=== PATIENT | female | born 1940 | race Caucasian/White ===

== ENCOUNTER 2020-07-01 00:08 | Inpatient (IN) | payer MEDICARE, OTHER ==
[~2020-07-01] VITALS: Ht 170.6 cm; Wt 85.4 kg
[2020-07-01] MEDS ORDERED: diphenhydrAMINE 25 MG TAB (BENADRYL) PO PRN (23:00)
[2020-07-01] MEDS ORDERED: ACETAMINOPHEN 325 MG TABLET PO PRN (23:00)
[2020-07-01] MEDS ORDERED: ONDANSETRON 4 MG/2 ML (SDV) Z0FRAN IVP PRN (23:00)
--- NOTE | 2020-07-01 23:45 | NUR ---
KIAH DE admitted to room CU9-1, with an admitting diagnosis of HEART BLOCK , on 07/01/20 from [facility] via EMS, accompanied by EMS STAFF. KIAH DE introduced to surroundings, call light, bed controls, phone, TV, temperature control, lights, meal times, smoking policy, visitor policy, side rail policy, bathrooms and showers. Patient Rights given to patient in the handbook.KIAH DE verbalizes understanding that [facility] is not responsible for the loss or damage to any personal effects or valuables that are kept in the patients posession during their hospitalization. KIAH DE verbalizes understanding of Interdisciplinary Patient Education. Patient and/or family were informed about the Rapid Response Team and its purpose.
[2020-07-02] VITALS (30 sets, daily range): BP systolic 96–121; BP diastolic 41–81
[2020-07-02 04:10] LABS: POTASSIUM 3.7 MMOL/L (3.6-5.0)
[2020-07-02 04:16] LABS: CREATININE SERUM 1.25 MG/DL (0.60-1.30)
[2020-07-02 04:18] LABS: MAGNESIUM 1.3 MG/DL (1.6-2.4)
[2020-07-02] MEDS: KCL 20 MEQ TAB (K-DUR) PO SCH (04:38)
[2020-07-02] MEDS: MAGNESIUM 1 GM/100 ML IVPB 100 ML IV SCH ×5 (04:38→10:07)
[2020-07-02] MEDS: POTASSIUM CL 10MEQ/50ML IVPB 50 ML IV SCH (04:38)
--- NOTE | 2020-07-02 05:18 | Pulmonary Consultation ---
PAXTON SADLER MED STUDENT 07/02/20 0518: History of Present Illness History of Present Illness Date Seen by Provider: Jul 02, 2020 Time Seen by Provider: 05:00 Date of Admission History of Present Illness Aby Vega is a 79 year old female seen today after being transferred from [facility]. She reports being seen in the ED there due to CP and recent history of pre-syncope, and was transferred with a diagnosis of heart block. Nursing reports [facility] diagnosed 2nd degree heart block on EKG, while EKGs taken here show 1st degree. When seen this morning the patient describes having light-headedness, pre-syncope for several weeks, for which she has seen [place] PCP [place] who diagnosed her with orthostatic hypotension and reduced her BP medications, which she reports has reduced the frequency and intensity of her pre-syncopal events. She went to the ED yesterday due to new CP that is worse with exertion which began yesterday at around 11 am but worsened in intensity at 4 pm. She describes the pain as being located around her sternum, no radiation, and describes the pain as if her muscles are expanding her ribs. The pain is not reproduced by palpation or moving her arms. She also reports being on a keto diet for the past several months, losing 60 pounds. No SOB, cough, palpitations, n/v. Allergies and Home Medications Allergies Coded Allergies: atorvastatin (Verified Allergy, Intermediate, 07/02/20) ciprofloxacin (Verified Allergy, Intermediate, 07/02/20) pregabalin (Verified Allergy, Intermediate, 07/02/20) Uncoded Allergies: IV Contrast (Adverse Reaction, Unknown, 07/02/20) Past Aydorir-Nxwmoh-Jxmzun Hx Patient Social History Alcohol Use: Denies Use Recreational Drug Use: No Smoking Status: Never a Smoker Recent Foreign Travel: No Recent Hopitalizations: No Seasonal Allergies Seasonal Allergies: Yes Past Medical History Surgeries: Yes (RIGHT KIDNEY REMOVAL) Pneumonia, Sleep Apnea Cardiac: Yes (HEART VIRUS) Neurological: No Genitourinary: Yes (RIGHT KIDNEY CANCER AND REMOVAL) UTI-Chronic Gastrointestinal: Yes Chronic Constipation Musculoskeletal: Yes Arthritis Endocrine: Yes Are Your Blood Sugars Over 250: No HEENT: Yes Cataract Loss of Vision: Bilateral Cancer: Yes Breast, Kidney What Type of Treatment Did You: Surgical Intervention Anxiety, Depression Integumentary: Yes (STATES SHE HAS YEAST INFECTION ON FACE) Recent Skin Changes Blood Disorders: No Adverse Reaction/Blood Tranf: No Family Medical History Cardiovascular disease 19 FATHER Completed stroke 19 FATHER 19 MOTHER Diabetes mellitus 19 MOTHER Review of Systems Constitutional: No: Fever, Chills ENT: Nose discharge (attributres to postnasal drip), Throat pain (attributes to post nasal drip); No: Nose congestion Respiratory: No: Cough, Shortness of breath Cardiovascular: Chest Pain, Lt Headedness; No: Palpitations, Edema Gastrointestinal: Constipation; No: Nausea, Vomiting, Abdominal Pain, Diarrhea Musculoskeletal: shoulder pain (attributes to arthritis), arm pain (attributes to arthritis), leg pain (attributes to arthritis) Neurological: No: Weakness, Numbness Sepsis Event Evaluation Height, Weight, BMI Height: '" Weight: lbs. oz. kg; 29.17 BMI Method: Exam Exam Vital Signs Date Time Temp Pulse Resp B/P (MAP) Pulse Ox O2 Delivery O2 Flow Rate FiO2 07/02/20 04:00 42 121/58 (79) 98 Nasal Cannula 2.00 07/02/20 03:00 40 39 115/56 (75) 97 Nasal Cannula 2.00 07/02/20 02:00 45 28 111/62 (78) 98 Nasal Cannula 2.00 07/02/20 01:30 41 28 115/43 (67) 98 Nasal Cannula 2.00 07/02/20 01:00 54 28 107/70 (82) 97 Nasal Cannula 2.00 07/02/20 00:45 50 27 116/81 (93) 97 Nasal Cannula 2.00 07/02/20 00:30 58 18 115/74 (88) 98 Nasal Cannula 2.00 07/02/20 00:15 36.8 57 31 96/67 (77) 98 Nasal Cannula 2.00 07/02/20 00:14 74 07/01/20 23:45 Nasal Cannula 2.00 Height & Weight Height: '" Weight: lbs. oz. kg; 29.17 BMI Method: General Appearance: No Apparent Distress, WD/WN HEENT: PERRL/EOMI; No Scleral Icterus (L), No Scleral Icterus (R) Neck: Normal Inspection, Non Tender, Supple Respiratory: Chest Non Tender, Lungs Clear, Normal Breath Sounds, No Accessory Muscle Use, No Respiratory Distress Cardiovascular: No Edema, No JVD, No Murmur, Normal Peripheral Pulses, Bradycardia Capillary Refill: Less Than 3 Seconds Peripheral Pulses: 2+ Dorsalis Pedis (R), 2+ Left Dors-Pedis (L), 2+ Radial Pulses (R), 2+ Radial Pulses (L) Extremity: Normal Capillary Refill, Normal Inspection, Non Tender, No Calf Tenderness, No Pedal Edema Neurologic/Psychiatric: Alert, Oriented x3, Normal Mood/Affect Skin: Normal Color, Warm/Dry Results Lab Laboratory Tests 07/02/20 03:50 Assessment/Plan Assessment/Plan CP, Hx of FL - EKG reported positive for heart block, verify negative for ST elevation - verify troponins Bradycardia - IVF Hyponatremia - IVF Hypomagnesemia - on Mag sulfate Hypothyroid - check TSH, Free T3, T4 ERINN DICKERSON DO 07/02/20 0549: History of Present Illness History of Present Illness Time Seen by Provider: 05:44 Allergies and Home Medications Allergies Coded Allergies: atorvastatin (Verified Allergy, Intermediate, 07/02/20) ciprofloxacin (Verified Allergy, Intermediate, 07/02/20) pregabalin (Verified Allergy, Intermediate, 07/02/20) Uncoded Allergies: IV Contrast (Adverse Reaction, Unknown, 07/02/20) Past Cevpmgr-Rzdost-Owpdwv Hx Family Medical History Cardiovascular disease 19 FATHER Completed stroke 19 FATHER 19 MOTHER Diabetes mellitus 19 MOTHER Review of Systems Time Seen by Provider: 05:44 Exam Exam General Appearance: No Apparent Distress, WD/WN HEENT: PERRL/EOMI Neck: Normal Inspection, Non Tender, Supple Respiratory: Chest Non Tender, Lungs Clear, Normal Breath Sounds, No Accessory Muscle Use, No Respiratory Distress Cardiovascular: No Edema, No JVD, No Murmur, Bradycardia Capillary Refill: Less Than 3 Seconds Extremity: Normal Capillary Refill, Normal Inspection, Non Tender, No Calf Tenderness, No Pedal Edema Neurologic/Psychiatric: Alert, Oriented x3 Skin: Normal Color, Warm/Dry Assessment/Plan Assessment/Plan CP with heart block r/o [place] -Cardiology following -EKG done and sent to Dr. Osorio -Troponin pending Hyponatremia -Start NS at 100cc/hr -Check BNP -Check CMP -Check urine Na Leukocytosis -Arvizu cultures -Start Rocephin -Check UA Metabolic acidosis -Start IVF -Check LA Hypomag -replace -Check Phos Hypothyroid -Restart home synthroid -Pt is unsure of home dose. -Check TSH Supervisory-Addendum Brief Verification & Attestation Participated in pt care: history, MDM, physical Personally performed: exam, history, MDM Care discussed with: Medical Student Procedures: n/a Verification and Attestation of Medical Student E/M Service A medical student performed and documented this service in my presence. I reviewed and verified all information documented by the medical student and made modifications to such information, when appropriate. I personally performed the physical exam and medical decision making. Erinn Almendarez, Jul 02, 2020,06:03 PAXTON SADLER MED STUDENT Jul 02, 2020 05:18 ERINN ALMENDAREZ DO Jul 02, 2020 05:49
[2020-07-02 05:30] LABS: BASOPHILS % (AUTO) 0 % (0-10); EOSINOPHILS % (AUTO) 0 % (0-10); HEMATOCRIT 34 % (35-52); HEMOGLOBIN 11.8 G/DL (11.5-16.0); LYMPHOCYTES # (AUTO) 1.3 X 10^3 (1.0-4.0); LYMPHOCYTES % (AUTO) 6 % (12-44); MEAN CORPUSCULAR HEMOGLOBIN 29 PG (25-34); MEAN CORPUSCULAR HGB CONC 35 G/DL (32-36); MEAN CORPUSCULAR VOLUME 85 FL (80-99); MEAN PLATELET VOLUME 13.3 FL (7.4-10.4); MONOCYTES # (AUTO) 2.1 X 10^3 (0.0-1.0); MONOCYTES % (AUTO) 10 % (0-12); NEUTROPHILS # (AUTO) 17.2 X 10^3 (1.8-7.8); NEUTROPHILS % (AUTO) 84 % (42-75); PLATELET COUNT 187 10^3/uL (130-400); WHITE BLOOD COUNT 20.6 10^3/uL (4.3-11.0)
--- NOTE | 2020-07-02 05:30 | NUR ---
DR. KUMAR NOTIFIED OF PATIENT'S C/O CHEST PAIN AND CURRENT EKG. RECEIVED ORDER FOR NITRO, ASPIRIN, AND TROPONIN.
[2020-07-02] MEDS: NITROGLYCERIN 0.4 MG SL TABS BTL 25'S SL PRN ×2 (05:37→05:43)
[2020-07-02] MEDS ORDERED: ASPIRIN 325 MG (5 GR) TABLET ONE (05:37)
[2020-07-02] MEDS ORDERED: NITROGLYCERIN 0.4 MG SL TABS BTL 25'S SL ONE (05:43)
[2020-07-02] MEDS ORDERED: ASPIRIN 325 MG (5 GR) TABLET PO ONE (05:45)
[2020-07-02] MEDS ORDERED: NS IV 1000 ML 1,000 ML ONE (05:54)
[2020-07-02 05:58] LABS: BAND NEUTROPHILS 3 %; LYMPHOCYTES % (MANUAL) 10 %; MONOCYTES % (MANUAL) 4 %; NEUTROPHILS % (MANUAL) 83 %; RBC MORPH NORMAL
[2020-07-02] MEDS ORDERED: NS IV 1000 ML 1,000 ML IV SCH ×3 (06:00→07:15)
[2020-07-02] MEDS: cefTRIAXone FOR IV USE 1,000 MG in WATER (STERILE) FOR INJECTION 10 ML IV SCH (06:05)
[2020-07-02 06:47] LABS: ALBUMIN 3.2 GM/DL (3.2-4.5)
[2020-07-02 06:48] LABS: CHLORIDE 93 MMOL/L (98-107); POTASSIUM 3.6 MMOL/L (3.6-5.0)
[2020-07-02 06:49] LABS: CALCIUM 8.3 MG/DL (8.5-10.1)
[2020-07-02 06:50] LABS: GLUCOSE 282 MG/DL (70-105); TOTAL PROTEIN 6.1 GM/DL (6.4-8.2)
[2020-07-02 06:51] LABS: CARBON DIOXIDE 19 MMOL/L (21-32); SODIUM 125 MMOL/L (135-145)
[2020-07-02 06:52] LABS: BILIRUBIN,TOTAL 0.7 MG/DL (0.1-1.0)
[2020-07-02 06:53] LABS: ALKALINE PHOSPHATASE 87 U/L (40-136)
[2020-07-02 06:54] LABS: CREATININE SERUM 1.25 MG/DL (0.60-1.30); GFR ESTIMATED 41
[2020-07-02 06:55] LABS: BUN/CREATININE RATIO 22
[2020-07-02 06:57] LABS: ALANINE AMINOTRANSFERASE 43 U/L (0-55)
[2020-07-02] MEDS ORDERED: FLU QUAD HIGH DOSE 240 MCG/0.7 ML 2020-21 (FLUZONE) IM ONE (07:15)
--- NOTE | 2020-07-02 07:17 | Consultation-Cardiology ---
HPI-Cardiology Cardiology Consultation Date of Consultation 07/02/20 Date of Admission Time Seen by Provider: 05:44 Indication: Chest pain HPI 79-year-old lady with history of renal cancer, history of nephrectomy, hypertension, diabetes mellitus. Patient has been having episode of dizziness and lightheadedness and near syncope, has been working with her primary care physician on adjusting her blood pressure medication. Yesterday around 4 p.m. she started to have chest pain felt pressure in the retrosternal area not radiating, feeling stretching in her chest. Came to the emergency room in [facility], initially was refusing aspirin out of concern of her single kidney. Talco better on arrival to our hospital then she started to have another episode of chest pain that responded to nitroglycerin. On my evaluation she was starting to have chest pain again. Appeared to have underlying sinus rhythm with first-degree AV block and left bundle branch block and intermittent 2-1 AV block. She has been on Norvasc and lisinopril as an outpatient. She denied any fever or chills. No previous episodes of chest pain. Her second troponin was negative and was done around 4 a.m. Home Medications & Allergies Allergies: Coded Allergies: atorvastatin (Verified Allergy, Intermediate, 07/02/20) ciprofloxacin (Verified Allergy, Intermediate, 07/02/20) pregabalin (Verified Allergy, Intermediate, 07/02/20) Uncoded Allergies: IV Contrast (Adverse Reaction, Unknown, 07/02/20) Home Medication List Reviewed: Yes DIK-Kwrblb-Sosmjl Hx Patient Social History Marital Status: Employed/Student: retired Alcohol Use: Denies Use Recreational Drug Use: No Smoking Status: Never a Smoker Recent Foreign Travel: No Recent Hopitalizations: No Physical Abuse Screen: No Sexual Abuse: No Past Medical History Discussed below Family Medical History Family History: Cardiovascular disease 19 FATHER Completed stroke 19 FATHER 19 MOTHER Diabetes mellitus 19 MOTHER Review of Systems-General Review of Systems Constitutional: see HPI, malaise, weakness EENTM: see HPI, no symptoms reported Respiratory: see HPI, cough; No dyspnea on exertion, No hemoptysis, No orthopne a, No phlegm, No short of breath, No stridor, No wheezing, No other Cardiovascular: see HPI, chest pain; No edema, No Hx of Intervention, No palpitations; syncope; No vascular heart diseas, No other Gastrointestinal: no symptoms reported, see HPI Genitourinary: no symptoms reported, see HPI Musculoskeletal: no symptoms reported, see HPI Skin: no symptoms reported, see HPI Psychiatric/Neurological: No Symptoms Reported, See HPI Reviewed Test Results Reviewed Test Results Lab Laboratory Tests Test 07/02/20 03:50 07/02/20 06:20 Range/Units White Blood Count 20.6 H 4.3-11.0 10^3/uL Red Blood Count 4.01 L 4.35-5.85 10^6/uL Hemoglobin 11.8 11.5-16.0 G/DL Hematocrit 34 L 35-52 % Mean Corpuscular Volume 85 80-99 FL Mean Corpuscular Hemoglobin 29 25-34 PG Mean Corpuscular Hemoglobin Concent 35 32-36 G/DL Red Cell Distribution Width 12.1 10.0-14.5 % Platelet Count 187 130-400 10^3/uL Mean Platelet Volume 13.3 H 7.4-10.4 FL Neutrophils (%) (Auto) 84 H 42-75 % Lymphocytes (%) (Auto) 6 L 12-44 % Monocytes (%) (Auto) 10 0-12 % Eosinophils (%) (Auto) 0 0-10 % Basophils (%) (Auto) 0 0-10 % Neutrophils # (Auto) 17.2 H 1.8-7.8 X 10^3 Lymphocytes # (Auto) 1.3 1.0-4.0 X 10^3 Monocytes # (Auto) 2.1 H 0.0-1.0 X 10^3 Eosinophils # (Auto) 0.0 0.0-0.3 10^3/uL Basophils # (Auto) 0.0 0.0-0.1 10^3/uL Neutrophils % (Manual) 83 % Lymphocytes % (Manual) 10 % Monocytes % (Manual) 4 % Band Neutrophils 3 % Blood Morphology Comment NORMAL Sodium Level 125 *L 125 *L 135-145 MMOL/L Potassium Level 3.7 3.6 3.6-5.0 MMOL/L Chloride Level 93 L 93 L 98-107 MMOL/L Carbon Dioxide Level 20 L 19 L 21-32 MMOL/L Anion Gap 12 13 5-14 MMOL/L Blood Urea Nitrogen 28 H 28 H 7-18 MG/DL Creatinine 1.25 1.25 0.60-1.30 MG/DL Estimat Glomerular Filtration Rate 41 41 BUN/Creatinine Ratio 22 22 Glucose Level 282 H 282 H 70-105 MG/DL Calcium Level 8.0 L 8.3 L 8.5-10.1 MG/DL Magnesium Level 1.3 L 1.6-2.4 MG/DL Troponin I < 0.028 <0.028 NG/ML Lactic Acid Level 2.14 *H 0.50-2.00 MMOL/L Corrected Calcium 8.9 8.5-10.1 MG/DL Phosphorus Level 3.0 2.3-4.7 MG/DL Total Bilirubin 0.7 0.1-1.0 MG/DL Aspartate Amino Transf (AST/SGOT) 31 5-34 U/L Alanine Aminotransferase (ALT/SGPT) 43 0-55 U/L Alkaline Phosphatase 87 40-136 U/L B-Type Natriuretic Peptide 504.9 H <100.0 PG/ML Total Protein 6.1 L 6.4-8.2 GM/DL Albumin 3.2 3.2-4.5 GM/DL Physical Exam Physical Exam Vital Signs Vital Signs - First Documented 07/01/20 07/02/20 07/02/20 23:45 00:14 00:15 Temp 36.8 Pulse 74 Resp 31 B/P (MAP) 96/67 (77) Pulse Ox 98 O2 Delivery Nasal Cannula O2 Flow Rate 2.00 Capillary Refill : Less Than 3 Seconds Height, Weight, BMI Height: '" Weight: lbs. oz. kg; 29.17 BMI Method: General Appearance: No Apparent Distress, WD/WN HEENT: PERRL/EOMI Neck: Normal Inspection, Non Tender, Supple Respiratory: Chest Non Tender, Lungs Clear, Normal Breath Sounds, No Accessory Muscle Use, No Respiratory Distress Cardiovascular: No Edema, No JVD, No Murmur, Bradycardia Extremity: Normal Capillary Refill, Normal Inspection, Non Tender, No Calf Tenderness, No Pedal Edema Neurologic/Psychiatric: Alert, Oriented x3 Skin: Normal Color, Warm/Dry A/P-Cardiology Admission Diagnosis Unstable angina Second degree AV block Bradycardia Hypotension Assessment/Plan Chest pain, unstable angina, I am sending another troponin level and proceeding with cardiac catheterization possible PTCA Second degree AV block, 2-1 AV block Mobitz 2 intermittent, underlying sinus rhythm with first-degree AV block and left bundle branch block. Patient will need pacemaker, I am postponing the procedure until evaluating the underlying cause of her leukocytosis. 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 Continue on IV fluid and monitor Hyponatremia, metabolic acidosis. Questionable underlying sepsis Clinical Quality Measures DVT/VTE Risk/Contraindication: Risk Factor Score Per Nursin RFS Level Per Nursing on Admit: 2=Moderate ALLEN KUMAR MD Jul 02, 2020 7:17 am
[2020-07-02] MEDS ORDERED: HEParin 1000 UNIT/ML (10ML VIAL) FOR BOLUS ONE (07:19)
[2020-07-02] MEDS ORDERED: MIDAZOLAM 5 MG/5 ML (VERSED) VIAL ONE (07:19)
[2020-07-02] MEDS ORDERED: fentaNYL INJECTION 100 MCG/2 ML AMP ONE (07:19)
[2020-07-02] MEDS ORDERED: NITRO DRIP 25000 MCG/D5W 0 ML IV ONE (07:19)
--- NOTE | 2020-07-02 07:57 | Diagnostic Imaging Report ---
Indication: Dyspnea. Findings: A left subclavian line is at the upper SVC. There is no pneumothorax. There is a small left pleural effusion and likely some interfissural pleural fluid on the right. Heart size upper limits. There is mild vascular distention centrally. Pulmonary opacities greater left than right may reflect mild edema or pneumonia. Impression: Central line in the SVC, no pneumothorax. Pleural fluid. There is upper limits heart size and vascular caliber, pulmonary densities, edema versus pneumonia. Dictated by: Dictated on workstation # [id number]
[2020-07-02] MEDS ORDERED: PATIENT MAY USE OWN MEDS, ALL PO SCH (08:00)
--- NOTE | 2020-07-02 08:01 | Cardiac Cath Report ---
Cardiac Cath Report Physician (s)/Automatic Spinning Lathe Operator (s) Physician ALLEN KUMAR MD Pre-Procedure Diagnosis Pre-Procedure Diagnosis: chest pain, high-grade AV block Post-Procedure Note Procedure Start Date: Jul 02, 2020 Name of Procedure: Left heart catheterization Insertion of temporary pacemaker Findings/Procedure Note PROCEDURE NOTE: 79-year-old lady admitted with acute chest pain, left bundle branch block, intermittent 2-1 AV block, bradycardia and hypotension. Due to the active chest pain I decided to proceed with cardiac catheterization, cardiac enzymes were negative. I am considering insertion of permanent pacemaker which will be postponed due to the fact that she has elevated WBC, lactic acid, I am concerned about underlying bacteremia or sepsis. Temporary pacemaker will be available as a backup for her and will monitor closely to evaluate the need for permanent pacemaker once her infection resolved. After explaining the procedure to the patient, all pros and cons were explained, all questions were answered. The patient signed the consent and then she was placed on the cardiac catheterization laboratory. Groin was prepped SL fashion local anesthesia was used. Sheath placed in the right femoral artery. Crystal right and left catheter were used to access the coronary system. Pigtail was used to access the left ventricular cavity. Left ventriculogram was not done to limit the exposure to contrast 7 Sammarinese sheath was placed in the right femoral vein, balloon tip pacemaker lead was advanced through the venous sheath, manipulated and advanced to the right ventricle. Good capture activity, appear to be sensing appropriately. After testing the threshold it was placed at 2 mA. To be pacing at rate of 60 with full synchrony At the end of the procedure the sheath was removed. Closure device placed at the site of the arterial line, venous sheath was sutured in place FINDINGS: Hemodynamics LV 94/11, end-diastolic pressure 11 Aorta 84/43 mean of 58 ANATOMY: Left Main is free of obstructive disease Left Anterior Descending has slow flow, mild irregularity nonobstructive disease Left Circumflex has mild irregularity obstructive disease Right Coronory Artery is large dominant artery with slow flow, no significant obstructive disease LV Gram was not done, pressure was measured Fluoroscopy was done showing well-positioned venous pacemaker CONCLUSION: 1. Large coronary system with slow flow due to low cardiac output, no significant obstructive disease 2. Sepsis with LVEDP of 11, hypotension 3. Successful placement of temporary pacemaker DISCUSSION AND RECOMMENDATION: Patient will be monitored in intensive care unit we will start with IV fluid aggressively and possible pressors, I will evaluate 2-D echo. Anesthesia Type: Conscious Sedation Estimated blood loss (mL): 25 ml Contrast Amount: 23 ml Total Radiation Dose: 402 mGy Post-Procedure Diagnosis Post-operative diagnosis: Chest pain Bradycardia Hypotension Second degree AV block ALLEN KUMAR MD Jul 02, 2020 8:01 am
[2020-07-02] MEDS ORDERED: ENOXAPARIN 40 MG/0.4 ML (LOVENOX) SYR SC SCH ×2 (09:00→21:00)
[2020-07-02] MEDS ORDERED: LIDOCAINE UROJET 2% GEL 10 ML PKG TOP ONE (09:15)
[2020-07-02] MEDS ORDERED: NS IV ONE (09:15)
[2020-07-02] MEDS ORDERED: FLUCONAZOLE 200 MG/100 ML 100 ML IV NR (09:20)
[2020-07-02 09:47] LABS: BILIRUBIN,URINE NEGATIVE (NEGATIVE); CLARITY,URINE CLEAR; COLOR,URINE YELLOW; GLUCOSE, URINE (UA) NEGATIVE (NEGATIVE); KETONES,URINE NEGATIVE (NEGATIVE); LEUKOCYTE ESTERASE ,URINE NEGATIVE (NEGATIVE); NITRITE,URINE NEGATIVE (NEGATIVE); PROTEIN,URINE NEGATIVE (NEGATIVE)
[2020-07-02 09:52] LABS: FREE T4 (FREE THYROXINE) 0.86 NG/DL (0.70-1.48)
[2020-07-02 09:59] LABS: AMORPHOUS SEDIMENT,UR MOD AMOR URATES /LPF; BACTERIA,URINE FEW /HPF; WBC,URINE 0-2 /HPF
[2020-07-02] MEDS: NS IV 1000 ML 1,000 ML IV SCH ×2 (10:08→18:49)
[2020-07-02] MEDS: DOCUSATE SODIUM 100 MG (COLACE) CAP PO SCH ×2 (10:21→19:40)
[2020-07-02] MEDS ORDERED: NIFE-25 PO (12:09)
[2020-07-02] MEDS ORDERED: AMLO10TA7 PO (12:09)
[2020-07-02] MEDS ORDERED: GLIP10TA13 PO (12:09)
[2020-07-02] MEDS ORDERED: AMIT10TA6 PO (12:09)
[2020-07-02] MEDS ORDERED: THYR60TA2 PO (12:09)
[2020-07-02] MEDS ORDERED: CHOL200074 PO (12:09)
[2020-07-02] MEDS ORDERED: IRON150C3 PO (12:09)
[2020-07-02] MEDS ORDERED: CYAN250010 PO (12:09)
[2020-07-02] MEDS ORDERED: UBID1CAP53 PO (12:09)
[2020-07-02] MEDS ORDERED: HYDR12.56 PO (12:09)
[2020-07-02] MEDS ORDERED: LISI-552 PO (12:09)
[2020-07-02] MEDS ORDERED: SIME180C4 PO (12:09)
[2020-07-02] MEDS ORDERED: ASCO-262 PO (12:09)
[2020-07-02] MEDS ORDERED: CARV12.53 PO (12:09)
--- NOTE | 2020-07-02 12:21 | History & Physical-Hospitalist ---
History of Present Illness HPI/Chief Complaint Aby Vega is a 79-year-old female with past medical history of hypertension, hypothyroidism, type II diabetes mellitus, renal cell carcinoma status post nephrectomy, who presented [facility] with chest pain. She was transferred to [facility] for cardiology evaluation. She reportedly been having lightheadedness and dizziness with near-syncope recently. She denies any fevers or chills. She denies any shortness of breath or cough. She denies palpitations. She denies any abdominal pain, nausea, or vomiting. She denies any dysuria. She does report frequency and urgency which have been long-standing issues. She denies any rash. Source: patient Exam Limitations: no limitations Date Seen 07/02/20 Time Seen by a Provider: 09:40 Attending Physician Vivian Hogan DO PCP Garry Moody DO Referring Physician Date of Admission Jul 01, 2020 at 23:43 Home Medications & Allergies Home Medications Reviewed patient Home Medication Reconciliation performed by pharmacy medication reconciliations manufacturing plant technician and/or nursing. Patients Allergies have been reviewed. Allergies Allergies Coded Allergies atorvastatin (Verified Allergy, Intermediate, 07/02/20) ciprofloxacin (Verified Allergy, Intermediate, 07/02/20) pregabalin (Verified Allergy, Intermediate, 07/02/20) Uncoded Allergies IV Contrast ( Adverse Reaction, Unknown, 07/02/20) Past Eessiwa-Vzfapp-Pbktjn Hx Past Med/Social Hx: Reviewed Nursing Past Med/Soc Hx Patient Social History Marrital Status: Employed/Student: retired Alcohol Use: Denies Use Recreational Drug Use: No Smoking Status: Never a Smoker Physical Abuse Screen: No Sexual Abuse: No Recent Foreign Travel: No Recent Hopitalizations: No Seasonal Allergies Seasonal Allergies: Yes Past Medical History Genitourinary: UTI-Chronic Gastrointestinal: Chronic Constipation Musculoskeletal: Arthritis Are Your Blood Sugars Over 250: No HEENT: Cataract Loss of Vision: Bilateral Cancer: Breast, Kidney What Type of Treatment Did You: Surgical Intervention Psychosocial: Anxiety, Depression Skin/Integumentary: Recent Skin Changes History of Blood Disorders: No Adverse Reaction to Blood Wise: No Family History Cardiovascular disease 19 FATHER Completed stroke 19 FATHER 19 MOTHER Diabetes mellitus 19 MOTHER Review of Systems Constitutional: dizziness, weakness EENTM: no symptoms reported Respiratory: no symptoms reported Cardiovascular: chest pain Gastrointestinal: no symptoms reported Genitourinary: frequency, incontinence Musculoskeletal: no symptoms reported Skin: no symptoms reported Psychiatric/Neurological: No Symptoms Reported Physical Exam Physical Exam Vital Signs Vital Signs - First Documented 07/01/20 07/02/20 07/02/20 23:45 00:14 00:15 Temp 36.8 Pulse 74 Resp 31 B/P (MAP) 96/67 (77) Pulse Ox 98 O2 Delivery Nasal Cannula O2 Flow Rate 2.00 Capillary Refill : Less Than 3 Seconds Height, Weight, BMI Height: '" Weight: lbs. oz. kg; 29.17 BMI Method: General Appearance: No Apparent Distress, WD/WN HEENT: PERRL/EOMI, Pharynx Normal Neck: Normal Inspection, Supple Respiratory: Lungs Clear, Normal Breath Sounds, No Respiratory Distress Cardiovascular: No Edema, No Murmur, Bradycardia (regular rhythm) Gastrointestinal: Normal Bowel Sounds, Non Tender, Soft Extremity: Normal Inspection, Non Tender, No Pedal Edema Neurologic/Psychiatric: Alert, Oriented x3, No Motor/Sensory Deficits, Normal Mood/Affect Skin: Normal Color, Warm/Dry Results Results/Procedures Labs Laboratory Tests 07/02/20 03:50 07/02/20 06:20 Patient resulted labs reviewed. Imaging: Reviewed Imaging Report Assessment/Plan Admission Diagnosis second degree AV block Admission Status: Inpatient Order (span 2 midnights) Reason for Inpatient Admission: sepsis with possible pneumonia Assessment and Plan Chest pain Syncope Second-degree AV block EKG revealed heart block Transferred to [facility] for cardiology evaluation Cardiology consulted, appreciate assistance Left heart catheterization revealed normal coronary arteries Temporary pacemaker placed, planning for permanent pacemaker placement this hospital stay Severe sepsis Possible pneumonia Possible urinary tract infection Lactic acidosis SIRS+ with leukocytosis and tachypnea severe sepsis with lactic acidosis chest x-ray showed possible pneumonia Procalcitonin elevated UA with no WBC, few bacteria, culture pending blood cultures pending Continue Rocephin Continue IV fluids Acute kidney injury versus chronic kidney disease creatinine 1.25, unknown baseline Continue IV fluids, monitor Hyponatremia sodium 125 Urine studies pending Possibly due to HCTZ, held Continue normal saline repeat sodium check this afternoon low TSH level Hypothyroidism likely euthyroid sick syndrome TSH 0.07 Free T4 0.86, within normal limits Free T3 pending Hold [place] Thyroid DVT prophylaxis: Lovenox Diagnosis/Problems Diagnosis/Problems (1) Second degree AV block Status: Acute (2) Sepsis Status: Acute (3) Pneumonia Status: Acute (4) Hyponatremia Status: Acute (5) Kidney injury Qualifiers: Encounter type: initial encounter (6) Low TSH level Status: Acute (7) HTN (hypertension) Status: Chronic Qualifiers: Hypertension type: essential hypertension Qualified Codes: I10 - Essential (primary) hypertension (8) T2DM (type 2 diabetes mellitus) Status: Chronic Qualifiers: Diabetes mellitus terminal clerk insulin use: without chcf use (9) Hypothyroidism Status: Chronic (10) Renal cell carcinoma Status: Chronic Qualifiers: Laterality: unspecified laterality Qualified Codes: C64.9 - Malignant neoplasm of unspecified kidney, except renal pelvis (11) S/p nephrectomy Status: Chronic Clinical Quality Measures DVT/VTE Risk/Contraindication: Risk Factor Score Per Nursin RFS Level Per Nursing on Admit: 2=Moderate RONA AVILES MD Jul 02, 2020 12:21
--- NOTE | 2020-07-02 12:24 | NUR ---
SPOKE WITH THE PT AND WENT THRU THE EXT MED HISTORY TO COMPLETE THE MED REC COREG 12.5MG- DIRECTIONS SHOW 1 TAB BID HOWEVER PT IS TAKING TAB BID LISINOPRIL 20MG- DIRECTIONS SHOW 1 TAB BID HOWEVER PT IS TAKING TAB BID NIFEDIPINE ER 30MG- PT IS TAKING 1/4 TABLET BID OTC MEDS: IRON VIT D VIT B12 VIT C COQ10 GAS -X
[2020-07-02] MEDS: inSUlin ASPART (NovoLOG) 1 UNIT/0.01 ML (CHARGE PER UNIT) SC SCH ×2 (12:46→18:49)
--- NOTE | 2020-07-02 14:20 | NUR ---
RD ASSESSMENT PMHx: CA(renal,breast); HTN; DM; chronic UTI; chronic constipation PT INTERACTION: Pt was awake and pleasant during nutrition assessment. Pt states current appetite is good. Note PO intake 50% x1meal, per chart review. Pt states following a regular diet at home, and has no issues with chewing/swallowing food. Pt states previously following the ketogenic diet and losing 60# x3mon. Note unable to determine recent wt hx, per chart review. Pt states current DM management as "going crazy and hard to control blood sugars." Note unable to determine recent HbA1c, per chart review. This RD explained that the ketogenic diet was likely the cause of it. Pt states no recent issues with nausea, vomiting, or diarrhea. Pt states some recent issues with constipation, and that her last BM was 07/01. Note pt currently on bowel regimen of colace BID, per chart review. ABNORMAL NUTRITION-RELATED LAB VALUES LOW: Na 125; Cl 93; Ca 8.3; Pro 6.1 HIGH: glu 282; BUN 28 Est. kcal needs: 1700 kcal | 20 kcal/kg Est. Pro needs: 68 g Pro | 0.8 g Pro/kg PES STATEMENT: Inadequate oral intake (NI-2.1) related to constipation as evidenced by pt interview | PO intake 50% x1meal INTERVENTION: Continue with current diet order of CHO 60g/m 1snack diet. Pt may benefit from nutrition supplementation if PO intake declines. Discussed and provided diet education on DM management. Advised pt to discontinue the keto diet upon discharge. Discussed and provided information on CHO counting, and appropriate snacks. Pt verbalized understanding of information provided. Will follow-up prior to discharge to reinforce education. Will continue to follow and reassess as pt needs, intake, and status change. Mo Rogers, MS, RD, LD
[2020-07-03] VITALS (24 sets, daily range): BP systolic 98–135; BP diastolic 40–90
[2020-07-03] MEDS: NS IV 1000 ML 1,000 ML IV SCH ×3 (01:00→20:02)
[2020-07-03] MEDS ORDERED: ENOXAPARIN 40 MG/0.4 ML (LOVENOX) SYR SC ONE (02:00)
[2020-07-03] MEDS: fentaNYL INJECTION 100 MCG/2 ML AMP IVP PRN ×2 (02:45→08:27)
[2020-07-03 02:46] LABS: BASOPHILS % (AUTO) 0 % (0-10); EOSINOPHILS % (AUTO) 0 % (0-10); HEMATOCRIT 32 % (35-52); HEMOGLOBIN 10.7 G/DL (11.5-16.0); LYMPHOCYTES # (AUTO) 1.1 X 10^3 (1.0-4.0); LYMPHOCYTES % (AUTO) 9 % (12-44); MEAN CORPUSCULAR HEMOGLOBIN 29 PG (25-34); MEAN CORPUSCULAR HGB CONC 34 G/DL (32-36); MEAN CORPUSCULAR VOLUME 87 FL (80-99); MEAN PLATELET VOLUME 12.5 FL (7.4-10.4); MONOCYTES # (AUTO) 1.4 X 10^3 (0.0-1.0); MONOCYTES % (AUTO) 10 % (0-12); NEUTROPHILS # (AUTO) 10.7 X 10^3 (1.8-7.8); NEUTROPHILS % (AUTO) 81 % (42-75); PLATELET COUNT 157 10^3/uL (130-400); WHITE BLOOD COUNT 13.2 10^3/uL (4.3-11.0)
[2020-07-03 02:56] LABS: POTASSIUM 3.8 MMOL/L (3.6-5.0)
[2020-07-03 02:57] LABS: CALCIUM 7.5 MG/DL (8.5-10.1)
[2020-07-03 03:01] LABS: PHOSPHORUS 3.1 MG/DL (2.3-4.7)
[2020-07-03 03:02] LABS: CREATININE SERUM 1.25 MG/DL (0.60-1.30)
[2020-07-03 03:04] LABS: MAGNESIUM 2.4 MG/DL (1.6-2.4)
[2020-07-03] MEDS: POTASSIUM CL 10MEQ/50ML IVPB 50 ML IV SCH (04:54)
[2020-07-03] MEDS: KCL 20 MEQ TAB (K-DUR) PO SCH (04:55)
[2020-07-03] MEDS: MAGNESIUM 1 GM/100 ML IVPB 100 ML IV SCH (04:55)
[2020-07-03] MEDS: inSUlin ASPART (NovoLOG) 1 UNIT/0.01 ML (CHARGE PER UNIT) SC SCH ×4 (05:19→17:11)
[2020-07-03] MEDS: cefTRIAXone FOR IV USE 1,000 MG in WATER (STERILE) FOR INJECTION 10 ML IV SCH (05:19)
[2020-07-03] MEDS: FLUCONAZOLE 100 MG/50 ML IVPB IV SCH ×2 (08:26)
[2020-07-03] MEDS: DOCUSATE SODIUM 100 MG (COLACE) CAP PO SCH ×2 (08:36→20:02)
--- NOTE | 2020-07-03 09:42 | Cardiology Progress Note ---
Subjective Date Seen by Provider: Jul 03, 2020 Time Seen by Provider: 09:39 Subjective/Events-last exam Patient is laying down in bed, feeling better, heart rate is better once I turned down the transvenous pacemaker, appeared to have underlying rhythm around 60 Review of Systems General: No Chills, No Night Sweats, No Fatigue, No Malaise, No Appetite, No Other HEENT: No Head Aches, No Visual Changes, No Eye Pain, No Ear Pain, No Dysphasia, No Sinus Congestion, No Post Nasal Drip, No Sore Throat, No Other Pulmonary: No Dyspnea, No Cough, No Pleuritic Chest Pain, No Other Cardiovascular: No: Chest Pain, Palpitations, Orthopnea, Paroxysmal Noc. Dyspnea, Edema, Lt Headedness, Other Focused Exam Lactate Level 07/02/20 06:20: Lactic Acid Level 2.14*H 07/02/20 10:55: Lactic Acid Level 1.20 Objective-Cardiology Exam Last Set of Vital Signs Vital Signs 07/03/20 07/03/20 08:00 09:00 Temp 37.4 Pulse 58 Resp 21 B/P (MAP) 133/49 (77) Pulse Ox 93 O2 Delivery Nasal Cannula O2 Flow Rate 2.00 Capillary Refill : Less Than 3 Seconds I&O Intake and Output 07/03/20 00:00 Intake Total 5050 ml Output Total 1425 ml Balance 3625 ml Intake Oral 950 ml IV Total 4100 ml Output Urine Total 1425 ml General: Alert, Oriented X3, Cooperative HEENT: Atraumatic, PERRLA Neck: Supple, No JVD, No Thyromegaly Lungs: Clear to Auscultation, Normal Air Movement Heart: Regular Rate, Normal S1, Normal S2, Other (SM at lsb) Abdomen: Normal Bowel Sounds, Soft, No Tenderness, No Hepatosplenomegaly, No Ma sses Extremities: No Clubbing, No Cyanosis, No Edema, Normal Pulses, No Tender ness/Swelling Skin: No Rashes, No Breakdown, No Significant Lesion Neuro: Normal Gait, Normal Speech, Strength at 5/5 X4 Ext, Normal Tone, Sensation Intact Psych/Mental Status: Mental Status NL, Mood NL Results Lab Laboratory Tests 07/03/20 02:35 A/P-Cardiology Admission Diagnosis Unstable angina Second degree AV block Bradycardia Hypotension Assessment/Plan Chest pain, unstable angina, cardiac cath done on 07/02/20 having mild to moderate CAD, non obstructive disease Second degree AV block, 2-1 AV block Mobitz 2 intermittent, underlying sinus rhythm with first-degree AV block and left bundle branch block. Heart rate is better since she has been off amlodipine, dialing down her pacemaker rate and monitoring. I am hesitant to proceed with permanent pacemaker implant due to questionable underlying infection. 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 Continue on IV fluid and monitor Hyponatremia, metabolic acidosis. Questionable underlying sepsis Clinical Quality Measures DVT/VTE Risk/Contraindication: Risk Factor Score Per Nursin RFS Level Per Nursing on Admit: 2=Moderate ALLEN KUMAR MD Jul 03, 2020 09:42
--- NOTE | 2020-07-03 13:25 | Progress Note - Hospitalist ---
Subjective HPI/CC On Admission Date Seen by Provider: Jul 03, 2020 Time Seen by Provider: 09:15 Aby Vega is a 79-year-old female with past medical history of hypertension, hypothyroidism, type II diabetes mellitus, renal cell carcinoma status post nephrectomy, who presented to with chest pain. She was transferred to [facility] for cardiology evaluation. She reportedly been having lightheadedness and dizziness with near-syncope recently. She denies any fevers or chills. She denies any shortness of breath or cough. She denies palpitations. She denies any abdominal pain, nausea, or vomiting. She denies any dysuria. She does report frequency and urgency which have been long-standing issues. She denies any rash. Subjective/Events-last exam she reports some back pain from lying in bed all day. She is hungry and wants to eat breakfast. She denies any lightheadedness or dizziness. She denies any chest pain. She denies any shortness of breath. She had a cough this morning but she says this is due to her postnasal drip. She denies any abdominal pain. She denies any nausea or vomiting. She denies any dysuria. She has no other complaints or concerns. Focused Exam Lactate Level 07/02/20 06:20: Lactic Acid Level 2.14*H 07/02/20 10:55: Lactic Acid Level 1.20 Objective Exam Vital Signs Vital Signs Date Time Temp Pulse Resp B/P (MAP) Pulse Ox O2 Delivery O2 Flow Rate FiO2 07/03/20 12:51 78 07/03/20 12:00 36.7 07/03/20 12:00 25 104/75 (85) 96 Nasal Cannula 2.00 Capillary Refill : Less Than 3 Seconds General Appearance: No Apparent Distress, WD/WN Neck: Normal Inspection, Supple Respiratory: Lungs Clear, Normal Breath Sounds, No Respiratory Distress Cardiovascular: No Murmur, Irregularly Irregular Gastrointestinal: Normal Bowel Sounds, Non Tender, Soft Extremity: Normal Inspection, Non Tender, No Pedal Edema Neurologic/Psychiatric: Alert, Oriented x3, No Motor/Sensory Deficits, Normal Mood/Affect Skin: Normal Color, Warm/Dry Results/Procedures Lab Laboratory Tests 07/03/20 02:35 Patient resulted labs reviewed. Imaging: Reviewed Imaging Report Assessment/Plan Assessment and Plan Assess & Plan/Chief Complaint Syncope Second-degree AV block EKG revealed heart block Transferred to [facility] for cardiology evaluation Cardiology consulted, appreciate assistance Left heart catheterization revealed normal coronary arteries Temporary pacemaker placed, planning for possible permanent pacemaker placement this hospital stay Severe sepsis Possible pneumonia Possible urinary tract infection Lactic acidosis SIRS+ with leukocytosis and tachypnea severe sepsis with lactic acidosis chest x-ray showed possible pneumonia Procalcitonin elevated UA with no WBC, few bacteria, culture pending blood cultures with no growth 2/3, coag negative staph 1/3 Continue Rocephin Continue IV fluids Likely chronic kidney disease creatinine 1.25, stable, unknown baseline Continue IV fluids, monitor Hyponatremia sodium 128, improving Urine studies pending Possibly due to HCTZ, held Continue normal saline Hypothyroidism Euthyroid sick syndrome TSH 0.07 Free T4 and free T3 within normal limits studies consistent with euthyroid sick syndrome Continue [place] Thyroid DVT prophylaxis: Lovenox Chest pain, resolved Diagnosis/Problems Diagnosis/Problems (1) Second degree AV block Status: Acute (2) Sepsis Status: Acute (3) Pneumonia Status: Acute (4) Hyponatremia Status: Acute (5) Kidney injury Qualifiers: Encounter type: initial encounter (6) Low TSH level Status: Acute (7) HTN (hypertension) Status: Chronic Qualifiers: Hypertension type: essential hypertension Qualified Codes: I10 - Essential (primary) hypertension (8) T2DM (type 2 diabetes mellitus) Status: Chronic Qualifiers: Diabetes mellitus termite helper insulin use: without termite helper use (9) Hypothyroidism Status: Chronic (10) Renal cell carcinoma Status: Chronic Qualifiers: Laterality: unspecified laterality Qualified Codes: C64.9 - Malignant neoplasm of unspecified kidney, except renal pelvis (11) S/p nephrectomy Status: Chronic (12) Euthyroid sick syndrome Status: Acute Clinical Quality Measures DVT/VTE Risk/Contraindication: Risk Factor Score Per Nursin RFS Level Per Nursing on Admit: 2=Moderate RONA AVILES MD Jul 03, 2020 13:25
[2020-07-04] VITALS (21 sets, daily range): BP systolic 91–161; BP diastolic 45–89
[2020-07-04] MEDS: inSUlin ASPART (NovoLOG) 1 UNIT/0.01 ML (CHARGE PER UNIT) SC SCH ×5 (00:55→22:42)
[2020-07-04 02:57] LABS: BASOPHILS % (AUTO) 0 % (0-10); EOSINOPHILS # (AUTO) 0.1 10^3/uL (0.0-0.3); EOSINOPHILS % (AUTO) 0 % (0-10); HEMATOCRIT 33 % (35-52); HEMOGLOBIN 11.1 G/DL (11.5-16.0); LYMPHOCYTES # (AUTO) 1.3 X 10^3 (1.0-4.0); LYMPHOCYTES % (AUTO) 8 % (12-44); MEAN CORPUSCULAR HEMOGLOBIN 29 PG (25-34); MEAN CORPUSCULAR HGB CONC 34 G/DL (32-36); MEAN CORPUSCULAR VOLUME 88 FL (80-99); MEAN PLATELET VOLUME 12.7 FL (7.4-10.4); MONOCYTES # (AUTO) 1.8 X 10^3 (0.0-1.0); MONOCYTES % (AUTO) 10 % (0-12); NEUTROPHILS # (AUTO) 13.9 X 10^3 (1.8-7.8); NEUTROPHILS % (AUTO) 81 % (42-75); PLATELET COUNT 201 10^3/uL (130-400)
[2020-07-04 03:09] LABS: CALCIUM 7.7 MG/DL (8.5-10.1)
[2020-07-04 03:13] LABS: CREATININE SERUM 1.41 MG/DL (0.60-1.30); PHOSPHORUS 3.2 MG/DL (2.3-4.7)
[2020-07-04] MEDS: KCL 20 MEQ TAB (K-DUR) PO SCH (04:12)
[2020-07-04] MEDS: POTASSIUM CL 10MEQ/50ML IVPB 50 ML IV SCH (04:12)
[2020-07-04] MEDS: MAGNESIUM 1 GM/100 ML IVPB 100 ML IV SCH (04:12)
[2020-07-04] MEDS: cefTRIAXone FOR IV USE 1,000 MG in WATER (STERILE) FOR INJECTION 10 ML IV SCH (06:04)
[2020-07-04] MEDS: NS IV 1000 ML 1,000 ML IV SCH ×2 (06:07→19:59)
[2020-07-04] MEDS: guaiFENesin/DM (ROBITUSSIN DM) 10 ML UDC PO PRN ×3 (08:59→22:41)
[2020-07-04] MEDS: DOCUSATE SODIUM 100 MG (COLACE) CAP PO SCH ×3 (09:00→22:41)
[2020-07-04] MEDS: FLUCONAZOLE 100 MG/50 ML IVPB IV SCH ×2 (09:00)
[2020-07-04] MEDS: SIMETHICONE 80 MG (MYLICON) CHEW PO PRN ×2 (09:00→16:11)
--- NOTE | 2020-07-04 09:58 | Cardiology Progress Note ---
Subjective Date Seen by Provider: Jul 04, 2020 Time Seen by Provider: 09:56 Subjective/Events-last exam Patient is laying down in bed, feeling better, denied any chest pain, had mild shortness of breath and sputum production Review of Systems General: No Chills, No Night Sweats; Fatigue; No Malaise, No Appetite, No Other HEENT: No Head Aches, No Visual Changes, No Eye Pain, No Ear Pain, No Dysphasia, No Sinus Congestion, No Post Nasal Drip, No Sore Throat, No Other Pulmonary: No Dyspnea, No Cough, No Pleuritic Chest Pain, No Other Cardiovascular: No: Chest Pain, Palpitations, Orthopnea, Paroxysmal Noc. Dyspnea, Edema, Lt Headedness, Other Focused Exam Lactate Level 07/02/20 06:20: Lactic Acid Level 2.14*H 07/02/20 10:55: Lactic Acid Level 1.20 Objective-Cardiology Exam Last Set of Vital Signs Vital Signs 07/04/20 09:00 Pulse 107 Resp 34 B/P (MAP) 138/79 (98) Pulse Ox 94 O2 Delivery Nasal Cannula O2 Flow Rate 2.00 Capillary Refill : Less Than 3 Seconds I&O Intake and Output 07/04/20 00:00 Intake Total 2525 ml Output Total 915 ml Balance 1610 ml Intake Oral 1525 ml IV Total 1000 ml Output Urine Total 915 ml General: Alert, Oriented X3, Cooperative HEENT: Atraumatic, PERRLA Neck: Supple, No JVD, No Thyromegaly Lungs: Clear to Auscultation, Normal Air Movement Heart: Regular Rate, Normal S1, Normal S2, Other (SM at lsb) Abdomen: Normal Bowel Sounds, Soft, No Tenderness, No Hepatosplenomegaly, No Masses Extremities: No Clubbing, No Cyanosis, No Edema, Normal Pulses, No Tenderness/Swelling Skin: No Rashes, No Breakdown, No Significant Lesion Neuro: Normal Gait, Normal Speech, Strength at 5/5 X4 Ext, Normal Tone, Sensation Intact Psych/Mental Status: Mental Status NL, Mood NL Results Lab Laboratory Tests 07/04/20 02:45 A/P-Cardiology Admission Diagnosis Unstable angina Second degree AV block Bradycardia Hypotension Assessment/Plan Chest pain, unstable angina, cardiac cath done on 07/02/20 having mild to moderate CAD, non obstructive disease Second degree AV block, 2-1 AV block Mobitz 2 reported by [facility], had multiple 2-1 AV block, first degree AV block and left bundle branch block. Initially he was requiring persistent transvenous pacing, I reduced the rate yesterday and turned it off today. Planning to remove the transvenous pacemaker tomorrow, will need a permanent pacemaker once her underlying infection is controlled Urinary tract infection, receiving antibiotics, leukocytosis are more elevated today. 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 Continue on IV fluid and m onitor Hyponatremia, metabolic acidosis. Questionable underlying sepsis Clinical Quality Measures DVT/VTE Risk/Contraindication: Risk Factor Score Per Nursin RFS Level Per Nursing on Admit: 2=Moderate ALLEN KUMAR MD Jul 04, 2020 09:58
--- NOTE | 2020-07-04 12:44 | Progress Note - Hospitalist ---
Subjective HPI/CC On Admission Date Seen by Provider: Jul 04, 2020 Time Seen by Provider: 09:10 Aby Vega is a 79-year-old female with past medical history of hypertension, hypothyroidism, type II diabetes mellitus, renal cell carcinoma status post nephrectomy, who presented to [facility] with chest pain. She was transferred to [facility] for cardiology evaluation. She reportedly been having lightheadedness and dizziness with near-syncope recently. She denies any fevers or chills. She denies any shortness of breath or cough. She denies palpitations. She denies any abdominal pain, nausea, or vomiting. She denies any dysuria. She does report frequency and urgency which have been long-standing issues. She denies any rash. Subjective/Events-last exam she is having a cough this morning from her postnasal drip. She denies any fevers or chills. She denies any chest pain. She denies any lightheadedness or dizziness. She denies any shortness of breath. She is not having any abdominal pain, nausea, or vomiting. She has no other complaints or concerns. Focused Exam Lactate Level 07/02/20 06:20: Lactic Acid Level 2.14*H 07/02/20 10:55: Lactic Acid Level 1.20 Objective Exam Vital Signs Vital Signs Date Time Temp Pulse Resp B/P (MAP) Pulse Ox O2 Delivery O2 Flow Rate FiO2 07/04/20 12:00 63 21 125/85 (98) Nasal Cannula 2.00 07/04/20 10:00 92 07/04/20 08:00 37.6 Capillary Refill : Less Than 3 Seconds General Appearance: No Apparent Distress, Obese Respiratory: Lungs Clear, Normal Breath Sounds, No Respiratory Distress Cardiovascular: Regular Rate, Rhythm, No Edema, No Murmur Gastrointestinal: Normal Bowel Sounds, Non Tender, Soft Extremity: Normal Inspection, Non Tender, No Pedal Edema Neurologic/Psychiatric: Alert, Oriented x3, No Motor/Sensory Deficits, Normal Mood/Affect Skin: Normal Color, Warm/Dry Results/Procedures Lab Laboratory Tests 07/04/20 02:45 Patient resulted labs reviewed. Imaging: Reviewed Imaging Report Assessment/Plan Assessment and Plan Assess & Plan/Chief Complaint Syncope Second-degree AV block EKG revealed heart block Transferred to [facility] for cardiology evaluation Cardiology consulted, appreciate assistance Left heart catheterization revealed normal coronary arteries Temporary pacemaker placed, planning for permanent pacemaker placement this hospital stay Severe sepsis Corynebacterium urinary tract infection Possible pneumonia SIRS+ with leukocytosis and tachypnea severe sepsis with lactic acidosis chest x-ray showed possible pneumonia Procalcitonin elevated UA with no WBC, few bacteria, culture growing Corynebacterium aurimucosum blood cultures with no growth 2/3, coag negative staph 1/3 Continue Rocephin Add vancomycin Continue IV fluids Likely chronic kidney disease creatinine 1.41, slightly increasing, unknown baseline Continue IV fluids, monitor Hyponatremia sodium 129, improving Likely due to HCTZ, held Continue normal saline Hypothyroidism Euthyroid sick syndrome TSH 0.07 Free T4 and free T3 within normal limits studies consistent with euthyroid sick syndrome Continue [place] Thyroid DVT prophylaxis: Lovenox Chest pain, resolved Lactic acidosis, resolved Diagnosis/Problems Diagnosis/Problems (1) Second degree AV block Status: Acute (2) Sepsis Status: Acute (3) Pneumonia Status: Acute (4) Hyponatremia Status: Acute (5) Kidney injury Qualifiers: Encounter type: initial encounter (6) Low TSH level Status: Acute (7) HTN (hypertension) Status: Chronic Qualifiers: Hypertension type: essential hypertension Qualified Codes: I10 - Essential (primary) hypertension (8) T2DM (type 2 diabetes mellitus) Status: Chronic Qualifiers: Diabetes mellitus moth exterminator insulin use: without moth exterminator use (9) Hypothyroidism Status: Chronic (10) Renal cell carcinoma Status: Chronic Qualifiers: Laterality: unspecified laterality Qualified Codes: C64.9 - Malignant neoplasm of unspecified kidney, except renal pelvis (11) S/p nephrectomy Status: Chronic (12) Euthyroid sick syndrome Status: Acute Clinical Quality Measures DVT/VTE Risk/Contraindication: Risk Factor Score Per Nursin RFS Level Per Nursing on Admit: 2=Moderate RONA AVILES MD Jul 04, 2020 12:43
[2020-07-04] MEDS ORDERED: VANCOMYCIN INJECTION 0.1 MG in NS (IVPB) 250 ML IV SCH (12:45)
--- NOTE | 2020-07-04 12:55 | NUR ---
PTD VANCOMYCIN LABS: 91.7KG, SCr 1.41, CrCl 38.3, BMI 31.5 PLAN: VANCOMYCIN 20MG/KG ~ 1750MG LOADING DOSE 07/04 @ 1300, VANCOMYCIN 15MG/KG ~ 1250 MG Q24H. VANCOMYCIN TROUGH DUE 07/07 @ 1200. IF TROUGH >20, HOLD DOSE AND NOTIFY PHARMACY FOR ADJUSTMENTS.
[2020-07-04] MEDS ORDERED: VANCOMYCIN 1,750 MG/NS 500 ML IVPB IV NR ×2 (13:00)
[2020-07-04] MEDS: MELATONIN 3 MG TABLET PO PRN (22:41)
[2020-07-05] VITALS (25 sets, daily range): BP systolic 108–175; BP diastolic 58–114
[2020-07-05] MEDS: guaiFENesin/DM (ROBITUSSIN DM) 10 ML UDC PO PRN ×3 (03:46→16:21)
[2020-07-05 03:48] LABS: BASOPHILS % (AUTO) 0 % (0-10); EOSINOPHILS # (AUTO) 0.3 10^3/uL (0.0-0.3); EOSINOPHILS % (AUTO) 2 % (0-10); HEMATOCRIT 33 % (35-52); HEMOGLOBIN 10.7 G/DL (11.5-16.0); LYMPHOCYTES # (AUTO) 1.4 X 10^3 (1.0-4.0); LYMPHOCYTES % (AUTO) 9 % (12-44); MEAN CORPUSCULAR HEMOGLOBIN 29 PG (25-34); MEAN CORPUSCULAR HGB CONC 33 G/DL (32-36); MEAN CORPUSCULAR VOLUME 89 FL (80-99); MEAN PLATELET VOLUME 13.1 FL (7.4-10.4); MONOCYTES # (AUTO) 1.7 X 10^3 (0.0-1.0); MONOCYTES % (AUTO) 11 % (0-12); NEUTROPHILS # (AUTO) 12.5 X 10^3 (1.8-7.8); NEUTROPHILS % (AUTO) 78 % (42-75); PLATELET COUNT 225 10^3/uL (130-400); WHITE BLOOD COUNT 15.9 10^3/uL (4.3-11.0)
[2020-07-05] MEDS: SIMETHICONE 80 MG (MYLICON) CHEW PO PRN ×2 (03:51→19:49)
[2020-07-05 03:58] LABS: POTASSIUM 3.8 MMOL/L (3.6-5.0)
[2020-07-05 03:59] LABS: CALCIUM 7.9 MG/DL (8.5-10.1)
[2020-07-05 04:03] LABS: CREATININE SERUM 1.39 MG/DL (0.60-1.30)
[2020-07-05 04:06] LABS: MAGNESIUM 1.9 MG/DL (1.6-2.4)
--- NOTE | 2020-07-05 04:37 | Pulmonary Progress Note ---
PAXTON SADLER MED STUDENT 07/05/20 0437: Subjective Date Seen by a Provider: Jul 05, 2020 Time Seen by a Provider: 04:20 Subjective/Events-last exam Reports she has been short of breath with a cough. She reports having clear sputum, although coughed up sputum with blood this morning. On NC with 2 L O2. She feels warm and is concerned about fever, denies chills. Denies any CP, light headedness. Review of Systems General: No Chills; Malaise HEENT: Post Nasal Drip; No Sore Throat Pulmonary: Dyspnea, Cough Cardiovascular: No: Chest Pain, Palpitations, Edema, Lt Headedness Gastrointestinal: Constipation; No: Nausea, Vomiting, Abdominal Pain, Diarrhea Genitourinary: No Dysuria Sepsis Event Evaluation Height, Weight, BMI Height: '" Weight: lbs. oz. kg; 29.17 BMI Method: Focused Exam Lactate Level 07/02/20 06:20: Lactic Acid Level 2.14*H 07/02/20 10:55: Lactic Acid Level 1.20 Exam Exam Vital Signs Date Time Temp Pulse Resp B/P (MAP) Pulse Ox O2 Delivery O2 Flow Rate FiO2 07/05/20 04:06 70 35 143/60 (87) 94 Nasal Cannula 2.00 07/05/20 03:00 65 17 126/77 (93) 95 Nasal Cannula 2.00 07/05/20 02:00 53 26 129/84 (99) 94 Nasal Cannula 2.00 07/05/20 01:00 64 07/05/20 01:00 43 26 119/58 (78) 96 Nasal Cannula 2.00 07/05/20 00:00 Nasal Cannula 2.00 07/05/20 00:00 59 26 123/60 (81) 95 Nasal Cannula 2.00 07/04/20 23:00 60 19 140/57 (84) 93 Nasal Cannula 2.00 07/04/20 22:36 63 141/72 (95) Nasal Cannula 2.00 07/04/20 22:00 46 93 Nasal Cannula 2.00 07/04/20 21:30 60 35 115/56 (75) 95 Nasal Cannula 2.00 07/04/20 20:00 68 20 124/52 (76) 94 Nasal Cannula 2.00 07/04/20 20:00 Nasal Cannula 2.00 07/04/20 19:09 36.7 07/04/20 19:00 63 27 91/80 (84) 96 Nasal Cannula 2.00 07/04/20 19:00 63 07/04/20 18:00 63 26 105/59 (74) 96 Nasal Cannula 2.00 07/04/20 17:00 52 25 96 Nasal Cannula 2.00 07/04/20 16:27 Nasal Cannula 2.00 07/04/20 16:00 57 27 123/51 (75) 93 Nasal Cannula 2.00 07/04/20 15:45 36.8 07/04/20 15:00 47 30 107/61 (76) 96 Nasal Cannula 2.00 07/04/20 14:00 46 33 121/72 (88) Nasal Cannula 2.00 07/04/20 13:00 64 27 133/53 (79) 90 Nasal Cannula 2.00 07/04/20 12:46 62 07/04/20 12:00 Nasal Cannula 2.00 07/04/20 12:00 36.8 07/04/20 12:00 63 21 125/85 (98) Nasal Cannula 2.00 07/04/20 10:00 63 38 161/89 (113) 92 Nasal Cannula 2.00 07/04/20 09:00 107 34 138/79 (98) 94 Nasal Cannula 2.00 07/04/20 08:15 Nasal Cannula 2.00 07/04/20 08:00 37.6 07/04/20 08:00 64 30 95 Nasal Cannula 2.00 07/04/20 07:00 64 27 134/53 (80) 96 Nasal Cannula 2.00 07/04/20 07:00 66 07/04/20 06:00 65 31 133/53 (79) 94 Nasal Cannula 2.00 07/04/20 05:00 59 30 129/57 (81) 94 Nasal Cannula 2.00 I & O 07/05/20 07:00 Intake Total 820 ml Output Total 525 ml Balance 295 ml Height & Weight Height: '" Weight: lbs. oz. kg; 29.17 BMI Method: General Appearance: No Apparent Distress, Obese HEENT: PERRL/EOMI; No Scleral Icterus (L), No Scleral Icterus (R) Neck: Normal Inspection, Non Tender, Supple Respiratory: Lungs Clear, Normal Breath Sounds, No Accessory Muscle Use, No Respiratory Distress Cardiovascular: Regular Rate, Rhythm, No Edema, No Murmur, Normal Peripheral Pulses Capillary Refill: Less Than 3 Seconds Peripheral Pulses: 2+ Dorsalis Pedis (R), 2+ Left Dors-Pedis (L), 2+ Radial Pulses (R), 2+ Radial Pulses (L) Extremity: Normal Inspection, Non Tender, No Calf Tenderness, No Pedal Edema Neurologic/Psychiatric: Alert, Oriented x3, Normal Mood/Affect Skin: Normal Color, Warm/Dry Results Lab Laboratory Tests 07/04/20 02:45 07/05/20 03:30 Assessment/Plan Assessment/Plan Second degree AV Block - cardiology consulted - heart cath revealed no obstruction - temporary pacemaker in place but turned off by cardiology, plan for permanent pacemaker placement this hospital stay once infection resolves Severe sepsis - corynebacterium urinary tract infection, possible pneumonia on CXR - on vancomycin and ceftriaxone - continue IVF Elevated BUN/Cr - BUN 26, Cr 1.39 today, BUN has been persistently elevated, Cr elevated past two days. Potential CKD - continue to monitor, continue IVF Hyponatremia - improving - HCTZ held, continue NS Euthyroid sick syndrome - TSH 0.07, free T4 and free T3 within normal limits - Continue home levothyroxine DM - continue SSI DVT prophylaxis - continue Lovenox Hypomagnesemia - 1.9 on 07/05, continue to monitor - phosophate within normal limits, continue to monitor Metabolic acidosis - resolved Chest pain - resolved ERINN JASSO DO 07/05/20 0559: Exam Exam General Appearance: No Apparent Distress HEENT: PERRL/EOMI Assessment/Plan Assessment/Plan Second degree AV Block - cardiology consulted - heart cath revealed no obstruction - temporary pacemaker in place but currently off Severe sepsis - corynebacterium urinary tract infection, possible pneumonia on CXR - on vancomycin and ceftriaxone - continue IVF Dyspnea -Add duoneb QID -Repeat CXR and PCT. Elevated BUN/Cr - BUN 26, Cr 1.39 today, BUN has been persistently elevated, Cr elevated past two days. Potential CKD - continue to monitor, continue IVF Hyponatremia - improving - HCTZ held, continue NS Hx of Hypothyroid - Continue home levothyroxine DM - continue SSI DVT prophylaxis - continue Lovenox Hypomagnesemia - 1.9 on 07/05, continue to monitor - phosophate within normal limits, continue to monitor Metabolic acidosis - resolved Chest pain - resolved PAXTON SADLER MED STUDENT Jul 05, 2020 04:37 ERINN JASSO DO Jul 05, 2020 05:59
[2020-07-05] MEDS: MAGNESIUM 1 GM/100 ML IVPB 100 ML IV SCH (04:53)
[2020-07-05] MEDS: POTASSIUM CL 10MEQ/50ML IVPB 50 ML IV SCH (04:53)
[2020-07-05] MEDS: KCL 20 MEQ TAB (K-DUR) PO SCH (04:53)
[2020-07-05] MEDS: cefTRIAXone FOR IV USE 1,000 MG in WATER (STERILE) FOR INJECTION 10 ML IV SCH (05:28)
[2020-07-05] MEDS: inSUlin ASPART (NovoLOG) 1 UNIT/0.01 ML (CHARGE PER UNIT) SC SCH ×3 (05:28→16:17)
[2020-07-05] MEDS: fentaNYL INJECTION 100 MCG/2 ML AMP IVP PRN (05:28)
--- NOTE | 2020-07-05 07:11 | Diagnostic Imaging Report ---
INDICATION: Shortness of breath. COMPARISON: 07/02/2020. FINDINGS: Single view of the chest demonstrates increasing bilateral pleural effusions with dependent atelectasis. The heart remains enlarged. There is no overt pulmonary edema. There is no pneumothorax. The left subclavian Port-A-Cath is in stable position. IMPRESSION: Increasing bilateral pleural effusions with dependent atelectasis. Dictated by: Dictated on workstation # [id number]
--- NOTE | 2020-07-05 08:33 | Progress Note - Hospitalist ---
Subjective HPI/CC On Admission Date Seen by Provider: Jul 05, 2020 Time Seen by Provider: 08:29 Aby Vega is a 79-year-old female with past medical history of hypertension, hypothyroidism, type II diabetes mellitus, renal cell carcinoma status post nephrectomy, who presented to [facility] with chest pain. She was transferred to [facility] for cardiology evaluation. She reportedly been having lightheadedness and dizziness with near-syncope recently. She denies any fevers or chills. She denies any shortness of breath or cough. She denies palpitations. She denies any abdominal pain, nausea, or vomiting. She denies any dysuria. She does report frequency and urgency which have been long-standing issues. She denies any rash. Subjective/Events-last exam Pt reports feeling ok. States she's choking a bit on breakfast but that this problem has been going on for months at home. Otherwise not complaints. Focused Exam Lactate Level 07/02/20 10:55: Lactic Acid Level 1.20 Objective Exam Vital Signs Vital Signs Date Time Temp Pulse Resp B/P (MAP) Pulse Ox O2 Delivery O2 Flow Rate FiO2 07/05/20 07:00 63 07/05/20 06:00 19 114/70 (85) 97 Nasal Cannula 2.00 07/04/20 19:09 36.7 Capillary Refill : Less Than 3 Seconds General Appearance: No Apparent Distress, Chronically ill, Obese Respiratory: Lungs Clear, No Respiratory Distress Cardiovascular: Regular Rate, Rhythm, No Murmur Gastrointestinal: Normal Bowel Sounds, Non Tender, Soft Genital/Rectal: Other (catheter in place) Neurologic/Psychiatric: Alert, Oriented x3, Normal Mood/Affect Results/Procedures Lab Laboratory Tests 07/05/20 03:30 Patient resulted labs reviewed. Imaging: Reviewed Imaging Report Assessment/Plan Assessment and Plan Assess & Plan/Chief Complaint Syncope Second-degree AV block Cardiology consulted, appreciate assistance Left heart catheterization revealed normal coronary arteries Temporary pacemaker placed, planning for permanent pacemaker placement this hospital stay - Permanent pacemaker has been delayed du to sepsis Severe sepsis Corynebacterium urinary tract infection Possible pneumonia chest x-ray showed possible pneumonia (now ?aspiration) Procalcitonin elevated UA with no WBC, few bacteria, culture growing Corynebacterium aurimucosum blood cultures with no growth 2/3, coag negative staph 1/3, likely a contaminant Continue Rocephin and Vancomycin for now Continue IV fluids Likely chronic kidney disease creatinine stable today Continue IV fluids, monitor Hyponatremia sodium 131, improving Likely due to HCTZ, held Continue normal saline Hypothyroidism Euthyroid sick syndrome TSH 0.07 Free T4 and free T3 within normal limits studies consistent with euthyroid sick syndrome Continue [place] Thyroid Dysphagia - Speech consulted, appreciate recs DVT prophylaxis: Lovenox Chest pain, resolved Lactic acidosis, resolved Clinical Quality Measures DVT/VTE Risk/Contraindication: Risk Factor Score Per Nursin RFS Level Per Nursing on Admit: 2=Moderate DL DENSON MD Jul 05, 2020 08:33
[2020-07-05] MEDS: FLUCONAZOLE 100 MG/50 ML IVPB IV SCH ×2 (08:37)
[2020-07-05] MEDS: NS IV 1000 ML 1,000 ML IV SCH (08:37)
[2020-07-05] MEDS: DOCUSATE SODIUM 100 MG (COLACE) CAP PO SCH ×2 (08:37→19:48)
[2020-07-05] MEDS: ALPRAZolam 0.25 MG (XANAX) TAB PO PRN ×2 (08:37→16:21)
[2020-07-05] MEDS: RT-ALBUTEROL/IPRATROPIUM 3 ML (DUONEB) VIAL INH SCH ×4 (10:21→21:54)
[2020-07-05] MEDS: VANCOMYCIN 1250 MG/NS 250 ML IVPB IV SCH ×2 (11:13)
--- NOTE | 2020-07-05 13:15 | ST Dysphagia Evaluation ---
Speech Evaluation-General Medical Diagnosis Syncope Onset Date: Jul 03, 2020 Therapy Diagnosis Therapy Diagnosis: Oropharyngeal Dysphagia Precautions Precautions: Aspiration Referral Referring Physician: Dr. Draper Medical History Pertinent Medical History: DM, HTN, Hypothroidism Reviewed History: Yes Speech PLF/Current-Dysphagia Prior Level of Function Patient lives in her own home where she was independent for most of her daily needs. Patient states she's had some difficulty choking for the past few months while at home. Subjective Patient was cooperative with the Bedside Dysphagia Evaluation. Oral Motor Skills Dentition: Natural Ability to Follow Directions: Good Oral Expression Ability: No Impairment Voice Voice Phonatory-Based Quality: Breathy, Weak Voice Pitch: Normal Voice Loudness: Mildly Soft/Quiet Face Facial Symmetry: Symmetrical Oral-Facial Assessment Oral-Facial Dentition: Normal Labial Seal Description: Normal Smile: Normal Puff Cheeks: Reduced Strength Lingual Protrusion: Normal Lingual ROM: Normal Lingual Strength: Normal Pharynx Velopharyngeal Move.: Normal Volitional Dry Swallow: Yes Voluntary Cough: Yes Dysphagia Evaluation Consistencies Presented: Regular, Thin Liquid, Mechanical Soft, Pureed Oral phase is within normal range of function for all textures with the exception of regular. The patient demonstrates decreased bolus management for regular. Pharyngeal Phase: Decreased A/P Bolus Transit Pharyngeal phase is within normal range of function for all textures with the exception of regular. The patient demonstrates piecemeal swallow for regular. Funct. Velo/Pharyngeal Symptom: Cough After Swallow For regular texture Dietary Recommendations: Mechanical Soft Liquid Recommendations: Thin Swallowing Precautions: Alternate Liquids/Solids, Liquids from Straw, Small Bites and Sips, Sitting Upright 90 Degrees, Sitting 90 Degrees 30 Post Intake Dysphagia Evaluation Summary Patient was seen for Bedside Dysphagia Evaluation this morning. Patient was eating her regular texture diet with difficulty noted and choking. Patient was given trials of thin via 1/2 tsp and small sips via straw without difficulty. Patient was given trials of puree and mechanical soft without difficulty. Patient demo difficulty with regular texture, particularly the meats. Patient is recommended for Dysphagia II diet level and thin liquids. Patient agrees to downgrade in diet and thinks she can do better with the softer diet. Patient's recommended change in diet was provided to her nurse and written on the white board in her room. Barriers to Learning Patient's age Speech-Plan Patient/Family Goals Patient/Family Goals: Patient plans on returning home upon hospital discharge. Treatment Plan Speech Therapy Treatment Plan: Discontinue ST Treatment Duration: Jul 05, 2020 Frequency: 1 time per week Estimated Hrs Per Day: .5 hour per day Rehab Potential: Good Barriers to Learning: Patient's age Pt/Family Agrees to Plan: Yes Safety Risks/Education Teaching Recipient: Patient Teaching Methods: Demonstration, Discussion Response to Teaching: Verbalize Understanding, Return Demonstration Education Topics Provided: Safety of oral intake, diet level Time Speech Therapy Time In: 08:30 Speech Therapy Time Out: 08:55 Total Billed Time: 25 Billed Treatment Time 1, ACE FAROOQ [address] Jul 05, 2020 13:15
--- NOTE | 2020-07-05 13:45 | NUR ---
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
--- NOTE | 2020-07-05 17:35 | Cardiology Progress Note ---
Cardiology SOAP Progress Note Subjective: Patient is not feeling well, however denies any acute cardiac complaints. Objective: I&O/Vital Signs 07/08/20 07/08/20 07/08/20 07/08/20 05:00 06:00 06:53 07:00 Pulse 80 75 77 Resp 26 22 21 B/P (MAP) 135/75 (95) 131/75 (93) 167/95 (119) Pulse Ox 99 98 99 100 O2 Delivery Nasal Cannula Nasal Cannula High Flow N/C Nasal Cannula O2 Flow Rate 2.00 2.00 2.00 2.00 07/08/20 07/08/20 07/08/20 07/08/20 07:04 07:29 07:48 07:56 Temp 36.0 Pulse 79 90 O2 Delivery Nasal Cannula O2 Flow Rate 2.00 07/08/20 07/08/20 07/08/20 07/08/20 08:00 09:00 10:00 10:38 Pulse 87 96 85 Resp 21 14 28 B/P (MAP) 166/94 (118) 161/105 (123) 151/84 (106) Pulse Ox 98 97 99 99 O2 Delivery Nasal Cannula Nasal Cannula Nasal Cannula High Flow N/C O2 Flow Rate 2.00 2.00 2.00 2.00 07/08/20 07/08/20 07/08/20 07/08/20 11:00 12:00 12:00 13:00 Pulse 94 94 93 Resp 19 11 B/P (MAP) 162/82 (108) 165/105 (125) Pulse Ox 98 98 O2 Delivery Nasal Cannula Nasal Cannula Nasal Cannula O2 Flow Rate 2.00 2.00 2.00 07/08/20 07/08/20 07/08/20 07/08/20 14:10 14:10 14:20 14:20 Temp 36.6 Resp 18 19 B/P (MAP) 127/85 (99) 139/80 (99) Pulse Ox 100 96 O2 Delivery OxyMask OxyMask OxyMask OxyMask O2 Flow Rate 5 5 3 3 07/08/20 07/08/20 07/08/20 07/08/20 14:30 14:30 14:40 14:40 Temp 36.6 Resp 21 20 B/P (MAP) 134/84 (101) 136/81 (99) Pulse Ox 96 96 O2 Delivery OxyMask OxyMask OxyMask OxyMask O2 Flow Rate 3 3 2 3 07/08/20 07/08/20 07/08/20 14:50 15:25 16:13 Temp 36.3 O2 Delivery OxyMask Nasal Cannula O2 Flow Rate 2 2.00 07/08/20 00:00 Intake Total 1005 ml Output Total 3000 ml Balance -1995 ml Constitutional: AAO x 3 Respiratory: chest is bilaterally symmetric, lungs clear to auscultation Cardiovascular: regular rate-rhythm, bradycardia, S1 and S2 Gastrointestional: soft, audible bowel sounds Extremities: normal range of motion, non-tender, normal inspection, no lower extremity edema bilateral Neurologic/Psychiatric: no motor/sensory deficits, alert, normal mood/affect, oriented x 3 Skin: normal color, warm/dry Results/Procedures: Labs Laboratory Tests 07/07/20 19:15: Glucometer 165H 07/08/20 03:10: White Blood Count 11.6H, Red Blood Count 3.61L, Hemoglobin 10.5L, Hematocrit 33L , Mean Corpuscular Volume 91, Mean Corpuscular Hemoglobin 29, Mean Corpuscular Hemoglobin Concent 32, Red Cell Distribution Width 13.0, Platelet Count 327, Mean Platelet Volume 11.0, Immature Granulocyte % (Auto) 1, Neutrophils (%) (Auto) 79H, Lymphocytes (%) (Auto) 10L, Monocytes (%) (Auto) 8, Eosinophils (%) (Auto) 3, Basophils (%) (Auto) 0, Neutrophils # (Auto) 9.1H, Lymphocytes # (Auto) 1.2, Monocytes # (Auto) 0.9, Eosinophils # (Auto) 0.3, Basophils # (Auto) 0.1, Immature Granulocyte # (Auto) 0.1, Sodium Level 138, Potassium Level 3.7, Chloride Level 106, Carbon Dioxide Level 20L, Anion Gap 12, Blood Urea Nitrogen 16, Creatinine 1.21, Estimat Glomerular Filtration Rate 43, BUN/Creatinine Ratio 13, Glucose Level 189H, Calcium Level 8.1L, Phosphorus Level 3.8, Magnesium Level 1.6, B-Type Natriuretic Peptide 358.9H 07/08/20 15:29: Glucometer 206H Microbiology 07/05/20 Blood Culture - Final, Complete Staphylococcus epidermidis 07/02/20 Urine Culture - Final, Complete Corynebactoerium aurimucosum See Comments 07/01/20 MRSA Screen - Final, Complete MRSA not isolated A/P: Assessment/Dx: Unstable angina 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 Patient continues to require temporary pacing due to underlying severe bradycardia. Urinary tract infection, receiving antibiotics, leukocytosis are more elevated today. 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 Continue on IV fluid and monitor Hyponatremia, metabolic acidosis. Thank you for your consultation. Please call me if you have any questions. Val Encarnacion MD, FACP, FACC, FSCAI, FHRS, CCDS Interventional Cardiology Cardiac Electrophysiology Vascular Medicine and Endovascular Interventions Focused Exam Lactate Level 07/07/20 07:05: Lactic Acid Level 0.88 Kym ENCARNACION MD Jul 05, 2020 17:35
[2020-07-05] MEDS: polyethylene glycoL POWDER 17 GM (MIRALAX) PACK PO PRN (19:54)
[2020-07-06] VITALS (24 sets, daily range): BP systolic 108–143; BP diastolic 70–95
[2020-07-06] MEDS: RT-ALBUTEROL/IPRATROPIUM 3 ML (DUONEB) VIAL INH SCH ×6 (02:21→22:36)
[2020-07-06 03:18] LABS: BASOPHILS % (AUTO) 0 % (0-10); EOSINOPHILS # (AUTO) 0.5 10^3/uL (0.0-0.3); EOSINOPHILS % (AUTO) 4 % (0-10); HEMATOCRIT 33 % (35-52); HEMOGLOBIN 10.7 G/DL (11.5-16.0); LYMPHOCYTES # (AUTO) 1.2 X 10^3 (1.0-4.0); LYMPHOCYTES % (AUTO) 10 % (12-44); MEAN CORPUSCULAR HEMOGLOBIN 29 PG (25-34); MEAN CORPUSCULAR HGB CONC 33 G/DL (32-36); MEAN CORPUSCULAR VOLUME 89 FL (80-99); MEAN PLATELET VOLUME 11.3 FL (7.4-10.4); MONOCYTES # (AUTO) 1.1 X 10^3 (0.0-1.0); MONOCYTES % (AUTO) 9 % (0-12); NEUTROPHILS # (AUTO) 9.3 X 10^3 (1.8-7.8); NEUTROPHILS % (AUTO) 77 % (42-75); PLATELET COUNT 243 10^3/uL (130-400); WHITE BLOOD COUNT 12.2 10^3/uL (4.3-11.0)
[2020-07-06 03:27] LABS: POTASSIUM 3.6 MMOL/L (3.6-5.0)
[2020-07-06 03:28] LABS: CALCIUM 7.9 MG/DL (8.5-10.1)
[2020-07-06 03:32] LABS: CREATININE SERUM 1.27 MG/DL (0.60-1.30); PHOSPHORUS 3.8 MG/DL (2.3-4.7)
[2020-07-06 03:35] LABS: MAGNESIUM 1.7 MG/DL (1.6-2.4)
[2020-07-06] MEDS: POTASSIUM CL 10MEQ/50ML IVPB 50 ML IV SCH ×3 (03:44→05:21)
[2020-07-06] MEDS: KCL 20 MEQ TAB (K-DUR) PO SCH (03:45)
[2020-07-06] MEDS: MAGNESIUM 1 GM/100 ML IVPB 100 ML IV SCH ×3 (03:45→05:22)
[2020-07-06] MEDS: inSUlin ASPART (NovoLOG) 1 UNIT/0.01 ML (CHARGE PER UNIT) SC SCH ×4 (05:17→22:32)
[2020-07-06] MEDS: guaiFENesin/DM (ROBITUSSIN DM) 10 ML UDC PO PRN ×3 (05:21→15:54)
[2020-07-06] MEDS: cefTRIAXone FOR IV USE 1,000 MG in WATER (STERILE) FOR INJECTION 10 ML IV SCH (05:21)
[2020-07-06] MEDS: ALPRAZolam 0.25 MG (XANAX) TAB PO PRN ×3 (05:21→13:25)
[2020-07-06] MEDS: polyethylene glycoL POWDER 17 GM (MIRALAX) PACK PO PRN (05:45)
--- NOTE | 2020-07-06 06:40 | Pulmonary Progress Note ---
Subjective Time Seen by a Provider: 06:36 Subjective/Events-last exam No complications noted. Sepsis Event Evaluation Height, Weight, BMI Height: '" Weight: lbs. oz. kg; 29.17 BMI Method: Exam Exam Vital Signs Date Time Temp Pulse Resp B/P (MAP) Pulse Ox O2 Delivery O2 Flow Rate FiO2 07/06/20 04:00 76 24 131/82 (98) 97 Nasal Cannula 4.00 07/06/20 04:00 Nasal Cannula 3.00 07/06/20 03:08 75 28 108/72 (84) 97 Nasal Cannula 4.00 07/06/20 02:22 97 Nasal Cannula 3.00 07/06/20 02:00 74 21 139/82 (101) 97 Nasal Cannula 4.00 07/06/20 01:00 73 22 141/80 (100) 97 Nasal Cannula 4.00 07/06/20 01:00 73 07/06/20 00:00 Nasal Cannula 3.00 07/06/20 00:00 77 23 137/95 (109) 97 Nasal Cannula 4.00 07/05/20 23:00 77 21 175/94 (121) 96 Nasal Cannula 4.00 07/05/20 22:30 77 27 170/103 (125) 95 Nasal Cannula 4.00 07/05/20 22:00 59 24 161/114 (130) 96 Nasal Cannula 4.00 07/05/20 21:55 97 Nasal Cannula 4.00 07/05/20 21:00 68 19 158/83 (108) 97 Nasal Cannula 4.00 07/05/20 20:30 59 29 160/80 (106) 96 Nasal Cannula 4.00 07/05/20 20:00 Nasal Cannula 4.00 07/05/20 19:00 60 07/05/20 19:00 60 30 160/93 (115) 97 Nasal Cannula 4.00 07/05/20 18:26 97 Nasal Cannula 4.00 07/05/20 18:00 62 28 119/100 (106) 97 Nasal Cannula 4.00 07/05/20 17:00 69 32 135/85 (102) 94 Nasal Cannula 4.00 07/05/20 16:00 62 28 139/83 (101) 92 Nasal Cannula 4.00 07/05/20 16:00 Nasal Cannula 4.00 07/05/20 15:08 36.2 61 19 128/79 (95) 95 Nasal Cannula 4.00 07/05/20 14:00 73 22 145/84 (104) 95 Nasal Cannula 4.00 07/05/20 13:38 95 Nasal Cannula 4.00 07/05/20 13:00 60 07/05/20 13:00 60 19 136/81 (99) 97 Nasal Cannula 4.00 07/05/20 12:00 Nasal Cannula 4.00 07/05/20 12:00 36.4 Nasal Cannula 4.00 07/05/20 12:00 59 17 112/65 (81) 97 Nasal Cannula 4.00 07/05/20 11:00 78 19 123/76 (92) 97 Nasal Cannula 4.00 07/05/20 10:21 95 Nasal Cannula 4.00 07/05/20 10:00 79 20 108/72 (84) 98 Nasal Cannula 4.00 07/05/20 09:00 63 25 119/81 (94) 97 Nasal Cannula 4.00 07/05/20 08:00 58 24 128/66 (86) 97 Nasal Cannula 2.00 07/05/20 08:00 Nasal Cannula 4.00 07/05/20 08:00 36.7 Nasal Cannula 4.00 07/05/20 07:00 63 07/05/20 07:00 51 16 115/64 (81) 97 Nasal Cannula 2.00 I & O 07/06/20 07:00 Intake Total 1380 ml Output Total 2000 ml Balance -620 ml Height & Weight Height: '" Weight: lbs. oz. kg; 29.17 BMI Method: General Appearance: No Apparent Distress, Chronically ill, Obese HEENT: PERRL/EOMI Neck: Normal Inspection, Non Tender, Supple Respiratory: Lungs Clear, No Respiratory Distress Cardiovascular: Regular Rate, Rhythm, No Murmur Capillary Refill: Less Than 3 Seconds Peripheral Pulses: 2+ Dorsalis Pedis (R), 2+ Left Dors-Pedis (L), 2+ Radial Pulses (R), 2+ Radial Pulses (L) Extremity: Normal Inspection, Non Tender, No Calf Tenderness, No Pedal Edema Neurologic/Psychiatric: Alert, Oriented x3, Normal Mood/Affect Skin: Normal Color, Warm/Dry Results Lab Laboratory Tests 07/05/20 03:30 07/06/20 03:10 Assessment/Plan Assessment/Plan Second degree AV Block - cardiology consulted - heart cath revealed no obstruction - temporary pacemaker in place but currently off Severe sepsis 3/3 BC positive for Coag Neg Staph -Pt may need SCAR r/o endocardits -Check PCT, LA - corynebacterium urinary tract infection, possible pneumonia on CXR - on vancomycin Start Zosyn secondary to worsening leukocytosis - continue IVF Acute bronchitis -Add duoneb QID -Repeat CXR and PCT. Elevated BUN/Cr - BUN 26, Cr 1.39 today, BUN has been persistently elevated, Cr elevated past two days. Potential CKD - continue to monitor, continue IVF Hyponatremia - improving - HCTZ held, continue NS Hx of Hypothyroid - Continue home [place] thyroid DM - continue SSI DVT prophylaxis - continue Lovenox Hypomagnesemia - 1.9 on 07/05, continue to monitor - phosophate within normal limits, continue to monitor Metabolic acidosis - resolved Chest pain - resolved ERINN JASSO DO Jul 06, 2020 06:40
[2020-07-06] MEDS: NS IV 1000 ML 1,000 ML IV SCH (07:52)
--- NOTE | 2020-07-06 08:14 | Diagnostic Imaging Report ---
HISTORY: Shortness of air. COMPARISON: 06/26/2020 TECHNIQUE: Frontal view of the chest. FINDINGS: Lung volumes are mildly low. There are small bilateral pleural effusions with associated bibasilar airspace opacities. There is fluid along the right minor fissure. The cardiac silhouette is partially obscured. No pneumothorax is seen. The Port-A-Cath tip projects over the cavoatrial junction. IMPRESSION: 1. Small bilateral pleural effusions and associated airspace opacities, with stable aeration compared to the prior exam. Dictated by: Dictated on workstation # [id number]
[2020-07-06] MEDS: FLUCONAZOLE 100 MG/50 ML IVPB IV SCH ×2 (09:13)
[2020-07-06] MEDS: DOCUSATE SODIUM 100 MG (COLACE) CAP PO SCH ×2 (09:13→22:33)
--- NOTE | 2020-07-06 09:59 | Progress Note - Hospitalist ---
Subjective HPI/CC On Admission Date Seen by Provider: Jul 06, 2020 Time Seen by Provider: 09:53 Aby Vega is a 79-year-old female with past medical history of hypertension, hypothyroidism, type II diabetes mellitus, renal cell carcinoma status post nephrectomy, who presented to [facility] with chest pain. She was transferred to [facility] for cardiology evaluation. She reportedly been having lightheadedness and dizziness with near-syncope recently. She denies any fevers or chills. She denies any shortness of breath or cough. She denies palpitations. She denies any abdominal pain, nausea, or vomiting. She denies any dysuria. She does report frequency and urgency which have been long-standing issues. She denies any rash. Subjective/Events-last exam Pt reports feeling ok. Tired today. No specific complaints. Today is her birthday though. Objective Exam Vital Signs Vital Signs Date Time Temp Pulse Resp B/P (MAP) Pulse Ox O2 Delivery O2 Flow Rate FiO2 07/06/20 07:59 97 Nasal Cannula 3.00 07/06/20 06:00 60 29 124/71 (88) 07/05/20 15:08 36.2 Capillary Refill : Less Than 3 Seconds General Appearance: No Apparent Distress, Chronically ill, Obese Respiratory: Lungs Clear, No Respiratory Distress Cardiovascular: Regular Rate, Rhythm, No Murmur Gastrointestinal: Normal Bowel Sounds, Non Tender, Soft Neurologic/Psychiatric: Alert, Oriented x3, Depressed Affect Results/Procedures Lab Laboratory Tests 07/06/20 03:10 Patient resulted labs reviewed. Imaging: Reviewed Imaging Report Assessment/Plan Assessment and Plan Assess & Plan/Chief Complaint Syncope Second-degree AV block Cardiology consulted, appreciate assistance Left heart catheterization revealed normal coronary arteries Temporary pacemaker placed, planning for permanent pacemaker placement this hospital stay - Spoke with Dr Encarnacion yesterday who turned rate down yesterday and pt did not tolerate, will need permanent pacemaker prior to DC - Permanent pacemaker has been delayed due to sepsis Severe sepsis Corynebacterium urinary tract infection Possible pneumonia chest x-ray showed possible pneumonia (now ?aspiration) Procalcitonin elevated UA with no WBC, few bacteria, culture growing Corynebacterium aurimucosum blood cultures repeated yesterday and positive for gram positive cocci today, discussed with pharmacy about checking Vanc level Continue Rocephin and Vancomycin for now Continue IV fluids Likely chronic kidney disease creatinine stable today Continue IV fluids, monitor Hyponatremia sodium 132, improving Likely due to HCTZ, held Continue normal saline Hypothyroidism Euthyroid sick syndrome TSH 0.07 Free T4 and free T3 within normal limits studies consistent with euthyroid sick syndrome Continue [place] Thyroid Dysphagia - Speech consulted, appreciate recs - Continue soft diet with thin liquids - Discussed with dietary who will attempt to provide birthday treat within diet guidelines DVT prophylaxis: Lovenox Chest pain, resolved Lactic acidosis, resolved Clinical Quality Measures DVT/VTE Risk/Contraindication: Risk Factor Score Per Nursin RFS Level Per Nursing on Admit: 2=Moderate DL DENSON MD Jul 06, 2020 09:59
--- NOTE | 2020-07-06 13:42 | NUR ---
Referral by patient (goes by [facility]) requesting to talk because she was feeling anxious. She shared that today is her birthday, and she needed to tell her story. She requested to "start at the beginning" about her life stating, "I am not even going to try to excuse myself, I just need to get this off my chest. It was what it was." This steel wheel engraver offered empathic listening and non-judgmental presence as the patient shared her life story. Themes of her adult life include search for love and understanding, desire for meaningful connection, and broken trust. She has been five times, and states her last is now . She describes feeling that God has been with her throughout her life. Her understanding of God is that he knows and understands everything about her, and describes this as a source of comfort. She also described prayer as a means of finding direction. After sharing her story she added, "well at least if I , I've shared my story and someone understands." Sd from [employer] arrived during our visit and explained that he was providing her with yogurt and nuts as her morning snack. His demeanor was kind and respectful, however the patient's affect changed and she made a point of introducing this Creative Engagement Director to Sd. After he left, the patient confided concerns that Sd was trying to poison her, and that she was afraid. She said she did not feel this way until this morning when he brought her a gift and gave her ice cream. She said she did not eat the ice cream for fear it would make her sick. She expressed concern and confusion stating she could not understand his motive if he were poisoning her. To support the patient's sense of wellbeing, this steel wheel engraver encouraged positive coping and gentle guidance for expressed fears. I also facilitated communication with her nurse, who said the doctor provided ice cream and a gift to celebrate the patient's birthday. The nurse said she would clarify this with the patient, and that dietary could leave food trays outside the room for the nurse to take in.
[2020-07-06] MEDS: VANCOMYCIN 1250 MG/NS 250 ML IVPB IV SCH ×2 (13:45)
--- NOTE | 2020-07-06 13:52 | NUR ---
"RD ASSESSMENT PMHx: CA(renal,breast); HTN; DM; chronic UTI; chronic constipation PT INTERACTION: Pt was awake and pleasant during nutrition follow-up. Pt states she has been eating poorly since last assessment. Note avg PO intake 29% x2d, per chart review. Pt states some issues with nausea and vomiting since last assessment. Note pt has not had a BM since admit, and currently on bowel regimen of colace BID, per chart review. Note recent 19# wt gain x4d, per chart review. This could be attributed to fluid buildup. ABNORMAL NUTRITION-RELATED LAB VALUES LOW: Na 132; Ca 7.9 HIGH: BUN 24; glu 163 Est. kcal needs: 1400 kcal | 15 kcal/kg Est. Pro needs: 75 g Pro | 0.8 g Pro/kg PES STATEMENT: Inadequate oral intake (NI-2.1) related to loss of appetite | nausea | vomiting as evidenced by pt interview | avg PO intake 29% x2d INTERVENTION: Continue with current diet order of CHO 60g/m 3snack diet, with modifier of DYS2 Mechanically Altered. Add Glucerna (vary) to meals TID, for increased kcal intake. Provides 220 kcal and 10 g Pro per serving. Will continue to follow and reassess as pt needs, intake, and status change. Mo Rogers, MS, RD, LD"
--- NOTE | 2020-07-06 17:57 | Cardiology Progress Note ---
Cardiology SOAP Progress Note Subjective: Feeling unwell. Objective: I&O/Vital Signs 07/08/20 07/08/20 07/08/20 07/08/20 05:00 06:00 06:53 07:00 Pulse 80 75 77 Resp 26 22 21 B/P (MAP) 135/75 (95) 131/75 (93) 167/95 (119) Pulse Ox 99 98 99 100 O2 Delivery Nasal Cannula Nasal Cannula High Flow N/C Nasal Cannula O2 Flow Rate 2.00 2.00 2.00 2.00 07/08/20 07/08/20 07/08/20 07/08/20 07:04 07:29 07:48 07:56 Temp 36.0 Pulse 79 90 O2 Delivery Nasal Cannula O2 Flow Rate 2.00 07/08/20 07/08/20 07/08/20 07/08/20 08:00 09:00 10:00 10:38 Pulse 87 96 85 Resp 21 14 28 B/P (MAP) 166/94 (118) 161/105 (123) 151/84 (106) Pulse Ox 98 97 99 99 O2 Delivery Nasal Cannula Nasal Cannula Nasal Cannula High Flow N/C O2 Flow Rate 2.00 2.00 2.00 2.00 07/08/20 07/08/20 07/08/20 07/08/20 11:00 12:00 12:00 13:00 Pulse 94 94 93 Resp 19 11 B/P (MAP) 162/82 (108) 165/105 (125) Pulse Ox 98 98 O2 Delivery Nasal Cannula Nasal Cannula Nasal Cannula O2 Flow Rate 2.00 2.00 2.00 07/08/20 07/08/20 07/08/20 07/08/20 14:10 14:10 14:20 14:20 Temp 36.6 Resp 18 19 B/P (MAP) 127/85 (99) 139/80 (99) Pulse Ox 100 96 O2 Delivery OxyMask OxyMask OxyMask OxyMask O2 Flow Rate 5 5 3 3 07/08/20 07/08/20 07/08/20 07/08/20 14:30 14:30 14:40 14:40 Temp 36.6 Resp 21 20 B/P (MAP) 134/84 (101) 136/81 (99) Pulse Ox 96 96 O2 Delivery OxyMask OxyMask OxyMask OxyMask O2 Flow Rate 3 3 2 3 07/08/20 07/08/20 07/08/20 14:50 15:25 16:13 Temp 36.3 O2 Delivery OxyMask Nasal Cannula O2 Flow Rate 2 2.00 07/08/20 00:00 Intake Total 1005 ml Output Total 3000 ml Balance -1995 ml Constitutional: AAO x 3 Respiratory: chest is bilaterally symmetric, lungs clear to auscultation Cardiovascular: regular rate-rhythm, bradycardia, S1 and S2 Gastrointestional: soft, audible bowel sounds Extremities: normal range of motion, non-tender, normal inspection, no lower extremity edema bilateral Neurologic/Psychiatric: no motor/sensory deficits, alert, normal mood/affect, oriented x 3 Skin: normal color Results/Procedures: Labs Laboratory Tests 07/07/20 19:15: Glucometer 165H 07/08/20 03:10: White Blood Count 11.6H, Red Blood Count 3.61L, Hemoglobin 10.5L, Hematocrit 33L , Mean Corpuscular Volume 91, Mean Corpuscular Hemoglobin 29, Mean Corpuscular Hemoglobin Concent 32, Red Cell Distribution Width 13.0, Platelet Count 327, Mean Platelet Volume 11.0, Immature Granulocyte % (Auto) 1, Neutrophils (%) (Auto) 79H, Lymphocytes (%) (Auto) 10L, Monocytes (%) (Auto) 8, Eosinophils (%) (Auto) 3, Basophils (%) (Auto) 0, Neutrophils # (Auto) 9.1H, Lymphocytes # (Auto) 1.2, Monocytes # (Auto) 0.9, Eosinophils # (Auto) 0.3, Basophils # (Auto) 0.1, Immature Granulocyte # (Auto) 0.1, Sodium Level 138, Potassium Level 3.7, Chloride Level 106, Carbon Dioxide Level 20L, Anion Gap 12, Blood Urea Nitrogen 16, Creatinine 1.21, Estimat Glomerular Filtration Rate 43, BUN/Creatinine Ratio 13, Glucose Level 189H, Calcium Level 8.1L, Phosphorus Level 3.8, Magnesium Level 1.6, B-Type Natriuretic Peptide 358.9H 07/08/20 15:29: Glucometer 206H Microbiology 07/05/20 Blood Culture - Final, Complete Staphylococcus epidermidis 07/02/20 Urine Culture - Final, Complete Corynebactoerium aurimucosum See Comments 07/01/20 MRSA Screen - Final, Complete MRSA not isolated A/P: Assessment/Dx: Mild to moderate CAD, 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 Bradycardia Hypotension, UTI Sepsis, gram-positive bacteremia Plan: Chest pain, unstable angina, cardiac cath done on 07/02/20 having mild to moderate CAD, non obstructive disease Second degree AV block, 2-1 AV block Mobitz 2 reported by [place] emergency room, had multiple 2-1 AV block, first degree AV block and left bundle branch block. Patient continues to require temporary pacing due to underlying severe bradycard ia. Urinary tract infection, receiving antibiotics, Bacteremia, gram-positive bacteremia. Antibiotics changed from ceftriaxone to vancomycin. Source of infection could be the temporary pacemaker, port or possible infective endocarditis. Repeat echocardiogram to see there is any change in valvular heart disease. Might require transfer to a tertiary care center with ID consultation. 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 Continue on IV fluid and monitor Hyponatremia, metabolic acidosis. Thank you for your consultation. Please call me if you have any questions. Val Encarnacion MD, FACP, FACC, FSCAI, FHRS, CCDS Interventional Cardiology Cardiac Electrophysiology Vascular Medicine and Endovascular Interventions Focused Exam Lactate Level 07/07/20 07:05: Lactic Acid Level 0.88 Kym ENCARNACION MD Jul 06, 2020 17:57
[2020-07-07] VITALS (21 sets, daily range): BP systolic 116–160; BP diastolic 70–107
[2020-07-07] MEDS: guaiFENesin/DM (ROBITUSSIN DM) 10 ML UDC PO PRN ×3 (00:19→22:21)
[2020-07-07] MEDS: DOCUSATE SODIUM 100 MG (COLACE) CAP PO SCH ×3 (00:19→19:56)
[2020-07-07] MEDS: ALPRAZolam 0.25 MG (XANAX) TAB PO PRN ×4 (00:19→20:02)
[2020-07-07] MEDS: polyethylene glycoL POWDER 17 GM (MIRALAX) PACK PO PRN ×2 (00:19→22:21)
[2020-07-07] MEDS: RT-ALBUTEROL/IPRATROPIUM 3 ML (DUONEB) VIAL INH SCH ×6 (02:40→22:29)
[2020-07-07] MEDS: NS IV 1000 ML 1,000 ML IV SCH (03:52)
[2020-07-07 04:00] LABS: BASOPHILS # (AUTO) 0.1 10^3/uL (0.0-0.1); BASOPHILS % (AUTO) 0 % (0-10); EOSINOPHILS # (AUTO) 0.9 10^3/uL (0.0-0.3); EOSINOPHILS % (AUTO) 6 % (0-10); HEMATOCRIT 35 % (35-52); HEMOGLOBIN 11.4 g/dL (11.5-16.0); LYMPHOCYTES # (AUTO) 1.5 10^3/uL (1.0-4.0); LYMPHOCYTES % (AUTO) 10 % (12-44); MEAN CORPUSCULAR HEMOGLOBIN 30 pg (25-34); MEAN CORPUSCULAR HGB CONC 32 g/dL (32-36); MEAN CORPUSCULAR VOLUME 91 fL (80-99); MEAN PLATELET VOLUME 11.2 fL (9.0-12.2); MONOCYTES # (AUTO) 1.4 10^3/uL (0.0-1.0); MONOCYTES % (AUTO) 10 % (0-12); NEUTROPHILS # (AUTO) 10.8 10^3/uL (1.8-7.8); NEUTROPHILS % (AUTO) 73 % (42-75); PLATELET COUNT 332 10^3/uL (130-400); WHITE BLOOD COUNT 14.7 10^3/uL (4.3-11.0)
[2020-07-07 04:28] LABS: CALCIUM 8.2 MG/DL (8.5-10.1); CREATININE SERUM 1.14 MG/DL (0.60-1.30); MAGNESIUM 1.7 MG/DL (1.6-2.4); PHOSPHORUS 3.3 MG/DL (2.3-4.7); POTASSIUM 3.8 MMOL/L (3.6-5.0)
[2020-07-07] MEDS: POTASSIUM CL 10MEQ/50ML IVPB 50 ML IV SCH (04:52)
[2020-07-07] MEDS: MAGNESIUM 1 GM/100 ML IVPB 100 ML IV SCH ×3 (04:52→06:29)
[2020-07-07] MEDS: inSUlin ASPART (NovoLOG) 1 UNIT/0.01 ML (CHARGE PER UNIT) SC SCH ×4 (04:52→20:34)
[2020-07-07] MEDS: KCL 20 MEQ TAB (K-DUR) PO SCH (04:52)
[2020-07-07] MEDS ORDERED: ENOXAPARIN 40 MG/0.4 ML (LOVENOX) SYR ONE (06:22)
[2020-07-07] MEDS ORDERED: PIPERACILLIN/TAZO 4.5 GM/NS 100 ML IV ONE ×2 (06:30)
[2020-07-07 06:47] LABS: ALBUMIN 2.8 GM/DL (3.2-4.5); BILIRUBIN,TOTAL 0.4 MG/DL (0.1-1.0); TOTAL PROTEIN 5.9 GM/DL (6.4-8.2)
--- NOTE | 2020-07-07 07:29 | NUR ---
This Rt received patient on 3 L NC with HF Bubbler in place, due to O2 sat of 98%, this RT decreased O2 to 2 L NC
--- NOTE | 2020-07-07 07:45 | Diagnostic Imaging Report ---
INDICATION: Short of breath Portable chest shows mild cardiomegaly with normal vascularity. There is bibasilar atelectasis with bilateral effusions which have shown some improvement since 07/06/2020 study. IMPRESSION: Slightly improving chest. Dictated by: Dictated on workstation # [id number]
[2020-07-07] MEDS: ENOXAPARIN 40 MG/0.4 ML (LOVENOX) SYR SC SCH (07:59)
[2020-07-07] MEDS: THYROID (ARMOUR) 60 MG TABLET PO SCH ×2 (07:59→19:56)
--- NOTE | 2020-07-07 08:33 | NUR ---
ASSESSMENT COMPLETE SEE FLOW SHEET, PT NOTED TO HAVE INCREASED CONFUSION, IS ALERT TO NAME HAS TO BE REDIRECTED ON WHERE SHE IS, PT ANXIOUS THIS AM, STATES " I KNOW I'M IN A DREAM," " YOUR ALL IN ON IT." PT UPSET ABOUT HOME STRESSORS, STATES "I'M WORRIED ABOUT MY HOUSE." DR DENSON ON FLOOR AND NOTIFIED, XANAX GIVEN PER PT REQUEST.
--- NOTE | 2020-07-07 10:54 | NUR ---
O2 sat was good but RT did not decrease O2 at this time; BP was 144/107 and patient was a little anxious but she did follow commands and do the SVN BT and the EZPAP tx's Addendum: 07/07/20 at 1055 by GERALDO FAULKNER RT patient stated that she is depressed; this RT asked patient why she was depressed and the patient stated that she missed her dog and her house and she didn't understand what was going on! This RT informed the VLADISLAV Webb of this.
[2020-07-07] MEDS ORDERED: TROUGH ORDER-PHARMACY XX NR (12:00)
--- NOTE | 2020-07-07 12:18 | NUR ---
DR APPIAH IN ROOM TO SEE PATIENT AND DECREASED RATE ON TEMPORARY PACEMAKER TO 40.
[2020-07-07] MEDS: PIPERACILLIN/TAZOBACTAM (BULK) 4.5 GM in NS (IVPB) 100 ML IV SCH ×2 (12:27→19:55)
--- NOTE | 2020-07-07 13:05 | Progress Note - Hospitalist ---
Subjective HPI/CC On Admission Date Seen by Provider: Jul 07, 2020 Time Seen by Provider: 12:38 Aby Vega is a 79-year-old female with past medical history of hypertension, hypothyroidism, type II diabetes mellitus, renal cell carcinoma status post nephrectomy, who presented to with chest pain. She was transferred to [facility] for cardiology evaluation. She reportedly been having lightheadedness and dizziness with near-syncope recently. She denies any fevers or chills. She denies any shortness of breath or cough. She denies palpitations. She denies any abdominal pain, nausea, or vomiting. She denies any dysuria. She does report frequency and urgency which have been long-standing issues. She denies any rash. Subjective/Events-last exam Pt reports doing ok this morning. Reported was confused in the afternoon. Mostly oriented Focused Exam Lactate Level 07/07/20 07:05: Lactic Acid Level 0.88 Objective Exam Vital Signs Vital Signs Date Time Temp Pulse Resp B/P (MAP) Pulse Ox O2 Delivery O2 Flow Rate FiO2 07/07/20 12:35 Nasal Cannula 2.00 07/07/20 10:42 96 07/07/20 07:34 36.4 07/07/20 06:47 79 07/07/20 06:00 23 120/72 (88) Capillary Refill : Less Than 3 Seconds General Appearance: No Apparent Distress, Chronically ill Respiratory: Lungs Clear, No Respiratory Distress Cardiovascular: Regular Rate, Rhythm, No Murmur Gastrointestinal: Normal Bowel Sounds, Non Tender, Soft Neurologic/Psychiatric: Alert, Oriented x3 Results/Procedures Lab Laboratory Tests 07/07/20 03:45 Patient resulted labs reviewed. Imaging: Reviewed Imaging Report Assessment/Plan Assessment and Plan Assess & Plan/Chief Complaint Syncope Second-degree AV block Cardiology consulted, appreciate assistance Left heart catheterization revealed normal coronary arteries Temporary pacemaker placed, planning for permanent pacemaker placement this hospital stay - Spoke with Dr Encarnacion yesterday who turned rate down yesterday and pt did not tolerate, will need permanent pacemaker prior to DC - Permanent pacemaker has been delayed due to sepsis Severe sepsis Corynebacterium urinary tract infection Possible pneumonia chest x-ray showed possible pneumonia (now ?aspiration) Procalcitonintrending down UA with no WBC, few bacteria, culture growing Corynebacterium aurimucosum blood cultures persistently positive - Discussed with [facility] who declined in transfer as they would not do anything differently, I did speak with Dr Dupont of Infectious Disease there who believes that persistent bacteremia is due to port - Surgery consulted for evaluation of port and potential removal Continue Zosyn and Vancomycin for now Continue IV fluids Likely chronic kidney disease creatinine stable today Continue IV fluids, monitor Hyponatremia sodium 132, improving Likely due to HCTZ, held Continue normal saline Hypothyroidism Euthyroid sick syndrome TSH 0.07 Free T4 and free T3 within normal limits studies consistent with euthyroid sick syndrome Continue Webber Thyroid Dysphagia - Speech consulted, appreciate recs - Continue soft diet with thin liquids - Discussed with dietary who will attempt to provide birthday treat within diet guidelines DVT prophylaxis: Lovenox Chest pain, resolved Lactic acidosis, resolved Clinical Quality Measures DVT/VTE Risk/Contraindication: Risk Factor Score Per Nursin RFS Level Per Nursing on Admit: 2=Moderate DL DENSON MD Jul 07, 2020 13:05
--- NOTE | 2020-07-07 13:11 | Progress Note-Pre Operative ---
Pre-Operative Progress Note H&P Reviewed The H&P was reviewed, patient examined and no changes noted. Date Seen by Provider: Jul 07, 2020 Time Seen by Provider: 13:00 Date H&P Reviewed: Jul 07, 2020 Time H&P Reviewed: 13:00 Pre-Operative Diagnosis: bacteremia, heart block CONOR JUAREZ MD Jul 07, 2020 13:11
--- NOTE | 2020-07-07 13:38 | CONSULTATION REPORT ---
DATE OF SERVICE: 07/07/2020 ATTENDING PRIMARY CARE PHYSICIAN: Dr. Moody. ADMITTING PHYSICIAN: Dr. Hogan. HISTORY OF PRESENT ILLNESS: The patient is a 80-year-old female, who was transferred from another hospital due to chest pain and a syncopal episode. Once being evaluated, it appeared that she was in a second-degree heart block and also was symptomatic with episodes of hypotension and lightheadedness. She had reported that for the past several weeks, she has had some similar symptoms as well. She was admitted. She has had issues with leukocytosis and was found to have a previous urinary tract infection as well as possible pneumonia. Blood cultures were positive for Staph aureus. She does have a Groshong implantable catheter for her history of right renal cell cancer and status post nephrectomy. She continues to have episodes of low-grade fevers as well as leukocytosis and the recommendation was to proceed with removal of the Groshong implantable catheter and replacement once her infection is cleared. PAST MEDICAL HISTORY: Right renal cell cancer, history of Coxsackie virus myocarditis 20 years ago, history of constipation, diabetes, hypertension, hypercholesterolemia. ALLERGIES: ATORVASTATIN, CIPROFLOXACIN, PREGABALIN. MEDICATIONS: Amitriptyline 10 mg daily, amlodipine 10 mg daily, carvedilol 12.5 mg daily, glipizide 10 mg daily, hydrochlorothiazide 12.5 mg daily, lisinopril 20 mg daily, nifedipine 30 mg daily, simethicone p.r.n., Bowie Thyroid 60 mg daily. SOCIAL HISTORY: Negative smoke, negative alcohol. PAST SURGICAL HISTORY: Pacemaker implantation, right radical nephrectomy. FAMILY HISTORY: Father, stroke. cardiovascular disease. Mother, diabetes. VITAL SIGNS: Temperature 36.4, blood pressure 120/72, pulse 79, respirations 23, pulse ox 96% on 3 liters nasal cannula. REVIEW OF SYSTEMS: A well-nourished female, currently in no acute distress. She is not experiencing any shortness of breath or difficulty breathing. No chest pain, palpitations, diaphoresis. Mild fevers with a persistent leukocytosis. No nausea, vomiting, no diarrhea or constipation. No fever, chills, no recent inadvertent weight loss. All other review of systems negative. PHYSICAL EXAMINATION: CHEST: Scattered rales and rhonchi bilaterally. HEART: Regular, no murmurs. EXTREMITIES: No lower extremity edema, negative Homans sign. HEENT: No scleral icterus. NECK: No cervical lymphadenopathy. ABDOMEN: Soft, nontender, nondistended. SKIN: Warm, dry. LABORATORY DATA: WBC 14.7, hemoglobin 11.4, hematocrit 35, platelets 332, BUN 18, creatinine 1.14. ASSESSMENT AND PLAN: A 80-year-old female with sepsis and positive blood cultures with a persistent leukocytosis. She has an indwelling Groshong implantable catheter from few years ago from a renal cell cancer more than likely this has been seated by her previous infections either from urinary tract infection or pneumonia and we will proceed with placement of a temporary PICC line and proceed with removal of the Groshong implantable catheter and send the tip for culture and sensitivity. Job ID: [id number] DocumentID: [id number] Dictated Date: 07/07/2020 13:08:33 [employer] Date: 07/07/2020 13:37:55 Dictated By: CONOR JUAREZ MD MTDD
[2020-07-07] MEDS ORDERED: KCL 20 MEQ TAB (K-DUR) PO NR (14:30)
[2020-07-07] MEDS ORDERED: FUROSEMIDE 40 MG/4 ML INJ (LASIX) IVP NR (14:30)
[2020-07-07] MEDS: VANCOMYCIN 1250 MG/NS 250 ML IVPB IV SCH ×2 (14:31)
[2020-07-07] MEDS: SIMETHICONE 80 MG (MYLICON) CHEW PO PRN (14:32)
--- NOTE | 2020-07-07 14:37 | NUR ---
ATTEMPTED PLACEMENT OF PICC LINE IN LEFT UPPER ARM. PLACED AND VERIFIED BY X-RAY. X-RAY RESULTS SHOWED THAT PICC LINE HAD TWISTED UPON ITSELF AND WAS NOT IN CORRECT PLACEMENT. PICC LINE DISCONTINUED. PRESSURE HELD AND THEN PRESSURE DRESSING APPLIED. PT VERY ANXIOUS AT THIS TIME. TELL STAFF THAT SHE WAS DONE WITH PROCEDURE AND THAT SHE DID NOT WANT ANYTHING ELSE DONE. CALLED DR JUAREZ AND UPDATED HIM. DR JUAREZ STATED THAT WE COULD DO PICC LINE PLACEMENT TOMORROW DURING SURGICAL PROCEDURE FOR PORT. DIPPER AND BAKER UPDATED.
[2020-07-07] MEDS: fentaNYL INJECTION 100 MCG/2 ML AMP IVP PRN ×2 (15:31→20:03)
--- NOTE | 2020-07-07 17:25 | Cardiology Progress Note ---
Cardiology SOAP Progress Note Subjective: No acute cardiac complaints. Objective: I&O/Vital Signs 07/08/20 07/08/20 07/08/20 07/08/20 05:00 06:00 06:53 07:00 Pulse 80 75 77 Resp 26 22 21 B/P (MAP) 135/75 (95) 131/75 (93) 167/95 (119) Pulse Ox 99 98 99 100 O2 Delivery Nasal Cannula Nasal Cannula High Flow N/C Nasal Cannula O2 Flow Rate 2.00 2.00 2.00 2.00 07/08/20 07/08/20 07/08/20 07/08/20 07:04 07:29 07:48 07:56 Temp 36.0 Pulse 79 90 O2 Delivery Nasal Cannula O2 Flow Rate 2.00 07/08/20 07/08/20 07/08/20 07/08/20 08:00 09:00 10:00 10:38 Pulse 87 96 85 Resp 21 14 28 B/P (MAP) 166/94 (118) 161/105 (123) 151/84 (106) Pulse Ox 98 97 99 99 O2 Delivery Nasal Cannula Nasal Cannula Nasal Cannula High Flow N/C O2 Flow Rate 2.00 2.00 2.00 2.00 07/08/20 07/08/20 07/08/20 07/08/20 11:00 12:00 12:00 13:00 Pulse 94 94 93 Resp 19 11 B/P (MAP) 162/82 (108) 165/105 (125) Pulse Ox 98 98 O2 Delivery Nasal Cannula Nasal Cannula Nasal Cannula O2 Flow Rate 2.00 2.00 2.00 07/08/20 07/08/20 07/08/20 07/08/20 14:10 14:10 14:20 14:20 Temp 36.6 Resp 18 19 B/P (MAP) 127/85 (99) 139/80 (99) Pulse Ox 100 96 O2 Delivery OxyMask OxyMask OxyMask OxyMask O2 Flow Rate 5 5 3 3 07/08/20 07/08/20 07/08/20 07/08/20 14:30 14:30 14:40 14:40 Temp 36.6 Resp 21 20 B/P (MAP) 134/84 (101) 136/81 (99) Pulse Ox 96 96 O2 Delivery OxyMask OxyMask OxyMask OxyMask O2 Flow Rate 3 3 2 3 07/08/20 07/08/20 07/08/20 14:50 15:25 16:13 Temp 36.3 O2 Delivery OxyMask Nasal Cannula O2 Flow Rate 2 2.00 07/08/20 00:00 Intake Total 1005 ml Output Total 3000 ml Balance -1995 ml Constitutional: AAO x 3 Respiratory: chest is bilaterally symmetric, lungs clear to auscultation Cardiovascular: regular rate-rhythm, S1 and S2; No diastolic murmur, No systolic murmur Gastrointestional: soft, audible bowel sounds Extremities: normal range of motion, non-tender, normal inspection, no lower extremity edema bilateral Neurologic/Psychiatric: no motor/sensory deficits, alert, normal mood/affect, oriented x 3 Skin: normal color, warm/dry Results/Procedures: Labs Laboratory Tests 07/07/20 19:15: Glucometer 165H 07/08/20 03:10: White Blood Count 11.6H, Red Blood Count 3.61L, Hemoglobin 10.5L, Hematocrit 33L , Mean Corpuscular Volume 91, Mean Corpuscular Hemoglobin 29, Mean Corpuscular Hemoglobin Concent 32, Red Cell Distribution Width 13.0, Platelet Count 327, Mean Platelet Volume 11.0, Immature Granulocyte % (Auto) 1, Neutrophils (%) (Auto) 79H, Lymphocytes (%) (Auto) 10L, Monocytes (%) (Auto) 8, Eosinophils (%) (Auto) 3, Basophils (%) (Auto) 0, Neutrophils # (Auto) 9.1H, Lymphocytes # (Auto) 1.2, Monocytes # (Auto) 0.9, Eosinophils # (Auto) 0.3, Basophils # (Auto) 0.1, Immature Granulocyte # (Auto) 0.1, Sodium Level 138, Potassium Level 3.7, Chloride Level 106, Carbon Dioxide Level 20L, Anion Gap 12, Blood Urea Nitrogen 16, Creatinine 1.21, Estimat Glomerular Filtration Rate 43, BUN/Creatinine Ratio 13, Glucose Level 189H, Calcium Level 8.1L, Phosphorus Level 3.8, Magnesium Level 1.6, B-Type Natriuretic Peptide 358.9H 07/08/20 15:29: Glucometer 206H Microbiology 07/05/20 Blood Culture - Final, Complete Staphylococcus epidermidis 07/02/20 Urine Culture - Final, Complete Corynebactoerium aurimucosum See Comments 07/01/20 MRSA Screen - Final, Complete MRSA not isolated A/P: Assessment/Dx: Mild to moderate CAD, 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 Bradycardia Hypotension, UTI Sepsis, gram-positive bacteremia Plan: Chest pain, unstable angina, cardiac cath done on 07/02/20 having mild to moderate CAD, non obstructive disease Second degree AV block, 2-1 AV block Mobitz 2 reported by [place] [facility], had multiple 2-1 AV block, first degree AV block and left bundle branch block. Patient not requiring temporary pacing this morning after I reduced the backup rate to 40 BPM. I will continue to monitor for the next 24 hours. If the pat ient does not require temporary pacing for more than 24 hours we may consider taking the temporary pacemaker out due to her gram-positive bacteremia. Urinary tract infection, receiving antibiotics, Bacteremia, gram-positive bacteremia. Antibiotics changed from ceftriaxone to vancomycin. Source of infection could be the temporary pacemaker, port or possible infective endocarditis. Repeat echocardiogram to see there is any change in valvular heart disease. Dr. Coleman discussed with ID at who recommended taking out the port surgically. 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 Continue on IV fluid and monitor Hyponatremia, metabolic acidosis. Thank you for your consultation. Please call me if you have any questions. Val Encarnacion MD, FACP, FACC, FSCAI, FHRS, CCDS Interventional Cardiology Cardiac Electrophysiology Vascular Medicine and Endovascular Interventions Focused Exam Lactate Level 07/07/20 07:05: Lactic Acid Level 0.88 Kym ENCARNACION MD Jul 07, 2020 17:25
[2020-07-07] MEDS: risperiDONE 1 MG (RisperDAL) TAB PO SCH (19:56)
[2020-07-08] VITALS (22 sets, daily range): BP systolic 115–167; BP diastolic 67–105
[2020-07-08] MEDS: fentaNYL INJECTION 100 MCG/2 ML AMP IVP PRN ×3 (01:49→23:32)
[2020-07-08] MEDS: RT-ALBUTEROL/IPRATROPIUM 3 ML (DUONEB) VIAL INH SCH ×6 (02:27→22:13)
[2020-07-08 03:39] LABS: BASOPHILS # (AUTO) 0.1 10^3/uL (0.0-0.1); BASOPHILS % (AUTO) 0 % (0-10); EOSINOPHILS # (AUTO) 0.3 10^3/uL (0.0-0.3); EOSINOPHILS % (AUTO) 3 % (0-10); HEMATOCRIT 33 % (35-52); HEMOGLOBIN 10.5 g/dL (11.5-16.0); LYMPHOCYTES # (AUTO) 1.2 10^3/uL (1.0-4.0); LYMPHOCYTES % (AUTO) 10 % (12-44); MEAN CORPUSCULAR HEMOGLOBIN 29 pg (25-34); MEAN CORPUSCULAR HGB CONC 32 g/dL (32-36); MEAN CORPUSCULAR VOLUME 91 fL (80-99); MONOCYTES # (AUTO) 0.9 10^3/uL (0.0-1.0); MONOCYTES % (AUTO) 8 % (0-12); NEUTROPHILS # (AUTO) 9.1 10^3/uL (1.8-7.8); NEUTROPHILS % (AUTO) 79 % (42-75); PLATELET COUNT 327 10^3/uL (130-400); WHITE BLOOD COUNT 11.6 10^3/uL (4.3-11.0)
[2020-07-08 03:59] LABS: POTASSIUM 3.7 MMOL/L (3.6-5.0)
[2020-07-08 04:01] LABS: CALCIUM 8.1 MG/DL (8.5-10.1)
[2020-07-08 04:05] LABS: CREATININE SERUM 1.21 MG/DL (0.60-1.30); PHOSPHORUS 3.8 MG/DL (2.3-4.7)
[2020-07-08 04:07] LABS: MAGNESIUM 1.6 MG/DL (1.6-2.4)
[2020-07-08] MEDS: PIPERACILLIN/TAZOBACTAM (BULK) 4.5 GM in NS (IVPB) 100 ML IV SCH ×3 (04:12→20:05)
--- NOTE | 2020-07-08 04:25 | Pulmonary Progress Note ---
PAXTON SADLER MED STUDENT 07/08/20 0425: Subjective Date Seen by a Provider: Jul 08, 2020 Time Seen by a Provider: 04:25 Subjective/Events-last exam When seen today Aby Vega has no new complaints, reports she does not want to move from where she is in bed. She is somnolent, fell asleep multiple times during H&P. Denies having any fevers or chills, CP or SOB, light headedness, abdominal pain, n/v. Review of Systems General: No Chills; Fatigue HEENT: No Visual Changes, No Sinus Congestion, No Sore Throat Pulmonary: No Dyspnea; Cough Cardiovascular: No: Chest Pain, Palpitations, Lt Headedness Gastrointestinal: Constipation (reports BM yesterday); No: Nausea, Abdominal Pain, Diarrhea Genitourinary: No Dysuria Neurological: No: Weakness, Numbness Sepsis Event Evaluation Height, Weight, BMI Height: '" Weight: lbs. oz. kg; 29.17 BMI Method: Focused Exam Lactate Level 07/07/20 07:05: Lactic Acid Level 0.88 Exam Exam Vital Signs Date Time Temp Pulse Resp B/P (MAP) Pulse Ox O2 Delivery O2 Flow Rate FiO2 07/08/20 04:00 Nasal Cannula 2.00 07/08/20 01:00 80 07/08/20 00:15 36.2 07/08/20 00:00 Nasal Cannula 2.00 07/07/20 23:00 88 22 116/70 (85) 100 Nasal Cannula 2.00 07/07/20 22:29 97 High Flow N/C 4.00 07/07/20 22:00 76 23 129/82 (98) 96 Nasal Cannula 2.00 07/07/20 21:00 80 16 121/72 (88) 97 Nasal Cannula 2.00 07/07/20 20:00 85 23 138/79 (98) 98 Nasal Cannula 2.00 07/07/20 20:00 35.9 07/07/20 20:00 Nasal Cannula 2.00 07/07/20 19:59 99 High Flow N/C 4.00 07/07/20 19:00 78 23 144/85 (104) 98 Nasal Cannula 2.00 07/07/20 19:00 80 07/07/20 18:30 85 23 149/88 (108) 97 Nasal Cannula 2.00 07/07/20 16:06 Nasal Cannula 2.00 07/07/20 16:00 35.7 07/07/20 14:42 92 Nasal Cannula 2.00 07/07/20 14:30 63 24 144/93 (110) 96 Nasal Cannula 2.00 07/07/20 13:00 57 22 148/85 (106) 98 Nasal Cannula 2.00 07/07/20 12:35 Nasal Cannula 2.00 07/07/20 12:34 82 07/07/20 12:00 36.0 07/07/20 12:00 63 29 154/86 (108) 97 Nasal Cannula 2.00 07/07/20 11:00 81 23 143/86 (105) 98 Nasal Cannula 2.00 07/07/20 10:42 96 Nasal Cannula 2.00 07/07/20 10:00 80 24 144/107 (119) 98 Nasal Cannula 2.00 07/07/20 09:00 82 22 140/75 (96) 91 Nasal Cannula 2.00 07/07/20 08:00 Nasal Cannula 2.00 07/07/20 08:00 90 19 125/73 (90) 97 Nasal Cannula 2.00 07/07/20 07:34 36.4 07/07/20 07:30 Nasal Cannula 2.00 07/07/20 07:16 98 Nasal Cannula 3.00 07/07/20 07:00 79 21 138/76 (96) 99 Nasal Cannula 6.00 07/07/20 06:47 79 07/07/20 06:00 65 23 120/72 (88) 99 Nasal Cannula 6.00 07/07/20 05:06 90 27 160/92 (114) 91 Nasal Cannula 6.00 I & O 07/08/20 07:00 Intake Total 1645 ml Output Total 4200 ml Balance -2555 ml Height & Weight Height: '" Weight: lbs. oz. kg; 29.17 BMI Method: General Appearance: No Apparent Distress, Chronically ill, Other (somnolent. slurred speech most prominent when initially woken) HEENT: PERRL/EOMI (required frequent reorientation to assess); No Scleral Icterus (L), No Scleral Icterus (R) Neck: Normal Inspection, Non Tender, Supple Respiratory: Lungs Clear, Normal Breath Sounds, No Accessory Muscle Use, No Respiratory Distress Cardiovascular: Regular Rate, Rhythm, No Murmur, Normal Peripheral Pulses Capillary Refill: Less Than 3 Seconds Peripheral Pulses: 2+ Dorsalis Pedis (R), 2+ Left Dors-Pedis (L), 2+ Radial Pulses (R), 2+ Radial Pulses (L) Extremity: Normal Inspection, Non Tender, No Calf Tenderness, No Pedal Edema Neurologic/Psychiatric: Alert (somnolent), Oriented x3 Skin: Normal Color, Warm/Dry Results Lab Laboratory Tests 07/07/20 03:45 07/08/20 03:10 Assessment/Plan Assessment/Plan Second degree AV Block cardiology consulted heart cath revealed no obstruction temporary pacemaker in place, permanent pacemaker to be placed this stay, currently delayed by sepsis Severe sepsis 3/3 BC positive for Coag Neg Staph Pt may need SCAR r/o endocardits corynebacterium urinary tract infection, possible pneumonia on CXR CXR 07/07: There is bibasilar atelectasis with bilateral effusions which have shown some improvement since 07/06/2020 study. on vancomycin and Zosyn leukocytosis 11.6 and procalcitonin 0.46, both still elevated but trending down Surgery consulted to evaluate port as cause of persistent bacteremia recommended placement of a temporary PICC line and removal of the Groshong implantable catheter and send the tip for culture and sensitivity today continue IVF Acute bronchitis Continue duoneb QID CXR 07/07: There is bibasilar atelectasis with bilateral effusions which have shown some improvement since 07/06/2020 study Dysphagia Speech consulted due to concern for aspiration Continue soft diet with thin liquids Elevated BUN/Cr BUN 16 and Cr 1.21, no longer elevated. Continue to monitor Continue IVF Hyponatremia improving HCTZ held, continue NS Hx of Hypothyroid Continue home [place] thyroid DM continue SSI DVT prophylaxis continue Lovenox Hypomagnesemia 2.4 on 07/02, has decreased daily since to 1.6 today continue to monitor Metabolic acidosis resolved Chest pain resolved JAROCHO ALMENDAERZ DO 07/08/20 0614: Subjective Time Seen by a Provider: 06:11 Exam Exam General Appearance: No Apparent Distress HEENT: PERRL/EOMI (required frequent reorientation to assess) Neck: Normal Inspection, Non Tender, Supple Respiratory: Lungs Clear, Normal Breath Sounds, No Accessory Muscle Use, No Respiratory Distress Cardiovascular: Regular Rate, Rhythm, No Murmur, Normal Peripheral Pulses Extremity: Normal Inspection, Non Tender, No Calf Tenderness Neurologic/Psychiatric: Alert (somnolent), Oriented x3 Skin: Normal Color, Warm/Dry Assessment/Plan Assessment/Plan Second degree AV Block cardiology consulted heart cath revealed no obstruction temporary pacemaker in place, permanent pacemaker to be placed this stay, cur rently delayed by sepsis Severe sepsis 3/3 BC positive for Coag Neg Staph r/o endocarditis -Plan is to remove midline today Pt may need SCAR r/o endocardits vancomycin and Zosyn Surgery consulted to evaluate port as cause of persistent bacteremia recommended placement of a temporary PICC line and removal of the Groshong implantable catheter and send the tip for culture and sensitivity today continue IVF Acute bronchitis Continue duoneb QID CXR 07/07: There is bibasilar atelectasis with bilateral effusions which have shown some improvement since 07/06/2020 study Dysphagia Speech consulted due to concern for aspiration Continue soft diet with thin liquids Elevated BUN/Cr monitor Hyponatremia improving HCTZ held, continue NS Hx of Hypothyroid Continue home [place] thyroid Small bilateral pleural effusions with systolic and diastolic dysfunction -Lasix -Check BNP DM continue SSI DVT prophylaxis continue Lovenox Hypomagnesemia 2.4 on 07/02, has decreased daily since to 1.6 today continue to monitor Metabolic acidosis resolved Chest pain resolved Supervisory-Addendum Brief Verification & Attestation Participated in pt care: history, MDM, physical Personally performed: exam, history, MDM Care discussed with: Medical Student Procedures: n/a Verification and Attestation of Medical Student E/M Service A medical student performed and documented this service in my presence. I reviewed and verified all information documented by the medical student and made modifications to such information, when appropriate. I personally performed the physical exam and medical decision making. Jarocho Almendarez, Jul 08, 2020,06:13 PAXTON SADLER MED STUDENT Jul 08, 2020 04:25 JAROCHO ALMENDAREZ DO Jul 08, 2020 06:14
[2020-07-08] MEDS: MAGNESIUM 1 GM/100 ML IVPB 100 ML IV SCH ×2 (04:30→04:37)
[2020-07-08] MEDS: POTASSIUM CL 10MEQ/50ML IVPB 50 ML IV SCH ×4 (04:30→08:57)
[2020-07-08] MEDS: KCL 20 MEQ TAB (K-DUR) PO SCH (04:30)
[2020-07-08] MEDS: inSUlin ASPART (NovoLOG) 1 UNIT/0.01 ML (CHARGE PER UNIT) SC SCH ×4 (05:14→20:16)
--- NOTE | 2020-07-08 07:50 | NUR ---
PT AWAKE, ALERT THIS AM, ANSWERS ALL QUESTIONS APPROPRIATELY, IS ALERT AND ORIENTED X 3, CONSENT OBTAINED FOR PORT REMOVAL TODAY, ASSESSMENT COMPLETE SEE FLOW SHEET.
[2020-07-08] MEDS: FUROSEMIDE 40 MG/4 ML INJ (LASIX) IVP SCH (08:07)
--- NOTE | 2020-07-08 08:19 | Progress Note - Hospitalist ---
Subjective HPI/CC On Admission Date Seen by Provider: Jul 08, 2020 Time Seen by Provider: 08:16 Aby Vega is a 79-year-old female with past medical history of hypertension, hypothyroidism, type II diabetes mellitus, renal cell carcinoma status post nephrectomy, who presented to [facility] with chest pain. She was transferred to [facility] for cardiology evaluation. She reportedly been having lightheadedness and dizziness with near-syncope recently. She denies any fevers or chills. She denies any shortness of breath or cough. She denies palpitations. She denies any abdominal pain, nausea, or vomiting. She denies any dysuria. She does report frequency and urgency which have been long-standing issues. She denies any rash. Subjective/Events-last exam Pt reports doing better. No complaints. Plan for port removal today. Focused Exam Lactate Level 07/07/20 07:05: Lactic Acid Level 0.88 Objective Exam Vital Signs Vital Signs Date Time Temp Pulse Resp B/P (MAP) Pulse Ox O2 Delivery O2 Flow Rate FiO2 07/08/20 08:00 87 21 166/94 (118) 98 Nasal Cannula 2.00 07/08/20 07:48 36.0 Capillary Refill : Less Than 3 Seconds General Appearance: No Apparent Distress, Chronically ill Respiratory: Lungs Clear, No Accessory Muscle Use, Other (2lpm NC) Cardiovascular: Regular Rate, Rhythm, No Murmur Neurologic/Psychiatric: Alert, Oriented x3 Results/Procedures Lab Laboratory Tests 07/08/20 03:10 Patient resulted labs reviewed. Imaging: Reviewed Imaging Report Assessment/Plan Assessment and Plan Assess & Plan/Chief Complaint Severe sepsis Corynebacterium urinary tract infection Possible pneumonia chest x-ray showed possible pneumonia (now ?aspiration) Procalcitonin trending down UA with no WBC, few bacteria, culture growing Corynebacterium aurimucosum blood cultures persistently positive - Discussed with [facility] who declined in transfer as they would not do anything d ifferently, I did speak with Dr Dupont of Infectious Disease on 07/07 who believes that persistent bacteremia is due to port - Surgery consulted for evaluation of port and potential removal- plan for port removal today Continue Zosyn and Vancomycin for now - Repeat blood cultures tomorrow once port out for 24 hours - Continue Lasix Syncope Second-degree AV block Cardiology consulted, appreciate assistance Left heart catheterization revealed normal coronary arteries Temporary pacemaker placed, planning for permanent pacemaker placement this hospital stay once bacteremia cleared - Permanent pacemaker has been delayed due to sepsis Likely chronic kidney disease creatinine stable today Continue IV fluids, monitor Hyponatremia- resolved sodium 138 Likely due to HCTZ, held Hypothyroidism Euthyroid sick syndrome TSH 0.07 Free T4 and free T3 within normal limits studies consistent with euthyroid sick syndrome Continue [place] Thyroid Dysphagia - Speech consulted, appreciate recs - Continue soft diet with thin liquids DVT prophylaxis: Lovenox Chest pain, resolved Lactic acidosis, resolved Clinical Quality Measures DVT/VTE Risk/Contraindication: Risk Factor Score Per Nursin RFS Level Per Nursing on Admit: 2=Moderate DL DENSON MD Jul 08, 2020 08:19
[2020-07-08] MEDS: THYROID (ARMOUR) 60 MG TABLET PO SCH ×2 (08:36→20:06)
[2020-07-08] MEDS: risperiDONE 1 MG (RisperDAL) TAB PO SCH ×2 (08:36→20:06)
[2020-07-08] MEDS: DOCUSATE SODIUM 100 MG (COLACE) CAP PO SCH ×2 (08:36→21:32)
--- NOTE | 2020-07-08 08:39 | Diagnostic Imaging Report ---
EXAMINATION: Portable erect AP chest at 4:08 AM INDICATION: Dyspnea The cardiomegaly and bibasilar pneumonia/atelectasis and bilateral pleural effusions seen previously are again evident and not significantly changed. The central pulmonary vasculature does not seem quite as prominent as on the prior study, however. The lung apices are clear. The mediastinum is not widened. The osseous structures are intact. The left-sided PICC line seen previously appears stable. IMPRESSION: There is persistent involvement of both lungs by atelectasis/infiltrate and fluid. Overall, there does not appear to have been any significant change. However, there does appear to be somewhat less pulmonary congestion than noted on the prior exam. Dictated by: Dictated on workstation # [id number]
[2020-07-08] MEDS ORDERED: BUP/EPI 0.25% 1:200,000 (MARCAINE) 30 ML VIAL ONE (11:22)
[2020-07-08] MEDS ORDERED: LIDOCAINE 1% INJ 20 ML 20 ML VIAL ONE (11:22)
[2020-07-08] MEDS ORDERED: proPOfol 200 MG/20 ML (DIPRIVAN) VIAL IV ONE (11:35)
[2020-07-08] MEDS ORDERED: PROPOFOL INJECTION 50 ML IV ONE ×2 (11:52→13:40)
[2020-07-08] MEDS ORDERED: PROPOFOL INJECTION 0 ML IV ONE (11:52)
--- NOTE | 2020-07-08 12:32 | NUR ---
PT TO OR VIA BED ACCOMPANIED BY OR STAFF.
[2020-07-08] MEDS ORDERED: MIDAZOLAM 2 MG/2 ML (VERSED) VIAL ONE (12:50)
[2020-07-08] MEDS ORDERED: LACTATED RINGERS 1,000 ML IV PRN (13:09)
--- NOTE | 2020-07-08 13:34 | Progress Note-Post Operative ---
Post-Operative Progess Note Surgeon (s)/Wind Farm Operations Manager (s) Surgeon CONOR JUAREZ MD Wind Farm Operations Manager: yuliana bustillos [employer] Pre-Operative Diagnosis bacteremia, heart block Post-Operative Diagnosis same Procedure & Operative Findings Date of Procedure 07/08/20 Procedure Performed/Findings removal left subclavian groshong catheter. Anesthesia Type mac with local Estimated Blood Loss Estimated blood loss (mL): minimal Specimens/Packing Specimens Removed cath tip for c&s. CONOR JUAREZ MD Jul 08, 2020 13:34
--- NOTE | 2020-07-08 13:43 | Diagnostic Imaging Report ---
EXAMINATION: Fluoroscopy up to 1 hour. INDICATION: PICC line insertion. FINDINGS: Fluoroscopic assistance was provided for Dr. Cleveland during his PICC line insertion procedure. 13.9 seconds of fluoroscopy time was utilized. There is a left-sided PICC line in place. The tip of the line overlies the right hilum and is in the same region as the tip of the Port-A-Cath seen on the prior exam performed earlier today. IMPRESSION: Fluoroscopic assistance was provided for Dr. Cleveland. Dictated by: Dictated on workstation # [id number]
[2020-07-08] MEDS ORDERED: morphine INJ 10 MG/ML 1ML (SYR OR VIAL) IVP ONE (15:30)
[2020-07-08] MEDS ORDERED: MEPERIDINE (DEMEROL) INJ 50 MG/ML IVP ONE (15:30)
[2020-07-08] MEDS ORDERED: ONDANSETRON 4 MG/2 ML (SDV) Z0FRAN IVP PRN (15:30)
[2020-07-08] MEDS ORDERED: fentaNYL INJECTION 100 MCG/2 ML AMP IVP ONE (15:30)
[2020-07-08] MEDS ORDERED: HYDROmorphone 2 MG/ML VIAL (DILAUDID) IV ONE (15:30)
--- NOTE | 2020-07-08 16:15 | NUR ---
1500 PT BACK TO ROOM ICU 9 VIA BED ACCOMPANIED BY PAR STAFF. REPORT RECEIVED FROM Garry COSBY RN . PT DROWSY AWAKENS TO VERBAL STIMULI, 02 ON AT 4 LITERS PER NC. INCISION TO LEFT UPPER CHEST INTACT WITH DERMABOND COVERING. DOUBLE LUMEN PICC NOTED IN LEFT ARM. PT VOICES NO C/O OF PAIN, CALL LIGHT AND OTHER PERSONAL ITEMS WITHIN REACH WILL CONTINUE TO MONITOR.
[2020-07-08] MEDS: VANCOMYCIN 1250 MG/NS 250 ML IVPB IV SCH ×2 (16:24)
--- NOTE | 2020-07-08 16:38 | Cardiology Progress Note ---
Cardiology SOAP Progress Note Subjective: Improved clinical condition. Patient is more alert. Objective: I&O/Vital Signs 07/08/20 07/08/20 07/08/20 07/08/20 05:00 06:00 06:53 07:00 Pulse 80 75 77 Resp 26 22 21 B/P (MAP) 135/75 (95) 131/75 (93) 167/95 (119) Pulse Ox 99 98 99 100 O2 Delivery Nasal Cannula Nasal Cannula High Flow N/C Nasal Cannula O2 Flow Rate 2.00 2.00 2.00 2.00 07/08/20 07/08/20 07/08/20 07/08/20 07:04 07:29 07:48 07:56 Temp 36.0 Pulse 79 90 O2 Delivery Nasal Cannula O2 Flow Rate 2.00 07/08/20 07/08/20 07/08/20 07/08/20 08:00 09:00 10:00 10:38 Pulse 87 96 85 Resp 21 14 28 B/P (MAP) 166/94 (118) 161/105 (123) 151/84 (106) Pulse Ox 98 97 99 99 O2 Delivery Nasal Cannula Nasal Cannula Nasal Cannula High Flow N/C O2 Flow Rate 2.00 2.00 2.00 2.00 07/08/20 07/08/20 07/08/20 07/08/20 11:00 12:00 12:00 13:00 Pulse 94 94 93 Resp 19 11 B/P (MAP) 162/82 (108) 165/105 (125) Pulse Ox 98 98 O2 Delivery Nasal Cannula Nasal Cannula Nasal Cannula O2 Flow Rate 2.00 2.00 2.00 07/08/20 07/08/20 07/08/20 07/08/20 14:10 14:10 14:20 14:20 Temp 36.6 Resp 18 19 B/P (MAP) 127/85 (99) 139/80 (99) Pulse Ox 100 96 O2 Delivery OxyMask OxyMask OxyMask OxyMask O2 Flow Rate 5 5 3 3 07/08/20 07/08/20 07/08/20 07/08/20 14:30 14:30 14:40 14:40 Temp 36.6 Resp 21 20 B/P (MAP) 134/84 (101) 136/81 (99) Pulse Ox 96 96 O2 Delivery OxyMask OxyMask OxyMask OxyMask O2 Flow Rate 3 3 2 3 07/08/20 07/08/20 07/08/20 14:50 15:25 16:13 Temp 36.3 O2 Delivery OxyMask Nasal Cannula O2 Flow Rate 2 2.00 07/08/20 00:00 Intake Total 1005 ml Output Total 3000 ml Balance -1995 ml Constitutional: AAO x 3 Respiratory: chest is bilaterally symmetric, lungs clear to auscultation Cardiovascular: regular rate-rhythm, S1 and S2; No diastolic murmur, No systolic murmur Gastrointestional: soft, audible bowel sounds Extremities: normal range of motion, non-tender, normal inspection, no lower extremity edema bilateral Neurologic/Psychiatric: no motor/sensory deficits, alert, normal mood/affect, oriented x 3 Skin: normal color, warm/dry Results/Procedures: Labs Laboratory Tests 07/07/20 19:15: Glucometer 165H 07/08/20 03:10: White Blood Count 11.6H, Red Blood Count 3.61L, Hemoglobin 10.5L, Hematocrit 33L , Mean Corpuscular Volume 91, Mean Corpuscular Hemoglobin 29, Mean Corpuscular Hemoglobin Concent 32, Red Cell Distribution Width 13.0, Platelet Count 327, Mean Platelet Volume 11.0, Immature Granulocyte % (Auto) 1, Neutrophils (%) (Auto) 79H, Lymphocytes (%) (Auto) 10L, Monocytes (%) (Auto) 8, Eosinophils (%) (Auto) 3, Basophils (%) (Auto) 0, Neutrophils # (Auto) 9.1H, Lymphocytes # (Auto) 1.2, Monocytes # (Auto) 0.9, Eosinophils # (Auto) 0.3, Basophils # (Auto) 0.1, Immature Granulocyte # (Auto) 0.1, Sodium Level 138, Potassium Level 3.7, Chloride Level 106, Carbon Dioxide Level 20L, Anion Gap 12, Blood Urea Nitrogen 16, Creatinine 1.21, Estimat Glomerular Filtration Rate 43, BUN/Creatinine Ratio 13, Glucose Level 189H, Calcium Level 8.1L, Phosphorus Level 3.8, Magnesium Level 1.6, B-Type Natriuretic Peptide 358.9H 07/08/20 15:29: Glucometer 206H Microbiology 07/05/20 Blood Culture - Final, Complete Staphylococcus epidermidis 07/02/20 Urine Culture - Final, Complete Corynebactoerium aurimucosum See Comments 07/01/20 MRSA Screen - Final, Complete MRSA not isolated A/P: Assessment/Dx: Mild to moderate CAD, 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 Bradycardia Hypotension, UTI Sepsis, gram-positive bacteremia Plan: Chest pain, unstable angina, cardiac cath done on 07/02/20 having mild to moderate CAD, non obstructive disease Second degree AV block, 2-1 AV block [place] 2 reported by [facility] emergency room, had multiple 2-1 AV block, first degree AV block and left bundle branch block. Patient not requiring temporary pacing this morning after I reduced the backup rate to 40 BPM. I will continue to monitor for the next 24 hours. If the patient does not require temporary pacing for more than 24 hours we may consider taking the temporary pacemaker out on 07/09/2020. Urinary tract infection, receiving antibiotics, Bacteremia, gram-positive bacteremia. Antibiotics changed from ceftriaxone to vancomycin. Source of infection could be the temporary pacemaker, port or possible infective endocarditis. Repeat echocardiogram did not show any new regurgitant lesion or any gross vegetations. Will hold off transesophageal echocardiogram for now. Plan to take out the port today. 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 Continue on IV fluid and monitor Hyponatremia, metabolic acidosis. Thank you for your consultation. Please call me if you have any questions. Val Encarnacion MD, FACP, FACC, FSCAI, FHRS, CCDS Interventional Cardiology Cardiac Electrophysiology Vascular Medicine and Endovascular Interventions Focused Exam Lactate Level 07/07/20 07:05: Lactic Acid Level 0.88 Kym ENCARNACION MD Jul 08, 2020 16:38
[2020-07-08] MEDS: ALPRAZolam 0.25 MG (XANAX) TAB PO PRN (18:43)
[2020-07-08] MEDS: SIMETHICONE 80 MG (MYLICON) CHEW PO PRN (18:43)
[2020-07-08] MEDS: MELATONIN 3 MG TABLET PO PRN (20:06)
[2020-07-08] MEDS: guaiFENesin/DM (ROBITUSSIN DM) 10 ML UDC PO PRN (21:27)
--- NOTE | 2020-07-08 23:09 | OPERATIVE REPORT ---
DATE OF SERVICE: 07/08/2020 ATTENDING PRIMARY CARE PHYSICIAN: Dr. Moody. ADMITTING PHYSICIAN: Vivian Hogan DO PREOPERATIVE DIAGNOSES: Sepsis with persistent leukocytosis and a chronic indwelling catheter. POSTOPERATIVE DIAGNOSES: Sepsis with persistent leukocytosis and a chronic indwelling catheter. PROCEDURE: Removal Groshong implantable catheter. SURGEON: Conor Cleveland MD CALCULATING MACHINE OPERATOR: Yemi Jones APRN ANESTHESIA: Monitored anesthesia care with local. ESTIMATED BLOOD LOSS: Minimal. FINDINGS: Scarred in left subclavian implantable catheter. DISPOSITION: The patient tolerated the procedure well. INDICATIONS: The patient is a 80-year-old female who was transferred from another hospital due to chest pain and a syncopal episode. Once being evaluated, she was in secondary heart block and also with symptomatic hypotension and lightheadedness. She has had similar symptoms in the past. She also was found to have leukocytosis and a urinary tract infection and possible pneumonia. Her blood cultures were positive for Staph aureus. She has had a Groshong implantable catheter in the left subclavian vein for the past several years due to a right renal cell cancer and is status post left nephrectomy. Due to her sepsis and positive blood cultures, she will need to have a Groshong implantable catheter removed and replaced once her infection is cleared. DESCRIPTION OF PROCEDURE: The patient was brought to the operating room, laid supine on the table. A PICC line was placed before the procedure. The chest and neck were prepped and draped in standard surgical fashion. A 1% lidocaine with epinephrine was then used to anesthetize the overlying skin in the left subclavian region. A transverse skin incision made using 15 blade. The subcutaneous tissue was then dissected down to the port and the capsule to the port opened using Metzenbaum scissors. There was significant adhesive tissues along the catheter, which were taken down all the way underneath the clavicle using Metzenbaum scissors. With gentle pressure, the entire catheter was removed intact and the catheter tip sent for culture and sensitivity. Good hemostasis was observed. The subcutaneous tissue was then reapproximated using 3-0 Vicryl interrupted sutures. Skin was closed using 4-0 Monocryl running subcuticular suture. Wound was then cleaned and covered with Dermabond. The patient tolerated the procedure well. We will await culture and sensitivities. However, she will need to continue with IV therapy including antibiotics and once her infection is cleared, we then proceeded with replacement of the Groshong implantable catheter. Job ID: [id number] DocumentID: [id number] Dictated Date: 07/08/2020 14:02:07 Break Up Worker Date: 07/08/2020 23:08:53 Dictated By: CONOR CLEVELAND MD
[2020-07-09] VITALS (23 sets, daily range): BP systolic 92–138; BP diastolic 49–97
[2020-07-09] MEDS: ALPRAZolam 0.25 MG (XANAX) TAB PO PRN ×2 (00:41→17:16)
[2020-07-09] MEDS: RT-ALBUTEROL/IPRATROPIUM 3 ML (DUONEB) VIAL INH SCH ×6 (02:00→21:27)
[2020-07-09] MEDS: guaiFENesin/DM (ROBITUSSIN DM) 10 ML UDC PO PRN (02:56)
[2020-07-09 03:13] LABS: POTASSIUM 3.2 MMOL/L (3.6-5.0)
[2020-07-09 03:15] LABS: BASOPHILS # (AUTO) 0.1 10^3/uL (0.0-0.1); BASOPHILS % (AUTO) 0 % (0-10); CALCIUM 8.2 MG/DL (8.5-10.1); EOSINOPHILS # (AUTO) 0.3 10^3/uL (0.0-0.3); EOSINOPHILS % (AUTO) 2 % (0-10); HEMATOCRIT 32 % (35-52); HEMOGLOBIN 10.5 g/dL (11.5-16.0); LYMPHOCYTES # (AUTO) 1.9 10^3/uL (1.0-4.0); LYMPHOCYTES % (AUTO) 12 % (12-44); MEAN CORPUSCULAR HEMOGLOBIN 29 pg (25-34); MEAN CORPUSCULAR HGB CONC 33 g/dL (32-36); MEAN CORPUSCULAR VOLUME 90 fL (80-99); MEAN PLATELET VOLUME 10.2 fL (9.0-12.2); MONOCYTES # (AUTO) 1.4 10^3/uL (0.0-1.0); MONOCYTES % (AUTO) 9 % (0-12); NEUTROPHILS % (AUTO) 76 % (42-75); PLATELET COUNT 368 10^3/uL (130-400); WHITE BLOOD COUNT 15.8 10^3/uL (4.3-11.0)
[2020-07-09 03:19] LABS: CREATININE SERUM 1.43 MG/DL (0.60-1.30); PHOSPHORUS 3.6 MG/DL (2.3-4.7)
[2020-07-09 03:22] LABS: MAGNESIUM 1.5 MG/DL (1.6-2.4)
[2020-07-09] MEDS: MAGNESIUM 1 GM/100 ML IVPB 100 ML IV SCH ×3 (03:56→05:24)
[2020-07-09] MEDS: POTASSIUM CL 10MEQ/50ML IVPB 50 ML IV SCH ×4 (03:56→05:25)
[2020-07-09] MEDS: fentaNYL INJECTION 100 MCG/2 ML AMP IVP PRN (03:56)
[2020-07-09] MEDS: PIPERACILLIN/TAZOBACTAM (BULK) 4.5 GM in NS (IVPB) 100 ML IV SCH ×3 (03:57→20:09)
--- NOTE | 2020-07-09 05:07 | Pulmonary Progress Note ---
PAXTON SADLER MED STUDENT 07/09/20 0507: Subjective Date Seen by a Provider: Jul 09, 2020 Time Seen by a Provider: 04:50 Subjective/Events-last exam When seen today Aby Vega is more alert compared to yesterday. Nursing reports her disorientation has worsened. Voiced her concern to me about her dog at home and her mail. She reports that her SOB has worsened. She has pain in her chest from her port removal yesterday. She complains of worsened arthritic pain in her knees. She also complains of pain in her R heel with movement. Denies any fevers or chills, light headedness, CP, abdominal pain, n/v. Review of Systems General: No Chills, No Night Sweats HEENT: No Sinus Congestion, No Sore Throat Pulmonary: Dyspnea, Cough Cardiovascular: No: Chest Pain, Lt Headedness Gastrointestinal: No: Nausea, Abdominal Pain, Diarrhea, Constipation Genitourinary: No Dysuria Sepsis Event Evaluation Height, Weight, BMI Height: '" Weight: lbs. oz. kg; 29.17 BMI Method: Focused Exam Lactate Level 07/07/20 07:05: Lactic Acid Level 0.88 Exam Exam Vital Signs Date Time Temp Pulse Resp B/P (MAP) Pulse Ox O2 Delivery O2 Flow Rate FiO2 07/09/20 03:00 68 28 112/74 (87) 92 Nasal Cannula 2.00 07/09/20 02:00 94 Nasal Cannula 2.00 07/09/20 02:00 60 19 99/58 (72) 96 Nasal Cannula 2.00 07/09/20 01:00 66 07/09/20 01:00 61 26 105/51 (69) 97 Nasal Cannula 2.00 07/09/20 00:05 36.7 07/09/20 00:00 71 27 105/49 (67) 96 Nasal Cannula 2.00 07/09/20 00:00 Nasal Cannula 2.00 07/08/20 23:00 66 31 152/72 (98) 97 Nasal Cannula 2.00 07/08/20 22:13 94 Nasal Cannula 2.00 07/08/20 22:00 67 24 146/77 (100) 97 Nasal Cannula 2.00 07/08/20 21:00 66 27 96 Nasal Cannula 2.00 07/08/20 20:00 Nasal Cannula 2.00 07/08/20 20:00 90 26 97 Nasal Cannula 2.00 07/08/20 19:23 36.9 07/08/20 19:00 81 26 96 Nasal Cannula 2.00 07/08/20 19:00 83 07/08/20 18:00 82 28 98 Nasal Cannula 2.00 07/08/20 17:12 92 Nasal Cannula 2.00 07/08/20 17:00 98 34 149/88 (108) 96 Nasal Cannula 2.00 07/08/20 16:13 Nasal Cannula 2.00 07/08/20 16:00 95 21 130/78 (95) 95 Nasal Cannula 2.00 07/08/20 15:25 36.3 07/08/20 15:00 94 19 142/85 (104) 97 Nasal Cannula 2.00 07/08/20 14:50 OxyMask 2 07/08/20 14:40 OxyMask 3 07/08/20 14:40 36.6 20 136/81 (99) 96 OxyMask 2 07/08/20 14:30 OxyMask 3 07/08/20 14:30 21 134/84 (101) 96 OxyMask 3 07/08/20 14:20 OxyMask 3 07/08/20 14:20 19 139/80 (99) 96 OxyMask 3 07/08/20 14:10 OxyMask 5 07/08/20 14:10 36.6 18 127/85 (99) 100 OxyMask 5 07/08/20 13:00 93 07/08/20 12:00 Nasal Cannula 2.00 07/08/20 12:00 94 11 165/105 (125) 98 Nasal Cannula 2.00 07/08/20 11:00 94 19 162/82 (108) 98 Nasal Cannula 2.00 07/08/20 10:38 99 High Flow N/C 2.00 07/08/20 10:00 85 28 151/84 (106) 99 Nasal Cannula 2.00 07/08/20 09:00 96 14 161/105 (123) 97 Nasal Cannula 2.00 07/08/20 08:00 87 21 166/94 (118) 98 Nasal Cannula 2.00 07/08/20 07:56 Nasal Cannula 2.00 07/08/20 07:48 36.0 07/08/20 07:29 90 07/08/20 07:04 79 07/08/20 07:00 77 21 167/95 (119) 100 Nasal Cannula 2.00 07/08/20 06:53 99 High Flow N/C 2.00 07/08/20 06:00 75 22 131/75 (93) 98 Nasal Cannula 2.00 I & O 07/09/20 07:00 Intake Total 1350 ml Output Total 5935 ml Balance -4585 ml Height & Weight Height: '" Weight: lbs. oz. kg; 29.17 BMI Method: General Appearance: No Apparent Distress, Chronically ill, Obese HEENT: PERRL/EOMI; No Scleral Icterus (L), No Scleral Icterus (R) Neck: Normal Inspection, Non Tender, Supple Respiratory: No Chest Non Tender (pain around site where port was removed); Lungs Clear, Normal Breath Sounds, No Accessory Muscle Use; No Other (2L NC) Cardiovascular: Regular Rate, Rhythm, No Murmur, Normal Peripheral Pulses Capillary Refill: Less Than 3 Seconds Peripheral Pulses: 2+ Dorsalis Pedis (R), 2+ Left Dors-Pedis (L), 2+ Radial Pulses (R), 2+ Radial Pulses (L) Extremity: Normal Inspection, Non Tender, No Calf Tenderness, Pedal Edema Neurologic/Psychiatric: Alert; No Oriented x3 (aware of the procedures she has had done, nursing reports she thought I was the mailman) Skin: Normal Color, Warm/Dry Results Lab Laboratory Tests 07/08/20 03:10 07/09/20 02:50 Assessment/Plan Assessment/Plan Second degree AV Block cardiology consulted heart cath revealed no obstruction temporary pacemaker in place, cardiology reports not currently requiring pacing, if she does not require pacing for over 24 hours, may consider removing temporary pacemaker Severe sepsis / BC positive for Coag Neg Staph r/o endocarditis TTE 07/08 to assess need for SCAR to rule out endocarditis, did not show any new regurgitant lesion or any gross vegetations Cardiology recommends holding off SCAR for now Midline removed yesterday Urine culture shows corynebacterium vancomycin and Zosyn continue IVF Acute bronchitis Continue duoneb QID CXR 07/08 impression: persistent involvement of both lungs by atelectasis/infiltrate and fluid. Overall, no significant change. Somewhat less pulmonary congestion than 07/07 Dysphagia Continue soft diet with thin liquids Elevated BUN/Cr Cr elevated at 1.43 continue IV fluid, continue to monitor Hyponatremia resolved, continue to monitor HCTZ held, continue NS Hx of Hypothyroid Continue home [place] thyroid Small bilateral pleural effusions with systolic and diastolic dysfunction continue Lasix BNP 358.9 Echo 07/08 shows EF 40-45%. Echo 07/02 EF of 45-50% Hypomagnesemia 1.5 today, continue to replace Hypokalemia 3.2 today, continue to replace DM continue SSI DVT prophylaxis continue Lovenox Metabolic acidosis resolved Chest pain resolved ERINN JASSO DO 07/09/20 0708: Assessment/Plan Assessment/Plan Second degree AV Block cardiology consulted heart cath revealed no obstruction temporary pacemaker in place, cardiology reports not currently requiring pacing, if she does not require pacing for over 24 hours, may consider removing temporary pacemaker Severe sepsis 12/15 BC positive for Coag Neg Staph r/o endocarditis TTE 07/08 to assess need for SCAR to rule out endocarditis, did not show any new regurgitant lesion or any gross vegetations Cardiology recommends holding off SCAR for now Midline removed yesterday Urine culture shows corynebacterium vancomycin and Zosyn continue IVF Acute bronchitis Continue duoneb QID CXR 07/08 impression: persistent involvement of both lungs by atelectasis/infiltrate and fluid. Overall, no significant change. Somewhat less pulmonary congestion than 07/07 Dysphagia Continue soft diet with thin liquids Elevated BUN/Cr Cr elevated at 1.43 continue IV fluid, continue to monitor Hyponatremia resolved, continue to monitor HCTZ held, continue NS Hx of Hypothyroid Continue home [place] thyroid Small bilateral pleural effusions with systolic and diastolic dysfunction continue Lasix BNP 358.9 Echo 07/08 shows EF 40-45%. Echo 07/02 EF of 45-50% Hypomagnesemia 1.5 today, continue to replace Hypokalemia 3.2 today, continue to replace DM continue SSI DVT prophylaxis continue Lovenox Metabolic acidosis resolved Chest pain resolved PAXTON S[employer] STUDENT Jul 09, 2020 05:07 ERINN JASSO DO Jul 09, 2020 07:08
[2020-07-09] MEDS: KCL 20 MEQ TAB (K-DUR) PO SCH ×2 (05:24→06:00)
[2020-07-09] MEDS: inSUlin ASPART (NovoLOG) 1 UNIT/0.01 ML (CHARGE PER UNIT) SC SCH ×4 (05:24→20:25)
[2020-07-09] MEDS: risperiDONE 1 MG (RisperDAL) TAB PO SCH (09:32)
[2020-07-09] MEDS: DOCUSATE SODIUM 100 MG (COLACE) CAP PO SCH ×2 (09:32→20:03)
[2020-07-09] MEDS: ENOXAPARIN 40 MG/0.4 ML (LOVENOX) SYR SC SCH (09:32)
[2020-07-09] MEDS: THYROID (ARMOUR) 60 MG TABLET PO SCH ×2 (09:32→20:09)
[2020-07-09] MEDS: FUROSEMIDE 40 MG/4 ML INJ (LASIX) IVP SCH (09:32)
--- NOTE | 2020-07-09 12:49 | Anesthesia-General Post-Op ---
MAC Patient Condition Mental Status/LOC: Same as Preop Cardiovascular: Satisfactory Nausea/Vomiting: Absent Respiratory: Satisfactory Pain: Controlled Complications: Absent Post Op Complications Complications None Follow Up Care/Instructions Patient Instructions None needed. Anesthesiology Discharge Order Discharge Order Patient is doing well, no complaints, stable vital signs, no apparent adverse anesthesia problems. KATERYNA AHN DO Jul 09, 2020 12:49
--- NOTE | 2020-07-09 14:00 | NUR ---
notified dr. almendarez regarding patient increased lethargy. Dr. Almendarez stated patient recently started Risperidal hold d/t lethargy.
--- NOTE | 2020-07-09 15:00 | NUR ---
Notified Dr. Encarnacion of patient HR decline through out day, currently ranging from 40's-60's. Stated he would be up to see her in a bit.
--- NOTE | 2020-07-09 15:11 | Cardiology Progress Note ---
Cardiology SOAP Progress Note Subjective: Still not feeling well. Objective: I&O/Vital Signs 07/09/20 07/09/20 07/09/20 07/09/20 04:00 04:00 04:00 05:00 Temp 37.0 Pulse 66 68 Resp 21 18 B/P (MAP) 106/64 (78) 109/97 (101) Pulse Ox 94 96 O2 Delivery Nasal Cannula Nasal Cannula Nasal Cannula O2 Flow Rate 2.00 2.00 2.00 07/09/20 07/09/20 07/09/20 07/09/20 06:00 07:00 07:00 07:22 Pulse 65 90 91 Resp 25 23 B/P (MAP) 111/73 (86) 123/78 (93) Pulse Ox 97 97 95 O2 Delivery Nasal Cannula Nasal Cannula Nasal Cannula O2 Flow Rate 2.00 2.00 2.00 07/09/20 07/09/20 07/09/20 07/09/20 08:00 08:00 09:00 10:00 Pulse 74 73 74 Resp 27 24 22 B/P (MAP) 113/62 (79) 99/65 (76) Pulse Ox 97 96 94 O2 Delivery Nasal Cannula Nasal Cannula Nasal Cannula Nasal Cannula O2 Flow Rate 2.00 2.00 2.00 2.00 07/09/20 07/09/20 07/09/20 07/09/20 10:59 11:00 12:00 12:00 Pulse 62 80 Resp 16 24 B/P (MAP) 101/65 (77) 97/64 (75) Pulse Ox 96 96 96 O2 Delivery Nasal Cannula Nasal Cannula Nasal Cannula Nasal Cannula O2 Flow Rate 2.00 2.00 2.00 2.00 07/09/20 07/09/20 13:00 15:02 Pulse 87 Pulse Ox 95 O2 Delivery Nasal Cannula O2 Flow Rate 2.00 07/09/20 00:00 Intake Total 800 ml Output Total 4060 ml Balance -3260 ml Constitutional: AAO x 3 Respiratory: chest is bilaterally symmetric, lungs clear to auscultation Cardiovascular: regular rate-rhythm, S1 and S2; No diastolic murmur, No systolic murmur Gastrointestional: soft, audible bowel sounds Extremities: normal range of motion, non-tender, normal inspection, no lower extremity edema bilateral Neurologic/Psychiatric: no motor/sensory deficits, alert, normal mood/affect, oriented x 3 Skin: normal color, warm/dry Results/Procedures: Labs Laboratory Tests 07/08/20 15:29: Glucometer 206H 07/08/20 20:07: Glucometer 252H 07/09/20 02:50: White Blood Count 15.8H, Red Blood Count 3.60L, Hemoglobin 10.5L, Hematocrit 32L , Mean Corpuscular Volume 90, Mean Corpuscular Hemoglobin 29, Mean Corpuscular Hemoglobin Concent 33, Red Cell Distribution Width 13.1, Platelet Count 368, Mean Platelet Volume 10.2, Immature Granulocyte % (Auto) 1, Neutrophils (%) (Auto) 76H, Lymphocytes (%) (Auto) 12, Monocytes (%) (Auto) 9, Eosinophils (%) (Auto) 2, Basophils (%) (Auto) 0, Neutrophils # (Auto) 12.0H, Lymphocytes # (Auto) 1.9, Monocytes # (Auto) 1.4H, Eosinophils # (Auto) 0.3, Basophils # (Auto) 0.1, Immature Granulocyte # (Auto) 0.2H, Sodium Level 137, Potassium Level 3.2L, Chloride Level 102, Carbon Dioxide Level 21, Anion Gap 14, Blood Urea Nitrogen 15, Creatinine 1.43H, Estimat Glomerular Filtration Rate 35, BUN/Creatinine Ratio 10, Glucose Level 154H, Calcium Level 8.2L, Phosphorus Level 3.6, Magnesium Level 1.5L 07/09/20 11:56: Glucometer 220H Microbiology 07/08/20 Catheter Tip Culture - Preliminary, Resulted No growth 07/02/20 Urine Culture - Final, Complete Corynebactoerium aurimucosum See Comments 07/01/20 MRSA Screen - Final, Complete MRSA not isolated A/P: Assessment/Dx: Mild to moderate CAD, 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 Bradycardia Hypotension, UTI Sepsis, gram-positive bacteremia Plan: Chest pain, unstable angina, cardiac cath done on 07/02/20 having mild to moderate CAD, non obstructive disease Second degree AV block, 2-1 AV block Mobitz 2 reported by [place] [facility], had multiple 2-1 AV block, first degree AV block and left bundle branch block. Patient not requiring temporary pacing this morning after I reduced the backup rate to 40 BPM. I will continue to monitor for the next 24 hours. If the patient does not require temporary pacing for more than 24 hours we may consider taking the temporary pacemaker out today. Urinary tract infection, receiving antibiotics, Bacteremia, gram-positive bacteremia. Antibiotics changed from ceftriaxone to vancomycin. Source of infection could be the temporary pacemaker, port or possible infective endocarditis. Repeat echocardiogram did not show any new regurgitant lesion or any gross vegetations. Will hold off transesophageal echocardiogram for now. Port taken out yesterday. 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 Continue on IV fluid and monit or Hyponatremia, metabolic acidosis. Thank you for your consultation. Please call me if you have any questions. Val Encarnacion MD, FACP, FACC, FSCAI, FHRS, CCDS Interventional Cardiology Cardiac Electrophysiology Vascular Medicine and Endovascular Interventions Focused Exam Lactate Level 07/07/20 07:05: Lactic Acid Level 0.88 Kym ENCARNACION MD Jul 09, 2020 15:11
--- NOTE | 2020-07-09 15:17 | Progress Note - Hospitalist ---
Subjective HPI/CC On Admission Date Seen by Provider: Jul 09, 2020 Time Seen by Provider: 07:45 Aby Vega is a 79-year-old female with past medical history of hypertension, hypothyroidism, type II diabetes mellitus, renal cell carcinoma status post nephrectomy, who presented to [facility] with chest pain. She was transferred to [facility] for cardiology evaluation. She reportedly been having lightheadedness and dizziness with near-syncope recently. She denies any fevers or chills. She denies any shortness of breath or cough. She denies palpitations. She denies any abdominal pain, nausea, or vomiting. She denies any dysuria. She does report frequency and urgency which have been long-standing issues. She denies any rash. Subjective/Events-last exam Pt reports feeling ok today but tired. No soreness from her port removal. Focused Exam Lactate Level 07/07/20 07:05: Lactic Acid Level 0.88 Objective Exam Vital Signs Vital Signs Date Time Temp Pulse Resp B/P (MAP) Pulse Ox O2 Delivery O2 Flow Rate FiO2 07/09/20 15:02 95 Nasal Cannula 2.00 07/09/20 13:00 87 07/09/20 12:00 24 97/64 (75) 07/09/20 04:00 37.0 Capillary Refill : Less Than 3 Seconds General Appearance: No Apparent Distress, Chronically ill Respiratory: Lungs Clear, No Respiratory Distress Cardiovascular: Regular Rate, Rhythm, No Murmur Gastrointestinal: Normal Bowel Sounds, Non Tender, Soft Results/Procedures Lab Laboratory Tests 07/09/20 02:50 Patient resulted labs reviewed. Imaging: Reviewed Imaging Report Assessment/Plan Assessment and Plan Assess & Plan/Chief Complaint Severe sepsis Corynebacterium urinary tract infection Possible pneumonia Dysphagia chest x-ray showed possible pneumonia (now ?aspiration) UA with no WBC, few bacteria, culture growing Corynebacterium aurimucosum blood cultures persistently positive - Discussed with [facility] who declined in transfer as they would not do anything differently, I did speak with Dr Dupont of Infectious Disease on 07/07 who believes that persistent bacteremia is due to port - Surgery consulted for port removal Continue Zosyn and Vancomycin for now - Repeat blood cultures this afternoon - Continue Lasix Syncope Second-degree AV block Cardiology consulted, appreciate assistance Left heart catheterization revealed normal coronary arteries Temporary pacemaker placed, planning for permanent pacemaker placement this hospital stay once bacteremia cleared - Permanent pacemaker has been delayed due to sepsis Likely chronic kidney disease creatinine up slightly today, ?lasix- trend Hyponatremia- resolved sodium 137 Likely due to HCTZ, held Hypothyroidism Euthyroid sick syndrome TSH 0.07 Free T4 and free T3 within normal limits studies consistent with euthyroid sick syndrome Continue [place] Thyroid Dysphagia - Speech consulted, appreciate recs - Continue soft diet with thin liquids DVT prophylaxis: Lovenox Chest pain, resolved Lactic acidosis, resolved Clinical Quality Measures DVT/VTE Risk/Contraindication: Risk Factor Score Per Nursin RFS Level Per Nursing on Admit: 2=Moderate DL DENSON MD Jul 09, 2020 15:17
[2020-07-09] MEDS: VANCOMYCIN 1250 MG/NS 250 ML IVPB IV SCH ×2 (17:16)
[2020-07-09] MEDS ORDERED: RT-ALBUTEROL/IPRATROPIUM 3 ML (DUONEB) VIAL ONE (18:17)
[2020-07-10] VITALS (21 sets, daily range): BP systolic 92–160; BP diastolic 23–99
[2020-07-10] MEDS: RT-ALBUTEROL/IPRATROPIUM 3 ML (DUONEB) VIAL INH SCH ×7 (02:19→22:56)
[2020-07-10 02:48] LABS: BASOPHILS # (AUTO) 0.1 10^3/uL (0.0-0.1); BASOPHILS % (AUTO) 0 % (0-10); EOSINOPHILS # (AUTO) 0.6 10^3/uL (0.0-0.3); EOSINOPHILS % (AUTO) 5 % (0-10); HEMATOCRIT 31 % (35-52); HEMOGLOBIN 9.9 g/dL (11.5-16.0); LYMPHOCYTES # (AUTO) 1.5 10^3/uL (1.0-4.0); LYMPHOCYTES % (AUTO) 12 % (12-44); MEAN CORPUSCULAR HEMOGLOBIN 29 pg (25-34); MEAN CORPUSCULAR HGB CONC 32 g/dL (32-36); MEAN CORPUSCULAR VOLUME 90 fL (80-99); MEAN PLATELET VOLUME 9.8 fL (9.0-12.2); MONOCYTES # (AUTO) 1.1 10^3/uL (0.0-1.0); MONOCYTES % (AUTO) 9 % (0-12); NEUTROPHILS # (AUTO) 8.4 10^3/uL (1.8-7.8); NEUTROPHILS % (AUTO) 72 % (42-75); PLATELET COUNT 342 10^3/uL (130-400); WHITE BLOOD COUNT 11.8 10^3/uL (4.3-11.0)
[2020-07-10 03:00] LABS: CALCIUM 8.2 MG/DL (8.5-10.1)
[2020-07-10 03:04] LABS: CREATININE SERUM 1.55 MG/DL (0.60-1.30); PHOSPHORUS 3.7 MG/DL (2.3-4.7)
[2020-07-10 03:06] LABS: MAGNESIUM 1.5 MG/DL (1.6-2.4)
[2020-07-10] MEDS: PIPERACILLIN/TAZOBACTAM (BULK) 4.5 GM in NS (IVPB) 100 ML IV SCH ×3 (03:29→19:44)
[2020-07-10] MEDS: MAGNESIUM 1 GM/100 ML IVPB 100 ML IV SCH ×3 (04:45→07:46)
[2020-07-10] MEDS: POTASSIUM CL 10MEQ/50ML IVPB 50 ML IV SCH ×6 (04:45→12:02)
[2020-07-10] MEDS: KCL 20 MEQ TAB (K-DUR) PO SCH ×2 (04:45→05:20)
--- NOTE | 2020-07-10 05:11 | Pulmonary Progress Note ---
Subjective Time Seen by a Provider: 05:09 Subjective/Events-last exam No complications noted. Sepsis Event Evaluation Height, Weight, BMI Height: '" Weight: lbs. oz. kg; 29.17 BMI Method: Focused Exam Lactate Level 07/07/20 07:05: Lactic Acid Level 0.88 Exam Exam Vital Signs Date Time Temp Pulse Resp B/P (MAP) Pulse Ox O2 Delivery O2 Flow Rate FiO2 07/10/20 03:56 Nasal Cannula 2.00 07/10/20 03:29 36.6 07/10/20 02:23 96 Nasal Cannula 2.00 07/10/20 02:00 63 16 96/65 (75) 92 Nasal Cannula 2.00 07/10/20 01:00 50 07/10/20 01:00 54 30 127/59 (81) 95 Nasal Cannula 2.00 07/10/20 00:08 Nasal Cannula 2.00 07/10/20 00:06 37.2 07/10/20 00:00 60 16 128/51 (76) 95 Nasal Cannula 2.00 07/09/20 23:00 70 36 138/58 (84) 94 Nasal Cannula 2.00 07/09/20 22:00 46 29 110/53 (72) 98 Nasal Cannula 2.00 07/09/20 21:28 95 Nasal Cannula 2.00 07/09/20 21:00 55 29 127/51 (76) 95 Nasal Cannula 2.00 07/09/20 20:41 Nasal Cannula 2.00 07/09/20 20:07 36.7 60 24 137/76 (96) 96 Nasal Cannula 2.00 07/09/20 20:00 37.0 07/09/20 20:00 59 24 137/76 (96) 95 Nasal Cannula 2.00 07/09/20 19:00 60 07/09/20 19:00 63 45 130/65 (86) 96 Nasal Cannula 2.00 07/09/20 18:32 95 Nasal Cannula 3.00 07/09/20 18:00 63 34 95 Nasal Cannula 2.00 07/09/20 17:00 51 19 108/50 (69) 97 Nasal Cannula 2.00 07/09/20 16:00 66 25 127/75 (92) 95 Nasal Cannula 2.00 07/09/20 16:00 36.7 07/09/20 16:00 Nasal Cannula 2.00 07/09/20 15:02 95 Nasal Cannula 2.00 07/09/20 15:00 44 19 107/52 (70) 96 Nasal Cannula 2.00 07/09/20 14:00 61 16 111/74 (86) 96 Nasal Cannula 2.00 07/09/20 13:00 62 18 92/51 (65) 96 Nasal Cannula 2.00 07/09/20 13:00 87 07/09/20 12:00 Nasal Cannula 2.00 07/09/20 12:00 80 24 97/64 (75) 96 Nasal Cannula 2.00 07/09/20 11:00 62 16 101/65 (77) 96 Nasal Cannula 2.00 07/09/20 10:59 96 Nasal Cannula 2.00 07/09/20 10:00 74 22 94 Nasal Cannula 2.00 07/09/20 09:00 73 24 99/65 (76) 96 Nasal Cannula 2.00 07/09/20 08:00 Nasal Cannula 2.00 07/09/20 08:00 74 27 113/62 (79) 97 Nasal Cannula 2.00 07/09/20 07:22 95 Nasal Cannula 2.00 07/09/20 07:00 91 07/09/20 07:00 90 23 123/78 (93) 97 Nasal Cannula 2.00 07/09/20 06:00 65 25 111/73 (86) 97 Nasal Cannula 2.00 I & O 07/10/20 06:59 Intake Total 1100 ml Output Total 3200 ml Balance -2100 ml Height & Weight Height: '" Weight: lbs. oz. kg; 29.17 BMI Method: General Appearance: No Apparent Distress, Chronically ill HEENT: PERRL/EOMI; No Scleral Icterus (L), No Scleral Icterus (R) Neck: Normal Inspection, Non Tender, Supple Respiratory: Lungs Clear, No Respiratory Distress Cardiovascular: Regular Rate, Rhythm, No Murmur Capillary Refill: Less Than 3 Seconds Peripheral Pulses: 2+ Dorsalis Pedis (R), 2+ Left Dors-Pedis (L), 2+ Radial Pulses (R), 2+ Radial Pulses (L) Extremity: Normal Inspection, Non Tender, No Calf Tenderness, Pedal Edema Neurologic/Psychiatric: Alert; No Oriented x3 (aware of the procedures she has had done, nursing reports she thought I was the mailman) Skin: Normal Color, Warm/Dry Results Lab Laboratory Tests 07/09/20 02:50 07/10/20 02:40 Assessment/Plan Assessment/Plan Second degree AV Block cardiology consulted heart cath revealed no obstruction temporary pacemaker in place, cardiology reports not currently requiring pacing, if she does not require pacing for over 24 hours, may consider removing temporary pacemaker Severe sepsis 3/ BC positive for Coag Neg Staph r/o endocarditis TTE 07/08 to assess need for SCAR to rule out endocarditis, did not show any new regurgitant lesion or any gross vegetations Cardiology recommends holding off SCAR for now Urine culture shows corynebacterium vancomycin and Zosyn continue IVF Acute bronchitis Continue duoneb QID CXR 07/08 impression: persistent involvement of both lungs by atelectasis/infiltrate and fluid. Overall, no significant change. Somewhat less pulmonary congestion than 07/07 Dysphagia Continue soft diet with thin liquids Elevated BUN/Cr Cr elevated at 1.43 continue IV fluid, continue to monitor Hyponatremia resolved, continue to monitor HCTZ held, continue NS Hx of Hypothyroid Continue home [place] thyroid Small bilateral pleural effusions with systolic and diastolic dysfunction continue Lasix BNP 358.9 Echo 07/08 shows EF 40-45%. Echo 07/02 EF of 45-50% Hypomagnesemia 1.5 today, continue to replace Hypokalemia 3.2 today, continue to replace DM continue SSI DVT prophylaxis continue Lovenox Metabolic acidosis resolved Chest pain resolved ERINN JASSO DO Jul 10, 2020 05:11
[2020-07-10] MEDS: inSUlin ASPART (NovoLOG) 1 UNIT/0.01 ML (CHARGE PER UNIT) SC SCH ×4 (05:16→20:36)
[2020-07-10] MEDS: guaiFENesin/DM (ROBITUSSIN DM) 10 ML UDC PO PRN ×2 (06:48→19:44)
--- NOTE | 2020-07-10 08:35 | Diagnostic Imaging Report ---
Indication: Dyspnea. Comparison: 07/09/2020. Discussion: Single portable upright view of the chest was obtained. Cardiomegaly is stable. Bilateral pleural effusions are slightly decreased. Bibasilar infiltrate or atelectasis is decreased. No pneumothorax. Left-sided central venous catheter is stable. Postoperative changes are again noted within the right axilla. No osseous abnormality. Impression: 1. Decreased bilateral pleural effusions. Dictated by: Dictated on workstation # [id number]
[2020-07-10] MEDS: THYROID (ARMOUR) 60 MG TABLET PO SCH ×2 (08:47→20:36)
[2020-07-10] MEDS: DOCUSATE SODIUM 100 MG (COLACE) CAP PO SCH ×2 (08:47→20:29)
[2020-07-10] MEDS: ENOXAPARIN 40 MG/0.4 ML (LOVENOX) SYR SC SCH (08:47)
--- NOTE | 2020-07-10 08:51 | Progress Note - Hospitalist ---
Subjective HPI/CC On Admission Date Seen by Provider: Jul 10, 2020 Time Seen by Provider: 08:46 Aby Vega is a 79-year-old female with past medical history of hypertension, hypothyroidism, type II diabetes mellitus, renal cell carcinoma status post nephrectomy, who presented to [facility] with chest pain. She was transferred to [facility] for cardiology evaluation. She reportedly been having lightheadedness and dizziness with near-syncope recently. She denies any fevers or chills. She denies any shortness of breath or cough. She denies palpitations. She denies any abdominal pain, nausea, or vomiting. She denies any dysuria. She does report frequency and urgency which have been long-standing issues. She denies any rash. Subjective/Events-last exam Pt reports doing better today. Spoke with daughter, Juli, on the phone who states her mom sounds better. Reports history of severe delirium with infection in the past as well. Patient seems oriented and remembers I'm her doctor and that we're waiting for blood cultures but then asks where her jet plane is taking her. She believes that she is going to [place]. Objective Exam Vital Signs Vital Signs Date Time Temp Pulse Resp B/P (MAP) Pulse Ox O2 Delivery O2 Flow Rate FiO2 07/10/20 07:31 96 Nasal Cannula 2.00 07/10/20 07:11 36.9 07/10/20 07:00 67 25 107/23 (51) Capillary Refill : Less Than 3 Seconds General Appearance: No Apparent Distress, Chronically ill Respiratory: Lungs Clear, No Respiratory Distress Cardiovascular: Regular Rate, Rhythm, No Murmur Gastrointestinal: Normal Bowel Sounds, Non Tender, Soft Genital/Rectal: Other (reyna in place) Neurologic/Psychiatric: Alert, Other (orientation as described in HPI) Results/Procedures Lab Laboratory Tests 07/10/20 02:40 Patient resulted labs reviewed. Imaging: Reviewed Imaging Report Assessment/Plan Assessment and Plan Assess & Plan/Chief Complaint Severe sepsis Corynebacterium urinary tract infection Possible pneumonia Dysphagia Delirium chest x-ray showed possible pneumonia (now ?aspiration) UA with no WBC, few bacteria, culture growing Corynebacterium aurimucosum blood cultures had been persistently positive - Discussed with [facility] who declined in transfer as they would not do anything differently, I did speak with Dr Dupont of Infectious Disease on 07/07 who believes that persistent bacteremia is due to port - Surgery consulted, s/p port removal Continue Zosyn and Vancomycin for now - Repeat blood cultures from post port removal are still pending Syncope Second-degree AV block Cardiology consulted, appreciate assistance Left heart catheterization revealed normal coronary arteries Temporary pacemaker placed, planning for permanent pacemaker placement this hospital stay once bacteremia cleared - Permanent pacemaker has been delayed due to sepsis Likely chronic kidney disease creatinine up slightly again today- will DC Lasix and monitor Hyponatremia- resolved sodium 140 Likely due to HCTZ, held Hypothyroidism Euthyroid sick syndrome TSH 0.07 Free T4 and free T3 within normal limits studies consistent with euthyroid sick syndrome Continue [place] Thyroid Dysphagia - Speech consulted, appreciate recs - Continue soft diet with thin liquids DVT prophylaxis: Lovenox Chest pain, resolved Lactic acidosis, resolved Clinical Quality Measures DVT/VTE Risk/Contraindication: Risk Factor Score Per Nursin RFS Level Per Nursing on Admit: 2=Moderate DL DENSON MD Jul 10, 2020 08:51
[2020-07-10] MEDS ORDERED: RT-ALBUTEROL/IPRATROPIUM 3 ML (DUONEB) VIAL ONE ×2 (10:05→14:14)
[2020-07-10] MEDS ORDERED: TROUGH ORDER-PHARMACY XX NR (15:00)
--- NOTE | 2020-07-10 15:37 | NUR ---
pt was having a procedure at this time
--- NOTE | 2020-07-10 15:45 | Cardiology Progress Note ---
Cardiology SOAP Progress Note Subjective: no cardiac complaints. Objective: I&O/Vital Signs 07/10/20 07/10/20 07/10/20 07/10/20 05:00 06:00 07:00 07:00 Pulse 66 65 67 67 Resp 32 15 25 B/P (MAP) 125/81 (96) 137/68 (91) 107/23 (51) Pulse Ox 95 95 90 O2 Delivery Nasal Cannula Nasal Cannula Nasal Cannula O2 Flow Rate 2.00 2.00 2.00 07/10/20 07/10/20 07/10/20 07/10/20 07:11 07:31 08:00 09:00 Temp 36.9 Pulse 65 74 Resp 33 47 B/P (MAP) 106/83 (91) Pulse Ox 96 95 92 O2 Delivery Nasal Cannula Nasal Cannula Nasal Cannula O2 Flow Rate 2.00 2.00 2.00 07/10/20 07/10/20 07/10/20 07/10/20 10:00 11:00 11:07 11:19 Temp 36.2 Pulse 73 100 Resp 31 24 B/P (MAP) 116/98 (104) 119/99 (106) Pulse Ox 93 97 96 O2 Delivery Nasal Cannula Nasal Cannula Nasal Cannula O2 Flow Rate 2.00 2.00 2.00 07/10/20 07/10/20 07/10/20 07/10/20 12:00 12:16 13:00 14:00 Pulse 95 99 112 68 Resp 20 21 17 B/P (MAP) 121/86 (98) 134/85 (101) 138/56 (83) Pulse Ox 90 98 O2 Delivery Nasal Cannula Nasal Cannula Nasal Cannula O2 Flow Rate 2.00 2.00 2.00 07/10/20 00:00 Intake Total 800 ml Output Total 1800 ml Balance -1000 ml Constitutional: AAO x 3 Respiratory: chest is bilaterally symmetric, lungs clear to auscultation Cardiovascular: regular rate-rhythm, S1 and S2; No diastolic murmur, No systolic murmur Gastrointestional: soft, audible bowel sounds Extremities: normal range of motion, non-tender, normal inspection, no lower extremity edema bilateral Neurologic/Psychiatric: no motor/sensory deficits, alert, normal mood/affect, oriented x 3 Skin: normal color, warm/dry Results/Procedures: Labs Laboratory Tests 07/09/20 20:13: Glucometer 204H 07/10/20 02:40: White Blood Count 11.8H, Red Blood Count 3.40L, Hemoglobin 9.9L, Hematocrit 31L, Mean Corpuscular Volume 90, Mean Corpuscular Hemoglobin 29, Mean Corpuscular Hemoglobin Concent 32, Red Cell Distribution Width 12.9, Platelet Count 342, Mean Platelet Volume 9.8, Immature Granulocyte % (Auto) 1, Neutrophils (%) (Auto) 72, Lymphocytes (%) (Auto) 12, Monocytes (%) (Auto) 9, Eosinophils (%) (Auto) 5, Basophils (%) (Auto) 0, Neutrophils # (Auto) 8.4H, Lymphocytes # (Auto) 1.5, Monocytes # (Auto) 1.1H, Eosinophils # (Auto) 0.6H, Basophils # (Auto) 0.1, Immature Granulocyte # (Auto) 0.1, Sodium Level 140, Potassium Level 3.0L, Chloride Level 102, Carbon Dioxide Level 21, Anion Gap 17H, Blood Urea Nitrogen 16, Creatinine 1.55H, Estimat Glomerular Filtration Rate 32, BUN/Creatinine Ratio 10, Glucose Level 168H, Calcium Level 8.2L, Phosphorus Level 3.7, Magnesium Level 1.5L 07/10/20 11:10: Glucometer 322H 07/10/20 15:10: Vancomycin Level Trough 31.0*H 07/10/20 15:33: Glucometer 199H Microbiology 07/09/20 Blood Culture - Preliminary, Resulted No growth 07/02/20 Urine Culture - Final, Complete Corynebactoerium aurimucosum See Comments 07/01/20 MRSA Screen - Final, Complete MRSA not isolated A/P: Assessment/Dx: Mild to moderate CAD, 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 Bradycardia Hypotension, UTI Sepsis, gram-positive bacteremia Plan: Chest pain, unstable angina, cardiac cath done on 07/02/20 having mild to moderate CAD, non obstructive disease Second degree AV block, 2-1 AV block Mob[place] 2 reported by [place] emergency room, had multiple 2-1 AV block, first degree AV block and left bundle branch block. Patient not requiring temporary pacing for over 48 hours. therefore I discussed with the patient and will take the temporary pacemaker out today. I did discuss with the patient that there is a small chance that she could develop significant bradycardia again and may require a temporary pacemaker. I also discuss with Dr. Coleman and if it seems likely that the infection is resolved, we may go ahead and do the permanent pacemaker tomorrow afternoon. The urgency is due to the fact that she was significantly bradycardic with heart rates in the 30s and has evidence of significant distal conduction disease. Urinary tract infection, receiving antibiotics, Bacteremia, gram-positive bacteremia. Antibiotics changed from ceftriaxone to vancomycin. Source of infection could be the temporary pacemaker, port or possible infective endocarditis. Repeat echocardiogram did not show any new regurgitant lesion or any gross vegetations. Will hold off transesophageal echocardiogram for now. Port taken out. no further fever, white blood count coming down. 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 Continue on IV fluid and monitor Hyponatremia, metabolic acidosis. Thank you for your consultation. Please call me if you have any questions. Val Encarnacion MD, FACP, FACC, FSCAI, FHRS, CCDS Interventional Cardiology Cardiac Electrophysiology Vascular Medicine and Endovascular Interventions Kym ENCARNACION MD Jul 10, 2020 15:45
--- NOTE | 2020-07-10 15:46 | Cardiology Post Procedure Note ---
Post-Procedure Note Physician (s)/Microfilming Document Preparer (s) Physician Kym APPIAH MD Pre-Procedure Diagnosis Pre-Procedure Diagnosis: bacteremia, heart block Post-Procedure Note Procedure Start Date: Jul 10, 2020 Procedure Start Time: 15:30 Name of Procedure: bedside removal of temporary pacemaker. removal of right femoral venous sheath. Findings/Procedure Note informed consent was taken. The right groin area was prepped in a sterile way. The sutures were cut. The pacemaker was taken out. The sheath was then pulled and pressure held. Patient's heart rate was in the 90s. Stable hemodynamics. The tip of the temporary pacemaker will be sent for culture. Estimated blood loss (mL): none Contrast Amount: none Post-Procedure Diagnosis Post-operative diagnosis: second-degree AV block, left bundle branch block, severe bradycardia, bacteremia, bedside removal of temporary pacemaker and right venous sheath. Kym APPIAH MD Jul 10, 2020 15:46
--- NOTE | 2020-07-10 16:20 | NUR ---
VANCOMYCIN DOSING CHECKED TROUGH LEVEL DUE TO INCREASE IN SCR - TROUGH LEVEL 31.0 HOLD DOSE AND RECHECK LEVEL 07/12 WITH AM LABS
[2020-07-10] MEDS: ALPRAZolam 0.25 MG (XANAX) TAB PO PRN (22:35)
[2020-07-11] VITALS (26 sets, daily range): BP systolic 119–162; BP diastolic 63–107
[2020-07-11] MEDS: RT-ALBUTEROL/IPRATROPIUM 3 ML (DUONEB) VIAL INH SCH ×5 (02:16→22:25)
[2020-07-11] MEDS: PIPERACILLIN/TAZOBACTAM (BULK) 4.5 GM in NS (IVPB) 100 ML IV SCH ×3 (03:15→19:52)
[2020-07-11 03:32] LABS: BASOPHILS # (AUTO) 0.1 10^3/uL (0.0-0.1); BASOPHILS % (AUTO) 1 % (0-10); EOSINOPHILS # (AUTO) 0.4 10^3/uL (0.0-0.3); EOSINOPHILS % (AUTO) 4 % (0-10); HEMATOCRIT 30 % (35-52); HEMOGLOBIN 9.8 g/dL (11.5-16.0); LYMPHOCYTES # (AUTO) 1.7 10^3/uL (1.0-4.0); LYMPHOCYTES % (AUTO) 16 % (12-44); MEAN CORPUSCULAR HEMOGLOBIN 29 pg (25-34); MEAN CORPUSCULAR HGB CONC 33 g/dL (32-36); MEAN CORPUSCULAR VOLUME 90 fL (80-99); MEAN PLATELET VOLUME 10.2 fL (9.0-12.2); MONOCYTES % (AUTO) 10 % (0-12); NEUTROPHILS % (AUTO) 69 % (42-75); PLATELET COUNT 342 10^3/uL (130-400); WHITE BLOOD COUNT 10.2 10^3/uL (4.3-11.0)
[2020-07-11 03:40] LABS: POTASSIUM 3.1 MMOL/L (3.6-5.0)
[2020-07-11 03:42] LABS: CALCIUM 8.1 MG/DL (8.5-10.1)
[2020-07-11 03:46] LABS: CREATININE SERUM 1.46 MG/DL (0.60-1.30); PHOSPHORUS 3.6 MG/DL (2.3-4.7)
[2020-07-11 03:49] LABS: MAGNESIUM 1.6 MG/DL (1.6-2.4)
[2020-07-11] MEDS: POTASSIUM CL 10MEQ/50ML IVPB 50 ML IV SCH ×4 (04:24→09:00)
[2020-07-11] MEDS: KCL 20 MEQ TAB (K-DUR) PO SCH ×2 (04:24→04:40)
[2020-07-11] MEDS: inSUlin ASPART (NovoLOG) 1 UNIT/0.01 ML (CHARGE PER UNIT) SC SCH ×4 (04:24→20:28)
[2020-07-11] MEDS: MAGNESIUM 1 GM/100 ML IVPB 100 ML IV SCH ×3 (04:24→06:16)
--- NOTE | 2020-07-11 04:59 | Pulmonary Progress Note ---
Subjective Time Seen by a Provider: 04:59 Subjective/Events-last exam Pt has been confused through the night Sepsis Event Evaluation Height, Weight, BMI Height: '" Weight: lbs. oz. kg; 29.17 BMI Method: Exam Exam Vital Signs Date Time Temp Pulse Resp B/P (MAP) Pulse Ox O2 Delivery O2 Flow Rate FiO2 07/11/20 04:19 Room Air 07/11/20 04:00 71 29 145/82 (103) 95 Room Air 07/11/20 03:36 37.0 07/11/20 03:00 87 25 119/69 (86) 95 Room Air 07/11/20 02:20 94 Room Air 07/11/20 02:00 67 24 121/107 (112) 93 Room Air 07/11/20 01:00 91 07/11/20 01:00 72 30 130/63 (85) 92 Room Air 07/11/20 00:00 Room Air 07/11/20 00:00 92 38 127/68 (87) 93 Room Air 07/11/20 00:00 37.0 07/10/20 23:00 62 16 107/55 (72) 94 Room Air 07/10/20 22:58 94 Room Air 07/10/20 22:00 66 16 153/66 (95) 96 Room Air 07/10/20 21:00 69 17 125/56 (79) 97 Room Air 07/10/20 20:24 Room Air 07/10/20 20:00 73 22 140/67 (91) 97 Room Air 07/10/20 19:42 37.0 76 24 160/81 (107) 94 Room Air 07/10/20 19:22 36.7 07/10/20 19:14 94 Nasal Cannula 2.00 07/10/20 19:00 80 07/10/20 18:00 67 20 141/77 (98) 99 Nasal Cannula 2.00 07/10/20 17:00 73 15 146/78 (100) 98 Nasal Cannula 2.00 07/10/20 17:00 37.3 07/10/20 16:00 37.3 Nasal Cannula 2.00 07/10/20 16:00 Nasal Cannula 2.00 07/10/20 14:00 68 17 138/56 (83) 98 Nasal Cannula 2.00 07/10/20 13:00 112 21 134/85 (101) Nasal Cannula 2.00 07/10/20 12:16 99 07/10/20 12:00 Nasal Cannula 2.00 07/10/20 12:00 95 20 121/86 (98) 90 Nasal Cannula 2.00 07/10/20 11:19 96 Nasal Cannula 2.00 07/10/20 11:07 36.2 07/10/20 11:00 100 24 119/99 (106) 97 Nasal Cannula 2.00 07/10/20 10:00 73 31 116/98 (104) 93 Nasal Cannula 2.00 07/10/20 09:00 74 47 92 Nasal Cannula 2.00 07/10/20 08:00 Nasal Cannula 2.00 07/10/20 08:00 65 33 106/83 (91) 95 Nasal Cannula 2.00 07/10/20 07:31 96 Nasal Cannula 2.00 07/10/20 07:11 36.9 07/10/20 07:00 67 25 107/23 (51) 90 Nasal Cannula 2.00 07/10/20 07:00 67 07/10/20 06:00 65 15 137/68 (91) 95 Nasal Cannula 2.00 07/10/20 05:00 66 32 125/81 (96) 95 Nasal Cannula 2.00 I & O 07/11/20 07:00 Intake Total 2210 ml Output Total 2175 ml Balance 35 ml Height & Weight Height: '" Weight: lbs. oz. kg; 29.17 BMI Method: General Appearance: No Apparent Distress, Chronically ill HEENT: PERRL/EOMI; No Scleral Icterus (L), No Scleral Icterus (R) Neck: Normal Inspection, Non Tender, Supple Respiratory: Lungs Clear, No Respiratory Distress Cardiovascular: Regular Rate, Rhythm, No Murmur Capillary Refill: Less Than 3 Seconds Peripheral Pulses: 2+ Dorsalis Pedis (R), 2+ Left Dors-Pedis (L), 2+ Radial Pulses (R), 2+ Radial Pulses (L) Extremity: Normal Inspection, Non Tender, No Calf Tenderness, Pedal Edema Neurologic/Psychiatric: Alert, Other (orientation as described in HPI) Skin: Normal Color, Warm/Dry Results Lab Laboratory Tests 07/10/20 02:40 07/11/20 03:22 Assessment/Plan Assessment/Plan Second degree AV Block cardiology consulted heart cath revealed no obstruction temporary pacemaker in place, cardiology reports not currently requiring pacing, if she does not require pacing for over 24 hours, may consider removing temporary pacemaker Severe sepsis 3/3 BC positive for Coag Neg Staph r/o endocarditis TTE 07/08 to assess need for SCAR to rule out endocarditis, did not show any new regurgitant lesion or any gross vegetations Cardiology recommends holding off SCAR for now Urine culture shows corynebacterium vancomycin and Zosyn continue IVF Acute bronchitis Continue duoneb QID CXR 07/08 impression: persistent involvement of both lungs by atelectasis/infiltrate and fluid. Overall, no significant change. Somewhat less pulmonary congestion than 07/07 Dysphagia Continue soft diet with thin liquids Elevated BUN/Cr Cr elevated at 1.43 continue IV fluid, continue to monitor Hyponatremia resolved, continue to monitor HCTZ held, continue NS Hx of Hypothyroid Continue home [place] thyroid Small bilateral pleural effusions with systolic and diastolic dysfunction continue Lasix BNP 358.9 Echo 07/08 shows EF 40-45%. Echo 07/02 EF of 45-50% Hypomagnesemia 1.5 today, continue to replace Hypokalemia 3.2 today, continue to replace DM continue SSI DVT prophylaxis continue Lovenox Metabolic acidosis resolved Chest pain resolved I am going to make pt step down status and sign off. Pt is on RA with good spo2 readings. Please call with any questions. ERINN JASSO DO Jul 11, 2020 04:59
--- NOTE | 2020-07-11 08:38 | Diagnostic Imaging Report ---
Indication: Dyspnea. Comparison: 07/10/2020. Discussion: Single portable upright view of the chest was obtained. Left upper extremity PICC line is stable. Mild cardiomegaly is stable. Small effusions are stable. Slightly improved aeration of the lungs as compared to the prior. No new consolidation. No pneumothorax. Impression: 1. Cardiomegaly and small effusions are stable. Improved aeration of the lungs otherwise. Dictated by: Dictated on workstation # [id number]
[2020-07-11] MEDS ORDERED: GLYCOPYRROLATE 0.2 MG/ML (ROBINUL) 2 ML VIAL IV PRN (08:45)
[2020-07-11] MEDS ORDERED: ARTIFICAL TEARS 0.4 ML UNIT DOSE (REFRESH PLUS) OU PRN (08:45)
[2020-07-11] MEDS ORDERED: BISACODYL 10 MG SUPP (DULCOLAX) PR PRN (08:45)
[2020-07-11] MEDS ORDERED: SALIVA STIMULANT MOUTH SPRAY (BIOTENE) 1.5 OZ MM PRN (08:45)
[2020-07-11] MEDS ORDERED: RT-ALBUTEROL/IPRATROPIUM 3 ML (DUONEB) VIAL INH PRN (08:45)
[2020-07-11] MEDS ORDERED: morphine INJ 4 MG/ML 1 ML (VIAL/SYRINGE) IV PRN (08:45)
[2020-07-11] MEDS ORDERED: ACETAMINOPHEN 650 MG SUPP (TYLENOL) PR PRN (08:45)
[2020-07-11] MEDS ORDERED: PROMETHAZINE INJ 25 MG/ML (PHENERGAN) AMP IVP PRN (08:45)
[2020-07-11] MEDS ORDERED: LORazepam INJ 2 MG/ML (ATIVAN) VIAL IVP PRN (08:45)
[2020-07-11] MEDS ORDERED: ONDANSETRON 4 MG/2 ML (SDV) Z0FRAN IVP PRN (08:45)
[2020-07-11] MEDS: ALPRAZolam 0.25 MG (XANAX) TAB PO PRN (09:00)
[2020-07-11] MEDS: ENOXAPARIN 40 MG/0.4 ML (LOVENOX) SYR SC SCH ×2 (09:00→09:02)
[2020-07-11] MEDS: THYROID (ARMOUR) 60 MG TABLET PO SCH ×2 (09:00→21:07)
--- NOTE | 2020-07-11 09:00 | NUR ---
LOVENOX HELD D/T PENDING PACEMAKER PLACEMENT PROCEDURE.
[2020-07-11] MEDS: DOCUSATE SODIUM 100 MG (COLACE) CAP PO SCH ×2 (09:02→19:45)
--- NOTE | 2020-07-11 09:58 | Progress Note - Hospitalist ---
Subjective HPI/CC On Admission Date Seen by Provider: Jul 11, 2020 Time Seen by Provider: 09:55 Aby Vega is a 79-year-old female with past medical history of hypertension, hypothyroidism, type II diabetes mellitus, renal cell carcinoma status post nephrectomy, who presented to [facility] with chest pain. She was transferred to [facility] [place] for cardiology evaluation. She reportedly been having lightheadedness and dizziness with near-syncope recently. She denies any fevers or chills. She denies any shortness of breath or cough. She denies palpitations. She denies any abdominal pain, nausea, or vomiting. She denies any dysuria. She does report frequency and urgency which have been long-standing issues. She denies any rash. Subjective/Events-last exam Pt reports doing better today. RN reports she was confused overnight and has some diarrhea. No further diarrhea this AM. Pt seems oriented to me. Asks for help turning her TV volume up. Objective Exam Vital Signs Vital Signs Date Time Temp Pulse Resp B/P (MAP) Pulse Ox O2 Delivery O2 Flow Rate FiO2 07/11/20 09:03 36.5 07/11/20 09:00 80 31 132/82 (99) 95 Room Air 07/10/20 19:14 2.00 Capillary Refill : Less Than 3 Seconds General Appearance: No Apparent Distress, Chronically ill Neck: Normal Inspection, Supple Respiratory: Lungs Clear, No Respiratory Distress Cardiovascular: Regular Rate, Rhythm, No Murmur Gastrointestinal: Normal Bowel Sounds, Non Tender, Soft Neurologic/Psychiatric: Alert, Other (oriented to major details (name, person, place)) Results/Procedures Lab Laboratory Tests 07/11/20 03:22 Patient resulted labs reviewed. Imaging: Reviewed Imaging Report Assessment/Plan Assessment and Plan Assess & Plan/Chief Complaint Severe sepsis Corynebacterium urinary tract infection Possible pneumonia Dysphagia Delirium chest x-ray showed possible pneumonia (now ?aspiration) UA with no WBC, few bacteria, culture growing Corynebacterium aurimucosum blood cultures had been persistently positive but post port removal blood cultures are negative - Discussed with [facility] who declined in transfer as they would not do anything differently, I did speak with Dr Dupont of Infectious Disease on 07/07 who believes that persistent bacteremia is due to port - Surgery consulted, s/p port removal Continue Zosyn and Vancomycin for now Syncope Second-degree AV block Cardiology consulted, appreciate assistance Left heart catheterization revealed normal coronary arteries Temporary pacemaker placed, planning for permanent pacemaker placement this hospital stay once bacteremia cleared - Permanent pacemaker has been delayed due to sepsis but planning to proceed wit h plcement now that blood cultures are negative Likely chronic kidney disease creatinine stable at 1.46 Hyponatremia- resolved sodium 140 Likely due to HCTZ, held Hypothyroidism Euthyroid sick syndrome TSH 0.07 Free T4 and free T3 within normal limits studies consistent with euthyroid sick syndrome Continue [place] Thyroid Dysphagia - Speech consulted, appreciate recs - Continue soft diet with thin liquids DVT prophylaxis: Lovenox Chest pain, resolved Lactic acidosis, resolved Clinical Quality Measures DVT/VTE Risk/Contraindication: Risk Factor Score Per Nursin RFS Level Per Nursing on Admit: 2=Moderate DL DENSON MD Jul 11, 2020 09:58
[2020-07-11] MEDS: LACTOBACILLUS ACIDOPHILUS (PROBIOTIC) CAPSULE PO SCH ×2 (12:26→19:07)
[2020-07-11] MEDS ORDERED: MIDAZOLAM 5 MG/5 ML (VERSED) VIAL ONE ×2 (13:07→14:20)
[2020-07-11] MEDS ORDERED: ceFAZolin INJECTION 2,000 MG ONE (13:07)
[2020-07-11] MEDS ORDERED: fentaNYL INJECTION 100 MCG/2 ML AMP ONE (13:07)
[2020-07-11] MEDS ORDERED: LIDOCAINE 1% INJ 20 ML 20 ML VIAL ONE (13:07)
[2020-07-11] MEDS ORDERED: HEParin (CATH LAB) 1,000 ML IV ONE (13:08)
[2020-07-11] MEDS ORDERED: NS IV 1000 ML 1,000 ML ONE (13:08)
--- NOTE | 2020-07-11 13:14 | NUR ---
PT A&O TO PERSON, PLACE, AND SITUATION. CONSENT FOR PACEMAKER PLACEMENT SIGNED BY PT.
[2020-07-11] MEDS ORDERED: BACITRACIN INJECTION 50,000 UNIT, SODIUM CHLORIDE 0.9% IRRIGATIO 500 ML IR ONE ×2 (13:15)
[2020-07-11] MEDS ORDERED: ceFAZolin INJECTION 1,000 MG VIAL IV ONE (13:15)
--- NOTE | 2020-07-11 13:36 | NUR ---
PT LEFT FLOOR FOR PACEMAKER PLACEMENT.
--- NOTE | 2020-07-11 14:13 | Cardiac Procedure Note-CS/ASA ---
Pre-Procedure Note Pre-Op Procedure Note H&P Reviewed The H&P was reviewed, patient examined and no changes noted. Date H&P Reviewed: Jul 11, 2020 Time H&P Reviewed: 14:13 Conscious Sedation Pre-Proced Time 14:13 ASA Score 3 For ASA 3 and 4: Consider anesthesia and medical clearance. Also, for patients with a history of failed moderate sedation consider anesthesia. Airway Lungs Heart ASA score ASA 1: a normal healthy patient ASA 2: a patient with a mild systemic disease (mid diabetes, controlled hypertension, obesity ASA 3: a patient with a severe systemic disease that limits activity (angina, COPD, prior Myocardial infarction) ASA 4: a patient with an incapacitating disease that is a constant threat to life (CHF, renal failure) ASA 5: a moribund patient not expected to survive 24 hrs. (ruptured aneurysm) ASA 6: a declared brain- patient whose organs are being harvested. For emergent operations, add the letter E after the classification Mallampati Classification Grade 1 Sedation Plan Analgesia, Amnesia, Plan communicated to team members, Discussed options with patient/fam, Discussed risks with patient/fam The patient is an appropriate candidate to undergo the planned procedure, sedation, and anesthesia. The patient immediately re-assessed prior to indication. Kym APPIAH MD Jul 11, 2020 14:13
--- NOTE | 2020-07-11 14:13 | Cardiology Progress Note ---
Cardiology SOAP Progress Note Subjective: No cardiac complaints. No fever. Objective: I&O/Vital Signs 07/11/20 07/11/20 07/11/20 07/11/20 02:20 03:00 03:36 04:00 Temp 37.0 Pulse 87 71 Resp 25 29 B/P (MAP) 119/69 (86) 145/82 (103) Pulse Ox 94 95 95 O2 Delivery Room Air Room Air Room Air 07/11/20 07/11/20 07/11/20 07/11/20 04:19 05:00 06:00 07:00 Pulse 80 87 94 Resp 23 21 B/P (MAP) 132/79 (96) 121/95 (104) Pulse Ox 94 94 O2 Delivery Room Air Room Air Room Air 07/11/20 07/11/20 07/11/20 07/11/20 07:00 07:05 08:00 08:00 Pulse 94 94 Resp 21 25 B/P (MAP) 132/78 (96) 145/84 (104) Pulse Ox 93 94 94 O2 Delivery Room Air Room Air Room Air Room Air 07/11/20 07/11/20 07/11/20 07/11/20 09:00 09:03 10:00 11:00 Temp 36.5 Pulse 80 100 96 Resp 31 38 33 B/P (MAP) 132/82 (99) 149/86 (107) Pulse Ox 95 95 94 O2 Delivery Room Air Room Air Room Air 07/11/20 07/11/20 07/11/20 07/11/20 11:42 12:00 12:00 12:52 Temp 36.3 Pulse 98 98 Resp 28 B/P (MAP) 140/75 (96) Pulse Ox 95 O2 Delivery Room Air Room Air 07/11/20 13:00 Pulse 67 Resp 28 B/P (MAP) 126/83 (97) Pulse Ox 98 O2 Delivery Room Air 07/11/20 00:00 Intake Total 1190 ml Output Total 925 ml Balance 265 ml Constitutional: AAO x 3 Respiratory: chest is bilaterally symmetric, lungs clear to auscultation Cardiovascular: regular rate-rhythm, S1 and S2; No diastolic murmur, No systolic murmur Gastrointestional: soft, audible bowel sounds Extremities: normal range of motion, non-tender, normal inspection, no lower extremity edema bilateral Neurologic/Psychiatric: no motor/sensory deficits, alert, normal mood/affect, oriented x 3 Skin: normal color, warm/dry Results/Procedures: Labs Laboratory Tests 07/10/20 15:10: Vancomycin Level Trough 31.0*H 07/10/20 15:33: Glucometer 199H 07/10/20 19:59: Glucometer 227H 07/11/20 03:22: White Blood Count 10.2, Red Blood Count 3.34L, Hemoglobin 9.8L, Hematocrit 30L, Mean Corpuscular Volume 90, Mean Corpuscular Hemoglobin 29, Mean Corpuscular Hemoglobin Concent 33, Red Cell Distribution Width 12.9, Platelet Count 342, Mean Platelet Volume 10.2, Immature Granulocyte % (Auto) 1, Neutrophils (%) (Auto) 69, Lymphocytes (%) (Auto) 16, Monocytes (%) (Auto) 10, Eosinophils (%) (Auto) 4, Basophils (%) (Auto) 1, Neutrophils # (Auto) 7.0, Lymphocytes # (Auto) 1.7, Monocytes # (Auto) 1.0, Eosinophils # (Auto) 0.4H, Basophils # (Auto) 0.1, Immature Granulocyte # (Auto) 0.1, Sodium Level 141, Potassium Level 3.1L, Chloride Level 103, Carbon Dioxide Level 23, Anion Gap 15H, Blood Urea Nitrogen 13, Creatinine 1.46H, Estimat Glomerular Filtration Rate 35, BUN/Creatinine Ratio 9, Glucose Level 148H, Calcium Level 8.1L, Phosphorus Level 3.6, Magnesium Level 1.6 07/11/20 11:28: Glucometer 230H Microbiology 07/11/20 C. 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 Temporary pacemaker taken out 07/10/2020. I discussed at length with Dr. Mullen. No fever for over 72 hours. WBC count coming down. The urgency is due to the fact that she was significantly bradycardic with heart rates in the 30s and has evidence of significant distal conduction disease. Permanent pacemaker will be done right sided today. She had a port on the left side which was considered the source of infection and taken out on 07/09/2020. Therefore we cannot do a left-sided pacemaker implantation. Informed consent was taken from the patient including one to 2 percent risk of major complication including . Patient accepted all risks and would like to proceed with dual-chamber permanent pacemaker implantation. Urinary tract infection, receiving antibiotics, Bacteremia, gram-positive bacteremia. Antibiotics changed from ceftriaxone to vancomycin. Source of infection could be the temporary pacemaker, port or possible infective endocarditis. Repeat echocardiogram did not show any new regurgitant lesion or any gross vegetations. Will hold off transesophageal echocardiogram for now. Port taken out. no further fever, white blood count coming down. 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 Continue on IV fluid and monitor Hyponatremia, metabolic acidosis. Resolved Thank you for your consultation. Please call me if you have any questions. Val Encarnacion MD, FACP, FACC, FSCAI, FHRS, CCDS Interventional Cardiology Cardiac Electrophysiology Vascular Medicine and Endovascular Interventions Clinical Quality Measures Type of Care: Type of Care: Comfort Measures Kym ENCARNACION MD Jul 11, 2020 14:13
[2020-07-11] MEDS ORDERED: diphenhydrAMINE 50 MG/ML INJ (BENADRYL) ONE (14:20)
--- NOTE | 2020-07-11 15:27 | Permanent Pacemaker Implant ---
Dual Chamber Pacemaker Implant DUAL CHAMBER PACEMAKER IMPLANTATION: DATE OF PROCEDURE: 07/11/20 PROCEDURE PHYSICIAN: Val Encarnacion MD INDICATION: Second degree AV block, Severe bradycardia, LBBB. PREOPERATIVE DIAGNOSIS: Second degree AV block, Severe bradycardia, LBBB. POSTOPERATIVE DIAGNOSIS: Second degree AV block, Severe bradycardia, LBBB. Successful dual chamber PPM. HISTORY: 80 year old lady with Second degree AV block, Severe bradycardia, LBBB. However, she also had UTI sepsis and GP bactermia. on IV antibiotics. A temporary pacemaker was placed and ultimately removed on 07/10/2020. A left sided port was taken out on 07/09/2020 since that was considered the possible source of bactermia. No fever > 48 hours. WBC coming down. Therefore we decided to proceed with dual chamber PPM today in right chest. PROCEDURE PERFORMED: 1. Dual-chamber permanent pacemaker implantation. 2. Fluoroscopy. 3. Central venous access. ANESTHESIA: Local anesthesia, conscious sedation. COMPLICATIONS: None. ESTIMATED BLOOD LOSS:20 mL. SPECIMENS: None. ORAL ANTICOAGULATION: None. FLUOROSCOPY TIME: 3.0 minutes. FLUOROSCOPY DOSE: 17 mgy. CONTRAST DOSE: zero. PROCEDURE DETAILS: The patient is a 80 female and after all of the patients questions were answered, the patient was brought to the EP Lab. The patient's left chest was prepped and draped in sterile fashion. A 2 inch horizontal incision was made 1 cm below the clavicle and dissection carried down to the pectoralis fascia. Using the modified Seldinger technique and under fluoroscopy guidance, the anterior aspect of the left axillary vein was accessed 2 times. The J wires were secured to the drapes with a mosquito clamp. A 7-[place] sheath was introduced over one of the J-wires. The RV lead was then inserted. The RV lead was directed across the tricuspid valve to the apical septal portion of the right ventricle. The position was checked in JULIA and BLOOD views. The screw was deployed and the lead connected to the sas programmer. Close sensing and pacing thresholds were obtained. Diaphragmatic pacing was ruled out. The lead was secured with 2-0 silk ties to the underlying muscle and fascia. Next, a 7-[place] sheath was introduced through the remaining J-wire. An atrial l ead was then introduced and guided to the level of the right appendage. The screw was deployed and the lead was connected to the interrogator. Good sensing and pacing thresholds were obtained. Diaphragmatic pacing was ruled out. The leads were secured with 2-0 silk ties to the underlying muscle and fascia. The leads were connected to the device in a hermetic fashion. The device and leads were placed in Tyrex antibiotic pouch and then placed in the pocket. Aggressive irrigation with saline solution was done. The device was secured to the underlying muscle and fascia with a 2-0 silk tie. interrogation of the device revealed good integrity of all the leads and good connections. The wound was then closed using 2 layers. The first layer was interrupted 2-0 absorbable Vicryl suture. The last layer was a single subcuticular layer with 4- 0 Vicryl suture. Half inch Steri-Strips and a small dressing were then applied to the wound. The patient tolerated the procedure well and was returned to the recovery room in stable condition with stable vital signs. DEVICE INFORMATION: Renovagen IPG [id number] Connie MUKHERJEE, Model [id number], Serial Number [id number]. RA LEAD: Model 5076-45, Length 45, Serial Number [id number]. RV LEAD: Model [id number], Length 52, Serial Number [id number]. PER-OPERATIVE DEVICE INTERROGATION: right atrial catheter threshold1.3 V at 0.4 ms, impedance 589 ohms, P-wave 2.1 mV. RV capture threshold 0.75 V at 0.4 ms, impedance 589 ohms, R-wave 4.8 mV. IMMEDIATE POSTOPERATIVE DEVICE INTERROGATION: right atrial capture threshold 1 V at 0.4 ms, pacing impedance 608 ohms, P-wave 2.1 mV. RV capture 1.0 V at 0.4 ms, pacing impedance 589 ohms, R-wave 4.8 mV. PLAN: The patient transferred to the ICU. We will continue with two more doses of IV antibiotics. We will check a chest x-ray and interrogate the device in the morning. The patient will continue on oral antibiotics for 5 days. Val Encarnacion MD, [facility] Cardiac Electrophysiology Kym ENCARNACION MD Jul 11, 2020 15:27
[2020-07-11] MEDS ORDERED: NS IV 1000 ML 1,000 ML IV SCH (15:28)
[2020-07-11] MEDS ORDERED: PATIENT MAY USE OWN MEDS, ALL PO SCH (15:30)
--- NOTE | 2020-07-11 15:50 | NUR ---
PT BACK FROM PACEMAKER PLACEMENT.
--- NOTE | 2020-07-11 16:20 | Diagnostic Imaging Report ---
Indication: Chest pain. Comparison: Earlier the same date. Discussion: Single portable upright view of the chest was obtained. Low lung volumes. Small to moderate bilateral pleural effusions are again noted. New infiltrates are present, bilaterally, suggesting pulmonary edema. Left upper extremity PICC line is stable. Heart borders are obscured. New right-sided pacemaker with leads projected over the right atrium and right ventricle. No pneumothorax. Impression: 1. New infiltrates suggesting pulmonary edema. Pleural effusions are stable. 2. New right-sided pacemaker. No pneumothorax. Dictated by: Dictated on workstation # [id number]
[2020-07-11] MEDS ORDERED: 1/2 NS IV SOLUTION 0 ML IV ONE (19:54)
--- NOTE | 2020-07-11 20:51 | NUR ---
1/2 NS pulled on wrong patient.
[2020-07-11] MEDS: ceFAZolin INJECTION 1,000 MG in WATER (STERILE) FOR INJECTION 10 ML IV SCH (23:02)
[2020-07-12] VITALS (17 sets, daily range): BP systolic 96–134; BP diastolic 60–84
[2020-07-12] MEDS: RT-ALBUTEROL/IPRATROPIUM 3 ML (DUONEB) VIAL INH SCH ×6 (01:43→23:36)
[2020-07-12] MEDS: THYROID (ARMOUR) 60 MG TABLET PO SCH ×3 (02:20→21:13)
[2020-07-12] MEDS ORDERED: TROUGH ORDER-PHARMACY XX NR (03:00)
[2020-07-12 03:20] LABS: BASOPHILS # (AUTO) 0.1 10^3/uL (0.0-0.1); BASOPHILS % (AUTO) 1 % (0-10); EOSINOPHILS # (AUTO) 0.6 10^3/uL (0.0-0.3); EOSINOPHILS % (AUTO) 6 % (0-10); HEMATOCRIT 31 % (35-52); HEMOGLOBIN 9.9 g/dL (11.5-16.0); LYMPHOCYTES # (AUTO) 1.2 10^3/uL (1.0-4.0); LYMPHOCYTES % (AUTO) 13 % (12-44); MEAN CORPUSCULAR HEMOGLOBIN 30 pg (25-34); MEAN CORPUSCULAR HGB CONC 32 g/dL (32-36); MEAN CORPUSCULAR VOLUME 92 fL (80-99); MONOCYTES # (AUTO) 0.8 10^3/uL (0.0-1.0); MONOCYTES % (AUTO) 8 % (0-12); NEUTROPHILS # (AUTO) 7.1 10^3/uL (1.8-7.8); NEUTROPHILS % (AUTO) 72 % (42-75); PLATELET COUNT 334 10^3/uL (130-400); WHITE BLOOD COUNT 9.8 10^3/uL (4.3-11.0)
[2020-07-12 03:26] LABS: CALCIUM 7.6 MG/DL (8.5-10.1); CREATININE SERUM 1.39 MG/DL (0.60-1.30); MAGNESIUM 1.8 MG/DL (1.6-2.4); PHOSPHORUS 3.2 MG/DL (2.3-4.7); POTASSIUM 3.9 MMOL/L (3.6-5.0)
[2020-07-12 03:32] LABS: VANCOMYCIN,TROUGH 16.8 UG/ML (10.0-20.0)
--- NOTE | 2020-07-12 04:30 | NUR ---
This RN called Dr. Coleman to notify of pts increased lethargy and decreased urine output. New orders received.
[2020-07-12] MEDS: LACTATED RINGERS 1,000 ML IV SCH ×2 (04:47→14:02)
[2020-07-12] MEDS ORDERED: meTOprolol 5 MG/5 ML (LOPRESSOR) VIAL ONE ×2 (06:05→09:29)
--- NOTE | 2020-07-12 06:07 | NUR ---
This RN called Dr. Encarnacion to notify of rhythm change, EKG, and HR from 100-130. New orders received.
[2020-07-12] MEDS: POTASSIUM CL 10MEQ/50ML IVPB 50 ML IV SCH (06:15)
[2020-07-12] MEDS: inSUlin ASPART (NovoLOG) 1 UNIT/0.01 ML (CHARGE PER UNIT) SC SCH ×4 (06:15→21:13)
[2020-07-12] MEDS ORDERED: meTOprolol 5 MG/5 ML (LOPRESSOR) VIAL IV ONE ×2 (06:15→09:45)
[2020-07-12] MEDS: KCL 20 MEQ TAB (K-DUR) PO SCH ×2 (06:16→09:06)
[2020-07-12] MEDS: MAGNESIUM 1 GM/100 ML IVPB 100 ML IV SCH (06:16)
[2020-07-12] MEDS: ceFAZolin INJECTION 1,000 MG in WATER (STERILE) FOR INJECTION 10 ML IV SCH ×2 (06:19→14:01)
--- NOTE | 2020-07-12 07:17 | Diagnostic Imaging Report ---
EXAMINATION: Chest 1 view HISTORY: Shortness of breath COMPARISON: 07/11/2020 FINDINGS: Right subclavian pacemaker is present. There are large bilateral pleural effusions, left greater than right. Left upper extremity peripherally inserted central venous catheter tip terminates in the superior vena cava. The tip appears to be slightly retracted compared to prior exam. No pneumothorax is seen. Heart size is normal. IMPRESSION: 1. Large bilateral pleural effusions, left greater than right. Unchanged. Dictated by: Dictated on workstation # [id number]
--- NOTE | 2020-07-12 08:12 | NUR ---
PTD VANCOMYCIN LABS: SCR 1.39 VANCOMYCIN LEVELS 07/10 @ 1510 -31 REPEAT 07/12 @ 0300 16.8 PHARMACOKINETIC CALCULATIONS" T1/2 ~41 HOURS, KD 0.0170 PLAN: CHANGE VANCOMYCIN TO 1 GRAM IV Q 48 HOURS NEXT DOSE NOW (1000), WILL DISCUSS DURATION WITH DR AVILES.
[2020-07-12] MEDS: LACTOBACILLUS ACIDOPHILUS (PROBIOTIC) CAPSULE PO SCH ×3 (09:06→17:04)
[2020-07-12] MEDS: DOCUSATE SODIUM 100 MG (COLACE) CAP PO SCH ×2 (09:06→20:57)
[2020-07-12] MEDS: ENOXAPARIN 40 MG/0.4 ML (LOVENOX) SYR SC SCH (09:06)
[2020-07-12] MEDS ORDERED: dilTIAZem DRIP PRE-MIX 125 ML IV SCH (09:45)
[2020-07-12] MEDS ORDERED: VANCOMYCIN 1 GM/NS 250 ML IVPB IV SCH ×2 (10:00)
--- NOTE | 2020-07-12 10:34 | NUR ---
Follow up visit: Pt shared that she needs a safe place to reflect and have life-review. She expressed regret for the impact of family dynamics on her youngest brother, Glen. She requested assistance writing a letter of reconciliation to him. This Internal Security Manager provided a safe place for the patient to share her story and explore her feelings and actions toward finding inner peace. This Internal Security Manager will follow up Sunday to assist with writing the patient's letter to her brother if she still desires to do so.
--- NOTE | 2020-07-12 11:04 | Cardiology Progress Note ---
Subjective Date Seen by Provider: Jul 12, 2020 Time Seen by Provider: 11:01 Subjective/Events-last exam Patient is laying down in bed, noted to be tachycardic today. Appear to be in atrial flutter with rapid ventricular response. Given IV Lopressor and started on Cardizem drip Review of Systems General: Chills, Night Sweats, Fatigue, Malaise, Appetite, Other HEENT: No Head Aches, No Visual Changes, No Eye Pain, No Ear Pain, No Dysphasia, No Sinus Congestion, No Post Nasal Drip, No Sore Throat, No Other Pulmonary: No Dyspnea, No Cough, No Pleuritic Chest Pain, No Other Cardiovascular: No: Chest Pain, Palpitations, Orthopnea, Paroxysmal Noc. Dyspnea, Edema, Lt Headedness, Other Objective-Cardiology Exam Last Set of Vital Signs Vital Signs 07/10/20 07/12/20 07/12/20 07/12/20 19:14 08:00 09:10 10:41 Temp 36.8 Pulse 112 Resp 26 B/P (MAP) 96/81 (86) Pulse Ox 95 O2 Delivery Room Air O2 Flow Rate 2.00 Capillary Refill : Less Than 3 Seconds I&O Intake and Output 07/12/20 00:00 Intake Total 1240 ml Output Total 3100 ml Balance -1860 ml Intake Oral 600 ml IV Total 640 ml Output Urine Total 3100 ml # Bowel Movements 2 General: Alert, Oriented X3, Cooperative HEENT: Atraumatic, PERRLA Neck: Supple, No JVD, No Thyromegaly Lungs: Clear to Auscultation, Normal Air Movement Heart: Normal S1, Normal S2, Other (Tachycardia) Abdomen: Normal Bowel Sounds, Soft, No Tenderness, No Hepatosplenomegaly, No Masses Extremities: No Clubbing, No Cyanosis, No Edema, Normal Pulses, No Tenderness/Swelling Skin: No Rashes, No Breakdown, No Significant Lesion Neuro: Normal Gait, Normal Speech, Strength at 5/5 X4 Ext, Normal Tone, Sensation Intact Psych/Mental Status: Mental Status NL, Mood NL Results Lab Laboratory Tests 07/12/20 03:00 A/P-Cardiology Admission Diagnosis Unstable angina Second degree AV block Bradycardia Hypotension Assessment/Plan Chest pain, unstable angina, cardiac cath done on 07/02/20 having mild to mod erate CAD, non obstructive disease Second degree AV block, severe bradycardia status post dual-chamber pacemaker implanted by Dr. Encarnacion on 2019. Site is healing well Atrial flutter with rapid ventricular response, started last night, did not respond to Lopressor, start on Cardizem drip. Continue to monitor blood pressure receiving IV fluid, if she does not convert denied I am planning to do electrical cardioversion. I will start amiodarone drip at this point. 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 Continue on IV fluid and monitor Hyponatremia, metabolic acidosis. Questionable underlying sepsis Clinical Quality Measures DVT/VTE Risk/Contraindication: Risk Factor Score Per Nursin RFS Level Per Nursing on Admit: 2=Moderate ALLEN KUMAR MD Jul 12, 2020 11:04
[2020-07-12] MEDS: meTOprolol 5 MG/5 ML (LOPRESSOR) VIAL IV SCH ×2 (11:05→17:04)
[2020-07-12] MEDS ORDERED: AMIODARONE INJECTION 150 MG in D5W 100 ML IVPB 100 ML IV ONE (11:15)
[2020-07-12] MEDS: AMIODARONE INJECTION 450 MG in D5W IV SOLUTION (EXCEL) 250 ML IV SCH ×2 (13:37→21:41)
--- NOTE | 2020-07-12 16:42 | Progress Note - Hospitalist ---
Subjective HPI/CC On Admission Date Seen by Provider: Jul 12, 2020 Time Seen by Provider: 09:10 Aby Vega is a 79-year-old female with past medical history of hypertension, hypothyroidism, type II diabetes mellitus, renal cell carcinoma status post nephrectomy, who presented to [facility] with chest pain. She was transferred to [facility] for cardiology evaluation. She reportedly been having lightheadedness and dizziness with near-syncope recently. She denies any fevers or chills. She denies any shortness of breath or cough. She denies palpitations. She denies any abdominal pain, nausea, or vomiting. She denies any dysuria. She does report frequency and urgency which have been long-standing issues. She denies any rash. Subjective/Events-last exam she has no complaints or concerns. She is not having any fevers. She is not short of breath. She is having some pain. She is willing to work with therapy to regain her strength. Objective Exam Vital Signs Vital Signs Date Time Temp Pulse Resp B/P (MAP) Pulse Ox O2 Delivery O2 Flow Rate FiO2 07/12/20 16:00 37.4 07/12/20 15:00 122 21 113/75 (88) 93 Room Air 07/10/20 19:14 2.00 Capillary Refill : Less Than 3 Seconds General Appearance: No Apparent Distress, WD/WN Respiratory: Lungs Clear, Normal Breath Sounds, No Respiratory Distress Cardiovascular: No Murmur, Tachycardia Gastrointestinal: Normal Bowel Sounds, Non Tender, Soft Extremity: Normal Inspection, Non Tender, No Pedal Edema Neurologic/Psychiatric: Alert, Oriented x3, No Motor/Sensory Deficits, Normal Mood/Affect Skin: Normal Color, Warm/Dry Results/Procedures Lab Laboratory Tests 07/12/20 03:00 Patient resulted labs reviewed. Imaging: Reviewed Imaging Report Assessment/Plan Assessment and Plan Assess & Plan/Chief Complaint Severe sepsis Corynebacterium urinary tract infection Staph epidermidis bacteremia Urine culture grew Corynebacterium aurimucosum blood cultures negative since port removal, previously positive for Staph epidermidis Surgery consulted, s/p port removal Completed course of Zosyn continue vancomycin for 14 days post port removal, last dose 07/22 receiving cefazolin post pacemaker placement Syncope Second-degree AV block Cardiology consulted, appreciate assistance Left heart catheterization revealed normal coronary arteries Permanent pacemaker placed 9/27 Chronic kidney disease 3 creatinine stable at 1.39 Hypothyroidism Euthyroid sick syndrome TSH 0.07 Free T4 and free T3 within normal limits studies consistent with euthyroid sick syndrome Continue [place] Thyroid Dysphagia Speech consulted, appreciate recs Continue soft diet with thin liquids Debility PT/OT DVT prophylaxis: Lovenox Chest pain, resolved Lactic acidosis, resolved Hyponatremia, resolved Delirium, resolved Diagnosis/Problems Diagnosis/Problems (1) Second degree AV block Status: Acute (2) Sepsis Status: Acute (3) Pneumonia Status: Acute (4) Hyponatremia Status: Acute (5) Kidney injury Qualifiers: Encounter type: initial encounter (6) Low TSH level Status: Acute (7) HTN (hypertension) Status: Chronic Qualifiers: Hypertension type: essential hypertension Qualified Codes: I10 - Essential (primary) hypertension (8) T2DM (type 2 diabetes mellitus) Status: Chronic Qualifiers: Diabetes mellitus superintendent container terminal insulin use: without superintendent container terminal use (9) Hypothyroidism Status: Chronic (10) Renal cell carcinoma Status: Chronic Qualifiers: Laterality: unspecified laterality Qualified Codes: C64.9 - Malignant neoplasm of unspecified kidney, except renal pelvis (11) S/p nephrectomy Status: Chronic (12) Euthyroid sick syndrome Status: Acute Clinical Quality Measures DVT/VTE Risk/Contraindication: Risk Factor Score Per Nursin RFS Level Per Nursing on Admit: 2=Moderate RONA AVILES MD Jul 12, 2020 16:42
--- NOTE | 2020-07-12 19:57 | NUR ---
NOTIFIED DR KUMAR OF PT CONVERTING TO SR, CONTINUING AMIODARONE GTT AND TITRATED OFF CARDIZEM.
[2020-07-12] MEDS ORDERED: ENOXAPARIN 80 MG/0.8 ML (LOVENOX) SYR SC SCH (21:00)
[2020-07-12] MEDS: guaiFENesin/DM (ROBITUSSIN DM) 10 ML UDC PO PRN (21:13)
[2020-07-13] VITALS (17 sets, daily range): BP systolic 119–145; BP diastolic 64–89
[2020-07-13] MEDS: LACTATED RINGERS 1,000 ML IV SCH ×2 (00:09→12:00)
[2020-07-13] MEDS: meTOprolol 5 MG/5 ML (LOPRESSOR) VIAL IV SCH ×2 (00:09→05:25)
[2020-07-13] MEDS: MELATONIN 3 MG TABLET PO PRN (00:19)
[2020-07-13] MEDS: RT-ALBUTEROL/IPRATROPIUM 3 ML (DUONEB) VIAL INH SCH ×4 (02:59→15:07)
[2020-07-13 03:44] LABS: BASOPHILS # (AUTO) 0.1 10^3/uL (0.0-0.1); BASOPHILS % (AUTO) 1 % (0-10); EOSINOPHILS # (AUTO) 0.6 10^3/uL (0.0-0.3); EOSINOPHILS % (AUTO) 5 % (0-10); HEMATOCRIT 30 % (35-52); HEMOGLOBIN 9.5 g/dL (11.5-16.0); LYMPHOCYTES # (AUTO) 1.8 10^3/uL (1.0-4.0); LYMPHOCYTES % (AUTO) 16 % (12-44); MEAN CORPUSCULAR HEMOGLOBIN 29 pg (25-34); MEAN CORPUSCULAR HGB CONC 32 g/dL (32-36); MEAN CORPUSCULAR VOLUME 92 fL (80-99); MEAN PLATELET VOLUME 10.2 fL (9.0-12.2); MONOCYTES # (AUTO) 0.9 10^3/uL (0.0-1.0); MONOCYTES % (AUTO) 8 % (0-12); NEUTROPHILS # (AUTO) 8.2 10^3/uL (1.8-7.8); NEUTROPHILS % (AUTO) 70 % (42-75); PLATELET COUNT 301 10^3/uL (130-400); WHITE BLOOD COUNT 11.8 10^3/uL (4.3-11.0)
[2020-07-13 03:51] LABS: POTASSIUM 3.4 MMOL/L (3.6-5.0)
[2020-07-13 03:53] LABS: CALCIUM 7.9 MG/DL (8.5-10.1)
[2020-07-13 03:57] LABS: CREATININE SERUM 1.26 MG/DL (0.60-1.30); PHOSPHORUS 2.7 MG/DL (2.3-4.7)
[2020-07-13 03:59] LABS: MAGNESIUM 1.3 MG/DL (1.6-2.4)
[2020-07-13] MEDS: MAGNESIUM 1 GM/100 ML IVPB 100 ML IV SCH ×5 (04:23→08:55)
[2020-07-13] MEDS: KCL 20 MEQ TAB (K-DUR) PO SCH ×2 (04:23→05:25)
[2020-07-13] MEDS: POTASSIUM CL 10MEQ/50ML IVPB 50 ML IV SCH ×3 (04:23→08:56)
[2020-07-13] MEDS: inSUlin ASPART (NovoLOG) 1 UNIT/0.01 ML (CHARGE PER UNIT) SC SCH ×2 (05:09→12:00)
--- NOTE | 2020-07-13 06:03 | Pulmonary Progress Note ---
Subjective Time Seen by a Provider: 06:00 Sepsis Event Evaluation Height, Weight, BMI Height: '" Weight: lbs. oz. kg; 29.17 BMI Method: Exam Exam Vital Signs Date Time Temp Pulse Resp B/P (MAP) Pulse Ox O2 Delivery O2 Flow Rate FiO2 07/13/20 04:27 37.0 07/13/20 04:00 Nasal Cannula 2.00 07/13/20 03:00 72 127/69 (88) 94 Nasal Cannula 2.00 07/13/20 03:00 95 Nasal Cannula 2.00 07/13/20 02:00 68 25 129/69 (89) 92 Nasal Cannula 2.00 07/13/20 01:00 65 119/64 (82) 92 Nasal Cannula 2.00 07/13/20 01:00 65 07/13/20 00:20 Room Air 07/13/20 00:16 37.1 07/13/20 00:00 69 24 130/71 (90) 93 Nasal Cannula 2.00 07/12/20 23:36 94 Nasal Cannula 2.00 07/12/20 23:00 76 27 131/71 (91) 91 Nasal Cannula 2.00 07/12/20 22:15 74 129/67 (87) 94 Nasal Cannula 2.00 07/12/20 21:39 Nasal Cannula 2.00 07/12/20 21:00 73 15 109/68 (82) 91 Room Air 07/12/20 21:00 Room Air 07/12/20 20:00 37.0 07/12/20 20:00 60 28 120/65 (83) 91 Room Air 07/12/20 19:00 60 07/12/20 19:00 60 19 114/72 (86) 93 Room Air 07/12/20 18:00 98 30 126/74 (91) 93 Room Air 07/12/20 17:00 105 16 128/81 (97) 91 Room Air 07/12/20 16:00 120 26 122/80 (94) 90 Room Air 07/12/20 16:00 37.4 07/12/20 15:00 122 21 113/75 (88) 93 Room Air 07/12/20 14:20 92 Room Air 07/12/20 14:00 101 32 106/76 (86) 91 Room Air 07/12/20 13:00 89 32 122/60 (80) 94 Room Air 07/12/20 12:47 96 07/12/20 12:00 87 20 126/66 (86) 91 Room Air 07/12/20 12:00 Room Air 07/12/20 11:00 128 21 134/83 (100) 93 Room Air 07/12/20 10:41 95 Room Air 07/12/20 10:30 123 18 133/84 (100) 97 Room Air 07/12/20 09:10 36.8 07/12/20 08:00 112 26 96/81 (86) 96 Room Air 07/12/20 08:00 Room Air 07/12/20 06:43 105 I & O 07/13/20 07:00 Intake Total 2028 ml Output Total 1485 ml Balance 543 ml Height & Weight Height: '" Weight: lbs. oz. kg; 29.17 BMI Method: General Appearance: No Apparent Distress, WD/WN HEENT: PERRL/EOMI; No Scleral Icterus (L), No Scleral Icterus (R) Neck: Normal Inspection, Supple Respiratory: Lungs Clear, Normal Breath Sounds, No Respiratory Distress Cardiovascular: No Murmur, Tachycardia Capillary Refill: Less Than 3 Seconds Peripheral Pulses: 2+ Dorsalis Pedis (R), 2+ Left Dors-Pedis (L), 2+ Radial Pulses (R), 2+ Radial Pulses (L) Extremity: Normal Inspection, Non Tender, No Pedal Edema Neurologic/Psychiatric: Alert, Oriented x3, No Motor/Sensory Deficits, Normal Mood/Affect Skin: Normal Color, Warm/Dry Results Lab Laboratory Tests 07/12/20 03:00 07/13/20 03:30 Assessment/Plan Assessment/Plan Second degree AV Block cardiology consulted s/p pacemaker CHF Echo 07/08 shows EF 40-45%. Echo 07/02 EF of 45-50% -Check BNP -Currently has NS going at 100cc/hr Severe sepsis 3/3 BC positive for Coag Neg Staph r/o endocarditis vancomycin Acute bronchitis Continue duoneb QID Dysphagia Continue soft diet with thin liquids ARF -improving -Monitor Hx of Hypothyroid [place] thyroid ERINN DICKERSON DO Jul 13, 2020 06:03
[2020-07-13] MEDS ORDERED: FUROSEMIDE 40 MG/4 ML INJ (LASIX) IVP ONE (07:00)
--- NOTE | 2020-07-13 07:02 | Cardiology Progress Note ---
Subjective Date Seen by Provider: Jul 13, 2020 Time Seen by Provider: 06:58 Subjective/Events-last exam Patient is laying down in bed, complaining of dyspnea which appeared to be worse today. No chest pain. Back in sinus rhythm Review of Systems General: No Chills, No Night Sweats, No Fatigue, No Malaise, No Appetite, No Other HEENT: No Head Aches, No Visual Changes, No Eye Pain, No Ear Pain, No Dysphasia, No Sinus Congestion, No Post Nasal Drip, No Sore Throat, No Other Pulmonary: Dyspnea; No Cough, No Pleuritic Chest Pain, No Other Cardiovascular: Palpitations; No: Chest Pain, Orthopnea, Paroxysmal Noc. Dyspnea, Edema, Lt Headedness, Other Objective-Cardiology Exam Last Set of Vital Signs Vital Signs 07/13/20 07/13/20 07/13/20 04:27 06:00 06:39 Temp 37.0 Pulse 65 Resp 25 B/P (MAP) 130/73 (92) Pulse Ox 92 O2 Delivery Nasal Cannula O2 Flow Rate 2.00 Capillary Refill : Less Than 3 Seconds I&O Intake and Output 07/13/20 00:00 Intake Total 1888 ml Output Total 1120 ml Balance 768 ml Intake Oral 1775 ml IV Total 113 ml Output Urine Total 1120 ml # Bowel Movements 1 General: Alert, Oriented X3, Cooperative HEENT: Atraumatic, PERRLA Neck: Supple, No JVD, No Thyromegaly Lungs: Clear to Auscultation, Normal Air Movement Heart: Regular Rate, Normal S1, Normal S2 Abdomen: Normal Bowel Sounds, Soft, No Tenderness, No Hepatosplenomegaly, No Masses Extremities: No Clubbing, No Cyanosis, No Edema, Normal Pulses, No Tenderness/Swelling Skin: No Rashes, No Breakdown, No Significant Lesion Neuro: Normal Gait, Normal Speech, Strength at 5/5 X4 Ext, Normal Tone, Sensation Intact Psych/Mental Status: Mental Status NL, Mood NL Results Lab Laboratory Tests 07/13/20 03:30 A/P-Cardiology Admission Diagnosis Unstable angina Second degree AV block Bradycardia Hypotension Assessment/Plan Chest pain, unstable angina, cardiac cath done on 07/02/20 having mild to moderate CAD, non obstructive disease Second degree AV block, severe bradycardia status post dual-chamber pacemaker implanted by Dr. Encarnacion on 2019. Site is healing well Paroxysmal atrial flutter, converted to sinus rhythm on amiodarone drip, I will start the oral amiodarone and continue to monitor [id number] score of 4, yearly risk of stroke without oral anticoagulation is 4 percent, starting on Eliquis Shortness of breath, congestive heart failure, acute on chronic left ventricular systolic dysfunction, ejection fraction 40-45 percent per echocardiogram. Start her on beta blockers, I will give one dose of Lasix. 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 Continue on IV fluid and monitor UTI, treated and improved. Clinical Quality Measures DVT/VTE Risk/Contraindication: Risk Factor Score Per Nursin RFS Level Per Nursing on Admit: 2=Moderate ALLEN KUMAR MD Jul 13, 2020 07:02
--- NOTE | 2020-07-13 07:25 | Diagnostic Imaging Report ---
INDICATION: Shortness of air. Follow-up. COMPARISON: 07/12/2020 FINDINGS: Single frontal radiographic view of the chest was obtained and demonstrates interval improved aeration of the right base. There may be small residual right basilar effusion. Mild to moderate left basilar effusion persists and appears stable. No pneumothorax seen on either side. Cardiac silhouette is partially obscured, but appears to be within normal limits. Right-sided dual-lead pacemaker is again noted. Left upper extremity PICC line is also again seen with tip in the high SVC. Osseous structures are unchanged. IMPRESSION: 1. Improved right-sided pleural effusion. Trace effusion likely persists. 2. Stable mild to moderate left basilar effusion. Dictated by: Dictated on workstation # [id number]
[2020-07-13] MEDS: THYROID (ARMOUR) 60 MG TABLET PO SCH (08:54)
[2020-07-13] MEDS: LACTOBACILLUS ACIDOPHILUS (PROBIOTIC) CAPSULE PO SCH ×2 (08:54→12:00)
[2020-07-13] MEDS: DOCUSATE SODIUM 100 MG (COLACE) CAP PO SCH (08:55)
[2020-07-13] MEDS ORDERED: APIXABAN 5 MG (ELIQUIS) TABLET PO SCH (09:00)
[2020-07-13] MEDS ORDERED: AMIODARONE 200 MG (CORDARONE) TAB PO SCH (09:00)
--- NOTE | 2020-07-13 09:25 | Physical Therapy Evaluation ---
PT Evaluation-General Medical Diagnosis Admission Date Jul 01, 2020 at 23:43 Medical Diagnosis: Syncope Onset Date: Jul 03, 2020 Therapy Diagnosis Therapy Diagnosis: impaired mobility and weakness Precautions Precautions/Isolations: Fall Prevention, Standard Precautions Referral Physician: Bonny Reason for Referral: Evaluation/Treatment Medical History Pertinent Medical History: DM, HTN, Hypothroidism Additional Medical History renal cell cancer Current History transfer from [facility] with CP; s/p heart cath and pacemaker placement Reviewed History: Yes Social History Home: Single Level Current Living Status: Entry Into Home: Ramp, Level Entry patient reports caregivers, FWW and w/c use Prior Prior Level of Function SCALE: Activities may be completed with or without assistive devices. 2-Nzakqqcdiv-ybtszfy completes the activity by him/herself with no assistance from a helper. 5-Set-up or Clean-up Assistance-helper sets up or cleans up; patient completes activity. [place] assists only prior to or following the activity. 4-Supervision or Touching Assistance-helper provides verbal cues and/or touching/steadying and/or contact guard assistance as patient completes activity. Assistance may be provided throughout the activity or intermittently. 3-Partial/Moderate Assistance-helper does LESS THAN HALF the effort. [place] lifts, holds or supports trunk or limbs, but provides less than half the effort. 2-Substantial/Maximal Assistance-helper does MORE THAN HALF the effort. [place] lifts or holds trunk or limbs and provides more than half the effort. 3-Jjpsfimrd-xpayzz does ALL the effort. Patient does none of the effort to complete the activity. Or, the assistance of 2 or more helpers is required for the patient to complete the activity. If activity was not attempted, code reason: 7-Patient Refused. 9-Not Applicable-not attempted and the patient did not perform the activity before the current illness, exacerbation or injury. 10-Not Attempted due to Environmental Limitations-(lack of equipment, weather restraints, etc.). 88-Not Attempted due to Medical Conditions or Safety Concerns. Bed Mobility: 5 Transfers (B,C,W/C): 5 Gait: 5 Stairs: 9 Wheelchair Mobility: 4 Indoor Mobility (Ambulation): Needed Some Help Stairs: Not Applicalbe Prior Devices Use: Manual wheelchair, Walker PT Evaluation-Current Subjective Patient initially reports she is not to be up on her feet, however, PT educated patient on importance of increasing activity to improve current LOF. Patient agrees. Objective Patient Orientation: Person, Time, Situation ROM/Strength ROM Lower Extremities bilateral LE WFL Strength Lower Extremities 3/5 grossly bilateral LE Integumentary/Posture Integumentary refer to nursing notes Bowel Incontinence: Yes Bladder Incontinence: Still Cath Posture WFL Neuromuscular (Tone, Coordination, Reflexes) grossly intact Sensory Vision: Wears Glasses Hearing: Functional Sensation Right Lower Extremit: Intact Sensation Left Lower Extremity: Intact Transfers Roll Left to Right (QC): 5 Lying to Sitting/Side of Bed(Q: 5 Sit to Stand (QC): 2 Chair/Zfq-rw-Qqmcz Xfer(QC): 2 Toilet Transfer (QC): 2 patient retropulsive with sit to stand and SPT bed to recliner to commode with use of gait belt. Patient unable to utilize FWW at this time due to deconditioned state. Gait Does the Patient Walk?: No and Walking Goal IS indicated Balance Sitting Static: Fair Sitting Dynamic: Fair Standing Static: Poor Standing Dynamic: Poor Assessment/Needs 80 y.o. female, will benefit from skilled PT to address functional strength and mobility to improve current LOF to safely return to home or care facility at maximum LOF. Rehab Potential: Guarded PT Biodiesel Processing Technician Goals Biodiesel Processing Technician Goals PT [facility]cf Goals Time Frame: Jul 24, 2020 Roll Left & Right (QC): 5 Sit to Lying (QC): 5 Lying-Sitting on Side/Bed(QC): 5 Sit to Stand (QC): 4 Chair/Hpf-iw-Iszfh Xfer(QC): 4 Toilet Transfer (QC): 4 Car Transfer (QC): 4 Does the Patient Walk: Yes Walk 10 feet (QC): 3 Walk 50ft with 2 Turns (QC): 3 Walk 150 ft (QC): 9 PT Plan Problem List Problem List: Activity Tolerance, Functional Strength, Safety, Balance, Gait, Transfer, Bed Mobility Treatment/Plan Treatment Plan: Continue Plan of Care Treatment Plan: Bed Mobility, Education, Functional Activity Rogelio, Functional Strength, Gait, Safety, Therapeutic Exercise, Transfers Treatment Duration: Jul 24, 2020 Frequency: 6 times per week Estimated Hrs Per Day: .25 hour per day Patient and/or Family Agrees t: Yes Time/GCodes Time In: 810 Time Out: 850 Total Billed Treatment Time: 40 Total Billed Treatment 1 visit EVHighC 15 min FA x 2 25 min DANIEL GALVAN PT Jul 13, 2020 09:25
--- NOTE | 2020-07-13 09:37 | NUR ---
IRF Evaluation Determination: Accepted Chart review complete and findings discussed with Dr. Hogan - patient accepted for admission. CM/SS notified. Will meet with patient to discuss details associated with program. Thank you for this referral.
--- NOTE | 2020-07-13 10:06 | NUR ---
PALLIATIVE CARE RN consulted and this RN went to visit with her. She is a very pleasant lady who does not appear her stated age. She is oriented to person place and situation. We had a long conversation regarding her situation and needs for POC post ICU. She is in agreement with rehab to get stronger if her insurance is accepting. She does reports having a health care law specialist at home, who from the sounds of it ...lives with her. She has a dog, Viago, who she would like to have visit once she is out of the ICU. It looks like patient is accepted to ICU, unsure if this will be today or not, she does report going in and out of AFIB today.
--- NOTE | 2020-07-13 10:18 | NUR ---
DR KUMAR NOTIFIED THIS NURSE PT CAN GO TO FOURTH FLOOR WITH TELE FROM CARDIOLOGY STANDPOINT. DR AVILES NOTIFIED.
[2020-07-13] MEDS: guaiFENesin/DM (ROBITUSSIN DM) 10 ML UDC PO PRN (12:46)
--- NOTE | 2020-07-13 13:24 | Occupational Therapy Eval ---
OT Evaluation-General/PLF Medical Diagnosis Admission Date Jul 01, 2020 at 23:43 Medical Diagnosis: Sepsis, UTI, AV Block Onset Date: Jul 03, 2020 Therapy Diagnosis Therapy Diagnosis: Weakness Precautions Precautions/Isolations: Fall Prevention, Standard Precautions Weight Bear Status Weight Bearing Restriction: Weight Bearing/Tolerated Referral Physician: Bonny Referral Reason: Activity Tolerance, Self Care, Evaluation/Treatment, Strengthening/ROM Medical History Pertinent Medical History: DM, HTN, Hypothroidism Additional Medical History Hypothyroidism, Renal cell carcinoma, neprectomy Social History Home: Single Level Current Living Status: Entry Into Home: Ramp, Stairs With Railing Steps Into Home: 2 ADL-Prior Level of Function SCALE: Activities may be completed with or without assistive devices. 1-Harboeswdl-owvuumo completes the activity by him/herself with no assistance from a helper. 5-Set-up or Clean-up Assistance-helper sets up or cleans up; patient completes activity. [place] assists only prior to or following the activity. 4-Supervision or Touching Assistance-helper provides verbal cues and/or touching/steadying and/or contact guard assistance as patient completes activity. Assistance may be provided throughout the activity or intermittently. 3-Partial/Moderate Assistance-helper does LESS THAN HALF the effort. [place] lifts, holds or supports trunk or limbs, but provides less than half the effort. 2-Substantial/Maximal Assistance-helper does MORE THAN HALF the effort. [place] lifts or holds trunk or limbs and provides more than half the effort. 1-Znfbvwtts-xwokwa does ALL the effort. Patient does none of the effort to complete the activity. Or, the assistance of 2 or more helpers is required for the patient to complete the activity. If activity was not attempted, code reason: 7-Patient Refused. 9-Not Applicable-not attempted and the patient did not perform the activity before the current illness, exacerbation or injury. 10-Not Attempted due to Environmental Limitations-(lack of equipment, weather restraints, etc.). 88-Not Attempted due to Medical Conditions or Safety Concerns. ADL PLOF Comments Pt. states that she has someone who lives with her, who is a [employer]. This person is a friend, and she assists with bathing/dressing as needed, but mainly cooking, cleaning, and lifting of items. Pt. reports that if there is a problem, that this friend, (who is with her all the time and named Luz), contacts another friend named Nahed. Nahed is a retired nurse and will come over to "assess the situation." If the problem goes beyond this, they contact her son who is her DPOA. Pt. conveys this to say that she has a system of help at home. Pt. reports that she has a walker with seat, regular walker, multiple canes, and a wheelchair. Pt. reports that she has a little dog that she takes care of, and is able to ambulate with her walker the length of the house to let the dog out into the backyard. 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 does not report pain level, but states that she is very afraid of falling, and that it takes "two people to get me up, one on each side of me." Appearance Pt. is up in chair. Alert and oriented. Mental Status/Objective Patient Orientation: Person, Place Attachments: Still Catheter, IV, Oxygen Current Hand Dominance: Right Upper Extremity ROM WFL ADL-Treatment Eating (QC): 5 On/Off Footwear (QC): 2 Other Treatments Pt. is up in chair. She states that she is comfortable, and is supposed to stay up until noon. OT offers to assist her to bed at time of eval. She declines. Nursing suggests this too but pt. would like to remain in chair. OT and pt. talk in depth regarding home set up and prior level. Pt. declines standing, but agrees to attempt to doff/don slipper socks so that OT can assess footwear and flexibility. Pt. slowly pulls sock off of left foot, but states that she can't do anymore. OT educates her about AE and will introduce this later. Noted that pt's right foot is in plantar position, and pt. is slowly only able to bring to slightley less than neutral. Unable to actively dorsiflex. OT asks pt. about this, and if she has been catching her toe and falling at home. Pt. states that she doesn't catch her foot, but does fall, and that due to her arthritis, she has very limited mobility in ankles. Pt. is encouraged to continue moving however, as to keep joints from freezing. Pt. declines standing, stating that she is fearful that it will be uncomfortable. Pt. is encouraged to move, but states that she will be getting back to bed later. OT and pt. talk about OT goals, and goals for functional discharge home. All needs are met up in chair. Pt. is encouraged to have friend bring functional and comfortable shoes. Education OT Patient Education: Correct positioning, Modified ADL techniques, Progress toward Goal/Update tx plan, Purpose of tx/functional activities, Reviewed precautions, Rehab process Teaching Recipient: Patient Teaching Methods: Demonstration, Discussion Response to Teaching: Verbalize Understanding, Reinforcement Needed OT Short Term Goals Short Term Goals Time Frame: Jul 20, 2020 Eatin Oral hygiene: 5 Toileting hygiene: 3 Shower/bathe self: 3 Upper body dressin Lower body dressin Putting on/taking off footwear: 3 OT Custodial Goals Community Relations Rep Goals Time Frame: Jul 27, 2020 Eating (QC): 6 Oral Hygiene (QC): 6 Toileting Hygiene (QC): 4 Shower/Bathe Self (QC): 4 Upper Body Dressing (QC): 5 Lower Body Dressing (QC): 4 On/Off Footwear (QC): 4 Additional Goals: 1-Demonstrate ADL Tasks, 2-Verbalize Understanding, 3- ImproveStrength/Rogelio 1=Demonstrate adherence to instructed precautions during ADL tasks. 2=Patient will verbalize/demonstrate understanding of assistive devices/modifications for ADL. 3=Patient will improve strength/tolerance for activity to enable patient to perform ADL's. OT Education/Plan Problem List/Assessment Assessment: Decreased Activ Tolerance, Dependent Transfers, Impaired Bed Mobility, Impaired Funct Balance, Impaired I ADL's, Impaired Self-Care Skills, Restricted Funct UE ROM Discharge Recommendations Plan/Recommendations: Continue POC Therapy Discharge Recommendati: Post Acute OT Equpiment Recommendations-D/C: Hip Kit Treatment Plan/Plan of Care Treatment,Training & Education: Yes Patient would benefit from OT for education, treatment and training to promote independence in ADL's, mobility, safety and/or upper extremity function for ADL's. Plan of Care: ADL Retraining, Functional Mobility, UE Funct Exercise/Act Treatment Duration: Jul 27, 2020 Frequency: 5 times per week Estimated Hrs Per Day: .25 hour per day Agreement: Yes Rehab Potential: Fair Time/GCodes Start Time: 11:00 Stop Time: 11:25 Total Time Billed (hr/min): 25 Billed Treatment Time 1, GLORIA BARRON OT Jul 13, 2020 13:24
--- NOTE | 2020-07-13 13:35 | NUR ---
RD ASSESSMENT PMHx: CA(renal,breast); HTN; DM; chronic UTI; chronic constipation PT INTERACTION: Pt was awake and pleasant during nutrition follow-up. Pt states she has not been eating well, and that she "doesn't feel all that hungry." Note avg PO intake 44% x1d, per chart review. Pt states some issues with nausea, vomiting, and "loose stools" since last assessment. Note last BM was 07/12, and pt currently on bowel regimen of colace BID, per chart review. Note recent 12# wt loss x5d, per chart review. This weight loss appears to be fluid losses, per chart review. ABNORMAL NUTRITION-RELATED LAB VALUES LOW: K 3.4; Ca 7.9; Mg 1.3 HIGH: Est. kcal needs: 1700 kcal | 20 kcal/kg Est. Pro needs: 68 g Pro | 0.8 g Pro/kg PES STATEMENT: Inadequate oral intake (NI-2.1) related to loss of appetite | nausea | vomiting | diarrhea as evidenced by pt interview | avg PO intake 44% x1d INTERVENTION: Continue with current diet order of 2000mg Na diet. Pt may benefit from adding modifier of consistent CHO diet, if blood glucose levels become elevated. Add Glucerna (vary) to meals, for increased kcal intake. Provides 220 kcal and 10 g Pro per serving. Recommend replete Mg, as current levels are low (1.3). Will continue to follow and reassess as pt needs, intake, and status change. Mo Rogers, MS, RD, LD
--- NOTE | 2020-07-13 15:28 | NUR ---
THIS NURSE CALLED REPORT TO JEANA LOOMIS ON ARU. PT WILL TRANSFER DOWN WHEN TRANSFER IS COMPLETE.
--- NOTE | 2020-07-13 17:18 | Discharge Summary ---
Discharge Summary Hospital Course Was the Problem List Reviewed?: Yes Problems/Dx: (1) Second degree AV block Status: Acute (2) Sepsis Status: Acute (3) Pneumonia Status: Acute (4) Hyponatremia Status: Acute (5) Kidney injury Qualifiers: (6) Low TSH level Status: Acute (7) HTN (hypertension) Status: Chronic Qualifiers: Qualified Codes: I10 - Essential (primary) hypertension (8) T2DM (type 2 diabetes mellitus) Status: Chronic Qualifiers: (9) Hypothyroidism Status: Chronic (10) Renal cell carcinoma Status: Chronic Qualifiers: Qualified Codes: C64.9 - Malignant neoplasm of unspecified kidney, except renal pelvis (11) S/p nephrectomy Status: Chronic (12) Euthyroid sick syndrome Status: Acute (13) Bacteremia due to Staphylococcus epidermidis Status: Acute (14) Infection of venous access port Status: Acute Qualifiers: Qualified Codes: T80.219A - Unspecified infection due to central venous catheter, initial encounter Hospital Course Date of Admission: Jul 01, 2020 at 23:43 Admission Diagnosis: Second degree heart block Family Physician/Provider: Garry Moody DO Date of Discharge: 07/13/20 Discharge Diagnosis: Second degree heart block, s/p pacemaker placement, infection of venous access port and bacteremia due to Staph epidermidis Hospital Course: Aby Vega is a 80-year-old female who presented to [facility] due to syncope and was found to have secondary heart block. She was transferred to [facility] [place] for cardiology evaluation. She was also found to be septic on arrival, but an infectious source is not immediately identifiable. Due to this, she had a temporary pacemaker placed. She was started on IV antibiotics. Her chest x-ray was unrevealing. Her urine culture did grow corynebacterium and she was transitioned to vancomycin. Her initial blood cultures had one of 3 positive for coag-negative staph. Repeat blood cultures were positive for staph epidermidis. Again repeat cultures were positive for staph epidermidis and she was thought to have a port infection. She underwent an echocardiogram which showed no evidence of endocarditis. Surgery was consulted and her port was removed. The port culture was positive for staph epidermidis. She will need to continue her IV vancomycin for 14 days after the removal of the port which was 07/09. Due to her prolonged ICU stay, she developed a myopathy and was deemed to be a candidate for inpatient rehabilitation. She was transferred to inpatient rehabilitation for ongoing therapies as well as continued antibiotics. Labs and Pending Lab Test: Laboratory Tests 07/12/20 20:39: Glucometer 187H 07/13/20 03:30: White Blood Count 11.8H, Red Blood Count 3.25L, Hemoglobin 9.5L, Hematocrit 30L, Mean Corpuscular Volume 92, Mean Corpuscular Hemoglobin 29, Mean Corpuscular Hemoglobin Concent 32, Red Cell Distribution Width 13.0, Platelet Count 301, Mean Platelet Volume 10.2, Immature Granulocyte % (Auto) 1, Neutrophils (%) (Auto) 70, Lymphocytes (%) (Auto) 16, Monocytes (%) (Auto) 8, Eosinophils (%) (Auto) 5, Basophils (%) (Auto) 1, Neutrophils # (Auto) 8.2H, Lymphocytes # (Auto) 1.8, Monocytes # (Auto) 0.9, Eosinophils # (Auto) 0.6H, Basophils # (Auto) 0.1, Immature Granulocyte # (Auto) 0.1, Sodium Level 137, Potassium Level 3.4L, Chloride Level 104, Carbon Dioxide Level 22, Anion Gap 11, Blood Urea Nitrogen 12, Creatinine 1.26, Estimat Glomerular Filtration Rate 41, BUN/Creatinine Ratio 10, Glucose Level 160H, Calcium Level 7.9L, Phosphorus Level 2.7, Magnesium Level 1.3L, B-Type Natriuretic Peptide 695.2H 07/13/20 11:54: Glucometer 298H 07/13/20 15:55: Glucometer 237H Microbiology 07/11/20 C. difficile GDH Antigen & Toxins - Final, Complete 07/10/20 Catheter Tip Culture - Final, Complete No growth 07/02/20 Urine Culture - Final, Complete Corynebactoerium aurimucosum See Comments 07/01/20 MRSA Screen - Final, Complete MRSA not isolated Home Meds Active Reported Gas-X Ultra Strength (Simethicone) 180 Mg Capsule 180 Mg PO PRN PRN Co Q-10 100 mg Softgel (Ubidecarenone/Vit E Acetate) 1 Each Capsule 1 Each PO DAILY Vitamin B12 (Cyanocobalamin (Vitamin B-12)) 2,500 Mcg Tablet 2,500 Mcg PO DAILY Vitamin C (Ascorbate Calcium) 500 Mg Tablet 500 Mg PO DAILY Vitamin D3 (Cholecalciferol (Vitamin D3)) 50 Mcg Capsule 50 Mcg PO DAILY Ferrex 150 (Iron Polysaccharide Complex) 150 Mg Capsule 150 Mg PO DAILY Nifedipine ER (Nifedipine) 30 Mg Tab.er.24 7.5 Mg PO BID TAKES 1/4 OF A 30MG TAB Lisinopril 20 Mg Tablet 10 Mg PO BID TAKES OF A 20MG TAB Amitriptyline HCl 10 Mg Tablet 20 Mg PO HS TAKES 2 (10MG) TABS Hydrochlorothiazide 12.5 Mg Tablet 12.5 Mg PO BID [place] Thyroid (Thyroid,Pork) 60 Mg Tablet 60 Mg PO BID Carvedilol 12.5 Mg Tablet 6.25 Mg PO BID TAKES OF 6.25MG TAB Glipizide 10 Mg Tablet 10 Mg PO BID Amlodipine Besylate 10 Mg Tablet 10 Mg PO DAILY Assessment/Pt Instructions Patient transferred to inpatient rehabilitation for ongoing therapies. She will continue IV antibiotics. Discharge Planning: <30 minutes discharge planning Discharge Instructions Discharge Diet: No Restrictions Activity as Tolerated: Yes Pneumonia Vaccine Order Indica: Yes Discharge Physical Examination Vital Signs Vital Signs Date Time Temp Pulse Resp B/P (MAP) Pulse Ox O2 Delivery O2 Flow Rate FiO2 07/13/20 16:00 36.4 85 21 138/84 (102) 94 Nasal Cannula 2.00 General Appearance: No Apparent Distress, WD/WN Respiratory: Lungs Clear, Normal Breath Sounds Cardiovascular: Regular Rate, Rhythm, No Edema, No Murmur Gastrointestinal: Normal Bowel Sounds, Non Tender, Soft Extremity: Normal Inspection, Non Tender, No Pedal Edema Skin: Normal Color, Warm/Dry Neurologic/Psychiatric: Alert, Oriented x3, Normal Mood/Affect, Motor Weakness Allergies: Coded Allergies: atorvastatin (Verified Allergy, Intermediate, 07/02/20) ciprofloxacin (Verified Allergy, Intermediate, 07/02/20) pregabalin (Verified Allergy, Intermediate, 07/02/20) Uncoded Allergies: IV Contrast (Adverse Reaction, Unknown, 07/02/20) Discharge Summary Date of Admission Jul 01, 2020 at 23:43 Date of Discharge Jul 13, 2020 at 14:30 Discharge Date: Jul 13, 2020 Discharge Time: 14:30 Admission Diagnosis second degree AV block Consults/Procedures Consulations cardiology, general surgery, pulmonology Procedures temporary pacemaker placement, port removal, permanent pacemaker placement Discharge Diagnosis Severe sepsis due to infection of venous access port due to Staph epidermidis, Second degree AV block s/p pacemaker placement (1) Second degree AV block Status: Acute (2) Sepsis Status: Acute (3) Pneumonia Status: Acute (4) Hyponatremia Status: Acute (5) Kidney injury Qualifiers: (6) Low TSH level Status: Acute (7) HTN (hypertension) Status: Chronic Qualifiers: Qualified Codes: I10 - Essential (primary) hypertension (8) T2DM (type 2 diabetes mellitus) Status: Chronic Qualifiers: (9) Hypothyroidism Status: Chronic (10) Renal cell carcinoma Status: Chronic Qualifiers: Qualified Codes: C64.9 - Malignant neoplasm of unspecified kidney, except renal pelvis (11) S/p nephrectomy Status: Chronic (12) Euthyroid sick syndrome Status: Acute (13) S/P placement of cardiac pacemaker Status: Acute (14) Infection of venous access port Status: Acute Qualifiers: Qualified Codes: T80.219A - Unspecified infection due to central venous catheter, initial encounter (15) Bacteremia due to Staphylococcus epidermidis Status: Acute Clinical Quality Measures DVT/VTE Risk/Contraindication: Risk Factor Score Per Nursin RFS Level Per Nursing on Admit: 2=Moderate RONA AVILES MD Jul 13, 2020 17:15
[2020-07-16] MEDS ORDERED: TROUGH ORDER-PHARMACY XX NR (09:00)
== END 2020-07-13 14:30 | DRG 242 ==
LOC: ICU 23:43
PROVIDERS: ADMIT Internal Medicine; ATTEND Internal Medicine
PROC: 4A023N7 Measurement of Cardiac Sampling and Pressure, Left Heart, Percutaneous Approach (ICD-10-PCS; principal; 2020-07-02)
PROC: B2111ZZ Fluoroscopy of Multiple Coronary Arteries using Low Osmolar Contrast (ICD-10-PCS; 2020-07-02)
PROC: B2151ZZ Fluoroscopy of Left Heart using Low Osmolar Contrast (ICD-10-PCS; 2020-07-02)
PROC: 5A1223Z Performance of Cardiac Pacing, Continuous (ICD-10-PCS; 2020-07-02)
PROC: 02PYX3Z Removal of Infusion Device from Great Vessel, External Approach (ICD-10-PCS; 2020-07-08)
PROC: 0JH606Z Insertion of Pacemaker, Dual Chamber into Chest Subcutaneous Tissue and Fascia, Open Approach (ICD-10-PCS; 2020-07-11)
PROC: 02H63JZ Insertion of Pacemaker Lead into Right Atrium, Percutaneous Approach (ICD-10-PCS; 2020-07-11)
PROC: 02HK3JZ Insertion of Pacemaker Lead into Right Ventricle, Percutaneous Approach (ICD-10-PCS; 2020-07-11)
DX: I44.1 Atrioventricular block, second degree (principal); A41.1 Sepsis due to other specified staphylococcus; J18.9 Pneumonia, unspecified organism; R65.20 Severe sepsis without septic shock; T80.211A Bloodstream infection due to central venous catheter, initial encounter; N39.0 Urinary tract infection, site not specified; I25.110 Atherosclerotic heart disease of native coronary artery with unstable angina pectoris; E87.1 Hypo-osmolality and hyponatremia; E87.2 Acidosis; J90 Pleural effusion, not elsewhere classified; J20.9 Acute bronchitis, unspecified; I12.9 Hypertensive chronic kidney disease with stage 1 through stage 4 chronic kidney disease, or unspecified chronic kidney disease; N18.9 Chronic kidney disease, unspecified; I44.7 Left bundle-branch block, unspecified; I95.9 Hypotension, unspecified; R00.1 Bradycardia, unspecified; I25.2 Old myocardial infarction; E83.42 Hypomagnesemia; E07.81 Sick-euthyroid syndrome; E11.9 Type 2 diabetes mellitus without complications; J30.2 Other seasonal allergic rhinitis; K59.09 Other constipation; M19.91 Primary osteoarthritis, unspecified site; G47.30 Sleep apnea, unspecified; F41.9 Anxiety disorder, unspecified; R09.82 Postnasal drip; B96.89 Other specified bacterial agents as the cause of diseases classified elsewhere; B37.2 Candidiasis of skin and nail; Z85.528 Personal history of other malignant neoplasm of kidney; Z90.5 Acquired absence of kidney; Z85.3 Personal history of malignant neoplasm of breast
CPT/HCPCS: 33208; 33210; 36415; 36569; 71045; 76000; 76937; 80048; 80053; 80202; 81000; 82570; 82962; 83605; 83735; 83880; 83935; 84100; 84145; 84300; 84439; 84443; 84481; 84484; 85007; 85025; 85027; 87040; 87070; 87077; 87081; 87088; 87186; 87324; 87449; 93005; 93306; 93458; 94640; 94664; 94668; 94760

== ENCOUNTER 2020-07-13 15:13 | Inpatient (IN) | payer MEDICARE, OTHER ==
[~2020-07-13] VITALS: Ht 170.6 cm; Wt 83.5 kg
[~2020-07-13 15:13] MED LIST: AMIT10TA6 PO; AMLO10TA7 PO; ASCO-262 PO; CARV12.53 PO; CHOL200074 PO; CYAN250010 PO; GLIP10TA13 PO; HYDR12.56 PO; IRON150C3 PO; LISI-552 PO; NIFE-25 PO; SIME180C4 PO; THYR60TA2 PO; UBID1CAP53 PO
[2020-07-13] MEDS ORDERED: guaiFENesin/CODEINE (ROBITUSSIN AC) 10ML UDC PO PRN (16:00)
[2020-07-13] MEDS ORDERED: LACTULOSE SYRUP 10GM/15ML (ENULOSE) 30ML UDC PO PRN (16:00)
[2020-07-13] MEDS ORDERED: LOPERAMIDE 2 MG (IMODIUM) TABLET PO PRN (16:00)
[2020-07-13] MEDS ORDERED: CALCIUM CARBONATE 500 MG (TUMS) TAB.CHEW PO PRN (16:00)
[2020-07-13] MEDS ORDERED: DOCUSATE SODIUM 100 MG (COLACE) CAP PO PRN (16:00)
[2020-07-13] MEDS ORDERED: diphenhydrAMINE 25 MG TAB (BENADRYL) PO PRN ×2 (16:00→17:00)
[2020-07-13] MEDS ORDERED: ALPRAZolam 0.25 MG (XANAX) TAB PO PRN (16:00)
[2020-07-13] MEDS ORDERED: FLEET ENEMA ADULT 1 EA BTL PR PRN (16:00)
[2020-07-13] MEDS ORDERED: MELATONIN 3 MG TABLET PO PRN (16:00)
[2020-07-13] MEDS ORDERED: ONDANSETRON 4 MG (ZOFRAN) ORAL DISSOLVE TAB PO PRN (16:00)
[2020-07-13] MEDS ORDERED: BISACODYL 10 MG SUPP (DULCOLAX) PR PRN (16:00)
--- NOTE | 2020-07-13 16:32 | NUR ---
Pt admitted to room 223-1, with an admitting diagnosis of Disuse Myopathy, on 07/13/20 from ICU, via hospital bed, accompanied by staff. KIAH DE introduced to surroundings, call light, bed controls, phone, TV, temperature control, lights, meal times, smoking policy, visitor policy, side rail policy, bathrooms and showers. Patient Rights given to patient in the handbook. KIAH DE verbalizes understanding that [facility] is not responsible for the loss or damage to any personal effects or valuables that are kept in the patients posession during their hospitalization. The following Patient Care Plans were discussed with the pt: Discharge Planning, Impaired Mobility, Cardiac Arrythmia, Potential for falls/injury. KIAH DE verbalizes understanding of Interdisciplinary Patient Education. Patient and/or family were informed about the Rapid Response Team and its purpose. Patient received Patient Rights Booklet, which includes Privacy Act Statement and Data Collection Information Summary.
[2020-07-13 16:43] VITALS: BP 133/80
--- NOTE | 2020-07-13 16:54 | PM&R Post Admission Assessment ---
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 Currently she is settling in from ICU to room 223 and has no new complaints except needing cough syrup for PND. Patient denies pain. Loose BM reported. Still cath in place and she wants to leave it in "because I can't walk because I am too weak." We will dc catheter tomorrow. HPI from PAVEL Torres: (Aby Vega is a 79yo female patient who presented to [facility] on 07/01 c/o chest pain that began that day. She had been complaining of lightheadedness and dizziness and episodes of near-syncope. She was transferred to [facility] for evaluation by cardiology and admitted to the ICU. After arriving at [facility] her chest pain persisted, so she was given nitroglycerin which improved her pain. On evaluation, she was found to have second-degree AV block, severe sepsis, hyponatremia, and BRENNON. She was started on Rocephin and a temporary pacemaker was placed due to significant bradycardia, and she underwent a cardiac cath which revealed non obstructive mild to moderate CAD. A chest x-ray was unrevealing, but a urine culture was positive for corynebacterium so she was switched to vancomycin. Multiple blood cultures were positive for Staph. epidermidis and after a culture of her port it was determined that she had a port infection. Surgery was consulted and she had her port removed on 07/09. After removal of her port, she did not have any more fevers, her leukocytosis improved, and repeat blood cultures were negative for Staph. epidermidis. Due to continued bradycardia, a permanent pacemaker was placed on 07/11. She was then found to have an episode of paroxysmal atrial flutter, so she was started on an amiodarone drip and she converted to sinus rhythm. On echocardiogram, her EF was 40-45%, and she was started on metoprolol and was given a dose of Lasix. She developed myopathy due to her prolonged stay in the ICU, and was determined to be a good candidate for inpatient rehabilitation). 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) Alcohol Use: Denies Use Smoking Status: Never a Smoker Recent Hopitalizations: No Seasonal Allergies Seasonal Allergies: Yes Past Medical History Currently Using CPAP: No Currently Using BIPAP: No Cardiac: Atrial Fibrillation, Coronary Artery Disease, High Cholesterol, Hypertension Genitourinary: UTI-Chronic Gastrointestinal: Chronic Constipation Musculoskeletal: Arthritis Endocrine: Diabetes, Non-Insulin dep HEENT: Cataract Loss of Vision: Bilateral Cancer: Breast, Kidney What Type of Treatment Did You: Surgical Intervention Psychosocial: Anxiety, Depression Skin/Integumentary: Recent Skin Changes History of Blood Disorders: No Adverse Reaction to Blood Wise: No Family History Cardiovascular disease 19 FATHER Completed stroke 19 FATHER 19 MOTHER Diabetes mellitus 19 MOTHER 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 PM&R Allergy/Meds/Data Review Allergies Coded Allergies: atorvastatin (Verified Allergy, Intermediate, 07/02/20) ciprofloxacin (Verified Allergy, Intermediate, 07/02/20) pregabalin (Verified Allergy, Intermediate, 07/02/20) Uncoded Allergies: IV Contrast (Adverse Reaction, Unknown, 07/02/20) Home Medications Scheduled Amitriptyline HCl (Amitriptyline HCl), 20 MG PO HS, (Reported) Amlodipine Besylate (Amlodipine Besylate), 10 MG PO DAILY, (Reported) Ascorbate Calcium (Vitamin C), 500 MG PO DAILY, (Reported) Carvedilol (Carvedilol), 6.25 MG PO BID, (Reported) Cholecalciferol (Vitamin D3) (Vitamin D3), 50 MCG PO DAILY, (Reported) Cyanocobalamin (Vitamin B-12) (Vitamin B12), 2,500 MCG PO DAILY, (Reported) Glipizide (Glipizide), 10 MG PO BID, (Reported) Hydrochlorothiazide (Hydrochlorothiazide), 12.5 MG PO BID, (Reported) Iron Polysaccharide Complex (Ferrex 150), 150 MG PO DAILY, (Reported) Lisinopril (Lisinopril), 10 MG PO BID, (Reported) Nifedipine (Nifedipine ER), 7.5 MG PO BID, (Reported) Thyroid,Pork ([place] Thyroid), 60 MG PO BID, (Reported) Ubidecarenone/Vit E Acetate (Co Q-10 100 mg Softgel), 1 EACH PO DAILY, (Reported) Scheduled PRN Simethicone (Gas-X Ultra Strength), 180 MG PO PRN PRN for GAS, (Reported) Current Medications Current Medications Reviewed Review of Systems Constitutional: see HPI, dizziness, malaise, weakness EENTM: no symptoms reported Respiratory: dyspnea on exertion Cardiovascular: no symptoms reported Gastrointestinal: diarrhea Genitourinary: frequency Musculoskeletal: back pain, joint pain Skin: no symptoms reported Psychiatric/Neurological: Anxiety, Depressed All Other Systems Reviewed Negative Unless Noted: Yes Physical Exam Physical Exam Vital Signs Vital Signs - First Documented 07/13/20 16:43 Pulse 85 Resp 20 B/P (MAP) 133/80 (97) Pulse Ox 93 O2 Delivery Room Air Capillary Refill : Height, Weight, BMI Height: '" Weight: lbs. oz. kg; 29.17 BMI Method: General Appearance: No Apparent Distress, WD/WN, Chronically ill Eyes: Bilateral Eye Normal Inspection, Bilateral Eye PERRL HEENT: PERRL/EOMI, Normal ENT Inspection, Pharynx Normal Neck: Full Range of Motion, Normal Inspection, Non Tender, Supple, Carotid Bruit Respiratory: Chest Non Tender, Lungs Clear, Normal Breath Sounds, No Accessory Muscle Use, No Respiratory Distress Cardiovascular: Regular Rate, Rhythm, No Edema, No Gallop, No JVD, No Murmur, Normal Peripheral Pulses Gastrointestinal: Normal Bowel Sounds, No Organomegaly, No Pulsatile Mass, Non Tender, Soft Back: Normal Inspection, No CVA Tenderness, No Vertebral Tenderness Extremity: Normal Capillary Refill, Normal Inspection, Normal Range of Motion, Non Tender, No Calf Tenderness, No Pedal Edema Neurologic/Psychiatric: Alert, Oriented x3, No Motor/Sensory Deficits, Normal Mood/Affect, dipper clock and watch hands II-XII Norm as Tested, Abnormal Gait, Motor Weakness (3/5 generalized all extremities) Skin: Normal Color, Warm/Dry Lymphatic: No Adenopathy PM&R Medical Assessment & Plan REHAB/MEDICAL ASSESSMENT AND PLAN: REHAB IMPAIRMENT GROUP: 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 ETIOLOGIC DIAGNOSIS: 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 The comorbidities that impact the patients function and/or functional outcome by: recent pacemaker, recent bacteremia maintained on Vanc, decreased confidence in herself REHAB PLAN: The patient is being admitted to our comprehensive inpatient rehabilitation facility and can tolerate the intensity of service consisting of at least: 180 minutes of therapy a day, 5 out of 7 days a week Rehab treatment will consist of: PT OT will focus on regaining strength along with fall prevention techniques and regain independence in ADL's in order to return home The patient/family has a good understanding of our discharge process and will benefit from an interdisciplinary inpatient rehabilitation program. The patient has potential to make improvement and is in need of at least two of the following multidisciplinary therapies including but not limited to physical, occupational, speech, and prosthetics and orthotics. Additionally the patient will need services from respiratory, nutritional services, wound care, psychology, etc. (Customize this to each patient). Given the patients complex condition and risk of further medical complications, rehabilitation services cannot be safely or effectively provided at a lower level of care such as a senior living facility. BARRIERS TO DISCHARGE: Severe weakness ESTIMATED LOS: 7 days DISPOSITION: Home RELEVANT CHANGES SINCE PREADMISSION SCREENING: I have compared the patients medical and functional status at the time of the preadmission screening and there are: no changes PROGNOSIS: Good REHABILITATION GOALS: 1.PT OT will focus on regaining strength along with fall prevention techniques and regain independence in ADL's in order to return home All the above goals were reviewed with the patient and he/she is in agreement. By signing this document, I acknowledge that I have personally performed a full physical examination on this patient within 24 hours of admission to this inpatient rehabilitation facility and have determined the patient to be able to tolerate the above course of treatment at an intensive level for a reasonable period of time. I will be completing a detailed individualized Plan of Care for this patient by day #4 of the patients stay based upon the Preadmission Screen, the Post-Admission Evaluation, and the therapy evaluations. Admission Dx/Comorbidities: (1) Myopathy ICD Codes: G72.9 - Myopathy, unspecified (2) Bacteremia due to Staphylococcus epidermidis Status: Acute ICD Codes: R78.81 - Bacteremia; B95.7 - Other staphylococcus as the cause of diseases classified elsewhere (3) Infection of venous access port Status: Acute ICD Codes: T80.219A - Unspecified infection due to central venous catheter, initial encounter (4) S/P placement of cardiac pacemaker Status: Acute ICD Codes: Z95.0 - Presence of cardiac pacemaker (5) Euthyroid sick syndrome Status: Acute ICD Codes: E07.81 - Sick-euthyroid syndrome (6) S/p nephrectomy Status: Chronic ICD Codes: Z90.5 - Acquired absence of kidney (7) Hypothyroidism Status: Chronic ICD Codes: E03.9 - Hypothyroidism, unspecified (8) Renal cell carcinoma Status: Chronic ICD Codes: C64.9 - Malignant neoplasm of unspecified kidney, except renal pelvis (9) Low TSH level Status: Acute ICD Codes: R79.89 - Other specified abnormal findings of blood chemistry (10) T2DM (type 2 diabetes mellitus) Status: Chronic ICD Codes: E11.9 - Type 2 diabetes mellitus without complications (11) HTN (hypertension) Status: Chronic ICD Codes: I10 - Essential (primary) hypertension (12) Second degree AV block Status: Acute ICD Codes: I44.1 - Atrioventricular block, second degree (13) Kidney injury ICD Codes: S37.009A - Unspecified injury of unspecified kidney, initial encounter (14) Hyponatremia Status: Acute ICD Codes: E87.1 - Hypo-osmolality and hyponatremia (15) Heart block ICD Codes: I45.9 - Conduction disorder, unspecified Assessment/Plan Assessment and Plan Assess & Plan/Chief Complaint Assessment: Myopathy Critical illness source of weakness s/p pacemaker for heart block Venous access source of bacteremia maintained on Vanc BRENNON CAD non-obstructive HTN HLP Hyponatremia Anemia Still cath in place Plan: IRF protocol DC catheter Monitor labs KISHORE Montero DO Jul 13, 2020 16:54
[2020-07-13] MEDS ORDERED: PATIENT MAY USE OWN MEDS, ALL PO SCH (17:00)
[2020-07-13] MEDS ORDERED: fentaNYL INJECTION 100 MCG/2 ML AMP IVP PRN (17:00)
[2020-07-13] MEDS ORDERED: VANCOMYCIN INJECTION 0.1 MG in NS (IVPB) 250 ML IV SCH (17:00)
[2020-07-13] MEDS ORDERED: ACETAMINOPHEN 325 MG TABLET PO PRN (17:00)
[2020-07-13] MEDS ORDERED: NITROGLYCERIN 0.4 MG SL TABS BTL 25'S SL PRN (17:00)
[2020-07-13] MEDS ORDERED: polyethylene glycoL POWDER 17 GM (MIRALAX) PACK PO PRN (17:00)
--- NOTE | 2020-07-13 17:23 | Progress Note ---
WAYNE VEGA,MED STUDENT 07/13/20 1723: Progress Note HPI: Aby Vega is a 79yo female patient who presented to [facility] on 07/01 c/o chest pain that began that day. She had been comp laining of lightheadedness and dizziness and episodes of near-syncope. She was transferred to [facility] for evaluation by cardiology and admitted to the ICU. After arriving at [facility] her chest pain persisted, so she was given nitroglycerin which improved her pain. On evaluation, she was found to have second-degree AV block, severe sepsis, hyponatremia, and BRENNON. She was started on Rocephin and a temporary pacemaker was placed due to significant bradycardia, and she underwent a cardiac cath which revealed non obstructive mild to moderate CAD. A chest x- ray was unrevealing, but a urine culture was positive for corynebacterium so she was switched to vancomycin. Multiple blood cultures were positive for Staph. epidermidis and after a culture of her port it was determined that she had a port infection. Surgery was consulted and she had her port removed on 07/09. After removal of her port, she did not have any more fevers, her leukocytosis improved, and repeat blood cultures were negative for Staph. epidermidis. Due to continued bradycardia, a permanent pacemaker was placed on 07/11. She was then found to have an episode of paroxysmal atrial flutter, so she was started on an amiodarone drip and she converted to sinus rhythm. On echocardiogram, her EF was 40-45%, and she was started on metoprolol and was given a dose of Lasix. She developed myopathy due to her prolonged stay in the ICU, and was determined to be a good candidate for inpatient rehabilitation. 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, denies alcohol or other drug use Allergies: IV contrast, atorvastatin, ciprofloxacin, pregabalin Home Medications: Amitryptyline 20mg PO daily Amlodipine 10mg PO daily Carvedilol 12.5mg PO BID Glipizide 10mg PO BID HCTZ 12.5mg PO BID Lisinopril 10mg PO BID Nifedipine 7.5mg PO BID [place] Thyroid 60mg PO BID ROS: General: decreased appetite, weakness, no fevers, no night sweats, no fatigue, no malaise HEENT: no LOPEZ's, no eye pain, no ear pain, no sore throat Pulmonary: cough, no pleuritic pain Cardiovascular: no chest pain, no palpitations, no light headedness GI: diarrhea Physical Exam: General: alert, oriented, no acute distress HEENT: PERRLA, EOMI Lungs: CTAB, normal air movement Heart: regular rate and rhythm, S1 S2 normal Abdomen: normal bowel sounds, soft, nontender Extremities: normal pulses, no edema, no tenderness Skin: warm and dry Psych: normal mood/affect Assessment: 1. Second degree AV block 2. Sepsis - resolved 3. Hyponatremia - resolved 4. Kidney injury 5. HTN 6. Type II DM 7. Hypothyroidism Plan: 1. Admit to inpatient rehabilitation 2. Continue vancomycin 3. Continue home medications VIVIAN BENITEZ DO 07/16/20 1638: Supervisory-Addendum Brief Verification & Attestation Participated in pt care: history, MDM, physical Personally performed: exam, history, MDM, supervision of care Care discussed with: Medical Student Procedures: n/a Results interpretation: Verified all documentation Verification and Attestation of Medical Student E/M Service A medical student performed and documented this service in my presence. I reviewed and verified all information documented by the medical student and made modifications to such information, when appropriate. I personally performed the physical exam and medical decision making. Vivian Benitez, Jul 16, 2020,16:38 WAYNE VEGA,MED STUDENT Jul 13, 2020 17:23 VIVIAN BENITEZ DO Jul 16, 2020 16:38
[2020-07-13] MEDS: guaiFENesin/DM (ROBITUSSIN DM) 10 ML UDC PO PRN ×2 (17:42→21:43)
[2020-07-13 17:43] VITALS: BP 133/80
[2020-07-13] MEDS: LACTOBACILLUS ACIDOPHILUS (PROBIOTIC) CAPSULE PO SCH (17:43)
--- NOTE | 2020-07-13 18:03 | NUR ---
Patient experiencing a coughing spell shortly after administration of cough syrup, states that she needs Oxygen applied. This nurse checked patient's oxygen saturations. Patient has a reading of 93%. This nurse suggests to patient to try to give a little time for the fan that had just been turned on to cool the room to help as well as a sip of water. Patient states that if she does not have oxygen applied, she will vomit from coughing. Oxygen applied per patient request.
[2020-07-13] MEDS ORDERED: FLU QUAD HIGH DOSE 240 MCG/0.7 ML 2020-21 (FLUZONE) IM ONE (18:30)
--- NOTE | 2020-07-13 18:51 | NUR ---
Pt had stated that she has a caregiver, Luz, who is a FINGERNAIL FORMER, & that lives w her. Also has an "official caregiver, Nahed, who is an retired RN. Son, Kaleb is her DPOA. States that he lives in [place].
[2020-07-13] MEDS: RT-ALBUTEROL/IPRATROPIUM 3 ML (DUONEB) VIAL INH SCH ×2 (19:29→23:05)
[2020-07-13 20:20] VITALS: BP 146/74
[2020-07-13] MEDS: AMIODARONE 200 MG (CORDARONE) TAB PO SCH (20:22)
[2020-07-13] MEDS: SENNA W/DOCUSATE (SENOKOT S) TABLET PO SCH (20:22)
[2020-07-13] MEDS: DOCUSATE SODIUM 100 MG (COLACE) CAP PO SCH (20:22)
[2020-07-13] MEDS: THYROID (ARMOUR) 60 MG TABLET PO SCH (20:22)
[2020-07-13] MEDS: APIXABAN 5 MG (ELIQUIS) TABLET PO SCH (20:22)
[2020-07-13] MEDS: polyethylene glycoL POWDER 17 GM (MIRALAX) PACK PO SCH (20:22)
[2020-07-13] MEDS: inSUlin ASPART (NovoLOG) 1 UNIT/0.01 ML (CHARGE PER UNIT) SC SCH (20:48)
[2020-07-13] MEDS ORDERED: DOCUSATE SODIUM 100 MG (COLACE) CAP PO SCH (21:00)
[2020-07-13] MEDS: ALPRAZolam 0.25 MG (XANAX) TAB PO PRN (21:06)
[2020-07-13 23:21] VITALS: BP 140/75
[2020-07-14] MEDS: RT-ALBUTEROL/IPRATROPIUM 3 ML (DUONEB) VIAL INH SCH ×4 (02:59→15:04)
[2020-07-14 05:09] VITALS: BP 140/70
[2020-07-14] MEDS: inSUlin ASPART (NovoLOG) 1 UNIT/0.01 ML (CHARGE PER UNIT) SC SCH ×2 (05:13→11:35)
[2020-07-14] MEDS: ALPRAZolam 0.25 MG (XANAX) TAB PO PRN (05:36)
[2020-07-14 06:03] LABS: BASOPHILS # (AUTO) 0.1 10^3/uL (0.0-0.1); BASOPHILS % (AUTO) 0 % (0-10); EOSINOPHILS # (AUTO) 0.4 10^3/uL (0.0-0.3); EOSINOPHILS % (AUTO) 3 % (0-10); HEMATOCRIT 33 % (35-52); HEMOGLOBIN 10.3 g/dL (11.5-16.0); LYMPHOCYTES # (AUTO) 1.9 10^3/uL (1.0-4.0); LYMPHOCYTES % (AUTO) 15 % (12-44); MEAN CORPUSCULAR HEMOGLOBIN 29 pg (25-34); MEAN CORPUSCULAR HGB CONC 32 g/dL (32-36); MEAN CORPUSCULAR VOLUME 91 fL (80-99); MEAN PLATELET VOLUME 10.4 fL (9.0-12.2); MONOCYTES # (AUTO) 1.1 10^3/uL (0.0-1.0); MONOCYTES % (AUTO) 8 % (0-12); NEUTROPHILS # (AUTO) 9.7 10^3/uL (1.8-7.8); NEUTROPHILS % (AUTO) 73 % (42-75); PLATELET COUNT 299 10^3/uL (130-400); WHITE BLOOD COUNT 13.3 10^3/uL (4.3-11.0)
[2020-07-14 06:16] LABS: ALBUMIN 2.9 GM/DL (3.2-4.5)
[2020-07-14 06:17] LABS: POTASSIUM 3.6 MMOL/L (3.6-5.0)
[2020-07-14 06:18] LABS: CALCIUM 8.6 MG/DL (8.5-10.1)
[2020-07-14] MEDS: KCL 20 MEQ TAB (K-DUR) PO SCH (06:18)
[2020-07-14 06:19] LABS: TOTAL PROTEIN 6.1 GM/DL (6.4-8.2)
[2020-07-14 06:21] LABS: BILIRUBIN,TOTAL 0.3 MG/DL (0.1-1.0)
[2020-07-14 06:23] LABS: CREATININE SERUM 1.32 MG/DL (0.60-1.30)
[2020-07-14] MEDS: guaiFENesin/DM (ROBITUSSIN DM) 10 ML UDC PO PRN (06:55)
[2020-07-14] MEDS: APIXABAN 5 MG (ELIQUIS) TABLET PO SCH (07:59)
[2020-07-14] MEDS: LACTOBACILLUS ACIDOPHILUS (PROBIOTIC) CAPSULE PO SCH ×2 (07:59→14:14)
[2020-07-14] MEDS: AMIODARONE 200 MG (CORDARONE) TAB PO SCH (07:59)
[2020-07-14] MEDS: THYROID (ARMOUR) 60 MG TABLET PO SCH (07:59)
[2020-07-14 08:00] VITALS: BP 130/75
--- NOTE | 2020-07-14 08:33 | Cardiology Progress Note ---
Subjective Date Seen by Provider: Jul 14, 2020 Time Seen by Provider: 08:28 Subjective/Events-last exam Patient sitting up in bed, no new complaints. Denies any chest pain or dyspnea. Review of Systems General: No Chills, No Night Sweats; Fatigue; No Malaise, No Appetite, No Other HEENT: No Head Aches, No Visual Changes, No Eye Pain, No Ear Pain, No Dysphasia, No Sinus Congestion, No Post Nasal Drip, No Sore Throat, No Other Pulmonary: No Dyspnea, No Cough, No Pleuritic Chest Pain, No Other Cardiovascular: No: Chest Pain, Palpitations, Orthopnea, Paroxysmal Noc. Dyspnea, Edema, Lt Headedness, Other Objective-Cardiology Exam Last Set of Vital Signs Vital Signs 07/14/20 07/14/20 07/14/20 05:09 08:00 10:54 Temp 36.1 Pulse 84 Resp 18 B/P (MAP) 130/75 (93) Pulse Ox 95 O2 Delivery Nasal Cannula O2 Flow Rate 2.00 Capillary Refill : Less Than 3 SecondsLess Than 3 Seconds I&O Intake and Output 07/14/20 00:00 Intake Total 250 ml Output Total 1250 ml Balance -1000 ml Intake Oral 250 ml Output Urine Total 1250 ml Daily Weight Change Yes, 2-13 lbs General: Alert, Oriented X3, Cooperative HEENT: Atraumatic, PERRLA Neck: Supple, No JVD, No Thyromegaly Lungs: Clear to Auscultation, Normal Air Movement Heart: Regular Rate, Normal S1, Normal S2, No Murmurs Abdomen: Normal Bowel Sounds, Soft, No Tenderness, No Hepatosplenomegaly, No Masses Extremities: No Clubbing, No Cyanosis, No Edema, Normal Pulses, No Tenderness/Swelling Skin: No Rashes, No Breakdown, No Significant Lesion Neuro: Normal Gait, Normal Speech, Strength at 5/5 X4 Ext, Normal Tone, Sensation Intact Psych/Mental Status: Mental Status NL, Mood NL Results Lab Laboratory Tests 07/14/20 05:30 A/P-Cardiology Admission Diagnosis Chest pain 2nd degree AV block PAF CHF Assessment/Plan Chest pain, resembling angina, improved. Cardiac cath done on 07/02/20 having mild to moderate CAD, non obstructive disease Second degree AV block, severe bradycardia status post dual-chamber pacemaker implanted by Dr. Encarnacion on 07/11/2020. Site is healing well Paroxysmal atrial flutter, converted to sinus rhythm on amiodarone drip, currently on Amiodarone 400mg BID. Continue on telemetry. [id number] score of 4, yearly risk of stroke without oral anticoagulation is 4 percent, starting on Eliquis Shortness of breath, congestive heart failure, acute on chronic left ventricular systolic dysfunction, ejection fraction 40-45 percent per echocardiogram. Start her on beta blockers. 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, has been in remission Hypertension, has been borderline hypotensive. Blood pressure improved. Cont inue to monitor. UTI, treated and improved. Patient was seen and evaluated with Paulo, examination performed, management plan was discussed, agree with the current scribed note, I made few changes to the note using Italic font Patient was sitting in a chair, feeling better, breathing better Heart is regular, lungs clear Continue on current medication continue to monitor Clinical Quality Measures DVT/VTE Risk/Contraindication: Risk Factor Score Per Nursin RFS Level Per Nursing on Admit: 4+=Very High PAULO BRINK Jul 14, 2020 8:33 am ALLEN KUMAR MD Jul 14, 2020 11:18 am
[2020-07-14] MEDS ORDERED: TROUGH ORDER-PHARMACY XX NR (09:00)
[2020-07-14] MEDS: DOCUSATE SODIUM 100 MG (COLACE) CAP PO SCH (09:19)
[2020-07-14] MEDS: SENNA W/DOCUSATE (SENOKOT S) TABLET PO SCH (09:19)
[2020-07-14] MEDS: polyethylene glycoL POWDER 17 GM (MIRALAX) PACK PO SCH (09:19)
--- NOTE | 2020-07-14 09:25 | PM&R Progress Note ---
Subjective HPI/CC On Admission Date Seen by Provider: Jul 14, 2020 Time Seen by Provider: 09:30 Subjective/Events-last exam Pt requiring O2 even though her oxygen level is good Pacemaker maintained Telemetry maintained by cardiology request Refuses oral potassium, she would rather have it through her IV so unsure how we are going to titrate that considering she really needs to be off IVs Vancomycin will be maintained until completed 14 days after most recent gram positive blood cultures Xanax really helped her anxiety We already discontinued the Still catheter, she hasnt voided yet WBC 13 A lot of psychosocial issues at home, will likely slow recovery After rounds in afternoon patient was noted to have abnormal Telemetry and was found to have AF w/RVR so moved to ICU. Review of Systems General: Fatigue, Malaise Cardiovascular: Palpitations Neurological: Weakness Objective Exam Vital Signs Vital Signs Date Time Temp Pulse Resp B/P (MAP) Pulse Ox O2 Delivery O2 Flow Rate FiO2 07/14/20 15:04 95 Nasal Cannula 2.00 07/14/20 12:39 83 07/14/20 11:40 150/88 (108) 07/14/20 08:00 18 07/14/20 05:09 36.1 Capillary Refill : Less Than 3 SecondsLess Than 3 Seconds General Appearance: No Apparent Distress, WD/WN, Chronically ill HEENT: PERRL/EOMI, Normal ENT Inspection, Pharynx Normal Neck: Full Range of Motion, Normal Inspection, Non Tender, Supple, Carotid Bruit Respiratory: Chest Non Tender, Lungs Clear, Normal Breath Sounds, No Accessory Muscle Use, No Respiratory Distress Cardiovascular: Regular Rate, Rhythm, No Edema, No Gallop, No JVD, No Murmur, Normal Peripheral Pulses Gastrointestinal: Normal Bowel Sounds, No Organomegaly, No Pulsatile Mass, Non Tender, Soft Back: Normal Inspection, No CVA Tenderness, No Vertebral Tenderness Extremity: Normal Capillary Refill, Normal Inspection, Normal Range of Motion, Non Tender, No Calf Tenderness, No Pedal Edema Neurologic/Psychiatric: Alert, Oriented x3, No Motor/Sensory Deficits, Normal Mood/Affect, mine geologist II-XII Norm as Tested, Abnormal Gait, Motor Weakness (3/5 generalized all extremities) Skin: Normal Color, Warm/Dry Lymphatic: No Adenopathy Results/Procedures Lab Laboratory Tests 07/14/20 05:30 Patient resulted labs reviewed. FIM Transfers Therapy Code Descriptions/Definitions Functional [place] Measure: 0=Not Assessed/NA 4=Minimal Assistance 1=Total Assistance 5=Supervision or Setup 2=Maximal Assistance 6=Modified [place] 3=Moderate Assistance 7=Complete IndependenceSCALE: Activities may be completed with or without assistive devices. 9-Bczjamephu-hlmilox completes the activity by him/herself with no assistance from a helper. 5-Set-up or Clean-up Assistance-helper sets up or cleans up; patient completes activity. [place] assists only prior to or following the activity. 4-Supervision or Touching Assistance-helper provides verbal cues and/or touching/steadying and/or contact guard assistance as patient completes activity . Assistance may be provided throughout the activity or intermittently. 3-Partial/Moderate Assistance-helper does LESS THAN HALF the effort. [place] lifts, holds or supports trunk or limbs, but provides less than half the effort. 2-Substantial/Maximal Assistance-helper does MORE THAN HALF the effort. [place] lifts or holds trunk or limbs and provides more than half the effort. 2-Orbroexob-dsxpux does ALL the effort. Patient does none of the effort to complete the activity. Or, the assistance of 2 or more helpers is required for the patient to complete the activity. If activity was not attempted, code reason: 7-Patient Refused. 9-Not Applicable-not attempted and the patient did not perform the activity before the current illness, exacerbation or injury. 10-Not Attempted due to Environmental Limitations-(lack of equipment, weather restraints, etc.). 88-Not Attempted due to Medical Conditions or Safety Concerns. Assessment/Plan Assessment and Plan Assess & Plan/Chief Complaint Assessment: Myopathy Critical illness source of weakness s/p pacemaker for heart block Venous access source of bacteremia maintained on Vanc BRENNON CAD non-obstructive HTN HLP Hyponatremia Anemia Still cath in place Plan: IRF protocol DC catheter Monitor labs Vanc 07/14/20: IV abx Moved to ICU temporarily for AF w/RVR Continue IRF protocol (1) Myopathy (2) Bacteremia due to Staphylococcus epidermidis Status: Acute (3) Infection of venous access port Status: Acute (4) S/P placement of cardiac pacemaker Status: Acute (5) Euthyroid sick syndrome Status: Acute (6) S/p nephrectomy Status: Chronic (7) Hypothyroidism Status: Chronic (8) Renal cell carcinoma Status: Chronic (9) Low TSH level Status: Acute (10) T2DM (type 2 diabetes mellitus) Status: Chronic (11) HTN (hypertension) Status: Chronic (12) Second degree AV block Status: Acute (13) Kidney injury (14) Hyponatremia Status: Acute (15) Heart block KISHORE BENITEZ DO Jul 14, 2020 09:25
--- NOTE | 2020-07-14 10:00 | Physical Therapy Evaluation ---
PT Evaluation-General Medical Diagnosis Admission Date Jul 13, 2020 at 16:45 Medical Diagnosis: disuse myopathy Onset Date: Jul 01, 2020 Therapy Diagnosis Therapy Diagnosis: Impaired strength, mobility, and endurance Precautions Precautions/Isolations: Fall Prevention, Standard Precautions Weight Bear Status Right Lower Extremity: Right Full Weight Bearing Left Lower Extremity: Left Full Weight Bearing Referral Physician: Edison Reason for Referral: Evaluation/Treatment Medical History Pertinent Medical History: DM, HTN, Hypothroidism Reviewed History: Yes Social History Home: Multilevel Current Living Status: Caregiver Entry Into Home: Stairs Without Railing PT Steps Into Home: 2 PT Steps Inside Home: 12 Pt lives in multi-level home with 24/7 caregiver. Pt does not need access to upstairs. Pt has 2 steps into house without handrails but pillars that she grabs onto for support. Pt has two small indoor dogs. Prior Prior Level of Function SCALE: Activities may be completed with or without assistive devices. 2-Zkqdbkftla-eeawqic completes the activity by him/herself with no assistance from a helper. 5-Set-up or Clean-up Assistance-helper sets up or cleans up; patient completes activity. [place] assists only prior to or following the activity. 4-Supervision or Touching Assistance-helper provides verbal cues and/or touching/steadying and/or contact guard assistance as patient completes activity. Assistance may be provided throughout the activity or intermittently. 3-Partial/Moderate Assistance-helper does LESS THAN HALF the effort. [place] lifts, holds or supports trunk or limbs, but provides less than half the effort. 2-Substantial/Maximal Assistance-helper does MORE THAN HALF the effort. [place] lifts or holds trunk or limbs and provides more than half the effort. 7-Pquofkisb-ceexyy does ALL the effort. Patient does none of the effort to complete the activity. Or, the assistance of 2 or more helpers is required for the patient to complete the activity. If activity was not attempted, code reason: 7-Patient Refused. 9-Not Applicable-not attempted and the patient did not perform the activity before the current illness, exacerbation or injury. 10-Not Attempted due to Environmental Limitations-(lack of equipment, weather restraints, etc.). 88-Not Attempted due to Medical Conditions or Safety Concerns. Bed Mobility: 6 Transfers (B,C,W/C): 6 Gait: 6 Stairs: 3 Indoor Mobility (Ambulation): Independent Stairs: Needed Some Help Prior Devices Use: Walker, Other-see list below (cane) Pt reports moving short distances around house independently, but requires walker or cane or surface to hold on to. PT Evaluation-Current Subjective Pt presents laying supine bed. Pt agrees to PT. Pt reports no pain, but is worried her legs will hurt when she stands up. Pt/Family Goals Return home Objective Patient Orientation: Person, Place, Time, Eyes Open, Situation Attachments: Oxygen ROM/Strength ROM Lower Extremities WFL Strength Lower Extremities L Hip Flex 4/5 R Hip Flex 4+/5 L Knee Ext 3/5 R Knee Ext 4/5 L Knee Flex 5/5 R Knee Flex 4+/5 Sensory Hearing: Functional Sensation Right Lower Extremit: Intact Sensation Left Lower Extremity: Intact Sensation Lower Extremities B sensation intact to light touch L2-S2 Transfers Roll Left to Right (QC): 6 Sit to Lying (QC): 3 Lying to Sitting/Side of Bed(Q: 3 Sit to Stand (QC): 3 Chair/Xvc-ba-Jglse Xfer(QC): 3 Toilet Transfer (QC): 3 Car Transfer (QC): 3 Pt independent with rolling in bed. Pt required min assist to transfer out of bed; using therapist forearm as handrail to pull self off. Pt required min assist with bed to chair and toilet transfers. Pt able to complete sit to stand and car transfer with Hasmukh. Gait Does the Patient Walk?: Yes Mode of Locomotion: Walk Anticipated Mode of Locomotion: Walk Walk 10 feet (QC): 88 Walk 50 ft with 2 Turns(QC): 88 Walk 150 ft (QC): 88 Walking 10ft/uneven surface-QC: 88 Distance: 6' Gait Assistive Device: Parallel Bars Comments/Gait Description Pt ambulated inside parallel bars; pt moves slowly, with small stride length and narrow feet. Wheelchair Training Does the Pt Use a Wheelchair?: Yes Distance: 150' Wheel 50 ft with 2 turns (QC): 4 Wheel 150 ft (QC): 4 Type of Wheelchair: Manual Pt able to propel self with upper and lower extremities. Pt struggles with tight turns. Stairs 1 Step (curb) (QC): 88 4 Steps (QC): 88 12 Steps (QC): 88 Balance Sitting Static: Normal Sitting Dynamic: Normal Standing Static: Good Standing Dynamic: Poor Picking up an Object (QC): 88 Assessment/Needs Pt is highly fearful of falling; pt is aware of using stable surfaces to stand. Pt able to stand unsupported to pull up briefs but impulsively sits when she notices that she in not holding on. Pt struggles with transitioning UE from WC to walker during sit to stand; pt cued to lean weight forward so she does not fall back into WC. Poor safety awareness. Patient also needs a lot of encouragement to participate. Rehab Potential: Fair PT Short Term Goals Short Term Goals Time Frame: Jul 21, 2020 Roll Left & Right: 6 Sit to lyin Lying to sitting on side of be: 4 Sit to stand: 4 Chair/gky-vd-ulqzj transfer: 4 Toilet transfer: 4 Walk 10 feet: 3 Walk 50 feet with two turns: 3 PT Customer Marketing Manager Goals Customer Marketing Manager Goals PT Halfway Goals Time Frame: Aug 04, 2020 Roll Left & Right (QC): 6 Sit to Lying (QC): 6 Lying-Sitting on Side/Bed(QC): 6 Sit to Stand (QC): 4 (SBA) Chair/Key-iu-Chqkr Xfer(QC): 4 (SBA) Toilet Transfer (QC): 4 (SBA) Car Transfer (QC): 4 (SBA) Does the Patient Walk: Yes Walk 10 feet (QC): 4 (SBA) Walk 50ft with 2 Turns (QC): 4 (SBA) Walk 150 ft (QC): 4 (SBA) Walking 10ft on Uneven Surface: 4 (SBA) 1 Step (curb) (QC): 4 (SBA) 4 Steps (QC): 4 (SBA) 12 Steps (QC): 88 Picking up an Object (QC): 4 (SBA) Does the Pt use WC or Scooter?: Yes Wheel 50 feet with 2 turns (QC: 6 Type: Manual Wheel 150 feet: 6 Type: Manual PT Plan Problem List Problem List: Activity Tolerance, Functional Strength, Safety, Balance, Gait, Transfer, Bed Mobility, ROM Treatment/Plan Treatment Plan: Continue Plan of Care Treatment Plan: Bed Mobility, Education, Functional Activity Rogelio, Functional Strength, Group Therapy, Gait, Safety, Therapeutic Exercise, Transfers Treatment Duration: Jul 28, 2020 Frequency: At least 5 of 7 days/Wk (IRF) Estimated Hrs Per Day: 1.5 hours per day Patient and/or Family Agrees t: Yes Safety Risks/Education Patient Education: Gait Training, Transfer Techniques, Correct Positioning, W/C Management, Safety Issues Teaching Recipient: Patient Teaching Methods: Demonstration, Discussion Response to Teaching: Reinforcement Needed Discharge Recommendations Plan Patient will perform bed mobility and transfer training, balance and endurance training, functional strengthening, stair training, gait training, and education, to improve functional mobility and independence at home. Therapy Discharge Recommendati: Scheduled Assistance, Home & Family, Post Acute PT Time/GCodes Time In: 0900 Time Out: 1000 Total Billed Treatment Time: 60 Total Billed Treatment 1 visit EVM 30' FA 30' SHANICE SERRA PT Jul 14, 2020 10:00
--- NOTE | 2020-07-14 10:05 | ST Cognitive Linguistic Eval ---
Speech Evaluation-General Medical Diagnosis Myopathy Onset Date: Jul 14, 2020 Therapy Diagnosis Therapy Diagnosis: Cognitive-communication Referral Referring Physician: Dr. Hogan Medical History Pertinent Medical History: DM, HTN, Hypothroidism Social History Current Living Status: Boarder Speech PLF-Current Status Prior Level of Function Patient lives in her home with a boarder and also has hired staff, family that assist her with her daily needs. Subjective Patient was pleasant and cooperative with the cognitive assessment. Language Eval: Auditory Comprehends Simple Yes/No Ques: Functional Indent/Objects [place]: Functional Ident/Pics in [place]: Functional Follows 1-Step Commands: Functional Follows Complex Directions: Mild Follows General Conversations: Mild Language Eval: Verbal Language Completes Spontaneous Greeting: Functional Produces Auto, Serial Info: Functional Imitates Simple Words/Phrases: Functional Word Finding: Mild Requests Basic Needs: Functional States Basic Personal Info: Functional Expresses Complex Ideas: Mild Objective Cognitive Domain Attention: Mild Memory: Mild Problem Solving: Functional Executive Functions: WNL Visuospatial Skills: WNL Composite Severity Rating: WNL Clock Drawing Severity Rating: WNL Objective Formal/Standardized Tests [facility] Mental Status ([facility]) Results 24/30, Mild Neurocognitive Disorder range of function Oral Motor/Speech Production Within Normal Limits Impression Patient is a pleasant 80 y/o female who was admitted to the ARU due to myopathy and recent cardiac procedures. Patient lives in her home with a boarder who she states also works for her. 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 Patient was given the SLUMS with a score of 24/30 obtained. This score falls in the MNCD range of function. Patient did require frequent redirection to task due to trailing off onto random thoughts. Patient will receive skilled ST with focus on safety awareness and improving cognitive skills. Speech Patient Assess Expression of Ideas/Wants: Exhibits (3) Understanding Verbal Content: Usually Understands (3) Brief Interview-Mental Status: Yes Repetition of Three Words: Three (3) Temporal Orientation: Year: Correct (3) Temporal Orientation: Month: Accurate within 5 days(2) Temporal Orientation: Day: Correct (1) Recall : Wear to say "Sock": Yes,after cueing (1) Recall : Color: Yes, after cueing (1) Recall : Bed: Yes,after cueing (1) Memory/Recall Ability: Current season, That he or she is in a hsp/hsp unit Speech Short Term Goals Short Term Goals Short Term Goals 1) Patient will complete memory tasks related to her daily needs with minimal assist at 90% or greater. 2) Patient will complete safety awareness tasks related to her daily needs with minimal assist at 90% or greater. 3) Patient will complete problem solving tasks related to her daily needs with minimal assist at 90% or greater. Speech Battery Assembler Plastic Goals [facility] Goals Patient will improve cognitive communication to complete daily tasks with minimal assist. Speech-Plan Patient/Family Goals Patient/Family Goals: Patient plans on returning to her home with hired staff and family assistance for her daily needs. Treatment Plan Speech Therapy Treatment Plan: Continue Plan of Care Treatment Duration: Jul 23, 2020 Frequency: 4 times per week (Patient will recieve ST 4-5x per day) Estimated Hrs Per Day: .5 hour per day Rehab Potential: Good Barriers to Learning: Patient's mild cognitive deficits, age Pt/Family Agrees to Plan: Yes Safety Risks/Education Teaching Recipient: Patient Teaching Methods: Discussion Response to Teaching: Verbalize Understanding Education Topics Provided: Safety within her room and communication of wants/needs Time Speech Therapy Time In: 08:30 Speech Therapy Time Out: 09:00 Total Billed Time: 30 Billed Treatment Time 1, SENDY ALEMAN [address] ST Jul 14, 2020 10:05
[2020-07-14 11:40] VITALS: BP 150/88
--- NOTE | 2020-07-14 11:43 | Progress Note ---
WAYNE VEGA,MED STUDENT 07/14/20 1143: Progress Note Progress note: 07/14/20 Patient currently receiving breathing treatment C/o SOB and "trouble breathing" C/o continued chest heaviness, says it is unchanged States she is stressed and anxious about "financial stuff" with her family, having difficulty transferring money On 2L O2 currently, SpO2 95% Still removed VIVIAN BENITEZ DO 07/16/20 1638: Supervisory-Addendum Brief Verification & Attestation Participated in pt care: history, MDM, physical Personally performed: exam, history, MDM, supervision of care Care discussed with: Medical Student Procedures: n/a Results interpretation: Verified all documentation Verification and Attestation of Medical Student E/M Service A medical student performed and documented this service in my presence. I reviewed and verified all information documented by the medical student and made modifications to such information, when appropriate. I personally performed the physical exam and medical decision making. Vivian Benitez, Jul 16, 2020,16:38 WAYNE VEGA,MED STUDENT Jul 14, 2020 11:43 VIVIAN BENITEZ DO Jul 16, 2020 16:38
--- NOTE | 2020-07-14 12:07 | Occupational Therapy Eval ---
OT Evaluation-General/PLF Medical Diagnosis Admission Date Jul 13, 2020 at 16:45 Medical Diagnosis: disuse myopathy Onset Date: Jul 01, 2020 Therapy Diagnosis Therapy Diagnosis: Weakness Precautions Precautions/Isolations: Fall Prevention, Standard Precautions Weight Bear Status Weight Bearing Restriction: Weight Bearing/Tolerated Referral Physician: Edison Referral Reason: Activity Tolerance, Self Care, Evaluation/Treatment, Strengthening/ROM Medical History Pertinent Medical History: DM, HTN, Hypothroidism Additional Medical History Recent pacemaker, AV block, STEMI Reviewed History: Yes Social History Home: Single Level Current Living Status: Caregiver Entry Into Home: Stairs Without Railing Steps Into Home: 2 Steps Inside Home: 12 ADL-Prior Level of Function SCALE: Activities may be completed with or without assistive devices. 7-Qlaxugjaqm-japcnsq completes the activity by him/herself with no assistance from a helper. 5-Set-up or Clean-up Assistance-helper sets up or cleans up; patient completes activity. [place] assists only prior to or following the activity. 4-Supervision or Touching Assistance-helper provides verbal cues and/or touching/steadying and/or contact guard assistance as patient completes activity. Assistance may be provided throughout the activity or intermittently. 3-Partial/Moderate Assistance-helper does LESS THAN HALF the effort. [place] lifts, holds or supports trunk or limbs, but provides less than half the effort. 2-Substantial/Maximal Assistance-helper does MORE THAN HALF the effort. [place] lifts or holds trunk or limbs and provides more than half the effort. 4-Bcxkhoqwz-ycalji does ALL the effort. Patient does none of the effort to complete the activity. Or, the assistance of 2 or more helpers is required for the patient to complete the activity. If activity was not attempted, code reason: 7-Patient Refused. 9-Not Applicable-not attempted and the patient did not perform the activity before the current illness, exacerbation or injury. 10-Not Attempted due to Environmental Limitations-(lack of equipment, weather restraints, etc.). 88-Not Attempted due to Medical Conditions or Safety Concerns. ADL PLOF Comments Pt. reports that she has someone who lives with her that assists her as needed. This person was a WOOD MACHINE CARVER and assists her with bathing/dressing. She states that she has had several falls at home, and has been afraid of falling. She can typically walk short distances with her walker, but also uses a wheelchair in the home. Self Care: Needed Some Help Functional Cognition: Unknown Pt. has a regular walker, a rolling walker, and several canes. 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 does not indicate pain this date. States that she if feeling much better. Still reports having significant fear of falling. Appearance Pt. is up in chair. Agrees to work with OT. Mental Status/Objective Patient Orientation: Person, Place Attachments: Oxygen, Telemetry Current Glasses/Contacts: Yes Hand Dominance: Right Upper Extremity ROM WFL ADL-Treatment Eating (QC): 5 Oral Hygiene (QC): 7 Shower/Bathe Self (QC): 3 (Mod assist with sponge bath. Pt. does not feel ready for shower yet.) Upper Body Dressing (QC): 88 Lower Body Dressing (QC): 3 (Mod assist to don/doff brief.) On/Off Footwear (QC): 3 Toileting Hygiene (QC): 1 (Pt. incontinent of stool throughout treatment. Nursing notified. Pt. states that she can't tell when she is going.) Other Treatments Pt. stood from chair multiple times. Required min assist, increased time, and education to sequence steps for functional transfer. Education OT Patient Education: Correct positioning, Modified ADL techniques, Progress toward Goal/Update tx plan, Purpose of tx/functional activities, Reviewed precautions, Rehab process, Transfer techniques Teaching Recipient: Patient Teaching Methods: Demonstration, Discussion Response to Teaching: Verbalize Understanding, Return Demonstration, Reinforcement Needed OT Short Term Goals Short Term Goals Time Frame: Jul 21, 2020 Eatin Oral hygiene: 5 Toileting hygiene: 3 Shower/bathe self: 4 Upper body dressin Lower body dressin Putting on/taking off footwear: 4 OT Stamp Maker Goals Stamp Maker Goals Time Frame: Jul 28, 2020 Eating (QC): 6 Oral Hygiene (QC): 6 Toileting Hygiene (QC): 6 Shower/Bathe Self (QC): 4 Upper Body Dressing (QC): 5 Lower Body Dressing (QC): 4 On/Off Footwear (QC): 4 Additional Goals: 1-Demonstrate ADL Tasks, 2-Verbalize Understanding, 3- ImproveStrength/Rogelio 1=Demonstrate adherence to instructed precautions during ADL tasks. 2=Patient will verbalize/demonstrate understanding of assistive devices/modifications for ADL. 3=Patient will improve strength/tolerance for activity to enable patient to perform ADL's. OT Education/Plan Problem List/Assessment Assessment: Decreased Activ Tolerance, Dependent Transfers, Impaired Bed Mobility, Impaired Funct Balance, Impaired I ADL's, Impaired Self-Care Skills Discharge Recommendations Plan/Recommendations: Continue POC Therapy Discharge Recommendati: Scheduled Assistance, Home & Family, Post Acute OT Equpiment Recommendations-D/C: Hip Kit Comment Possible bath chair? Treatment Plan/Plan of Care Treatment,Training & Education: Yes Patient would benefit from OT for education, treatment and training to promote independence in ADL's, mobility, safety and/or upper extremity function for ADL's. Plan of Care: ADL Retraining, Functional Mobility, UE Funct Exercise/Act Treatment Duration: Jul 28, 2020 Frequency: At least 5 of 7 days/Wk (IRF) Estimated Hrs Per Day: 1.5 hours per day Agreement: Yes Rehab Potential: Fair Time/GCodes Start Time: 11:00 Stop Time: 12:00 Total Time Billed (hr/min): 60 Billed Treatment Time 1, EVH x 15minutes, ADL x 45minutes GLORIA BANSAL OT Jul 14, 2020 12:06
--- NOTE | 2020-07-14 12:31 | NUR ---
CM/SS ADMISSION Patient was admitted to ARU from [facility] 07/13/20 for disuse myopathy. 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 Diagnoses include, in part, infection of venous access port with removal, placement of temporary then permanent cardiac pacemaker, history renal cell carcinoma with nephrectomy, hypothyroidism, low TSH level, T2DM, HTN. Patient resides in a rental home, her paid caregiver Luz resides with her. There are two dogs there, patient's/Luz's, Viago and Dujj. 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 Patient plans to return to her home as before with resume of assistance from her caretakers/friends.. PCP: Dr. Garry Moody DO (for 25 years) [facility] PH: [phone] PHARMACY: [facility] INSURANCE: Medicare, [employer] DME: Patient has home O2 for noc use, FWW, Rollator walker, wheelchair. Friend Nahed is getting a shower chair. BARRIERS TO DISCHARGE PLANNING: Patient has multi-faceted focus on many psychosocial things to the point of anxiety. She has been absent from home since 07/01/20 and now worrying about bill paying, car tags, etc. Friend Nahed indicates she is capable of handling all these business items and available to do so. The goal for patient return home would be independent ambulation for toileting and small distances. She does have two dedicated persons to assist her, however it is safe to assume they could not manage her if dependent for any care. CONTACTS: Nahed Vasquez, Long Time Friend [address] [place] [address] Kaleb Del Valle, Biological Son and indicated DPOA [place], [place] [phone] Luz, resides with patient and assists her as a paid caregiver. LEGALS: Patient indicates she has a trust and all things financial and healthcare covered legally. Seeking copy of POA document. Patient understands the purpose and process of weekly patient care conference and that her first review is today.
--- NOTE | 2020-07-14 13:47 | Physical Therapy Daily Note ---
PT Daily Note-Current Subjective Pt presents sleeping in recliner. Pt agrees to PT. Pt reports 7/10 in R ankle, pt states "I know it will get worse, PT is not going to make it better". Appearance At the conclusion of PT tx patient remains in recliner with access to tray, call button, and all needs have been met. Mental Status Patient Orientation: Person, Place, Time, Eyes Open, Situation Attachments: Oxygen Transfers SCALE: Activities may be completed with or without assistive devices. 8-Ghytooibmt-xalbmyz completes the activity by him/herself with no assistance from a helper. 5-Set-up or Clean-up Assistance-helper sets up or cleans up; patient completes activity. [place] assists only prior to or following the activity. 4-Supervision or Touching Assistance-helper provides verbal cues and/or touching/steadying and/or contact guard assistance as patient completes activity. Assistance may be provided throughout the activity or intermittently. 3-Partial/Moderate Assistance-helper does LESS THAN HALF the effort. [place] lifts, holds or supports trunk or limbs, but provides less than half the effort. 2-Substantial/Maximal Assistance-helper does MORE THAN HALF the effort. [place] lifts or holds trunk or limbs and provides more than half the effort. 8-Hnfzpxwse-dyclsa does ALL the effort. Patient does none of the effort to complete the activity. Or, the assistance of 2 or more helpers is required for the patient to complete the activity. If activity was not attempted, code reason: 7-Patient Refused. 9-Not Applicable-not attempted and the patient did not perform the activity before the current illness, exacerbation or injury. 10-Not Attempted due to Environmental Limitations-(lack of equipment, weather restraints, etc.). 88-Not Attempted due to Medical Conditions or Safety Concerns. Sit to Stand (QC): 3 Weight Bearing Right Lower Extremity: Right Full Weight Bearing Left Lower Extremity: Left Full Weight Bearing Exercises Seated Therapy Exercises: Ankle pumps, Long arc quads, Glut set Seated Reps: 10 Standing: Sit to Stand Standing Reps: 5 Treatments LE strengthening Assessment Current Status: Fair Progress Pt completes exercises as asked, but is slow and vocalizes her concerns with her ankle pain. Pt would like her PCP in [place] to be contacted as he as administered a shot previously that has reduced her ankle pain; nurse is notified of this. PT Short Term Goals Short Term Goals Time Frame: Jul 21, 2020 Roll Left & Right: 6 Sit to lyin Lying to sitting on side of be: 4 Sit to stand: 4 Chair/duh-kj-dynvv transfer: 4 Toilet transfer: 4 Walk 10 feet: 3 Walk 50 feet with two turns: 3 PT Fci Goals Fci Goals PT Manager Resource Goals Time Frame: Aug 04, 2020 Roll Left & Right (QC): 6 Sit to Lying (QC): 6 Lying-Sitting on Side/Bed(QC): 6 Sit to Stand (QC): 4 (SBA) Chair/Jlk-gj-Oynwy Xfer(QC): 4 (SBA) Toilet Transfer (QC): 4 (SBA) Car Transfer (QC): 4 (SBA) Does the Patient Walk: Yes Walk 10 feet (QC): 4 (SBA) Walk 50ft with 2 Turns (QC): 4 (SBA) Walk 150 ft (QC): 4 (SBA) Walking 10ft on Uneven Surface: 4 (SBA) 1 Step (curb) (QC): 4 (SBA) 4 Steps (QC): 4 (SBA) 12 Steps (QC): 88 Picking up an Object (QC): 4 (SBA) Does the Pt use WC or Scooter?: Yes Wheel 50 feet with 2 turns (QC: 6 Type: Manual Wheel 150 feet: 6 Type: Manual PT Plan Problem List Problem List: Activity Tolerance, Functional Strength, Safety, Balance, Gait, Transfer, Bed Mobility, ROM Treatment/Plan Treatment Plan: Continue Plan of Care Treatment Plan: Bed Mobility, Education, Functional Activity Rogelio, Functional Strength, Group Therapy, Gait, Safety, Therapeutic Exercise, Transfers Treatment Duration: Jul 28, 2020 Frequency: At least 5 of 7 days/Wk (IRF) Estimated Hrs Per Day: 1.5 hours per day Patient and/or Family Agrees t: Yes Safety Risks/Education Patient Education: Transfer Techniques, Correct Positioning, Safety Issues Teaching Recipient: Patient Teaching Methods: Demonstration, Discussion Response to Teaching: Reinforcement Needed Time/GCodes Time In: 1300 Time Out: 1315 Total Billed Treatment Time: 15 Total Billed Treatment 1 visit EX Nitin DINASHANICE CALERO PT Jul 14, 2020 13:47
--- NOTE | 2020-07-14 14:34 | NUR ---
CM/SS PATIENT CARE CONFERENCE and CONCURRENT DOCUMENTATION Shared Summary with patient, she is in agreement for reassessment next Sunday07/21/20. Following through on patient's three requests: 1) Dr. Moody intermittent ankle injection. [phone]. Patient states it is time for another and her ankle pain is prohibitive to her working with therapy. Prn Occupational Therapist contacted Dr. Moody office, they will provide the last progress note regarding this treatment. 2) [employer] [address]. [phone]. Patient wants to transfer funds from her personal account to her landlord's account, [employer], for rent. Prn Occupational Therapist spoke with "Griselda" there, she agreed to make the transaction if patient provided a signed letter of request for specific amount and date of transfer request. Patient then stated she wanted to make sure this transfer had not already been completed because she had personally spoken to Harish Talbert at the [employer] before today. Prn Occupational Therapist updated friend Nahed to let patient use her cell to contact [employer] directly to clarify before moving forward on an action plan. 3) Patient's car tag, insurance, taxes, inspection expires today 07/14/20 and friend Nahed is driving this car. Prn Occupational Therapist spoke with [employer] car tag office. They stated the inspection must be done first and proof taken to tag office to complete the rest of the transaction. Nahed states she can do all of this because she is in possession of patient's bank debit card. Informed Nahed that there will be a $5 penalty after today. Nahed will assure patient she will take care of this business. Patient's friend Nahed brought a suitcase today of clothing and personal items. Nahed indicates she is capable to pay all of patient's bills, will reach out to her as needed. Nahed also stated that patient perseverates on these stressors and does not seem to be able to be consoled that they will be taken care of. Nahed shared that patient's son Kaleb will provide any funds needed in the interim if caregivers are unable to access necessary monies. Continue intermittent reviews and updates.
--- NOTE | 2020-07-14 15:02 | Occupational Ther Daily Note ---
OT Current Status-Daily Note Subjective Pt. up in chair. Does not report pain level, but states that she has pain in right ankle. Nursing aware. Mental Status/Objective Patient Orientation: Person ADL-Treatment Therapy Code Descriptions/Definitions Functional [place] Measure: 0=Not Assessed/NA 4=Minimal Assistance 1=Total Assistance 5=Supervision or Setup 2=Maximal Assistance 6=Modified [place] 3=Moderate Assistance 7=Complete IndependenceSCALE: Activities may be completed with or without assistive devices. 4-Ikzqbbksvf-jbjnoav completes the activity by him/herself with no assistance from a helper. 5-Set-up or Clean-up Assistance-helper sets up or cleans up; patient completes activity. [place] assists only prior to or following the activity. 4-Supervision or Touching Assistance-helper provides verbal cues and/or touc maria eugenia/steadying and/or contact guard assistance as patient completes activity. Assistance may be provided throughout the activity or intermittently. 3-Partial/Moderate Assistance-helper does LESS THAN HALF the effort. [place] lifts, holds or supports trunk or limbs, but provides less than half the effort. 2-Substantial/Maximal Assistance-helper does MORE THAN HALF the effort. [place] lifts or holds trunk or limbs and provides more than half the effort. 5-Kmwlqxqvb-ixurkk does ALL the effort. Patient does none of the effort to complete the activity. Or, the assistance of 2 or more helpers is required for the patient to complete the activity. If activity was not attempted, code reason: 7-Patient Refused. 9-Not Applicable-not attempted and the patient did not perform the activity before the current illness, exacerbation or injury. 10-Not Attempted due to Environmental Limitations-(lack of equipment, weather restraints, etc.). 88-Not Attempted due to Medical Conditions or Safety Concerns. On/Off Footwear: 4 (SBA) Other Treatment Pt. is up in chair. Is talking with Daisha. Pt. is concerned with her ankle pain, and with this facility contacting her primary physician about her treatments for it. Pt. reports that she sees her physician every 3 months, and has a shot in her ankle approximately once a year. She states that maybe this facility can contact her physician and he can tell this facility how to treat her pain/swelling, as he has been doing. Pt. verbalizes that she does not feel that she can stand or participate in therapy with her pain. This OT lets pt. know that this information will be passed on. Pt. reports having anxiety about this. Nursing and social science research assistant are aware. Pt. practices doffing/donning slipper socks with SBA. This is progress as she could not do this this morning. Pt. states, "okay, what else can I do to make you happy." Pt. then apologizes and states that she is joking, and just worried. OT attempts to encourage her, and ask her specifically what concerns she thinks she will have at home. She states that her main goals are to be able to get out of the house quickly if needed, and to be able to let her dog out safely. She states that she would like to be able to walk. Pt. declines standing or transferring back to bed at this time. Pt's friend comes to room and all needs are met for pt. Education OT Patient Education: Correct positioning, Modified ADL techniques, Progress toward Goal/Update tx plan, Purpose of tx/functional activities, Reviewed precautions, Rehab process Teaching Recipient: Patient Teaching Methods: Demonstration, Discussion Response to Teaching: Verbalize Understanding, Return Demonstration OT Short Term Goals Short Term Goals Time Frame: Jul 21, 2020 Eatin Oral hygiene: 5 Toileting hygiene: 3 Shower/bathe self: 4 Upper body dressin Lower body dressin Putting on/taking off footwear: 4 OT Jtac Goals Halfway Goals Time Frame: Jul 28, 2020 Eating (QC): 6 Oral Hygiene (QC): 6 Toileting Hygiene (QC): 6 Shower/Bathe Self (QC): 4 Upper Body Dressing (QC): 5 Lower Body Dressing (QC): 4 On/Off Footwear (QC): 4 Additional Goals: 1-Demonstrate ADL Tasks, 2-Verbalize Understanding, 3- ImproveStrength/Rogelio 1=Demonstrate adherence to instructed precautions during ADL tasks. 2=Patient will verbalize/demonstrate understanding of assistive devices/modifications for ADL. 3=Patient will improve strength/tolerance for activity to enable patient to perform ADL's. OT Education/Plan Problem List/Assessment Assessment: Decreased Activ Tolerance, Dependent Transfers, Impaired I ADL's, Impaired Self-Care Skills Discharge Recommendations Plan/Recommendations: Continue POC Therapy Discharge Recommendati: Home & Family Treatment Plan/Plan of Care Treatment,Training & Education: Yes Patient would benefit from OT for education, treatment and training to promote independence in ADL's, mobility, safety and/or upper extremity function for ADL's. Plan of Care: ADL Retraining, Functional Mobility, UE Funct Exercise/Act Treatment Duration: Jul 28, 2020 Frequency: At least 5 of 7 days/Wk (IRF) Estimated Hrs Per Day: 1.5 hours per day Agreement: Yes Rehab Potential: Fair Time/GCodes Start Time: 14:10 Stop Time: 14:40 Total Time Billed (hr/min): 30 Billed Treatment Time 1, ADL x 15minutes, FA x 15minutes GLORIA BANSAL OT Jul 14, 2020 15:02
--- NOTE | 2020-07-14 15:59 | NUR ---
Follow up visit: the pt requested communication be made with her Physician of over [address], [address] [facility]. She said he has given her ankle injections to treat osteoarthritis, and she believes this would help her progress in physical therapy. This Scheme Technician facilitated communication of patient's requests with the Physical Therapist and Centerless Grinder (Rebecac) when they entered for their visit. This Scheme Technician visit was in follow up to the patient's request for assistance writing a letter of reconciliation to her younger brother, Glen. The patient shared that she believes it may be more healing to communicate with her niece, Jess, with whom she has a good relationship. This work from home will follow up as able to explore pt's desire for reconciliation and facilitate interventions to support the patient's goals for spiritual and emotional well-being.
--- NOTE | 2020-07-14 16:00 | NUR ---
Alerted by Used Car Make Ready Mechanic that patient is Tachycardic. Patient has been in a paced rhythm. This nurse asked Tech to send a strip down. Strip sent to Dr. Osorio. Dr. Osorio promptly called and transferred patient to ICU stating that patient was experiencing V Tach. Patient moved to ICU, bedside report given to VLADISLAV Gil[place]. Dr. Hogan notified of change in patient condition and transfer.
[2020-07-15] MEDS ORDERED: VANCOMYCIN INJECTION 1,000 MG in NS (IVPB) 250 ML IV SCH (10:00)
--- NOTE | 2020-07-15 13:05 | Progress Note ---
WAYNE VEGA,TOBIN STUDENT 07/15/20 1305: Progress Note Hospital course: Patient is a 80yo female who had a two week stay in ICU for heart block and sepsis. She was transferred to IRF on 07/13, but last night she went into Afib with RVR and was transferred back to the ICU, and cardiology and pulmonology were consulted. Per cardiology, she spontaneously converted to sinus rhythm in the ICU. She was placed on PO ammiodarone and Cardizem, and continued on Eliquis. Plan: She is continuing to receive vancomycin for sepsis with blood cultures positive for staph epidermidis. She is on ammiodarone, cardizem, is on Eliquis for stroke prophylaxis, and is s/p pacemaker placement due to second degree heart block. She will be transferred back to IRF tomorrow to resume working with PT and OT, with the goal of increasing her strength and working on fall prevention. VIVIAN BENITEZ DO 07/16/20 1638: Supervisory-Addendum Brief Verification & Attestation Participated in pt care: history, MDM, physical Personally performed: exam, history, MDM, supervision of care Care discussed with: Medical Student Procedures: n/a Results interpretation: Verified all documentation Verification and Attestation of Medical Student E/M Service A medical student performed and documented this service in my presence. I reviewed and verified all information documented by the medical student and made modifications to such information, when appropriate. I personally performed the physical exam and medical decision making. Vivian Benitez Jul 16, 2020,16:38 WAYNE VEGA MED STUDENT Jul 15, 2020 13:05 VIVIAN BENITEZ DO Jul 16, 2020 16:38
--- NOTE | 2020-07-16 10:14 | PM&R Progress Note ---
Subjective HPI/CC On Admission Date Seen by Provider: Jul 16, 2020 Time Seen by Provider: 12:00 Subjective/Events-last exam 07/16/20: Patient transferred down from ICU Doing well overall Insists on using O2 but her O2 sats is 96% so weaning that Very psychotic thoughts noted Ankle and knee injected by James Camarillo and his help is appreciated to help participation in therapy Pt requiring O2 even though her oxygen level is good Pacemaker maintained Telemetry maintained by cardiology request Refuses oral potassium, she would rather have it through her IV so unsure how we are going to titrate that considering she really needs to be off IVs Vancomycin will be maintained until completed 14 days after most recent gram positive blood cultures Xanax really helped her anxiety We already discontinued the Still catheter, she hasnt voided yet WBC 13 A lot of psychosocial issues at home, will likely slow recovery After rounds in afternoon patient was noted to have abnormal Telemetry and was found to have AF w/RVR so moved to ICU. Review of Systems General: Fatigue, Malaise Musculoskeletal: back pain, leg pain, foot pain Objective Exam Vital Signs Vital Signs Date Time Temp Pulse Resp B/P (MAP) Pulse Ox O2 Delivery O2 Flow Rate FiO2 07/17/20 01:00 76 07/16/20 22:39 94 Room Air 07/16/20 20:15 2.00 07/16/20 16:00 36.4 16 124/62 (82) Capillary Refill : Less Than 3 SecondsLess Than 3 Seconds General Appearance: No Apparent Distress, WD/WN, Chronically ill HEENT: PERRL/EOMI, Normal ENT Inspection, Pharynx Normal Neck: Full Range of Motion, Normal Inspection, Non Tender, Supple, Carotid Bruit Respiratory: Chest Non Tender, Lungs Clear, Normal Breath Sounds, No Accessory Muscle Use, No Respiratory Distress Cardiovascular: Regular Rate, Rhythm, No Edema, No Gallop, No JVD, No Murmur, Normal Peripheral Pulses Gastrointestinal: Normal Bowel Sounds, No Organomegaly, No Pulsatile Mass, Non Tender, Soft Back: Normal Inspection, No CVA Tenderness, No Vertebral Tenderness Extremity: Normal Capillary Refill, Normal Inspection, Normal Range of Motion, Non Tender, No Calf Tenderness, No Pedal Edema Neurologic/Psychiatric: Alert, Oriented x3, No Motor/Sensory Deficits, Normal Mood/Affect, industrial economist II-XII Norm as Tested, Abnormal Gait, Motor Weakness (3/5 generalized all extremities) Skin: Normal Color, Warm/Dry Lymphatic: No Adenopathy Results/Procedures Lab Patient resulted labs reviewed. FIM Transfers Therapy Code Descriptions/Definitions Functional [facility] Measure: 0=Not Assessed/NA 4=Minimal Assistance 1=Total Assistance 5=Supervision or Setup 2=Maximal Assistance 6=Modified [facility] 3=Moderate Assistance 7=Complete IndependenceSCALE: Activities may be completed with or without assistive devices. 4-Oregvmhvbw-nihmaxl completes the activity by him/herself with no assistance from a helper. 5-Set-up or Clean-up Assistance-helper sets up or cleans up; patient completes activity. [place] assists only prior to or following the activity. 4-Supervision or Touching Assistance-helper provides verbal cues and/or touching/steadying and/or contact guard assistance as patient completes activity. Assistance may be provided throughout the activity or intermittently. 3-Partial/Moderate Assistance-helper does LESS THAN HALF the effort. [place] lifts, holds or supports trunk or limbs, but provides less than half the effort. 2-Substantial/Maximal Assistance-helper does MORE THAN HALF the effort. [place] lifts or holds trunk or limbs and provides more than half the effort. 8-Vjxokamqf-rwxnfr does ALL the effort. Patient does none of the effort to co mplete the activity. Or, the assistance of 2 or more helpers is required for the patient to complete the activity. If activity was not attempted, code reason: 7-Patient Refused. 9-Not Applicable-not attempted and the patient did not perform the activity before the current illness, exacerbation or injury. 10-Not Attempted due to Environmental Limitations-(lack of equipment, weather restraints, etc.). 88-Not Attempted due to Medical Conditions or Safety Concerns. Roll Left to Right (QC): 6 Sit to Lying (QC): 3 Sit to Stand (QC): 3 Chair/Idl-vs-Yyktr Xfer(QC): 3 Car Transfer (QC): 3 Gait Training Does the Patient Walk?: Yes Walk 10 feet (QC): 88 Walk 50 ft with 2 Turns(QC): 88 Walk 150 ft (QC): 88 Walking 10ft/uneven surface-QC: 88 Gait Assistive Device: Parallel Bars Wheelchair Training Does the Pt Use a Wheelchair?: Yes Distance: 150' Wheel 50 ft with 2 turns (QC): 4 Wheel 150 ft (QC): 4 Type of Wheelchair: Manual Stair Training 1 Step (curb) (QC): 88 4 Steps (QC): 88 12 Steps (QC): 88 Balance Picking up an Object (QC): 88 ADL-Treatment Eating (QC): 5 Oral Hygiene (QC): 7 Shower/Bathe Self (QC): 3 (Mod assist with sponge bath. Pt. does not feel ready for shower yet.) Upper Body Dressing (QC): 88 Lower Body Dressing (QC): 3 (Mod assist to don/doff brief.) On/Off Footwear (QC): 4 (SBA) Toileting Hygiene (QC): 1 (Pt. incontinent of stool throughout treatment. Nursing notified. Pt. states that she can't tell when she is going.) Assessment/Plan Assessment and Plan Assess & Plan/Chief Complaint Assessment: Myopathy Critical illness source of weakness s/p pacemaker for heart block Venous access source of bacteremia maintained on Vanc BRENNON CAD non-obstructive HTN HLP Hyponatremia Anemia Still cath in place Plan: IRF protocol DC catheter Monitor labs Vanc 07/14/20: IV abx Moved to ICU temporarily for AF w/RVR Continue IRF protocol 07/16/20: Monitor heart rate Wean O2 Ankle and knee injections appreciated Monitor closely (1) Myopathy (2) Bacteremia due to Staphylococcus epidermidis Status: Acute (3) Infection of venous access port Status: Acute (4) S/P placement of cardiac pacemaker Status: Acute (5) Euthyroid sick syndrome Status: Acute (6) S/p nephrectomy Status: Chronic (7) Hypothyroidism Status: Chronic (8) Renal cell carcinoma Status: Chronic (9) Low TSH level Status: Acute (10) T2DM (type 2 diabetes mellitus) Status: Chronic (11) HTN (hypertension) Status: Chronic (12) Second degree AV block Status: Acute (13) Kidney injury (14) Hyponatremia Status: Acute (15) Heart block KISHORE BENITEZ DO Jul 16, 2020 10:14
[2020-07-16] MEDS ORDERED: LIDOCAINE 1% INJ 20 ML 20 ML VIAL INJ NR (11:00)
[2020-07-16] MEDS ORDERED: methylPREDNISolone 80 MG/ML (DEPO MEDROL) VIAL IM NR (11:00)
[2020-07-16] MEDS ORDERED: methylPREDNISolone 40 MG/ML (DEPO MEDROL) VIAL IM NR (11:00)
--- NOTE | 2020-07-16 11:27 | Progress Note ---
WAYNE VEGA MED STUDENT 07/16/20 1127: Progress Note Progress note: 07/16/20 R knee pain worse today, knee and ankle x-rays 07/15 did not show any abnormalities Reports continued SOB, cough this morning SpO2 96 on room air Denies LOPEZ, n/v/d/abdominal pain Confused today, she did not remember she was in the hospital and believed she was in [employer] Plan: Continue amiodarone, cardizem and digoxin Entresto started for cardiomyopathy and CHF Continue vancomycin regimen Pacemaker maintained Plan to transfer to IRF today Continue telemetry per cardiology request VIVIAN BENITEZ DO 07/16/20 1639: Supervisory-Addendum Brief Verification & Attestation Participated in pt care: history, MDM, physical Personally performed: exam, history, MDM, supervision of care Care discussed with: Medical Student Procedures: n/a Results interpretation: Verified all documentation Verification and Attestation of Medical Student E/M Service A medical student performed and documented this service in my presence. I reviewed and verified all information documented by the medical student and made modifications to such information, when appropriate. I personally performed the physical exam and medical decision making. Vivian Benitez, Jul 16, 2020,16:39 WAYNE VEGA MED STUDENT Jul 16, 2020 11:27 VIVIAN BENITEZ DO Jul 16, 2020 16:39
--- NOTE | 2020-07-16 11:35 | NUR ---
Re-admitted to room 223-1 on 07/13/20 from ICU via [bed], accompanied by .KIAH DE introduced to surroundings, call light, bed controls, phone, TV, temperature control, lights, meal times, smoking policy, visitor policy, side rail policy, bathrooms and showers. Patient Rights given to patient in the handbook.KIAH DE verbalizes understanding that [facility] is not responsible for the loss or damage to any personal effects or valuables that are kept in the patients posession during their hospitalization.
--- NOTE | 2020-07-16 12:43 | Speech Therapy Daily Note ---
Speech Daily Progress Note Subjective Date Seen by Provider: Jul 16, 2020 Time Seen by Provider: 00:30 Patient seen while sitting up in her chair eating lunch. Objective Patient utilized compensatory strategies as trained at 80% with minimal cues. Assessment Assessment Current Status: Good Progress Treatment Plan Continue Plan of Care Speech Short Term Goals Short Term Goals Short Term Goals 1) Patient will complete memory tasks related to her daily needs with minimal assist at 90% or greater. 2) Patient will complete safety awareness tasks related to her daily needs with minimal assist at 90% or greater. 3) Patient will complete problem solving tasks related to her daily needs with minimal assist at 90% or greater. Speech Fci Goals Fci Goals Patient will improve cognitive communication to complete daily tasks with minimal assist. Speech-Plan Patient/Family Goals Patient/Family Goals: Patient plans on returning to her home with family and hired staff to assist her in her daily needs. Treatment Plan Speech Therapy Treatment Plan: Continue Plan of Care Treatment Duration: Jul 23, 2020 Frequency: 4 times per week (Patient will recieve ST 4-5x per day) Estimated Hrs Per Day: .5 hour per day Rehab Potential: Fair Barriers to Learning: Patient's recent health issues, age Pt/Family Agrees to Plan: Yes Safety Risks/Education Teaching Recipient: Patient Teaching Methods: Demonstration, Discussion Response to Teaching: Verbalize Understanding, Return Demonstration Education Topics Provided: Safety within her room and communication of wants/needs. Time Speech Therapy Time In: 12:30 Speech Therapy Time Out: 13:00 Total Billed Time: 30 Billed Treatment Time 1, SENDY, GABRIELA William Jul 16, 2020 12:43
--- NOTE | 2020-07-16 12:46 | Occupational Ther Daily Note ---
OT Current Status-Daily Note Subjective Pt returned from ICU, OT POC/LTGs to remain the same. Pt agreeable to OT tx. Pt verbalized some pain with standing but did not provide pain rating. Mental Status/Objective Attachments: Telemetry ADL-Treatment Therapy Code Descriptions/Definitions Functional [place] Measure: 0=Not Assessed/NA 4=Minimal Assistance 1=Total Assistance 5=Supervision or Setup 2=Maximal Assistance 6=Modified [place] 3=Moderate Assistance 7=Complete IndependenceSCALE: Activities may be completed with or without assistive devices. 5-Boetogijhz-wzqmyww completes the activity by him/herself with no assistance from a helper. 5-Set-up or Clean-up Assistance-helper sets up or cleans up; patient completes activity. [place] assists only prior to or following the activity. 4-Supervision or Touching Assistance-helper provides verbal cues and/or touching/steadying and/or contact guard assistance as patient completes activity. Assistance may be provided throughout the activity or intermittently. 3-Partial/Moderate Assistance-helper does LESS THAN HALF the effort. [place] lifts, holds or supports trunk or limbs, but provides less than half the effort. 2-Substantial/Maximal Assistance-helper does MORE THAN HALF the effort. [place] lifts or holds trunk or limbs and provides more than half the effort. 4-Ikebblumt-avehcw does ALL the effort. Patient does none of the effort to complete the activity. Or, the assistance of 2 or more helpers is required for the patient to complete the activity. If activity was not attempted, code reason: 7-Patient Refused. 9-Not Applicable-not attempted and the patient did not perform the activity before the current illness, exacerbation or injury. 10-Not Attempted due to Environmental Limitations-(lack of equipment, weather restraints, etc.). 88-Not Attempted due to Medical Conditions or Safety Concerns. Upper Body Dressing (QC): 3 (Min A donning boat puller night gown) Lower Body Dressing (QC): 2 (Assist threading BLEs into pants, pt able to manage up in standing) Other Treatment OT/PT cotreat due to skill of 2 clinicians required which a director of pediatric rehabilitation could not perform in order to coordinate UE/LEs, to decrease fall risk, and cues for sequencing and safety. OT focused on UE placement, ADLs, cues for sequencing and safety while PT focused on LE placement, gross overall movements, and transfers. Pt seated EOB, donned brief and boat puller night gown. Pt then requested to rest before attempting functional mobility. After rest break, pt stood at FWW, expressing some pain in LEs. Pt required moderate cues with transfers for hand placement and sequencing. Pt used FWW to ambulate into ARU common area, then re quired a seated rest break before returning to her room. Post OT tx, pt seated in recliner, call light in reach and all needs met. Education OT Patient Education: Correct positioning, Modified ADL techniques, Progress toward Goal/Update tx plan, Purpose of tx/functional activities, Safety issues, Transfer techniques Teaching Recipient: Patient Teaching Methods: Discussion Response to Teaching: Verbalize Understanding OT Short Term Goals Short Term Goals Time Frame: Jul 21, 2020 Eatin Oral hygiene: 5 Toileting hygiene: 3 Shower/bathe self: 4 Upper body dressin Lower body dressin Putting on/taking off footwear: 4 OT Solar Thermal Installer Goals Solar Thermal Installer Goals Time Frame: Jul 28, 2020 Eating (QC): 6 Oral Hygiene (QC): 6 Toileting Hygiene (QC): 6 Shower/Bathe Self (QC): 4 Upper Body Dressing (QC): 5 Lower Body Dressing (QC): 4 On/Off Footwear (QC): 4 Additional Goals: 1-Demonstrate ADL Tasks, 2-Verbalize Understanding, 3- ImproveStrength/Rogelio 1=Demonstrate adherence to instructed precautions during ADL tasks. 2=Patient will verbalize/demonstrate understanding of assistive devices/modifications for ADL. 3=Patient will improve strength/tolerance for activity to enable patient to perform ADL's. OT Education/Plan Problem List/Assessment Assessment: Decreased Activ Tolerance, Decreased UE Strength, Impaired I ADL's, Impaired Self-Care Skills, Restricted Funct UE ROM Discharge Recommendations Plan Pt returned from ICU, OT POC and goals to remain the same. Plan/Recommendations: Continue POC Treatment Plan/Plan of Care Patient would benefit from OT for education, treatment and training to promote independence in ADL's, mobility, safety and/or upper extremity function for ADL's. Plan of Care: ADL Retraining, Functional Mobility, UE Funct Exercise/Act Treatment Duration: Jul 28, 2020 Frequency: At least 5 of 7 days/Wk (IRF) Estimated Hrs Per Day: 1.5 hours per day Agreement: Yes Rehab Potential: Fair Time/GCodes Start Time: 11:40 Stop Time: 12:00 Total Time Billed (hr/min): 20 Billed Treatment Time 2475-3463 OT/PT co-treat 1, LATANYA FERNANDEZ OT Jul 16, 2020 12:46
--- NOTE | 2020-07-16 13:36 | Physical Therapy Daily Note ---
PT Daily Note-Current Subjective Pt presents sitting in recliner in ICU room. Pt agrees to PT. Pt reports pain in right knee. Appearance At conclusion of PT tx patient is assisted to recliner in rehab floor room. Pt has access to tray, call button, all needs have been met and nurse is present in room. Mental Status Patient Orientation: Person, Place, Time, Eyes Open, Situation Attachments: Oxygen Transfers SCALE: Activities may be completed with or without assistive devices. 9-Nftfqnhlkj-lhiedth completes the activity by him/herself with no assistance from a helper. 5-Set-up or Clean-up Assistance-helper sets up or cleans up; patient completes activity. [place] assists only prior to or following the activity. 4-Supervision or Touching Assistance-helper provides verbal cues and/or touching/steadying and/or contact guard assistance as patient completes activity. Assistance may be provided throughout the activity or intermittently. 3-Partial/Moderate Assistance-helper does LESS THAN HALF the effort. [place] lifts, holds or supports trunk or limbs, but provides less than half the effort. 2-Substantial/Maximal Assistance-helper does MORE THAN HALF the effort. [place] lifts or holds trunk or limbs and provides more than half the effort. 7-Hlsuyekbt-grvgnt does ALL the effort. Patient does none of the effort to complete the activity. Or, the assistance of 2 or more helpers is required for the patient to complete the activity. If activity was not attempted, code reason: 7-Patient Refused. 9-Not Applicable-not attempted and the patient did not perform the activity before the current illness, exacerbation or injury. 10-Not Attempted due to Environmental Limitations-(lack of equipment, weather restraints, etc.). 88-Not Attempted due to Medical Conditions or Safety Concerns. Lying to Sitting/Side of Bed(Q: 3 Sit to Stand (QC): 3 Chair/For-fd-[place] Xfer(QC): 3 Pt requires mod-assist with sit to stand and bed transfers; pt also required mod assist to place legs Weight Bearing Right Lower Extremity: Right Full Weight Bearing Left Lower Extremity: Left Full Weight Bearing Gait Training Does the Patient Walk?: Yes Distance: 70', 80' Walk 10 feet (QC): 4 Walk 50 ft with 2 Turns(QC): 4 Gait Assistive Device: FWW Pt has slow yet steady gait. She is concerned that a chair is not following her (it is following her) so [facility] Treatments Gait training, transfers, dressing Assessment Current Status: Fair Progress Co-treated with OT due to patient's limitations in strength, mobility and ability to coordinate UEs and LEs. PT assisted with gait training and standing while OT assisted with dressing. Pt fearful of falling. Pt is unable to control her decent from standing to sitting. PT Short Term Goals Short Term Goals Time Frame: Jul 21, 2020 Roll Left & Right: 6 Sit to lyin Lying to sitting on side of be: 4 Sit to stand: 4 Chair/kim-mt-jpoet transfer: 4 Toilet transfer: 4 Walk 10 feet: 3 Walk 50 feet with two turns: 3 PT [facility] Goals Horticultural Farmer Goals PT Horticultural Farmer Goals Time Frame: Aug 04, 2020 Roll Left & Right (QC): 6 Sit to Lying (QC): 6 Lying-Sitting on Side/Bed(QC): 6 Sit to Stand (QC): 4 (SBA) Chair/Cte-rd-Eiszh Xfer(QC): 4 (SBA) Toilet Transfer (QC): 4 (SBA) Car Transfer (QC): 4 (SBA) Does the Patient Walk: Yes Walk 10 feet (QC): 4 (SBA) Walk 50ft with 2 Turns (QC): 4 (SBA) Walk 150 ft (QC): 4 (SBA) Walking 10ft on Uneven Surface: 4 (SBA) 1 Step (curb) (QC): 4 (SBA) 4 Steps (QC): 4 (SBA) 12 Steps (QC): 88 Picking up an Object (QC): 4 (SBA) Does the Pt use WC or Scooter?: Yes Wheel 50 feet with 2 turns (QC: 6 Type: Manual Wheel 150 feet: 6 Type: Manual PT Plan Problem List Problem List: Activity Tolerance, Functional Strength, Safety, Balance, Gait, Transfer, Bed Mobility, ROM Treatment/Plan Treatment Plan: Continue Plan of Care Treatment Plan: Bed Mobility, Education, Functional Activity Rogelio, Functional Strength, Group Therapy, Gait, Safety, Therapeutic Exercise, Transfers Treatment Duration: Jul 28, 2020 Frequency: At least 5 of 7 days/Wk (IRF) Estimated Hrs Per Day: 1.5 hours per day Patient and/or Family Agrees t: Yes Safety Risks/Education Patient Education: Gait Training, Transfer Techniques, Correct Positioning, Safety Issues Teaching Recipient: Patient Teaching Methods: Demonstration, Discussion Response to Teaching: Reinforcement Needed Time/GCodes Time In: 1120 Time Out: 1200 Total Billed Treatment Time: 40 Total Billed Treatment 1 visit FA 25' GT 15' co-treated with OT for 20min from 0514-8103. Assessed patient's mobility, continue with [facility] goals set on original evaluation. SHANICE SERRA PT Jul 16, 2020 13:36
[2020-07-16] MEDS: inSUlin ASPART (NovoLOG) 1 UNIT/0.01 ML (CHARGE PER UNIT) SC SCH ×9 (13:52→21:35)
[2020-07-16] MEDS: LACTOBACILLUS ACIDOPHILUS (PROBIOTIC) CAPSULE PO SCH ×7 (13:53→18:33)
[2020-07-16] MEDS: AMIODARONE 200 MG (CORDARONE) TAB PO SCH ×5 (13:53→21:36)
[2020-07-16] MEDS: APIXABAN 5 MG (ELIQUIS) TABLET PO SCH ×5 (13:53→21:36)
[2020-07-16] MEDS: DOCUSATE SODIUM 100 MG (COLACE) CAP PO SCH ×6 (13:53→21:36)
[2020-07-16] MEDS: polyethylene glycoL POWDER 17 GM (MIRALAX) PACK PO SCH ×5 (13:53→20:25)
[2020-07-16] MEDS: KCL 20 MEQ TAB (K-DUR) PO SCH ×2 (13:54→13:59)
[2020-07-16] MEDS: SENNA W/DOCUSATE (SENOKOT S) TABLET PO SCH ×5 (13:54→20:25)
[2020-07-16] MEDS: THYROID (ARMOUR) 60 MG TABLET PO SCH ×5 (13:54→21:36)
--- NOTE | 2020-07-16 14:02 | Occupational Ther Daily Note ---
OT Current Status-Daily Note Subjective Pt agreeable to OT/PT cotreat. Pt reports 3/10 pain in seated, and 7/10 pain in standing ADL-Treatment Therapy Code Descriptions/Definitions Functional [place] Measure: 0=Not Assessed/NA 4=Minimal Assistance 1=Total Assistance 5=Supervision or Setup 2=Maximal Assistance 6=Modified [place] 3=Moderate Assistance 7=Complete IndependenceSCALE: Activities may be completed with or without assistive devices. 7-Sjmuvdhuwf-qzfurlh completes the activity by him/herself with no assistance from a helper. 5-Set-up or Clean-up Assistance-helper sets up or cleans up; patient completes activity. [place] assists only prior to or following the activity. 4-Supervision or Touching Assistance-helper provides verbal cues and/or touching/steadying and/or contact guard assistance as patient completes activity. Assistance may be provided throughout the activity or intermittently. 3-Partial/Moderate Assistance-helper does LESS THAN HALF the effort. [place] l ifts, holds or supports trunk or limbs, but provides less than half the effort. 2-Substantial/Maximal Assistance-helper does MORE THAN HALF the effort. [place] lifts or holds trunk or limbs and provides more than half the effort. 9-Itptsqjfu-yappdd does ALL the effort. Patient does none of the effort to complete the activity. Or, the assistance of 2 or more helpers is required for t he patient to complete the activity. If activity was not attempted, code reason: 7-Patient Refused. 9-Not Applicable-not attempted and the patient did not perform the activity before the current illness, exacerbation or injury. 10-Not Attempted due to Environmental Limitations-(lack of equipment, weather restraints, etc.). 88-Not Attempted due to Medical Conditions or Safety Concerns. Eating (QC): 5 (assist cutting food due to fatigue and difficulty getting small enough bites) Toileting Hygiene (QC): 4 (CGA, pt able to manage clothing with encouragement, and able to perform hygiene) Toilet Transfer (QC): 3 (CGA onto toilet, Mod A off) Other Treatment [id number] OT/PT cotreat: PT/OT cotreat in order to coordinate UE/LE with tasks, decrease risk of falls, focus on dynamic standing balance, and cues for sequencing and safety. OT focused on ADLs, UE placement, cues for sequencing and safety, while PT focused on gross overall movements, dynamic standing balance, and transfers. Pt stood from recliner, mod A sit to stand, pt then ambulated to therapy gym using FWW, requiring 1 seated rest break. Pt then stood at FWW, completing balance activity of hitting balloon back and forth, OT focused on UEs while PT focused on standing balance. Pt able to complete x3 trials, ~1 min each time. After ~1 min of activity, pt stated she needed to sit down. Pt expressed concerns of losing her balance, but PT indicates pt was CGA throughout activity but did not require assistance for balance correction. Pt then ambulated back to room, requesting to use the restroom. Pt assisted to toilet. End PT/OT cotreat. [id number] OT Tx: Pt completed toileting, then used FWW to return to recliner. Pt declined standing at sink to wash hands stating she is too fatigued. Once pt sat in chair, OT provided pt with hand hog killer. OT warmed up pt's lunch, and assisted pt with cutting chicken. Pt then able to get food onto fork and bring food to mouth. Post OT tx, pt seated in recliner, call light in reach and all needs met. Education OT Patient Education: Correct positioning, Energy conservation, Modified ADL techniques, Progress toward Goal/Update tx plan, Purpose of tx/functional a ctivities, Safety issues, Transfer techniques, Use of adapted equipment Teaching Recipient: Patient Teaching Methods: Discussion Response to Teaching: Verbalize Understanding OT Short Term Goals Short Term Goals Time Frame: Jul 21, 2020 Eatin Oral hygiene: 5 Toileting hygiene: 3 Shower/bathe self: 4 Upper body dressin Lower body dressin Putting on/taking off footwear: 4 OT Fci Goals Fci Goals Time Frame: Jul 28, 2020 Eating (QC): 6 Oral Hygiene (QC): 6 Toileting Hygiene (QC): 6 Shower/Bathe Self (QC): 4 Upper Body Dressing (QC): 5 Lower Body Dressing (QC): 4 On/Off Footwear (QC): 4 Additional Goals: 1-Demonstrate ADL Tasks, 2-Verbalize Understanding, 3- ImproveStrength/Rogelio 1=Demonstrate adherence to instructed precautions during ADL tasks. 2=Patient will verbalize/demonstrate understanding of assistive devices/modifications for ADL. 3=Patient will improve strength/tolerance for activity to enable patient to perform ADL's. OT Education/Plan Problem List/Assessment Assessment: Decreased Activ Tolerance, Decreased UE Strength, Impaired Funct Balance, Impaired I ADL's, Impaired Self-Care Skills, Restricted Funct UE ROM Discharge Recommendations Plan/Recommendations: Continue POC Treatment Plan/Plan of Care Patient would benefit from OT for education, treatment and training to promote independence in ADL's, mobility, safety and/or upper extremity function for ADL's. Plan of Care: ADL Retraining, Functional Mobility, UE Funct Exercise/Act Treatment Duration: Jul 28, 2020 Frequency: At least 5 of 7 days/Wk (IRF) Estimated Hrs Per Day: 1.5 hours per day Agreement: Yes Rehab Potential: Fair Time/GCodes Start Time: 13:00 Stop Time: 13:55 Total Time Billed (hr/min): 55 Billed Treatment Time [id number] OT/PT cotreat (35') [id number] OT tx (20') 1, FA 2 (30'), ADL 2 (25') LATANYA MITCHELL OT Jul 16, 2020 14:02
[2020-07-16] MEDS: RT-ALBUTEROL/IPRATROPIUM 3 ML (DUONEB) VIAL INH SCH ×5 (14:17→22:30)
--- NOTE | 2020-07-16 14:20 | NUR ---
James Brewerw here at this time for rt knee and ankle injection. Consent signed.
--- NOTE | 2020-07-16 15:04 | Physical Therapy Daily Note ---
PT Daily Note-Current Subjective Pt presents for therapy sitting in recliner. Pt agrees to PT. Pt reports 3/10 pain; 95% of pain is in R knee, and the rest is an all-over ache. Appearance At conclusion of PT tx patient is assisted to toilet; pt is then left under supervision of OT to finish therapy session. Mental Status Patient Orientation: Person, Place, Time, Eyes Open, Situation Attachments: Oxygen Transfers SCALE: Activities may be completed with or without assistive devices. 4-Dkidenzukg-qtbzcvl completes the activity by him/herself with no assistance from a helper. 5-Set-up or Clean-up Assistance-helper sets up or cleans up; patient completes activity. [place] assists only prior to or following the activity. 4-Supervision or Touching Assistance-helper provides verbal cues and/or touching/steadying and/or contact guard assistance as patient completes activ ity. Assistance may be provided throughout the activity or intermittently. 3-Partial/Moderate Assistance-helper does LESS THAN HALF the effort. [place] lifts, holds or supports trunk or limbs, but provides less than half the effort. 2-Substantial/Maximal Assistance-helper does MORE THAN HALF the effort. [place] lifts or holds trunk or limbs and provides more than half the effort. 5-Xfucnbxmy-lvdnqf does ALL the effort. Patient does none of the effort to complete the activity. Or, the assistance of 2 or more helpers is required for the patient to complete the activity. If activity was not attempted, code reason: 7-Patient Refused. 9-Not Applicable-not attempted and the patient did not perform the activity before the current illness, exacerbation or injury. 10-Not Attempted due to Environmental Limitations-(lack of equipment, weather restraints, etc.). 88-Not Attempted due to Medical Conditions or Safety Concerns. Sit to Stand (QC): 3 Chair/Pdf-uq-Vooro Xfer(QC): 3 Toilet Transfer (QC): 3 Pt requires min-mod assist with qxa-wl-vuhwd transfers. Weight Bearing Right Lower Extremity: Right Full Weight Bearing Left Lower Extremity: Left Full Weight Bearing Gait Training Does the Patient Walk?: Yes Distance: 100'x2 Walk 10 feet (QC): 4 Walk 50 ft with 2 Turns(QC): 4 Gait Assistive Device: FWW CGA. Pt ambulates with step-through pattern; pt was able to make it from her room to gym without taking a break. Exercises Standing Balance with UE balloon tosses. Treatments Gait Training and Standing Balance. Assessment Current Status: Fair Progress Co-treated with OT due to patient's limitations with strength, mobility, and balance the need to coordinate UE and LE during activity and balance training. PT focused on pt balance in standing and gait training while OT worked on UE mobility. Pt is more motivated to participate in therapy but is limited by pain. Pt has fear of falling; she is able to stand without UE support but immediately feels as though she is falling when she notices this. Pt reported "I just about landed on the floor" when PT was providing CGA and felt no LOB. PT Short Term Goals Short Term Goals Time Frame: Jul 21, 2020 Roll Left & Right: 6 Sit to lyin Lying to sitting on side of be: 4 Sit to stand: 4 Chair/tdy-wl-whmrv transfer: 4 Toilet transfer: 4 Walk 10 feet: 3 Walk 50 feet with two turns: 3 PT Grounds Foreman Goals Mcc Goals PT Mcc Goals Time Frame: Aug 04, 2020 Roll Left & Right (QC): 6 Sit to Lying (QC): 6 Lying-Sitting on Side/Bed(QC): 6 Sit to Stand (QC): 4 (SBA) Chair/Sov-yt-Jennh Xfer(QC): 4 (SBA) Toilet Transfer (QC): 4 (SBA) Car Transfer (QC): 4 (SBA) Does the Patient Walk: Yes Walk 10 feet (QC): 4 (SBA) Walk 50ft with 2 Turns (QC): 4 (SBA) Walk 150 ft (QC): 4 (SBA) Walking 10ft on Uneven Surface: 4 (SBA) 1 Step (curb) (QC): 4 (SBA) 4 Steps (QC): 4 (SBA) 12 Steps (QC): 88 Picking up an Object (QC): 4 (SBA) Does the Pt use WC or Scooter?: Yes Wheel 50 feet with 2 turns (QC: 6 Type: Manual Wheel 150 feet: 6 Type: Manual PT Plan Problem List Problem List: Activity Tolerance, Functional Strength, Safety, Balance, Gait, Transfer, Bed Mobility, ROM Treatment/Plan Treatment Plan: Continue Plan of Care Treatment Plan: Bed Mobility, Education, Functional Activity Rogelio, Functional Strength, Group Therapy, Gait, Safety, Therapeutic Exercise, Transfers Treatment Duration: Jul 28, 2020 Frequency: At least 5 of 7 days/Wk (IRF) Estimated Hrs Per Day: 1.5 hours per day Patient and/or Family Agrees t: Yes Safety Risks/Education Patient Education: Gait Training, Transfer Techniques, Correct Positioning, S afety Issues Teaching Recipient: Patient Teaching Methods: Demonstration, Discussion Response to Teaching: Reinforcement Needed Time/GCodes Time In: 1300 Time Out: 1335 Total Billed Treatment Time: 35 Total Billed Treatment 1 visit GT 20, NM 15' SHANICE SERRA PT Jul 16, 2020 15:04
--- NOTE | 2020-07-16 15:53 | NUR ---
"RD ASSESSMENT PMHx: CA(renal,breast); HTN; DM; chronic UTI; chronic constipation PT INTERACTION: Pt was awake and pleasant during nutrition follow-up. Pt states she has been eating better since last assessment. Note avg PO intake 50% meals, per chart review. Pt states some issues with nausea and diarrhea since last assessment. Note last BM was 07/15, and pt currently on bowel regimen of colace BID; senna BID; and miralax BID, per chart review. ABNORMAL NUTRITION-RELATED LAB VALUES LOW: HIGH:cr 1.48; glu 248 Est. kcal needs: 1700 kcal | 20 kcal/kg Est. Pro needs: 68 g Pro | 0.8 g Pro/kg PES STATEMENT: Inadequate oral intake (NI-2.1) related to loss of appetite | nausea | diarrhea as evidenced by pt interview | avg PO intake 50% meals INTERVENTION: Continue with current diet order of 2000mg Na diet. Pt may benefit from consistent CHO restriction, as blood glucose levels appear elevated. Continue with current supplementation order of Glucerna (vary) with meals TID, for increased kcal intake. Provides 220 kcal and 10 g Pro per serving. Encouraged pt to eat when able. Will continue to follow and reassess as pt needs, intake, and status change. Mo Rogers, MS RD LD"
[2020-07-16 16:00] VITALS: BP 124/62
[2020-07-16] MEDS ORDERED: TROUGH ORDER-PHARMACY XX NR (17:00)
[2020-07-16] MEDS: VANCOMYCIN INJECTION 1,000 MG in NS (IVPB) 250 ML IV SCH (18:07)
[2020-07-17] MEDS: MELATONIN 3 MG TABLET PO PRN ×2 (00:07→19:59)
[2020-07-17] MEDS: ALPRAZolam 0.25 MG (XANAX) TAB PO PRN ×2 (00:07→17:51)
[2020-07-17] MEDS: RT-ALBUTEROL/IPRATROPIUM 3 ML (DUONEB) VIAL INH SCH ×6 (03:28→21:56)
[2020-07-17 06:15] VITALS: BP 112/57
--- NOTE | 2020-07-17 06:49 | PM&R Progress Note ---
Subjective HPI/CC On Admission Date Seen by Provider: Jul 17, 2020 Time Seen by Provider: 12:00 Subjective/Events-last exam 07/17/20: Dietary adding ADA to the low sodium diet BM moving well Ankle and knee improved Weaning O2 07/16/20: Patient transferred down from ICU Doing well overall Insists on using O2 but her O2 sats is 96% so weaning that Very psychotic thoughts noted Ankle and knee injected by James Camarillo and his help is appreciated to help participation in therapy Pt requiring O2 even though her oxygen level is good Pacemaker maintained Telemetry maintained by cardiology request Refuses oral potassium, she would rather have it through her IV so unsure how we are going to titrate that considering she really needs to be off IVs Vancomycin will be maintained until completed 14 days after most recent gram positive blood cultures Xanax really helped her anxiety We already discontinued the Still catheter, she hasnt voided yet WBC 13 A lot of psychosocial issues at home, will likely slow recovery After rounds in afternoon patient was noted to have abnormal Telemetry and was found to have AF w/RVR so moved to ICU. Review of Systems General: Fatigue, Malaise Pulmonary: Dyspnea Objective Exam Vital Signs Vital Signs Date Time Temp Pulse Resp B/P (MAP) Pulse Ox O2 Delivery O2 Flow Rate FiO2 07/18/20 15:24 Nasal Cannula 2.00 07/18/20 12:48 77 07/18/20 09:00 94 07/18/20 06:10 36.2 22 138/73 (94) Capillary Refill : Less Than 3 SecondsLess Than 3 Seconds General Appearance: No Apparent Distress, WD/WN, Chronically ill HEENT: PERRL/EOMI, Normal ENT Inspection, Pharynx Normal Neck: Full Range of Motion, Normal Inspection, Non Tender, Supple, Carotid Bruit Respiratory: Chest Non Tender, Lungs Clear, Normal Breath Sounds, No Accessory Muscle Use, No Respiratory Distress Cardiovascular: Regular Rate, Rhythm, No Edema, No Gallop, No JVD, No Murmur, Normal Peripheral Pulses Gastrointestinal: Normal Bowel Sounds, No Organomegaly, No Pulsatile Mass, Non Tender, Soft Back: Normal Inspection, No CVA Tenderness, No Vertebral Tenderness Extremity: Normal Capillary Refill, Normal Inspection, Normal Range of Motion, Non Tender, No Calf Tenderness, No Pedal Edema Neurologic/Psychiatric: Alert, Oriented x3, No Motor/Sensory Deficits, Normal Mood/Affect, patternmaker plastics II-XII Norm as Tested, Abnormal Gait, Motor Weakness Skin: Normal Color, Warm/Dry Lymphatic: No Adenopathy Results/Procedures Lab Laboratory Tests 07/18/20 06:10 Patient resulted labs reviewed. FIM Transfers Therapy Code Descriptions/Definitions Functional [place] Measure: 0=Not Assessed/NA 4=Minimal Assistance 1=Total Assistance 5=Supervision or Setup 2=Maximal Assistance 6=Modified [place] 3=Moderate Assistance 7=Complete IndependenceSCALE: Activities may be completed with or without assistive devices. 7-Xvzmfitait-vziuwrz completes the activity by him/herself with no assistance from a helper. 5-Set-up or Clean-up Assistance-helper sets up or cleans up; patient completes activity. [place] assists only prior to or following the activity. 4-Supervision or Touching Assistance-helper provides verbal cues and/or touching/steadying and/or contact guard assistance as patient completes activity. Assistance may be provided throughout the activity or intermittently. 3-Partial/Moderate Assistance-helper does LESS THAN HALF the effort. [place] lifts, holds or supports trunk or limbs, but provides less than half the effort. 2-Substantial/Maximal Assistance-helper does MORE THAN HALF the effort. [place] lifts or holds trunk or limbs and provides more than half the effort. 7-Isqlkjxsa-abkqpi does ALL the effort. Patient does none of the effort to complete the activity. Or, the assistance of 2 or more helpers is required for the patient to complete the activity. If activity was not attempted, code reason: 7-Patient Refused. 9-Not Applicable-not attempted and the patient did not perform the activity before the current illness, exacerbation or injury. 10-Not Attempted due to Environmental Limitations-(lack of equipment, weather restraints, etc.). 88-Not Attempted due to Medical Conditions or Safety Concerns. Roll Left to Right (QC): 6 Sit to Lying (QC): 3 Sit to Stand (QC): 3 Chair/Oox-zv-Kvjgq Xfer(QC): 3 Car Transfer (QC): 3 Gait Training Does the Patient Walk?: Yes Distance: 100'x2 Walk 10 feet (QC): 4 Walk 50 ft with 2 Turns(QC): 4 Walking 10ft/uneven surface-QC: 88 Gait Assistive Device: FWW Wheelchair Training Does the Pt Use a Wheelchair?: Yes Distance: 150' Wheel 50 ft with 2 turns (QC): 4 Wheel 150 ft (QC): 4 Type of Wheelchair: Manual Stair Training 1 Step (curb) (QC): 88 4 Steps (QC): 88 12 Steps (QC): 88 Balance Picking up an Object (QC): 88 ADL-Treatment Eating (QC): 5 (assist cutting food due to fatigue and difficulty getting small enough bites) Oral Hygiene (QC): 7 Shower/Bathe Self (QC): 3 (Mod assist with sponge bath. Pt. does not feel ready for shower yet.) Upper Body Dressing (QC): 3 (Min A donning tree puller night gown) Lower Body Dressing (QC): 2 (Assist threading BLEs into pants, pt able to manage up in standing) On/Off Footwear (QC): 4 (SBA) Toileting Hygiene (QC): 4 (CGA, pt able to manage clothing with encouragement, and able to perform hygiene) Toilet Transfer (QC): 3 (CGA onto toilet, Mod A off) Assessment/Plan Assessment and Plan Assess & Plan/Chief Complaint Assessment: Myopathy Critical illness source of weakness s/p pacemaker for heart block Venous access source of bacteremia maintained on Vanc BREN[place] CAD non-obstructive HTN HLP Hyponatremia Anemia Still cath in place Plan: IRF protocol DC catheter Monitor labs Vanc 07/14/20: IV abx Moved to ICU temporarily for AF w/RVR Continue IRF protocol 07/16/20: Monitor heart rate Wean O2 Ankle and knee injections appreciated Monitor closely 07/17/20: Change to dietary recs Monitor HR Wean O2 (1) Myopathy (2) Bacteremia due to Staphylococcus epidermidis Status: Acute (3) Infection of venous access port Status: Acute (4) S/P placement of cardiac pacemaker Status: Acute (5) Euthyroid sick syndrome Status: Acute (6) S/p nephrectomy Status: Chronic (7) Hypothyroidism Status: Chronic (8) Renal cell carcinoma Status: Chronic (9) Low TSH level Status: Acute (10) T2DM (type 2 diabetes mellitus) Status: Chronic (11) HTN (hypertension) Status: Chronic (12) Second degree AV block Status: Acute (13) Kidney injury (14) Hyponatremia Status: Acute (15) Heart block KISHORE BENITEZ DO Jul 17, 2020 06:48
[2020-07-17] MEDS: inSUlin ASPART (NovoLOG) 1 UNIT/0.01 ML (CHARGE PER UNIT) SC SCH ×4 (06:54→21:41)
[2020-07-17] MEDS: KCL 20 MEQ TAB (K-DUR) PO SCH (06:54)
[2020-07-17] MEDS: LACTOBACILLUS ACIDOPHILUS (PROBIOTIC) CAPSULE PO SCH ×3 (08:15→17:02)
[2020-07-17] MEDS: THYROID (ARMOUR) 60 MG TABLET PO SCH ×2 (08:15→19:59)
[2020-07-17] MEDS: SENNA W/DOCUSATE (SENOKOT S) TABLET PO SCH ×2 (08:15→19:59)
[2020-07-17] MEDS: polyethylene glycoL POWDER 17 GM (MIRALAX) PACK PO SCH ×2 (08:15→21:31)
[2020-07-17] MEDS: AMIODARONE 200 MG (CORDARONE) TAB PO SCH ×2 (08:15→19:59)
[2020-07-17] MEDS: guaiFENesin/DM (ROBITUSSIN DM) 10 ML UDC PO PRN ×2 (08:15→17:51)
[2020-07-17] MEDS: DOCUSATE SODIUM 100 MG (COLACE) CAP PO SCH ×2 (08:15→19:57)
[2020-07-17] MEDS: APIXABAN 5 MG (ELIQUIS) TABLET PO SCH ×2 (08:15→19:59)
--- NOTE | 2020-07-17 08:55 | Occupational Ther Daily Note ---
OT Current Status-Daily Note Subjective Pt laying in bed, agreeable to OT tx. Pt reports 1.5/10 pain in R knee and R ankle at rest, and 7/10 when up on her feet. Pt required moderate encouragement throughout session. She expressed fear of falling in standing and in sitting. ADL-Treatment Therapy Code Descriptions/Definitions Functional [place] Measure: 0=Not Assessed/NA 4=Minimal Assistance 1=Total Assistance 5=Supervision or Setup 2=Maximal Assistance 6=Modified [place] 3=Moderate Assistance 7=Complete IndependenceSCALE: Activities may be completed with or without assistive devices. 6-Xvwglvttip-scbuxvc completes the activity by him/herself with no assistance from a helper. 5-Set-up or Clean-up Assistance-helper sets up or cleans up; patient completes activity. [place] assists only prior to or following the activity. 4-Supervision or Touching Assistance-helper provides verbal cues and/or touching/steadying and/or contact guard assistance as patient completes activity. Assistance may be provided throughout the activity or intermittently. 3-Partial/Moderate Assistance-helper does LESS THAN HALF the effort. [place] lifts, holds or supports trunk or limbs, but provides less than half the effort. 2-Substantial/Maximal Assistance-helper does MORE THAN HALF the effort. [place] lifts or holds trunk or limbs and provides more than half the effort. 5-Jjkxugckh-oyerih does ALL the effort. Patient does none of the effort to complete the activity. Or, the assistance of 2 or more helpers is required for the patient to complete the activity. If activity was not attempted, code reason: 7-Patient Refused. 9-Not Applicable-not attempted and the patient did not perform the activity before the current illness, exacerbation or injury. 10-Not Attempted due to Environmental Limitations-(lack of equipment, weather restraints, etc.). 88-Not Attempted due to Medical Conditions or Safety Concerns. Eating (QC): 6 (Pt reports independent with breakfast.) Oral Hygiene (QC): 6 (IND seated in chair at sink.) Shower/Bathe Self (QC): 4 (SBA, pt completed sponge bath in seating. Washed periare and buttocks while seated, leaning side to side.) Upper Body Dressing (QC): 4 (SBA, pt able to don/doff machine tack puller shirt, assist managing O2 lines.) Lower Body Dressing (QC): 3 (Mod A sit to stand transfer to manage pants up. Pt able to thread BLE into pants/underwear and manage up with moderate encouragement.) On/Off Footwear: 3 (Min A, OT educated pt on sock aide to don socks. ) Toileting Hygiene (QC): 3 (Mod A sit to stand from toilet, pt able to perform hygiene and clothing mangement) Toilet Transfer (QC): 3 (CGA onto toilet, mod A off) Other Treatment Pt laying in bed, transferred supine to sit EOB with CGA. Pt stood from bed, cues for hand placement, and then used FWW into restroom to toilet. Pt sat on the toilet to complete toileting, sponge bath, and dressing. OT educated pt on AE for lower body dressing and footwear, she insisted OT help pt with dressing, requiring mod cues for encouragement to attempt tasks. Pt then stood from toilet, and used FWW to sink, OT provided pt with chair. Pt sat at chair in order to complete oral care and hair brushing independently, and shaving with set up assist to open package. Pt then transferred into recliner. In order to increase BUE fine motor coordination and strength, pt complete fine motor task of moderate resistance theraputty, removing beads as instructed. Pt performed all sit to stands with Mod A, stand to sit CGA. Post OT tx, pt seated in recliner, call light in reach and all needs met. Education OT Patient Education: Correct positioning, Energy conservation, Modified ADL techniques, Progress toward Goal/Update tx plan, Purpose of tx/functional activities, Safety issues, Transfer techniques Teaching Recipient: Patient Teaching Methods: Discussion Response to Teaching: Verbalize Understanding OT Short Term Goals Short Term Goals Time Frame: Jul 21, 2020 Eatin Oral hygiene: 5 Toileting hygiene: 3 Shower/bathe self: 4 Upper body dressin Lower body dressin Putting on/taking off footwear: 4 OT Skilled Nursing Goals Skilled Nursing Goals Time Frame: Jul 28, 2020 Eating (QC): 6 Oral Hygiene (QC): 6 Toileting Hygiene (QC): 6 Shower/Bathe Self (QC): 4 Upper Body Dressing (QC): 5 Lower Body Dressing (QC): 4 On/Off Footwear (QC): 4 Additional Goals: 1-Demonstrate ADL Tasks, 2-Verbalize Understanding, 3- ImproveStrength/Rogelio 1=Demonstrate adherence to instructed precautions during ADL tasks. 2=Patient will verbalize/demonstrate understanding of assistive devices/modifications for ADL. 3=Patient will improve strength/tolerance for activity to enable patient to perform ADL's. OT Education/Plan Problem List/Assessment Assessment: Decreased Activ Tolerance, Decreased UE Strength Discharge Recommendations Plan/Recommendations: Continue POC Treatment Plan/Plan of Care Patient would benefit from OT for education, treatment and training to promote independence in ADL's, mobility, safety and/or upper extremity function for ADL's. Plan of Care: ADL Retraining, Functional Mobility, UE Funct Exercise/Act Treatment Duration: Jul 28, 2020 Frequency: At least 5 of 7 days/Wk (IRF) Estimated Hrs Per Day: 1.5 hours per day Agreement: Yes Rehab Potential: Fair Time/GCodes Start Time: 07:35 Stop Time: 09:05 Total Time Billed (hr/min): 90 Billed Treatment Time 1, ADL 5 (70'), FA (20') LATANYA MITCHELL OT Jul 17, 2020 08:55
--- NOTE | 2020-07-17 11:43 | Physical Therapy Daily Note ---
PT Daily Note-Current Subjective Pt. agrees to Rx. Up in recliner. Pt. and visiting caregiver/friend share a lot about what pts. home situation and normal activities are and what she expects to do when she gets home. Pt. c/o pain in right knee at 4-04/23 but states she had an injection and it is so much better than it was. "I can actually walk now" Pain Numeric Pain Scale: 4 Location: Left Location Body Site: Knee Pain Description: Ache Mental Status Patient Orientation: Person, Place, Time, Situation Attachments: Oxygen (? ) pt. with cannula on her nose, O2 not plugged in at wall. RT having just left the room s this FLOWER PLANTER entered but had left the floor before this FLOWER PLANTER could catch them. Discussion with nursing reveals RT feels pt. may need the cannula in her nose for security but doen not need the O2. This FLOWER PLANTER left cannula in pts. nose and checked sats frequently during Rx , 95-97% consistently with HR 84 BPM. Transfers SCALE: Activities may be completed with or without assistive devices. 0-Jyiiiumkly-gdopmmn completes the activity by him/herself with no assistance from a helper. 5-Set-up or Clean-up Assistance-helper sets up or cleans up; patient completes activity. [place] assists only prior to or following the activity. 4-Supervision or Touching Assistance-helper provides verbal cues and/or touching/steadying and/or contact guard assistance as patient completes activity. Assistance may be provided throughout the activity or intermittently. 3-Partial/Moderate Assistance-helper does LESS THAN HALF the effort. [place] lifts, holds or supports trunk or limbs, but provides less than half the effort. 2-Substantial/Maximal Assistance-helper does MORE THAN HALF the effort. [place] lifts or holds trunk or limbs and provides more than half the effort. 5-Jokmxjlli-bhdtaj does ALL the effort. Patient does none of the effort to complete the activity. Or, the assistance of 2 or more helpers is required for the patient to complete the activity. If activity was not attempted, code reason: 7-Patient Refused. 9-Not Applicable-not attempted and the patient did not perform the activity before the current illness, exacerbation or injury. 10-Not Attempted due to Environmental Limitations-(lack of equipment, weather restraints, etc.). 88-Not Attempted due to Medical Conditions or Safety Concerns. Sit to Stand (QC): 3 (mod from toilet (low) CGA from higher surface) Toilet Transfer (QC): 3 Weight Bearing Right Lower Extremity: Right Full Weight Bearing Left Lower Extremity: Left Full Weight Bearing Gait Training Does the Patient Walk?: Yes Walk 10 feet (QC): 4 Walk 50 ft with 2 Turns(QC): 4 Gait Persons Needed: 1 Gait Assistive Device: FWW slow, moderate wt bearing on FWW Exercises Seated Therapy Exercises: Ankle pumps, Sit to stand, Long arc quads, Hip flexion, Hip abd/add Seated Reps: 10 (x2) Treatments MHP to right knee heavily padded with toweling 15m and monitored by this FLOWER PLANTER, toileted in bathroom with mod assist for managing briefs and slacks Assessment Current Status: Good Progress decreased pain c/o right knee. increased funct mob PT Short Term Goals Short Term Goals Time Frame: Jul 21, 2020 Roll Left & Right: 6 Sit to lyin Lying to sitting on side of be: 4 Sit to stand: 4 Chair/vwx-xa-qybkz transfer: 4 Toilet transfer: 4 Walk 10 feet: 3 Walk 50 feet with two turns: 3 PT Garbage Collector Driver Goals Prison Goals PT Prison Goals Time Frame: Aug 04, 2020 Roll Left & Right (QC): 6 Sit to Lying (QC): 6 Lying-Sitting on Side/Bed(QC): 6 Sit to Stand (QC): 4 (SBA) Chair/Dgp-lb-Spezu Xfer(QC): 4 (SBA) Toilet Transfer (QC): 4 (SBA) Car Transfer (QC): 4 (SBA) Does the Patient Walk: Yes Walk 10 feet (QC): 4 (SBA) Walk 50ft with 2 Turns (QC): 4 (SBA) Walk 150 ft (QC): 4 (SBA) Walking 10ft on Uneven Surface: 4 (SBA) 1 Step (curb) (QC): 4 (SBA) 4 Steps (QC): 4 (SBA) 12 Steps (QC): 88 Picking up an Object (QC): 4 (SBA) Does the Pt use WC or Scooter?: Yes Wheel 50 feet with 2 turns (QC: 6 Type: Manual Wheel 150 feet: 6 Type: Manual PT Plan Treatment/Plan Treatment Plan: Continue Plan of Care Treatment Plan: Bed Mobility, Education, Functional Activity Rogelio, Functional Strength, Group Therapy, Gait, Safety, Therapeutic Exercise, Transfers Treatment Duration: Jul 28, 2020 Frequency: At least 5 of 7 days/Wk (IRF) Estimated Hrs Per Day: 1.5 hours per day Patient and/or Family Agrees t: Yes Safety Risks/Education Patient Education: Gait Training, Transfer Techniques, Correct Positioning, Disease Process, Safety Issues Teaching Recipient: Patient Teaching Methods: Demonstration, Discussion Response to Teaching: Verbalize Understanding, Return Demonstration, Reinforcement Needed Time/GCodes Time In: 1015 Time Out: 1145 Total Billed Treatment Time: 90 Total Billed Treatment 1,GT15m,EX20m,FA55m KRYSTINA BURGOS FLOWER PLANTER Jul 17, 2020 11:43
--- NOTE | 2020-07-17 15:57 | Progress Note - Cardiology ---
Cardiology SOAP Progress Note Subjective: Gen malaise Some shortness of breath No cp or palp or syncope No n/v/d No focal weakness Objective: I&O/Vital Signs 07/17/20 07/17/20 07/17/20 07/17/20 06:15 06:37 07:00 09:00 Temp 37.0 Pulse 81 76 Resp 20 B/P (MAP) 112/57 (75) Pulse Ox 93 94 94 O2 Delivery Nasal Cannula Nasal Cannula O2 Flow Rate 2.00 2.00 07/17/20 07/17/20 07/17/20 07/17/20 10:13 10:14 12:34 14:17 Pulse 85 Pulse Ox 96 96 94 O2 Delivery Nasal Cannula Room Air Room Air O2 Flow Rate 2.00 0.00 0.00 07/16/20 23:59 Intake Total 600 ml Output Total 400 ml Balance 200 ml Constitutional: AAO x 3, well-developed, well-nourished Respiratory: No accessory muscle use; other (good bilat air entry, diminished at the bases) Cardiovascular: regular rate-rhythm, S1 and S2, systolic murmur (soft ELIN at card base) Gastrointestional: No tender; soft; No guarding, No rebound; audible bowel sounds Extremities: No clubbing, No cyanosis, No significant edema Neurologic/Psychiatric: other (move all limbs equally) Skin: No rash on exposed areas, No ulcerations on exposed areas; other (bruising at sites of port removal from L upper chest and pacemaker placement in the R upper chest) Results/Procedures: Labs Laboratory Tests 07/16/20 17:15: Vancomycin Level Trough 10.6 07/16/20 20:01: Glucometer 275H 07/17/20 05:27: Glucometer 184H 07/17/20 12:02: Glucometer 230H A/P: Assessment: Cardiomyopathy, probably nonischemic (based on cardiac cath by Dr Osorio on 07/02/20 that showed only mild to mod, nonobstructive CAD) Echo on 07/15/20: LVEF 25-30%, mild to mod MR, akinetic distal septum and apex 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, has been in remission H/o hypertension, but intermittently hypotensive at initial hospitalization in Jun 2020 UTI and indwelling port infection (s/p removal), being managed by the Med Svce Plan: * Continue the regimen started during her recent stay in the ICU (07/15 - 07/16/20) * Monitor labs from time to time * Keep on tele for now MONICA VIVEROS MD FACP FAC CCDS Jul 17, 2020 15:57
[2020-07-17] MEDS ORDERED: DIGOXIN 0.125 MG (LANOXIN) TAB PO ONE (16:00)
[2020-07-17 18:00] VITALS: BP 121/56
[2020-07-18] MEDS: RT-ALBUTEROL/IPRATROPIUM 3 ML (DUONEB) VIAL INH SCH ×6 (02:07→21:09)
[2020-07-18 06:10] VITALS: BP 138/73
[2020-07-18] MEDS: KCL 20 MEQ TAB (K-DUR) PO SCH (06:10)
[2020-07-18] MEDS: inSUlin ASPART (NovoLOG) 1 UNIT/0.01 ML (CHARGE PER UNIT) SC SCH ×4 (06:10→21:25)
[2020-07-18 06:23] LABS: BASOPHILS % (AUTO) 0 % (0-10); EOSINOPHILS # (AUTO) 0.2 10^3/uL (0.0-0.3); EOSINOPHILS % (AUTO) 2 % (0-10); HEMATOCRIT 28 % (35-52); HEMOGLOBIN 8.8 g/dL (11.5-16.0); LYMPHOCYTES # (AUTO) 1.4 10^3/uL (1.0-4.0); LYMPHOCYTES % (AUTO) 14 % (12-44); MEAN CORPUSCULAR HEMOGLOBIN 29 pg (25-34); MEAN CORPUSCULAR HGB CONC 31 g/dL (32-36); MEAN CORPUSCULAR VOLUME 93 fL (80-99); MEAN PLATELET VOLUME 10.4 fL (9.0-12.2); MONOCYTES # (AUTO) 0.9 10^3/uL (0.0-1.0); MONOCYTES % (AUTO) 9 % (0-12); NEUTROPHILS # (AUTO) 7.5 10^3/uL (1.8-7.8); NEUTROPHILS % (AUTO) 74 % (42-75); PLATELET COUNT 267 10^3/uL (130-400); WHITE BLOOD COUNT 10.1 10^3/uL (4.3-11.0)
--- NOTE | 2020-07-18 06:28 | PM&R Progress Note ---
Subjective HPI/CC On Admission Date Seen by Provider: Jul 18, 2020 Time Seen by Provider: 12:30 Subjective/Events-last exam 07/18/20: No issues Weaning O2 Sees her pet dog tomorrow BM+ Ankle and knee good since injections DC commode and going to bathroom now 07/17/20: Dietary adding ADA to the low sodium diet BM moving well Ankle and knee improved Weaning O2 07/16/20: Patient transferred down from ICU Doing well overall Insists on using O2 but her O2 sats is 96% so weaning that Very psychotic thoughts noted Ankle and knee injected by James Camarillo and his help is appreciated to help participation in therapy Pt requiring O2 even though her oxygen level is good Pacemaker maintained Telemetry maintained by cardiology request Refuses oral potassium, she would rather have it through her IV so unsure how we are going to titrate that considering she really needs to be off IVs Vancomycin will be maintained until completed 14 days after most recent gram positive blood cultures Xanax really helped her anxiety We already discontinued the Still catheter, she hasnt voided yet WBC 13 A lot of psychosocial issues at home, will likely slow recovery After rounds in afternoon patient was noted to have abnormal Telemetry and was found to have AF w/RVR so moved to ICU. Review of Systems General: Fatigue, Malaise Neurological: Weakness Objective Exam Vital Signs Vital Signs Date Time Temp Pulse Resp B/P (MAP) Pulse Ox O2 Delivery O2 Flow Rate FiO2 07/18/20 15:24 Nasal Cannula 2.00 07/18/20 12:48 77 07/18/20 09:00 94 07/18/20 06:10 36.2 22 138/73 (94) Capillary Refill : Less Than 3 SecondsLess Than 3 Seconds General Appearance: No Apparent Distress, WD/WN, Chronically ill HEENT: PERRL/EOMI, Normal ENT Inspection, Pharynx Normal Neck: Full Range of Motion, Normal Inspection, Non Tender, Supple, Carotid Bruit Respiratory: Chest Non Tender, Lungs Clear, Normal Breath Sounds, No Accessory Muscle Use, No Respiratory Distress Cardiovascular: Regular Rate, Rhythm, No Edema, No Gallop, No JVD, No Murmur, Normal Peripheral Pulses Gastrointestinal: Normal Bowel Sounds, No Organomegaly, No Pulsatile Mass, Non Tender, Soft Back: Normal Inspection, No CVA Tenderness, No Vertebral Tenderness Extremity: Normal Capillary Refill, Normal Inspection, Normal Range of Motion, Non Tender, No Calf Tenderness, No Pedal Edema Neurologic/Psychiatric: Alert, Oriented x3, No Motor/Sensory Deficits, Normal Mood/Affect, 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 FIM Transfers Therapy Code Descriptions/Definitions Functional [place] Measure: 0=Not Assessed/NA 4=Minimal Assistance 1=Total Assistance 5=Supervision or Setup 2=Maximal Assistance 6=Modified [place] 3=Moderate Assistance 7=Complete IndependenceSCALE: Activities may be completed with or without assistive devices. 0-Jgovmyodyq-rglhjvh completes the activity by him/herself with no assistance from a helper. 5-Set-up or Clean-up Assistance-helper sets up or cleans up; patient completes activity. [place] assists only prior to or following the activity. 4-Supervision or Touching Assistance-helper provides verbal cues and/or to uching/steadying and/or contact guard assistance as patient completes activity. Assistance may be provided throughout the activity or intermittently. 3-Partial/Moderate Assistance-helper does LESS THAN HALF the effort. [place] lifts, holds or supports trunk or limbs, but provides less than half the effort. 2-Substantial/Maximal Assistance-helper does MORE THAN HALF the effort. [place] lifts or holds trunk or limbs and provides more than half the effort. 0-Uqmqlidfo-lttzkd does ALL the effort. Patient does none of the effort to complete the activity. Or, the assistance of 2 or more helpers is required for the patient to complete the activity. If activity was not attempted, code reason: 7-Patient Refused. 9-Not Applicable-not attempted and the patient did not perform the activity before the current illness, exacerbation or injury. 10-Not Attempted due to Environmental Limitations-(lack of equipment, weather restraints, etc.). 88-Not Attempted due to Medical Conditions or Safety Concerns. Roll Left to Right (QC): 6 Sit to Lying (QC): 3 Sit to Stand (QC): 3 (mod from toilet (low) CGA from higher surface) Chair/Rxz-ee-Gdwpl Xfer(QC): 3 Car Transfer (QC): 3 Gait Training Does the Patient Walk?: Yes Distance: 100'x2 Walk 10 feet (QC): 4 Walk 50 ft with 2 Turns(QC): 4 Walking 10ft/uneven surface-QC: 88 Gait Persons Needed: 1 Gait Assistive Device: FWW Wheelchair Training Does the Pt Use a Wheelchair?: Yes Distance: 150' Wheel 50 ft with 2 turns (QC): 4 Wheel 150 ft (QC): 4 Type of Wheelchair: Manual Stair Training 1 Step (curb) (QC): 88 4 Steps (QC): 88 12 Steps (QC): 88 Balance Picking up an Object (QC): 88 ADL-Treatment Eating (QC): 6 (Pt reports independent with breakfast.) Oral Hygiene (QC): 6 (IND seated in chair at sink.) Shower/Bathe Self (QC): 4 (SBA, pt completed sponge bath in seating. Washed periare and buttocks while seated, leaning side to side.) Upper Body Dressing (QC): 4 (SBA, pt able to don/doff parts puller shirt, assist managing O2 lines.) Lower Body Dressing (QC): 3 (Mod A sit to stand transfer to manage pants up. Pt able to thread BLE into pants/underwear and manage up with moderate encouragement.) On/Off Footwear (QC): 3 (Min A, OT educated pt on sock aide to don socks. ) Toileting Hygiene (QC): 3 (Mod A sit to stand from toilet, pt able to perform hygiene and clothing mangement) Toilet Transfer (QC): 3 (CGA onto toilet, mod A off) Assessment/Plan Assessment and Plan Assess & Plan/Chief Complaint Assessment: Myopathy Critical illness source of weakness s/p pacemaker for heart block Venous access source of bacteremia maintained on Vanc BRENNON CAD non-obstructive HTN HLP Hyponatremia Anemia Still cath in place Plan: IRF protocol DC catheter Monitor labs Vanc 07/14/20: IV abx Moved to ICU temporarily for AF w/RVR Continue IRF protocol 07/16/20: Monitor heart rate Wean O2 Ankle and knee injections appreciated Monitor closely 07/18/20: Wean O2 Doing better Labs tomorrow (1) Myopathy (2) Bacteremia due to Staphylococcus epidermidis Status: Acute (3) Infection of venous access port Status: Acute (4) S/P placement of cardiac pacemaker Status: Acute (5) Euthyroid sick syndrome Status: Acute (6) S/p nephrectomy Status: Chronic (7) Hypothyroidism Status: Chronic (8) Renal cell carcinoma Status: Chronic (9) Low TSH level Status: Acute (10) T2DM (type 2 diabetes mellitus) Status: Chronic (11) HTN (hypertension) Status: Chronic (12) Second degree AV block Status: Acute (13) Kidney injury (14) Hyponatremia Status: Acute (15) Heart block KISHORE BENITEZ DO Jul 18, 2020 06:28
[2020-07-18 06:37] LABS: POTASSIUM 4.2 MMOL/L (3.6-5.0)
[2020-07-18 06:38] LABS: CALCIUM 8.4 MG/DL (8.5-10.1)
[2020-07-18 06:43] LABS: CREATININE SERUM 1.43 MG/DL (0.60-1.30)
[2020-07-18 06:45] LABS: MAGNESIUM 1.5 MG/DL (1.6-2.4)
[2020-07-18] MEDS: guaiFENesin/DM (ROBITUSSIN DM) 10 ML UDC PO PRN (06:56)
[2020-07-18] MEDS: LACTOBACILLUS ACIDOPHILUS (PROBIOTIC) CAPSULE PO SCH ×3 (08:22→18:11)
[2020-07-18] MEDS: AMIODARONE 200 MG (CORDARONE) TAB PO SCH ×2 (08:22→21:25)
[2020-07-18] MEDS: THYROID (ARMOUR) 60 MG TABLET PO SCH ×2 (08:22→21:25)
[2020-07-18] MEDS: DOCUSATE SODIUM 100 MG (COLACE) CAP PO SCH ×2 (08:22→21:25)
[2020-07-18] MEDS: DIGOXIN 0.125 MG (LANOXIN) TAB PO SCH (08:22)
[2020-07-18] MEDS: APIXABAN 5 MG (ELIQUIS) TABLET PO SCH ×2 (08:22→21:25)
[2020-07-18] MEDS: SENNA W/DOCUSATE (SENOKOT S) TABLET PO SCH ×2 (08:23→21:26)
[2020-07-18] MEDS: polyethylene glycoL POWDER 17 GM (MIRALAX) PACK PO SCH ×2 (08:23→21:26)
--- NOTE | 2020-07-18 12:24 | NUR ---
Assisted off of toilet after voiding & bm. SBA w FWW to transfer from toilet to recliner. Pt asked for 02 to be placed back on. 02 sat 97% on R/A after walking from toilet to chair, pulse 78. Showed these readings to pt, pt states, "oh, that's almost normal." Pt insisted that she needed the 02 on despite 02 sat readings WNL's. Pt eating lunch in recliner w legs elevated when left, after her various requests were met.
[2020-07-18 18:00] VITALS: BP 148/69
[2020-07-18] MEDS: VANCOMYCIN INJECTION 1,000 MG in NS (IVPB) 250 ML IV SCH (18:11)
[2020-07-18] MEDS: MELATONIN 3 MG TABLET PO PRN (21:25)
[2020-07-18] MEDS: ALPRAZolam 0.25 MG (XANAX) TAB PO PRN (21:32)
[2020-07-19] MEDS: guaiFENesin/DM (ROBITUSSIN DM) 10 ML UDC PO PRN ×2 (00:35→18:32)
[2020-07-19] MEDS: RT-ALBUTEROL/IPRATROPIUM 3 ML (DUONEB) VIAL INH SCH ×6 (01:40→21:10)
[2020-07-19 06:00] VITALS: BP 120/58
[2020-07-19] MEDS: KCL 20 MEQ TAB (K-DUR) PO SCH ×2 (06:20→22:40)
[2020-07-19] MEDS: inSUlin ASPART (NovoLOG) 1 UNIT/0.01 ML (CHARGE PER UNIT) SC SCH ×4 (06:54→20:06)
--- NOTE | 2020-07-19 07:53 | Individualized Plan of Care ---
Individualized Plan of Care Rehab Nursing IPOC Order Admission Date Jul 13, 2020 at 16:45 Current Orders Orders Admission Order(Inpt,Obs,Sdc) (07/13/20 15:54) Vital Signs: Per Unit Policy ( 08,16,00 (07/13/20 15:54) Zachariah Villarreal 09,21 (07/13/20 15:54) Sequential Compression Device Q4H (07/13/20 15:54) Monitor Car Operator-Inpt Rehab Con (07/13/20 15:54) Rehab Nursing Orders-Ipoc (07/13/20 15:54) Physical Therapy Rehab Orders (07/13/20 15:54) Occupational Therapy Rehab Ord (07/13/20 15:54) Speech Therapy Rehab Orders (07/13/20 15:54) Cbc With Automated Diff (07/14/20 06:00) Comprehensive Metabolic Panel (07/14/20 06:00) Intake & Output 06,14,22 (07/13/20 15:54) Precautions (Aru) (07/13/20 15:54) Weekly Weight WEEK (07/13/20 15:54) Rehab-Intensity Of Therapy (07/13/20 15:54) Initiate Admission Nursing Pro .admission (07/13/20 15:54) Alprazolam Tablet (Xanax Tablet) (07/13/20 16:00) Calcium Carbonate Chew Tablet (Antacid C (07/13/20 16:00) Diphenhydramine Tablet (Benadryl Tablet) (07/13/20 16:00) Docusate Sodium Capsule (Colace Capsule) (07/13/20 21:00) Docusate Sodium Capsule (Colace Capsule) (07/13/20 16:00) Bisacodyl Suppository (Dulcolax Supposit (07/13/20 16:00) Lactulose Oral Solution (Enulose Oral So (07/13/20 16:00) Na Phos/Na Biphos Enema (Fleet Enema Dane (07/13/20 16:00) Guaifenesin/Codeine Syrup (Robitussin Ac (07/13/20 16:00) Loperamide Tablet (Imodium Tablet) (07/13/20 16:00) Melatonin Tablet (Melatonin Tablet) (07/13/20 16:00) Polyethylene Glycol Powder Pkt (Miralax (07/13/20 21:00) Ondansetron Oral Dissolve Tab (Zofran (07/13/20 16:00) Senna S Tablet (Senokot S Tablet) (07/13/20 21:00) Admission Arrival Bed Request (07/13/20 16:32) Code/Resuscitation (07/13/20 16:50) Oxygen-Administer (07/13/20 16:50) Transfer To Room When Stable (07/13/20 16:50) Glucerna (07/13/20 Dinner) Sodium 2g (2000 Mg) (07/13/20 Dinner) Alprazolam Tablet (Xanax Tablet) (07/13/20 17:00) Acetaminophen Tablet/Caplet (Tylenol T (07/13/20 17:00) Albuterol/Ipra Inhalation Soln (Duoneb I (07/13/20 18:00) Amiodarone Tablet (Cordarone Tablet) (07/13/20 21:00) Apixaban Tablet (Eliquis Tablet) (07/13/20 21:00) Docusate Sodium Capsule (Colace Capsule) (07/13/20 21:00) Lactobacillus Acidophilus Cap (Acidophil (07/13/20 18:00) Melatonin Tablet (Melatonin Tablet) (07/13/20 17:00) Nitroglycerin 0.4 Mg Btl 25's (Nitrostat (07/13/20 17:00) Patient May Use Own Meds, All (Patient M (07/13/20 17:00) Potassium Chloride (Tablet) (K Dur Table (07/14/20 07:00) Simethicone Tablet (Mylicon Chewable Tab (07/13/20 17:00) Thyroid (Candler) Tablet (Thyroid (Candler (07/13/20 21:00) Vancomycin Injection (Vancomycin Injecti (07/15/20 10:00) Diltiazem Tablet (Cardizem Tablet) (07/13/20 18:00) Diphenhydramine Tablet (Benadryl Tablet) (07/13/20 17:00) Fentanyl Injection (Sublimaze Injection (07/13/20 17:00) Guaifenesin/Dm Syrup (Robitussin Dm Syru (07/13/20 17:00) Insulin Aspart (Novolog) (Novolog (Charg (07/13/20 21:00) Metoprolol Succinate (Xl) Tab (Toprol Xl (07/14/20 09:00) Oxycodone Immediate Rel Tablet (Oxyir Ta (07/13/20 17:00) Polyethylene Glycol Powder Pkt (Miralax (07/13/20 17:00) Consult Cardiology (07/13/20 16:50) Consult Pulmonology (07/13/20 16:50) Incentive Spirometry Initial (07/13/20 16:50) Svn Small Volume Nebulizer (07/13/20 16:50) Incentive Spirometry (Nursing) Q2H (07/13/20 16:50) Telemetry (07/13/20 17:17) Telemetry Nursing Assessment ( (07/13/20 17:17) Flu Quad High Dose [id number] (Fluzone Hi (07/13/20 18:30) Catheter(Urinary) Discontinue (07/14/20 06:22) Patient Visit (07/14/20 ) Speech Sound Lang Comp (07/14/20 ) Treat. Speech/Lang/Voice (07/14/20 ) Patient Visit (07/14/20 ) Pt Eval Moderate Complexity (07/14/20 ) Functional Activities, Ea 15 (07/14/20 ) Exercise Therap, Ea 15 Min (07/14/20 ) Transfer To Intensive Care Uni (07/14/20 15:45) Ekg Tracing (07/14/20 16:31) Echo W Doppler/Color Flow (07/15/20 08:50) Consent-Obtain Consent For ONCE (07/16/20 10:13) Preop Checklist (07/16/20 10:13) Lidocaine 1% Inj 20 Ml (Xylocaine 1% Inj (07/16/20 11:00) Methylprednisolone Acetate Inj (Depo-Med (07/16/20 11:00) Methylprednisolone Acetate Inj (Depo-Med (07/16/20 11:00) Patient Visit (07/16/20 ) Treat. Speech/Lang/Voice (07/16/20 ) Dysphagia Therapy (07/16/20 ) Vancomycin Injection (Vancomycin Injecti (07/16/20 18:00) Trough Order (Trough Order-Pharmacy Orde (07/16/20 17:00) Vancomycin,Trough (07/16/20 17:00) Patient Visit (07/16/20 ) Functional Activities, Ea 15 (07/16/20 ) Gait Training, Ea 15 Min (07/16/20 ) Ex Neuromuscular, Ea 15 Min (07/16/20 ) Patient Visit (07/17/20 ) Gait Training, Ea 15 Min (07/17/20 ) Exercise Therap, Ea 15 Min (07/17/20 ) Functional Activities, Ea 15 (07/17/20 ) Diltiazem Cd 24 Hr Capsule (Cardizem Cd (07/17/20 16:00) Diltiazem Cd 24 Hr Capsule (Cardizem Cd (07/18/20 09:00) Digoxin Tablet (Lanoxin Tablet) (07/17/20 16:00) Digoxin Tablet (Lanoxin Tablet) (07/18/20 09:00) Basic Metabolic Panel (07/18/20 05:00) Magnesium (07/18/20 05:00) Cbc With Automated Diff (07/18/20 05:00) Iron Test (Fe) (07/18/20 12:57) Rehab Nursing Orders: Ongoing Assess. of Cognitive Status, Ongoing Assess. of Function Status, Bladder Management, Bladder Scan, Bladder Training, Bowel Management, Disease Management & Educaiton, DVT Prophylaxis, Fall Prevention, Fluid/Electrolyte/Nutrition Mgmt, Infection Prevention, Medication Management & Education, Management of Risks & Complications, Nutrition Management, Pain Management, Patient/Family Support, Safety Management Intensity of Therapy to be met Patient to be seen: Min.3h per day/5 of 7d PT IPOC Problem List: Activity Tolerance, Functional Strength, Safety, Balance, Gait, Transfer, Bed Mobility, ROM Treatment Plan: Continue Plan of Care Bed Mobility, Education, Functional Activity Rogelio, Functional Strength, Group Therapy, Gait, Safety, Therapeutic Exercise, Transfers Treatment Duration: Jul 28, 2020 Frequency: At least 5 of 7 days/Wk (IRF) Estimated Hrs Per Day: 1.5 hours per day OT IPOC Problems: Decreased Activ Tolerance, Decreased UE Strength OT Treatment, Training and Edu: Yes Plan of Care: ADL Retraining, Functional Mobility, UE Funct Exercise/Act Treatment Duration: Jul 28, 2020 Frequency: At least 5 of 7 days/Wk (IRF) Estimated Hrs Per Day: 1.[address] IPOC Speech Therapy Treatment Plan: Continue Plan of Care Treatment Duration: Jul 23, 2020 Frequency: 4 times per week (Patient will recieve ST 4-5x per day) Estimated Hrs Per Day: .5 hour per day Monitor Car Operator/Case Mgmt Monitor Car Operator/Case Managemen: Discharge Planning Dietitian/Wood Cutter Dietitian/Wood Cutter to monitor nutritional status and make changes and/or recommendations as needed and work with speech pathology on dietary upgrades as the occur. Physician IPOC Medical Issues being managed closely and that require the 24 hour availability of a physician: AF w/RVR with recent pacemaker placement and extensive cardiac issues along with bacteremia will require close monitoring for decompensation Medical Issues: Bowel/Bladder Function, DVT Prophylaxis, Falls Precautions, Fluid/Electrolyte/Nutrition Balance, Infection Protection, Pain Management Brief Synthesis of Preadmission Screen, Post-Admission Evaluation, and Therapy Evaluations: PT OT will initiate aggressive therapy in order to regain enough function in order to become independent in ADL's and ambulation in order to return home to live independently. Medical Prognosis: Good Anticipated Length of Stay: 10 days KISHORE BENITEZ DO Jul 19, 2020 07:53
--- NOTE | 2020-07-19 07:54 | PM&R Progress Note ---
Subjective HPI/CC On Admission Date Seen by Provider: Jul 19, 2020 Time Seen by Provider: 10:00 Subjective/Events-last exam 07/19/20: Pt much improved Oriented x3 now Dr. Almendarez will be consulted for dyspnea Weaning off oxygen Hgb 8.8 Creatinine 1.43 She will see her dog today She thinks she has a UTI with frequency so will do an in and out cath and maintain the Vanc as order Cough is still present 07/18/20: No issues Weaning O2 Sees her pet dog tomorrow BM+ Ankle and knee good since injections DC commode and going to bathroom now 07/17/20: Dietary adding ADA to the low sodium diet BM moving well Ankle and knee improved Weaning O2 07/16/20: Patient transferred down from ICU Doing well overall Insists on using O2 but her O2 sats is 96% so weaning that Very psychotic thoughts noted Ankle and knee injected by James Camarillo and his help is appreciated to help participation in therapy Pt requiring O2 even though her oxygen level is good Pacemaker maintained Telemetry maintained by cardiology request Refuses oral potassium, she would rather have it through her IV so unsure how we are going to titrate that considering she really needs to be off IVs Vancomycin will be maintained until completed 14 days after most recent gram positive blood cultures Xanax really helped her anxiety We already discontinued the Still catheter, she hasnt voided yet WBC 13 A lot of psychosocial issues at home, will likely slow recovery After rounds in afternoon patient was noted to have abnormal Telemetry and was found to have AF w/RVR so moved to ICU. Review of Systems General: Fatigue, Malaise Pulmonary: Dyspnea Genitourinary: Dysuria, Frequency Neurological: Weakness Objective Exam Vital Signs Vital Signs Date Time Temp Pulse Resp B/P (MAP) Pulse Ox O2 Delivery O2 Flow Rate FiO2 07/19/20 19:00 73 07/19/20 18:40 94 Nasal Cannula 2.00 07/19/20 17:05 36.4 17 139/69 (92) Capillary Refill : Less Than 3 SecondsLess Than 3 Seconds General Appearance: No Apparent Distress, WD/WN, Chronically ill HEENT: PERRL/EOMI, Normal ENT Inspection, Pharynx Normal Neck: Full Range of Motion, Normal Inspection, Non Tender, Supple, Carotid Bruit Respiratory: Chest Non Tender, Lungs Clear, Normal Breath Sounds, No Accessory Muscle Use, No Respiratory Distress Cardiovascular: Regular Rate, Rhythm, No Edema, No Gallop, No JVD, No Murmur, Normal Peripheral Pulses Gastrointestinal: Normal Bowel Sounds, No Organomegaly, No Pulsatile Mass, Non Tender, Soft Back: Normal Inspection, No CVA Tenderness, No Vertebral Tenderness Extremity: Normal Capillary Refill, Normal Inspection, Normal Range of Motion, Non Tender, No Calf Tenderness, No Pedal Edema Neurologic/Psychiatric: Alert, Oriented x3, No Motor/Sensory Deficits, Normal Mood/Affect, hand lens polisher II-XII Norm as Tested, Abnormal Gait, Motor Weakness Skin: Normal Color, Warm/Dry Lymphatic: No Adenopathy Results/Procedures Lab Laboratory Tests 07/19/20 09:39 Patient resulted labs reviewed. FIM Transfers Therapy Code Descriptions/Definitions Functional [place] Measure: 0=Not Assessed/NA 4=Minimal Assistance 1=Total Assistance 5=Supervision or Setup 2=Maximal Assistance 6=Modified [place] 3=Moderate Assistance 7=Complete IndependenceSCALE: Activities may be completed with or without assistive devices. 1-Dhkidkmmsc-vqebuay completes the activity by him/herself with no assistance from a helper. 5-Set-up or Clean-up Assistance-helper sets up or cleans up; patient completes activity. [place] assists only prior to or following the activity. 4-Supervision or Touching Assistance-helper provides verbal cues and/or touching/steadying and/or contact guard assistance as patient completes activity. Assistance may be provided throughout the activity or intermittently. 3-Partial/Moderate Assistance-helper does LESS THAN HALF the effort. [place] lifts, holds or supports trunk or limbs, but provides less than half the effort. 2-Substantial/Maximal Assistance-helper does MORE THAN HALF the effort. [place] lifts or holds trunk or limbs and provides more than half the effort. 5-Ffdnyayhc-ahdshb does ALL the effort. Patient does none of the effort to complete the activity. Or, the assistance of 2 or more helpers is required for the patient to complete the activity. If activity was not attempted, code reason: 7-Patient Refused. 9-Not Applicable-not attempted and the patient did not perform the activity before the current illness, exacerbation or injury. 10-Not Attempted due to Environmental Limitations-(lack of equipment, weather restraints, etc.). 88-Not Attempted due to Medical Conditions or Safety Concerns. Roll Left to Right (QC): 6 Sit to Lying (QC): 3 Sit to Stand (QC): 3 (mod from toilet (low) CGA from higher surface) Chair/Ixx-py-Owwed Xfer(QC): 3 Car Transfer (QC): 3 Gait Training Does the Patient Walk?: Yes Distance: 100'x2 Walk 10 feet (QC): 4 Walk 50 ft with 2 Turns(QC): 4 Walking 10ft/uneven surface-QC: 88 Gait Persons Needed: 1 Gait Assistive Device: FWW Wheelchair Training Does the Pt Use a Wheelchair?: Yes Distance: 150' Wheel 50 ft with 2 turns (QC): 4 Wheel 150 ft (QC): 4 Type of Wheelchair: Manual Stair Training 1 Step (curb) (QC): 88 4 Steps (QC): 88 12 Steps (QC): 88 Balance Picking up an Object (QC): 88 ADL-Treatment Eating (QC): 6 (Pt reports independent with breakfast.) Oral Hygiene (QC): 6 (IND seated in chair at sink.) Shower/Bathe Self (QC): 4 (SBA, pt completed sponge bath in seating. Washed periare and buttocks while seated, leaning side to side.) Upper Body Dressing (QC): 4 (SBA, pt able to don/doff pull worker shirt, assist managing O2 lines.) Lower Body Dressing (QC): 3 (Mod A sit to stand transfer to manage pants up. Pt able to thread BLE into pants/underwear and manage up with moderate encouragement.) On/Off Footwear (QC): 3 (Min A, OT educated pt on sock aide to don socks. ) Toileting Hygiene (QC): 3 (Mod A sit to stand from toilet, pt able to perform hygiene and clothing mangement) Toilet Transfer (QC): 3 (CGA onto toilet, mod A off) Assessment/Plan Assessment and Plan Assess & Plan/Chief Complaint Assessment: Myopathy Critical illness source of weakness s/p pacemaker for heart block Venous access source of bacteremia maintained on Vanc BRENNON CAD non-obstructive HTN HLP Hyponatremia Anemia Still cath in place Plan: IRF protocol DC catheter Monitor labs Vanc 07/14/20: IV abx Moved to ICU temporarily for AF w/RVR Continue IRF protocol 07/16/20: Monitor heart rate Wean O2 Ankle and knee injections appreciated Monitor closely 07/18/20: Wean O2 Doing better Labs tomorrow 07/19/20: Appreciate Dr. Tanesha Lee Dog to visit today (1) Myopathy (2) Bacteremia due to Staphylococcus epidermidis Status: Acute (3) Infection of venous access port Status: Acute (4) S/P placement of cardiac pacemaker Status: Acute (5) Euthyroid sick syndrome Status: Acute (6) S/p nephrectomy Status: Chronic (7) Hypothyroidism Status: Chronic (8) Renal cell carcinoma Status: Chronic (9) Low TSH level Status: Acute (10) T2DM (type 2 diabetes mellitus) Status: Chronic (11) HTN (hypertension) Status: Chronic (12) Second degree AV block Status: Acute (13) Kidney injury (14) Hyponatremia Status: Acute (15) Heart block KISHORE BENITEZ DO Jul 19, 2020 07:54
[2020-07-19 08:10] VITALS: BP 139/67
[2020-07-19] MEDS: THYROID (ARMOUR) 60 MG TABLET PO SCH ×2 (08:14→20:06)
[2020-07-19] MEDS: AMIODARONE 200 MG (CORDARONE) TAB PO SCH ×2 (08:14→20:06)
[2020-07-19] MEDS: APIXABAN 5 MG (ELIQUIS) TABLET PO SCH ×2 (08:14→20:06)
[2020-07-19] MEDS: LACTOBACILLUS ACIDOPHILUS (PROBIOTIC) CAPSULE PO SCH ×3 (08:15→17:48)
[2020-07-19] MEDS: DIGOXIN 0.125 MG (LANOXIN) TAB PO SCH (08:15)
[2020-07-19] MEDS: polyethylene glycoL POWDER 17 GM (MIRALAX) PACK PO SCH ×2 (08:16→19:31)
[2020-07-19] MEDS: SENNA W/DOCUSATE (SENOKOT S) TABLET PO SCH ×2 (08:16→19:31)
[2020-07-19] MEDS: DOCUSATE SODIUM 100 MG (COLACE) CAP PO SCH ×2 (08:16→19:31)
--- NOTE | 2020-07-19 08:51 | NUR ---
C/O URINARY FREQUENCY. DR. BENITEZ HERE WITH ORDERS TO STRAIGHT CATH FOR UA (CULTURE IF INDICATED). CONTINUED C/O OF SOA. PATIENT STATES THAT SHE WEARS HOME 02 AT NIGHT AND NEEDED DURING THE DAY. DR. JASSO NOTIFIED OF CONTINUED SOA PER DR. BENITEZ'S REQUEST. NEW ORDERS FOR ABG, BMP, CBC, BNP, AND CHEST XRAY PER DR. JASSO. RT NOTIFIED OF NEED FOR ABG.
[2020-07-19 09:48] LABS: BASOPHILS # (AUTO) 0.1 10^3/uL (0.0-0.1); BASOPHILS % (AUTO) 1 % (0-10); EOSINOPHILS # (AUTO) 0.2 10^3/uL (0.0-0.3); EOSINOPHILS % (AUTO) 2 % (0-10); HEMATOCRIT 31 % (35-52); HEMOGLOBIN 9.7 g/dL (11.5-16.0); LYMPHOCYTES # (AUTO) 1.4 10^3/uL (1.0-4.0); LYMPHOCYTES % (AUTO) 13 % (12-44); MEAN CORPUSCULAR HEMOGLOBIN 29 pg (25-34); MEAN CORPUSCULAR HGB CONC 31 g/dL (32-36); MEAN CORPUSCULAR VOLUME 93 fL (80-99); MEAN PLATELET VOLUME 10.9 fL (9.0-12.2); MONOCYTES # (AUTO) 1.1 10^3/uL (0.0-1.0); MONOCYTES % (AUTO) 10 % (0-12); NEUTROPHILS # (AUTO) 8.3 10^3/uL (1.8-7.8); NEUTROPHILS % (AUTO) 74 % (42-75); PLATELET COUNT 334 10^3/uL (130-400); WHITE BLOOD COUNT 11.1 10^3/uL (4.3-11.0)
[2020-07-19 10:08] LABS: CALCIUM 8.9 MG/DL (8.5-10.1); CREATININE SERUM 1.65 MG/DL (0.60-1.30); POTASSIUM 4.4 MMOL/L (3.6-5.0)
--- NOTE | 2020-07-19 10:31 | Physical Therapy Daily Note ---
PT Daily Note-Current Subjective Pt. agrees to Rx, states despite having normal O2 sats she feels SOB and wants to know what is going on. Pt. states she is pleased that her right knee is moving better and she has less pain Pain Location: No Pain Reported Mental Status Patient Orientation: Normal For Age Attachments: Oxygen (2L) Transfers SCALE: Activities may be completed with or without assistive devices. 6-Unjyjvjfpa-kuxuuhk completes the activity by him/herself with no assistance from a helper. 5-Set-up or Clean-up Assistance-helper sets up or cleans up; patient completes activity. [place] assists only prior to or following the activity. 4-Supervision or Touching Assistance-helper provides verbal cues and/or touching/steadying and/or contact guard assistance as patient completes activity. Assistance may be provided throughout the activity or intermittently. 3-Partial/Moderate Assistance-helper does LESS THAN HALF the effort. [place] lifts, holds or supports trunk or limbs, but provides less than half the effort. 2-Substantial/Maximal Assistance-helper does MORE THAN HALF the effort. [place] lifts or holds trunk or limbs and provides more than half the effort. 6-Zelidkrko-vllgch does ALL the effort. Patient does none of the effort to complete the activity. Or, the assistance of 2 or more helpers is required for the patient to complete the activity. If activity was not attempted, code reason: 7-Patient Refused. 9-Not Applicable-not attempted and the patient did not perform the activity before the current illness, exacerbation or injury. 10-Not Attempted due to Environmental Limitations-(lack of equipment, weather restraints, etc.). 88-Not Attempted due to Medical Conditions or Safety Concerns. Roll Left & Right (QC): 6 Sit to Lying (QC): 6 Lying to Sitting/Side of Bed(Q: 5 Sit to Stand (QC): 6 (from higher surfaces) Toilet Transfer (QC): 5 pt. was gently instructed through sup to sit where she had anxiety and was sure she was falling. Pt. achieved this indep with instruction only, rolling to right side and on to right elbow etc to come up Weight Bearing Right Lower Extremity: Right Full Weight Bearing Left Lower Extremity: Left Full Weight Bearing Gait Training Does the Patient Walk?: Yes Walk 10 feet (QC): 5 Walk 50 ft with 2 Turns(QC): 5 Walk 150 ft (QC): 5 Gait Persons Needed: 1 Gait Assistive Device: FWW slow, flexed at trunk, CGA and assist for O2 Exercises Supine Ex: Bridging, Ankle pumps, Quad Set, Rolling, Heel Slides, Short Arc Quads, Straight leg raise (indep right x 8) Supine Reps: 15 Seated Therapy Exercises: Ankle pumps, Sit to stand, Long arc quads, Hip flexion Seated Reps: 15 NuStep Minutes: 8 NuStep Workload: 3 (to increase R knee flexion) Treatments on toilet x 2 during Rx for urine and BM, required assist to fully cleanse and change brief MHP x 10 min to R knee as pt. finds this very comforting Assessment Current Status: Good Progress right knee decreased pain, AROM 0-95 degrees, O2 sats during activity 98% PT Short Term Goals Short Term Goals Time Frame: Jul 21, 2020 Roll Left & Right: 6 Sit to lyin Lying to sitting on side of be: 4 Sit to stand: 4 Chair/lho-ys-makvv transfer: 4 Toilet transfer: 4 Walk 10 feet: 3 Walk 50 feet with two turns: 3 PT Mcc Goals Java Jsf Developer Goals PT Mcc Goals Time Frame: Aug 04, 2020 Roll Left & Right (QC): 6 Sit to Lying (QC): 6 Lying-Sitting on Side/Bed(QC): 6 Sit to Stand (QC): 4 (SBA) Chair/Smd-pv-Huuyk Xfer(QC): 4 (SBA) Toilet Transfer (QC): 4 (SBA) Car Transfer (QC): 4 (SBA) Does the Patient Walk: Yes Walk 10 feet (QC): 4 (SBA) Walk 50ft with 2 Turns (QC): 4 (SBA) Walk 150 ft (QC): 4 (SBA) Walking 10ft on Uneven Surface: 4 (SBA) 1 Step (curb) (QC): 4 (SBA) 4 Steps (QC): 4 (SBA) 12 Steps (QC): 88 Picking up an Object (QC): 4 (SBA) Does the Pt use WC or Scooter?: Yes Wheel 50 feet with 2 turns (QC: 6 Type: Manual Wheel 150 feet: 6 Type: Manual PT Plan Treatment/Plan Treatment Plan: Continue Plan of Care Treatment Plan: Bed Mobility, Education, Functional Activity Rogelio, Functional Strength, Group Therapy, Gait, Safety, Therapeutic Exercise, Transfers Treatment Duration: Jul 28, 2020 Frequency: At least 5 of 7 days/Wk (IRF) Estimated Hrs Per Day: 1.5 hours per day Patient and/or Family Agrees t: Yes Safety Risks/Education Patient Education: Gait Training, Transfer Techniques, Correct Positioning, Disease Process, Safety Issues Teaching Recipient: Patient Teaching Methods: Demonstration, Discussion Response to Teaching: Verbalize Understanding, Return Demonstration, Reinforcement Needed Time/GCodes Time In: 900 Time Out: 1030 Total Billed Treatment Time: 90 Total Billed Treatment 1,FA30m,GT25m,EX35m KRYSTINA BURGOS PREFITTER Jul 19, 2020 10:30
[2020-07-19 10:39] LABS: ABG BASE EXCESS 2.7 MMOL/L (-2.5-2.5); ABG OXYGEN SATURATION 98 % (94-100); ABG PCO2 34 MMHG (35-45); ABG PH 7.49 (7.37-7.43); ABG PO2 87 MMHG (79-93)
[2020-07-19 10:40] LABS: ALLENS TEST YES-POS; INSPIRED O2 2 L; PATIENT TEMP 36.4; VENTILATOR NO
--- NOTE | 2020-07-19 10:47 | Progress Note ---
WAYNE VEGA,MED STUDENT 07/19/20 1047: Progress Note Progress note: 07/19/20 Reports still SOB and coughing today SpO2 95% on 2L NC, receiving breathing tx's Alert and oriented x3 today, confusion improved States she thinks she is developing UTI, reports hx of frequent UTI's Notes increased urinary frequency, denies burning Plan: Straight cath for urine specimen Continue PT/OT Continue course of vancomycin Monitor labs VIVIAN BENITEZ DO 07/19/20 2135: Supervisory-Addendum Brief Verification & Attestation Participated in pt care: history, MDM, physical Personally performed: exam, history, MDM, supervision of care Care discussed with: Medical Student Procedures: n/a Results interpretation: Verified all documentation Verification and Attestation of Medical Student E/M Service A medical student performed and documented this service in my presence. I reviewed and verified all information documented by the medical student and made modifications to such information, when appropriate. I personally performed the physical exam and medical decision making. Vivian Benitez, Jul 19, 2020,21:35 WAYNE VEGA,MED STUDENT Jul 19, 2020 10:47 VIVIAN BENITEZ DO Jul 19, 2020 21:35
--- NOTE | 2020-07-19 10:59 | NUR ---
DR. JASSO AWARE OF LAB RESULTS.
--- NOTE | 2020-07-19 11:00 | Progress Note - Cardiology ---
Cardiology SOAP Progress Note Subjective: Sitting up in recliner at the bedside. Very conversive and able to do so without difficulty. Reports she feels like she can not get a deep breathe in, which is unchanged from previously. No c/o CP, palpitations, syncope or near syncope. Objective: I&O/Vital Signs 07/19/20 07/20/20 07/20/20 07/20/20 20:15 01:00 02:16 06:34 Pulse 78 Pulse Ox 95 97 O2 Delivery Nasal Cannula Nasal Cannula Nasal Cannula O2 Flow Rate 2.00 2.00 1.00 07/20/20 06:37 Temp 36.4 Pulse 79 Resp 14 B/P (MAP) 119/60 (79) Pulse Ox 94 O2 Delivery Nasal Cannula O2 Flow Rate 2.00 07/20/20 00:00 Intake Total 840 ml Output Total 1100 ml Balance -260 ml Constitutional: AAO x 3, well-developed, well-nourished Respiratory: No accessory muscle use; other (good bilat air entry, diminished at the bases) Cardiovascular: regular rate-rhythm, S1 and S2, systolic murmur (soft ELIN at card base) Gastrointestional: No tender; soft; No guarding, No rebound; audible bowel sounds Extremities: No clubbing, No cyanosis, No significant edema Neurologic/Psychiatric: other (move all limbs equally) Skin: No rash on exposed areas, No ulcerations on exposed areas; other (bruising at sites of port removal from L upper chest and pacemaker placement in the R upper chest) Results/Procedures: Labs Laboratory Tests 07/19/20 09:39: White Blood Count 11.1H, Red Blood Count 3.37L, Hemoglobin 9.7L, Hematocrit 31L, Mean Corpuscular Volume 93, Mean Corpuscular Hemoglobin 29, Mean Corpuscular Hemoglobin Concent 31L, Red Cell Distribution Width 13.3, Platelet Count 334, Mean Platelet Volume 10.9, Immature Granulocyte % (Auto) 1, Neutrophils (%) (Auto) 74, Lymphocytes (%) (Auto) 13, Monocytes (%) (Auto) 10, Eosinophils (%) (Auto) 2, Basophils (%) (Auto) 1, Neutrophils # (Auto) 8.3H, Lymphocytes # (Auto) 1.4, Monocytes # (Auto) 1.1H, Eosinophils # (Auto) 0.2, Basophils # (Auto) 0.1, Immature Granulocyte # (Auto) 0.1, Sodium Level 138, Potassium Level 4.4, Chloride Level 102, Carbon Dioxide Level 22, Anion Gap 14, Blood Urea Nitrogen 14, Creatinine 1.65H, Estimat Glomerular Filtration Rate 30, BUN/Creatinine Ratio 8, Glucose Level 174H, Calcium Level 8.9, B-Type Natriuretic Peptide 651.5H 07/19/20 10:15: Blood Gas Puncture Site RT RAD, Blood Gas Patient Temperature 36.4, Arterial Bl ood pH 7.49H, Arterial Blood Partial Pressure CO2 34L, Arterial Blood Partial Pressure O2 87, Arterial Blood HCO3 26, Arterial Blood Total CO2 27.0, Arterial Blood Oxygen Saturation 98, Arterial Blood Base Excess 2.7H, Krishna Test YES-POS, Blood Gas Ventilator Setting NO, Blood Gas Inspired Oxygen 2 L 07/19/20 11:56: Glucometer 219H 07/19/20 13:37: Urine Color YELLOW, Urine Clarity CLEAR, Urine pH 7.5, Urine Specific [place] <=1.005, Urine Protein NEGATIVE, Urine Glucose (UA) NEGATIVE, Urine Ketones NEGATIVE, Urine Nitrite NEGATIVE, Urine Bilirubin NEGATIVE, Urine Urobilinogen 0.2, Urine Leukocyte Esterase NEGATIVE, Urine RBC (Auto) NEGATIVE, Urine RBC NONE, Urine WBC NONE, Urine Squamous Epithelial Cells NONE, Urine Crystals NONE, Urine Bacteria NEGATIVE, Urine Casts NONE, Urine Mucus NEGATIVE, Urine Culture Indicated NO 07/19/20 16:02: Glucometer 163H 07/19/20 20:02: Glucometer 259H 07/20/20 05:30: Glucometer 154H A/P: Assessment: Cardiomyopathy, probably nonischemic (based on cardiac cath by Dr Osorio on 07/02/20 that showed only mild to mod, nonobstructive CAD) Echo on 07/15/20: LVEF 25-30%, mild to mod MR, akinetic distal septum and apex 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, has been in remission H/o hypertension, but intermittently hypotensive at initial hospitalization in Jun 2020 UTI and indwelling port infection (s/p removal), being managed by the Med Svce Plan: * Continue the regimen started during her recent stay in the ICU (07/15 - 07/16/20) * Monitor labs from time to time * Keep on tele for now * Plan for repeat echo in the next few days VOLODYMYR HARRELL Jul 19, 2020 11:00
--- NOTE | 2020-07-19 11:12 | Speech Therapy Daily Note ---
Speech Daily Progress Note Subjective Date Seen by Provider: Jul 19, 2020 Time Seen by Provider: 00:30 Patient was resting in her recliner when I entered her room. Patient was alert and participated well. Objective Patient completed a series of "what's wrong with this picture" safety awareness pictures at 80% with min to mod cues. Assessment Assessment Current Status: Good Progress Treatment Plan Continue Plan of Care Speech Short Term Goals Short Term Goals Short Term Goals 1) Patient will complete memory tasks related to her daily needs with minimal assist at 90% or greater. 2) Patient will complete safety awareness tasks related to her daily needs with minimal assist at 90% or greater. 3) Patient will complete problem solving tasks related to her daily needs with minimal assist at 90% or greater. Speech Retirement Goals Supervisor Receiving And Processing Goals Patient will improve cognitive communication to complete daily tasks with minim al assist. Speech-Plan Patient/Family Goals Patient/Family Goals: Patient plans on returning to her home where she has family and hired staff for assistance as needed. Treatment Plan Speech Therapy Treatment Plan: Continue Plan of Care Treatment Duration: Jul 23, 2020 Frequency: 4 times per week (Patient will recieve ST 4-5x per day) Estimated Hrs Per Day: .5 hour per day Rehab Potential: Fair Barriers to Learning: Patient's mild cognitive deficits, health issues, age Pt/Family Agrees to Plan: Yes Safety Risks/Education Teaching Recipient: Patient Teaching Methods: Demonstration, Discussion Response to Teaching: Verbalize Understanding, Return Demonstration Education Topics Provided: Continued safety within her room and communication of wants/needs Safety with oral intake strategies Time Speech Therapy Time In: 08:30 Speech Therapy Time Out: 09:00 Total Billed Time: 30 Billed Treatment Time 1, SLGILDARDO, GABRIELA William Jul 19, 2020 11:12
[2020-07-19] MEDS ORDERED: FUROSEMIDE 40 MG/4 ML INJ (LASIX) IVP NR (11:45)
--- NOTE | 2020-07-19 12:12 | Occupational Ther Daily Note ---
OT Current Status-Daily Note Subjective Pt. reports that her right knee has been hurting, but does not state a pain level. Pt. has heat pack on it when OT enters room. Pt. has had pain medication. Appearance Pt. up in chair. Agrees to work with OT. Mental Status/Objective Patient Orientation: Person, Place Attachments: IV, Oxygen ADL-Treatment Therapy Code Descriptions/Definitions Functional [place] Measure: 0=Not Assessed/NA 4=Minimal Assistance 1=Total Assistance 5=Supervision or Setup 2=Maximal Assistance 6=Modified [place] 3=Moderate Assistance 7=Complete IndependenceSCALE: Activities may be completed with or without assistive devices. 6-Rasxmokvxp-wcvdsou completes the activity by him/herself with no assistance from a helper. 5-Set-up or Clean-up Assistance-helper sets up or cleans up; patient completes activity. Jackson assists only prior to or following the activity. 4-Supervision or Touching Assistance-helper provides verbal cues and/or touching/steadying and/or contact guard assistance as patient completes activity . Assistance may be provided throughout the activity or intermittently. 3-Partial/Moderate Assistance-helper does LESS THAN HALF the effort. Jackson lifts, holds or supports trunk or limbs, but provides less than half the effort. 2-Substantial/Maximal Assistance-helper does MORE THAN HALF the effort. [place] lifts or holds trunk or limbs and provides more than half the effort. 3-Xcjwlrlfh-qdlgyn does ALL the effort. Patient does none of the effort to complete the activity. Or, the assistance of 2 or more helpers is required for the patient to complete the activity. If activity was not attempted, code reason: 7-Patient Refused. 9-Not Applicable-not attempted and the patient did not perform the activity before the current illness, exacerbation or injury. 10-Not Attempted due to Environmental Limitations-(lack of equipment, weather restraints, etc.). 88-Not Attempted due to Medical Conditions or Safety Concerns. Upper Body Dressing (QC): 5 Lower Body Dressing (QC): 4 (SBA and cues to use dressing stick to don pants.) Pt. up in chair. Declines showering or completing sponge bath. States, "I'm not that dirty." Pt. agrees to dress. Pt. able to utilize dressing stick to don pants, but requires cues to remember how to do this. Pt. able to stand with SBA at walker and side puller hips. Pt. able to brush hair, but requires assistance to do so more thoroughly. Pt. stands at walker and ambulates with CGA to therapy gym. No LOB noted. Pt. doing well. Completes 15 minutes at very low resistance, and very slow pace on arm bike. Completed this task for overall endurance. Pt. participated in cognitive trivia task while doing so, and seemed to enjoy self, as she was being asked questions about topic that she liked. Pt. able to stand from chair with SBA at walker, and ambulate to room. Transferred to reclining chair. States, "I had so much fun." All needs met and nursing in room to get blood sugar. Pt. on 2 L 02 throughout, and no SOA noted. Education OT Patient Education: Correct positioning, Exercise program, Modified ADL techniques, Progress toward Goal/Update tx plan, Purpose of tx/functional activities, Reviewed precautions, Rehab process, Transfer techniques Teaching Recipient: Patient Teaching Methods: Demonstration, Discussion Response to Teaching: Verbalize Understanding, Return Demonstration OT Short Term Goals Short Term Goals Time Frame: Jul 21, 2020 Eatin Oral hygiene: 5 Toileting hygiene: 3 Shower/bathe self: 4 Upper body dressin Lower body dressin Putting on/taking off footwear: 4 OT [employer] Skills Goals [employer] Skills Goals Time Frame: Jul 28, 2020 Eating (QC): 6 Oral Hygiene (QC): 6 Toileting Hygiene (QC): 6 Shower/Bathe Self (QC): 4 Upper Body Dressing (QC): 5 Lower Body Dressing (QC): 4 On/Off Footwear (QC): 4 Additional Goals: 1-Demonstrate ADL Tasks, 2-Verbalize Understanding, 3- ImproveStrength/Rogelio 1=Demonstrate adherence to instructed precautions during ADL tasks. 2=Patient will verbalize/demonstrate understanding of assistive devic es/modifications for ADL. 3=Patient will improve strength/tolerance for activity to enable patient to perform ADL's. OT Education/Plan Problem List/Assessment Assessment: Decreased Activ Tolerance, Impaired I ADL's, Impaired Self-Care Skills Discharge Recommendations Plan/Recommendations: Continue POC Therapy Discharge Recommendati: Post Acute OT Equpiment Recommendations-D/C: Hip Kit Treatment Plan/Plan of Care Treatment,Training & Education: Yes Patient would benefit from OT for education, treatment and training to promote independence in ADL's, mobility, safety and/or upper extremity function for ADL 's. Plan of Care: ADL Retraining, Functional Mobility, UE Funct Exercise/Act Treatment Duration: Jul 28, 2020 Frequency: At least 5 of 7 days/Wk (IRF) Estimated Hrs Per Day: 1.5 hours per day Agreement: Yes Rehab Potential: Fair Time/GCodes Start Time: 10:45 Stop Time: 12:00 Total Time Billed (hr/min): 75 Billed Treatment Time 1, ADL x 45minutes, Ex x 30minutes GLORIA BANSAL OT Jul 19, 2020 12:11
--- NOTE | 2020-07-19 13:27 | NUR ---
CM/SS CONCURRENT DOCUMENTATION Reviewed patient's progress and status. EMR reflects positive improvement. Continue to follow regarding post hospital care planning and supports.
--- NOTE | 2020-07-19 13:37 | NUR ---
STRAIGHT CATH DONE BY CLAIMS CUSTOMER SERVICE REPRESENTATIVE WITH SUPERVISION FROM THIS RN. Addendum: 07/19/20 at 1559 by JONNA SMITH RN 1100 MLS OF LIGHT YELLOW URINE IMMEDIATE RETURN. PATIENT TOLERATED WELL.
[2020-07-19 13:52] LABS: BILIRUBIN,URINE NEGATIVE (NEGATIVE); CLARITY,URINE CLEAR; COLOR,URINE YELLOW; GLUCOSE, URINE (UA) NEGATIVE (NEGATIVE); KETONES,URINE NEGATIVE (NEGATIVE); LEUKOCYTE ESTERASE ,URINE NEGATIVE (NEGATIVE); NITRITE,URINE NEGATIVE (NEGATIVE); PH,URINE 7.5 (5-9); PROTEIN,URINE NEGATIVE (NEGATIVE)
[2020-07-19 13:58] LABS: BACTERIA,URINE NEGATIVE /HPF
--- NOTE | 2020-07-19 14:52 | Diagnostic Imaging Report ---
INDICATION: Shortness of breath. COMPARISON: 07/16/2020 FINDINGS: The heart size is normal. There are bilateral pleural effusions, left greater than right. There is no pneumothorax. The mediastinum is unremarkable. The left upper extremity PICC line has its tip in the superior vena cava. Pacemaker overlies the right hemithorax. IMPRESSION: Small bilateral pleural effusions, left greater than right, with questionable left basilar subsegmental atelectasis and/or pneumonitis. Dictated by: Dictated on workstation # [id number]
--- NOTE | 2020-07-19 15:14 | NUR ---
DR. JASSO AWARE OF CHEST XRAY RESULTS.
--- NOTE | 2020-07-19 17:04 | NUR ---
REP FROM [employer] HERE FOR PACEMAKER INTERROGATION.
[2020-07-19 17:05] VITALS: BP 139/69
--- NOTE | 2020-07-19 17:58 | NUR ---
DR. VIVEROS HERE TO SEE PATIENT. INFORMED THAT MAGNESIUM WAS 1.5 ON 07/18. NEW ORDER FOR MAGNESIUM SULFATE- 2 GM IV X1 NOW.
--- NOTE | 2020-07-19 18:01 | Progress Note - Cardiology ---
Cardiology SOAP Progress Note Subjective: No cp or palp or syncope or shortness of breath at rest No n/v/d No focal weakness Some gen weakness Objective: I&O/Vital Signs 07/19/20 07/19/20 07/19/20 07/19/20 06:00 06:40 07:47 08:10 Temp 36.1 Pulse 70 62 76 Resp 16 18 B/P (MAP) 120/58 (78) 139/67 (91) Pulse Ox 95 94 95 O2 Delivery Nasal Cannula Room Air O2 Flow Rate 2.00 2.00 07/19/20 07/19/20 07/19/20 07/19/20 09:45 10:07 12:34 17:05 Temp 36.4 Pulse 76 71 Resp 17 B/P (MAP) 139/69 (92) Pulse Ox 94 98 O2 Delivery Nasal Cannula Nasal Cannula Nasal Cannula O2 Flow Rate 2.00 2.00 2.00 07/18/20 23:59 Intake Total 720 ml Balance 720 ml Constitutional: AAO x 3, well-developed, well-nourished Respiratory: No accessory muscle use; other (good bilat air entry, diminished at the bases) Cardiovascular: regular rate-rhythm, S1 and S2, systolic murmur (soft ELIN at card base) Gastrointestional: No tender; soft; No guarding, No rebound; audible bowel sounds Extremities: No clubbing, No cyanosis, No significant edema Neurologic/Psychiatric: other (move all limbs equally) Skin: No rash on exposed areas, No ulcerations on exposed areas; other (bruising at sites of port removal from L upper chest and pacemaker placement in the R upper chest) Results/Procedures: Labs Laboratory Tests 07/18/20 21:07: Glucometer 289H 07/19/20 09:39: White Blood Count 11.1H, Red Blood Count 3.37L, Hemoglobin 9.7L, Hematocrit 31L, Mean Corpuscular Volume 93, Mean Corpuscular Hemoglobin 29, Mean Corpuscular Hemoglobin Concent 31L, Red Cell Distribution Width 13.3, Platelet Count 334, Mean Platelet Volume 10.9, Immature Granulocyte % (Auto) 1, Neutrophils (%) (Auto) 74, Lymphocytes (%) (Auto) 13, Monocytes (%) (Auto) 10, Eosinophils (%) (Auto) 2, Basophils (%) (Auto) 1, Neutrophils # (Auto) 8.3H, Lymphocytes # (Auto) 1.4, Monocytes # (Auto) 1.1H, Eosinophils # (Auto) 0.2, Basophils # (Auto) 0.1, Immature Granulocyte # (Auto) 0.1, Sodium Level 138, Potassium Level 4.4, Chloride Level 102, Carbon Dioxide Level 22, Anion Gap 14, Blood Urea Nitrogen 14, Creatinine 1.65H, Estimat Glomerular Filtration Rate 30, BUN/Creatinine Ratio 8, Glucose Level 174H, Calcium Level 8.9, B-Type Natriuretic Peptide 651.5H 07/19/20 10:15: Blood Gas Puncture Site RT RAD, Blood Gas Patient Temperature 36.4, Arterial Blood pH 7.49H, Arterial Blood Partial Pressure CO2 34L, Arterial Blood Partial Pressure O2 87, Arterial Blood HCO3 26, Arterial Blood Total CO2 27.0, Arterial Blood Oxygen Saturation 98, Arterial Blood Base Excess 2.7H, Krishna Test YES-POS, Blood Gas Ventilator Setting NO, Blood Gas Inspired Oxygen 2 L 07/19/20 11:56: Glucometer 219H 07/19/20 13:37: Urine Color YELLOW, Urine Clarity CLEAR, Urine pH 7.5, Urine Specific [place] <=1.005, Urine Protein NEGATIVE, Urine Glucose (UA) NEGATIVE, Urine Ketones NEGATIVE, Urine Nitrite NEGATIVE, Urine Bilirubin NEGATIVE, Urine Urobilinogen 0.2, Urine Leukocyte Esterase NEGATIVE, Urine RBC (Auto) NEGATIVE, Urine RBC NONE, Urine WBC NONE, Urine Squamous Epithelial Cells NONE, Urine Crystals NONE, Urine Bacteria NEGATIVE, Urine Casts NONE, Urine Mucus NEGATIVE, Urine Culture Indicated NO 07/19/20 16:02: Glucometer 163H Laboratory Tests 07/18/20 06:10 07/19/20 09:39 A/P: Assessment: Cardiomyopathy, probably nonischemic (based on cardiac cath by Dr Osorio on 07/02/20 that showed only mild to mod, nonobstructive CAD) Echo on 07/15/20: LVEF 25-30%, mild to mod MR, akinetic distal septum and apex 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, has been in remission H/o hypertension, but intermittently hypotensive at initial hospitalization in Jun 2020 UTI and indwelling port infection (s/p removal), being managed by the [facility] Plan: * Today we interrogated her pacemaker: functioning normally, episode of 07/14/20 was PAF with RVR * Mg somewhat low. Replenish * Discussed her case with Dr Encarnacion of the EP sv[facility] today * Keep on tele for now * Plan for repeat echo in the next few days MONICA VIVEROS MD FACP FAC CCDS Jul 19, 2020 18:01
[2020-07-19] MEDS: MAGNESIUM 1 GM/100 ML IVPB 100 ML IV SCH ×2 (18:34→19:31)
[2020-07-19] MEDS: MELATONIN 3 MG TABLET PO PRN (20:06)
[2020-07-19] MEDS: ALPRAZolam 0.25 MG (XANAX) TAB PO PRN (20:06)
[2020-07-20] MEDS: RT-ALBUTEROL/IPRATROPIUM 3 ML (DUONEB) VIAL INH SCH ×6 (02:16→21:23)
[2020-07-20] MEDS: inSUlin ASPART (NovoLOG) 1 UNIT/0.01 ML (CHARGE PER UNIT) SC SCH ×4 (05:48→20:17)
[2020-07-20 06:37] VITALS: BP 119/60
[2020-07-20] MEDS: DIGOXIN 0.125 MG (LANOXIN) TAB PO SCH (07:52)
[2020-07-20] MEDS: AMIODARONE 200 MG (CORDARONE) TAB PO SCH ×2 (07:52→20:13)
[2020-07-20] MEDS: ALPRAZolam 0.25 MG (XANAX) TAB PO PRN ×2 (07:52→18:31)
[2020-07-20] MEDS: APIXABAN 5 MG (ELIQUIS) TABLET PO SCH ×2 (07:52→20:13)
[2020-07-20] MEDS: LACTOBACILLUS ACIDOPHILUS (PROBIOTIC) CAPSULE PO SCH ×3 (07:53→17:59)
[2020-07-20] MEDS: SENNA W/DOCUSATE (SENOKOT S) TABLET PO SCH ×2 (07:53→19:28)
[2020-07-20] MEDS: THYROID (ARMOUR) 60 MG TABLET PO SCH ×2 (07:53→20:13)
[2020-07-20] MEDS: DOCUSATE SODIUM 100 MG (COLACE) CAP PO SCH ×2 (07:55→19:28)
--- NOTE | 2020-07-20 08:21 | CONSULTATION REPORT ---
DATE OF SERVICE: INPATIENT CONSULTATION ROOM# [id number]. SERVICE: Orthopedic. REASON FOR CONSULTATION: Right knee and right ankle injection. HISTORY: This 80-year-old female who is currently admitted to the inpatient rehabilitation unit and struggling with physical therapy and various activities due to weakness and joint pain and stiffness. ALLERGIES: She has allergies to IV CONTRAST, ATORVASTATIN, CIPRO and PREGABALIN. CURRENT MEDICATIONS: Diltiazem, digoxin, metoprolol, potassium chloride, vancomycin, docusate, senna, amiodarone thyroid, Xanax and nitroglycerin. She also has a history of atrial fibrillation. She has a pacemaker in place and a history of kidney cancer, diabetes, hypertension and thyroid disease. SURGICAL HISTORY: Includes left total knee arthroplasty and kidney surgery. We do have x-rays, three views right knee and three views right ankle from [facility], which showed moderate diffuse joint space narrowing, no acute changes or bony abnormalities were noted in either set of films. PHYSICAL EXAMINATION: Right knee demonstrated a moderate effusion. No warmth, erythema or skin changes were noted. Range of motion was 0/0/120. She had mild crepitus noted with range of motion and tenderness through the medial compartment, mild pain with patellar loading. Right ankle examination showed mild effusion. No warmth, erythema or skin changes are noted. Intact plantar flexion and dorsiflexion were noted. Intact inversion and eversion were also noted. IMPRESSION: Right knee and right ankle osteoarthritis. PLAN: Options were discussed with the patient and we have elected to proceed with an injection today. There was a consent for the procedures placed on the chart and signed by the patient. We discussed the risks of the injection including a steroid side effects and elevated blood sugars as well as the risk of infection. The patient did verbalize an understanding of these risks and agrees to proceed. Under sterile conditions with alcohol and Betadine prep, the right knee was injected with 60 mg of Depo-Medrol and 2 mL of 1% lidocaine in the right ankle with 40 mg of Depo-Medrol and 1 mL of 1% lidocaine. She tolerated the injections well and standard post-injection precautions were discussed, and ice treatments were recommended. Thank you for the consult. We will otherwise plan to recheck her as needed. Job ID: [id number] DocumentID: [id number] Dictated Date: 07/19/2020 10:22:37 District Manager Primary Care Sales Date: 07/20/2020 06:38:38 Dictated By: NATHALIA INFANTE
--- NOTE | 2020-07-20 08:40 | PM&R Progress Note ---
Subjective HPI/CC On Admission Date Seen by Provider: Jul 20, 2020 Time Seen by Provider: 10:00 Subjective/Events-last exam 07/20/20: Pt now on room air but asking for oxygen No need for oxygen at this time Lasix initiated for pulmonary edema which was helpful Anxiety is much improved Was able to see her dog in a dog visit yesterday and she was thrilled about that 07/19/20: Pt much improved Oriented x3 now Dr. Almendarez will be consulted for dyspnea Weaning off oxygen Hgb 8.8 Creatinine 1.43 She will see her dog today She thinks she has a UTI with frequency so will do an in and out cath and maintain the Vanc as order Cough is still present 07/18/20: No issues Weaning O2 Sees her pet dog tomorrow BM+ Ankle and knee good since injections DC commode and going to bathroom now 07/17/20: Dietary adding ADA to the low sodium diet BM moving well Ankle and knee improved Weaning O2 07/16/20: Patient transferred down from ICU Doing well overall Insists on using O2 but her O2 sats is 96% so weaning that Very psychotic thoughts noted Ankle and knee injected by James Camarillo and his help is appreciated to help participation in therapy Pt requiring O2 even though her oxygen level is good Pacemaker maintained Telemetry maintained by cardiology request Refuses oral potassium, she would rather have it through her IV so unsure how we are going to titrate that considering she really needs to be off IVs Vancomycin will be maintained until completed 14 days after most recent gram positive blood cultures Xanax really helped her anxiety We already discontinued the Still catheter, she hasnt voided yet WBC 13 A lot of psychosocial issues at home, will likely slow recovery After rounds in afternoon patient was noted to have abnormal Telemetry and was found to have AF w/RVR so moved to ICU. Review of Systems General: Fatigue, Malaise Neurological: Weakness Objective Exam Vital Signs Vital Signs Date Time Temp Pulse Resp B/P (MAP) Pulse Ox O2 Delivery O2 Flow Rate FiO2 07/21/20 01:26 97 Nasal Cannula 1.00 07/21/20 01:00 71 07/20/20 16:12 37.0 16 124/59 (80) Capillary Refill : Less Than 3 SecondsLess Than 3 Seconds General Appearance: No Apparent Distress, WD/WN, Chronically ill HEENT: PERRL/EOMI, Normal ENT Inspection, Pharynx Normal Neck: Full Range of Motion, Normal Inspection, Non Tender, Supple, Carotid Bruit Respiratory: Chest Non Tender, Lungs Clear, Normal Breath Sounds, No Accessory Muscle Use, No Respiratory Distress Cardiovascular: Regular Rate, Rhythm, No Edema, No Gallop, No JVD, No Murmur, Normal Peripheral Pulses Gastrointestinal: Normal Bowel Sounds, No Organomegaly, No Pulsatile Mass, Non Tender, Soft Back: Normal Inspection, No CVA Tenderness, No Vertebral Tenderness Extremity: Normal Capillary Refill, Normal Inspection, Normal Range of Motion, Non Tender, No Calf Tenderness, No Pedal Edema Neurologic/Psychiatric: Alert, Oriented x3, No Motor/Sensory Deficits, Normal Mood/Affect, tray filler II-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 FIM Transfers Therapy Code Descriptions/Definitions Functional [place] Measure: 0=Not Assessed/NA 4=Minimal Assistance 1=Total Assistance 5=Supervision or Setup 2=Maximal Assistance 6=Modified [place] 3=Moderate Assistance 7=Complete IndependenceSCALE: Activities may be completed with or without assistive devices. 9-Ystvximsim-khfqxmc completes the activity by him/herself with no assistance from a helper. 5-Set-up or Clean-up Assistance-helper sets up or cleans up; patient completes activity. [place] assists only prior to or following the activity. 4-Supervision or Touching Assistance-helper provides verbal cues and/or touching/steadying and/or contact guard assistance as patient completes activity. Assistance may be provided throughout the activity or intermittently. 3-Partial/Moderate Assistance-helper does LESS THAN HALF the effort. Keenes lift s, holds or supports trunk or limbs, but provides less than half the effort. 2-Substantial/Maximal Assistance-helper does MORE THAN HALF the effort. Keenes lifts or holds trunk or limbs and provides more than half the effort. 5-Bljhoqpek-atdwiw does ALL the effort. Patient does none of the effort to complete the activity. Or, the assistance of 2 or more helpers is required for the patient to complete the activity. If activity was not attempted, code reason: 7-Patient Refused. 9-Not Applicable-not attempted and the patient did not perform the activity before the current illness, exacerbation or injury. 10-Not Attempted due to Environmental Limitations-(lack of equipment, weather restraints, etc.). 88-Not Attempted due to Medical Conditions or Safety Concerns. Roll Left to Right (QC): 6 Sit to Lying (QC): 6 Sit to Stand (QC): 6 (from higher surfaces) Chair/Bpl-ie-Atffx Xfer(QC): 3 Car Transfer (QC): 3 Gait Training Does the Patient Walk?: Yes Distance: 100'x2 Walk 10 feet (QC): 5 Walk 50 ft with 2 Turns(QC): 5 Walk 150 ft (QC): 5 Walking 10ft/uneven surface-QC: 88 Gait Persons Needed: 1 Gait Assistive Device: FWW Wheelchair Training Does the Pt Use a Wheelchair?: Yes Distance: 150' Wheel 50 ft with 2 turns (QC): 4 Wheel 150 ft (QC): 4 Type of Wheelchair: Manual Stair Training 1 Step (curb) (QC): 88 4 Steps (QC): 88 12 Steps (QC): 88 Balance Picking up an Object (QC): 88 ADL-Treatment Eating (QC): 6 (Pt reports independent with breakfast.) Oral Hygiene (QC): 6 (IND seated in chair at sink.) Shower/Bathe Self (QC): 4 (SBA, pt completed sponge bath in seating. Washed periare and buttocks while seated, leaning side to side.) Upper Body Dressing (QC): 5 Lower Body Dressing (QC): 4 (SBA and cues to use dressing stick to don pants.) On/Off Footwear (QC): 3 (Min A, OT educated pt on sock aide to don socks. ) Toileting Hygiene (QC): 3 (Mod A sit to stand from toilet, pt able to perform hygiene and clothing mangement) Toilet Transfer (QC): 3 (CGA onto toilet, mod A off) Assessment/Plan Assessment and Plan Assess & Plan/Chief Complaint Assessment: Myopathy Critical illness source of weakness s/p pacemaker for heart block Venous access source of bacteremia maintained on Vanc BRENNON CAD non-obstructive HTN HLP Hyponatremia Anemia Still cath in place Plan: IRF protocol DC catheter Monitor labs Vanc 07/14/20: IV abx Moved to ICU temporarily for AF w/RVR Continue IRF protocol 07/16/20: Monitor heart rate Wean O2 Ankle and knee injections appreciated Monitor closely 07/18/20: Wean O2 Doing better Labs tomorrow 07/19/20: Appreciate Dr. Tanesha Lee Dog to visit today 07/20/20: Maintain on room air Wean off oxygen Doing very well (1) Myopathy (2) Bacteremia due to Staphylococcus epidermidis Status: Acute (3) Infection of venous access port Status: Acute (4) S/P placement of cardiac pacemaker Status: Acute (5) Euthyroid sick syndrome Status: Acute (6) S/p nephrectomy Status: Chronic (7) Hypothyroidism Status: Chronic (8) Renal cell carcinoma Status: Chronic (9) Low TSH level Status: Acute (10) T2DM (type 2 diabetes mellitus) Status: Chronic (11) HTN (hypertension) Status: Chronic (12) Second degree AV block Status: Acute (13) Kidney injury (14) Hyponatremia Status: Acute (15) Heart block KISHORE BENITEZ DO Jul 20, 2020 08:40
[2020-07-20] MEDS: polyethylene glycoL POWDER 17 GM (MIRALAX) PACK PO SCH ×2 (09:06→19:27)
--- NOTE | 2020-07-20 09:26 | Speech Therapy Daily Note ---
Speech Daily Progress Note Subjective Date Seen by Provider: Jul 20, 2020 Time Seen by Provider: 00:30 Patient was resting in her recliner and watching television when I entered her room. Objective Patient completed a series of memory questions of general information at 85% with minimal cues. Assessment Assessment Current Status: Good Progress Treatment Plan Continue Plan of Care Speech Short Term Goals Short Term Goals Short Term Goals 1) Patient will complete memory tasks related to her daily needs with minimal assist at 90% or greater. 2) Patient will complete safety awareness tasks related to her daily needs with minimal assist at 90% or greater. 3) Patient will complete problem solving tasks related to her daily needs with minimal assist at 90% or greater. Speech Shelter Goals Robotype Operator Goals Patient will improve cognitive communication to complete daily tasks with minimal assist. Speech-Plan Patient/Family Goals Patient/Family Goals: Patient plans to return home with family and hired staff support. Treatment Plan Speech Therapy Treatment Plan: Continue Plan of Care Treatment Duration: Jul 23, 2020 Frequency: 4 times per week (Patient will recieve ST 4-5x per day) Estimated Hrs Per Day: .5 hour per day Rehab Potential: Fair Barriers to Learning: Patient's recent illness, age Pt/Family Agrees to Plan: Yes Safety Risks/Education Teaching Recipient: Patient Teaching Methods: Demonstration, Discussion Response to Teaching: Verbalize Understanding, Return Demonstration Education Topics Provided: Safety of oral intake strategies, safety within her room Time Speech Therapy Time In: 08:30 Speech Therapy Time Out: 09:00 Total Billed Time: 30 Billed Treatment Time 1, SENDY BELLO [address] Jul 20, 2020 09:26
--- NOTE | 2020-07-20 10:32 | Electrophysiology Consultation ---
HPI-Cardiology Cardiology Consultation: Date of Consultation 07/20/20 Date of Admission Attending Physician Vivian Hogan DO Admitting Physician Garry Moody DO Consulting Physician Kym ENCARNACION MD HPI: Time Seen by a Provider: 10:00 Chief Complaint: Wide-complex tachycardia Cardiac electrophysiology consultation requested by Dr. Cook. 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 She had a port in the left chest which was considered the source of Gram-positive bacteremia and was taken out surgically. Once the patient was afebrile for over 2 days with resolving leukocytosis. A right-sided dual-chamber permanent pacemaker was done. Subsequently the patient developed atrial fibrillation with RVR which converted on amiodarone to sinus rhythm. Patient developed further atrial fibrillation and had an episode of wide complex tachycardia overnight. No syncope or near syncope. Review of Systems-Cardiology Review of Systems Constitutional: As described under HPI; No As described under HPI, No no symptoms reported, No chills, No fever, No lightheadedness Eyes: No As described under HPI, No no symptoms reported, No blindness, No blurred vision, No contact lenses, No drainage, No decreased acuity, No foreign body sensation, No pain, No vision change Ears/Nose/Throat: No As described under HPI, No no symptoms reported, No chronic hearing loss, No ear discharge, No ear pain, No nasal drainage, No ulcerations Respiratory: No no symptoms reported; As described under HPI; No As described under HPI, No cough, No orthopnea, No shortness of breath, No SOB with excertion Cardiovascular: No no symptoms reported; As described under HPI; No As described under HPI, No chest pain, No edema, No irregular heart rate, No lightheadedness; palpitations Gastrointestinal: No no symptoms reported, No As described under HPI, No abdomen distended, No abdominal pain, No blood streaked bowels, No constipation, No diarrhea, No nausea, No vomiting, No stool coloration changes Genitourinary: No As described under HPI, No burning, No dysuria, No discharge, No frequency, No flank pain, No hematuria, No urgency : Yes : No Skin: No rash, No skin related problems, No ulcerations Psychiatric/Neurological: No anxiety, No depression, No seizure, No focal weakness, No syncope Hematologic: No bleeding abnormalities All Other Systems Reviewed Negative Unless Noted: Yes VDM-Sqicrn-Hjfvsc Hx Patient Social History Marrital Status: 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 Family Medical History Family History: Cardiovascular disease 19 FATHER Completed stroke 19 FATHER 19 MOTHER Diabetes mellitus 19 MOTHER Allergies and Home Medications Allergies Coded Allergies: atorvastatin (Verified Allergy, Intermediate, 07/02/20) ciprofloxacin (Verified Allergy, Intermediate, 07/02/20) pregabalin (Verified Allergy, Intermediate, 07/02/20) Uncoded Allergies: IV Contrast (Adverse Reaction, Unknown, 07/02/20) Home Medications Amitriptyline HCl 10 Mg Tablet, 20 MG PO HS, (Reported) TAKES 2 (10MG) TABS Amlodipine Besylate 10 Mg Tablet, 10 MG PO DAILY, (Reported) Ascorbate Calcium 500 Mg Tablet, 500 MG PO DAILY, (Reported) Carvedilol 12.5 Mg Tablet, 6.25 MG PO BID, (Reported) TAKES OF 6.25MG TAB Cholecalciferol (Vitamin D3) 50 Mcg Capsule, 50 MCG PO DAILY, (Reported) Cyanocobalamin (Vitamin B-12) 2,500 Mcg Tablet, 2,500 MCG PO DAILY, (Reported) Glipizide 10 Mg Tablet, 10 MG PO BID, (Reported) Hydrochlorothiazide 12.5 Mg Tablet, 12.5 MG PO BID, (Reported) Iron Polysaccharide Complex 150 Mg Capsule, 150 MG PO DAILY, (Reported) Lisinopril 20 Mg Tablet, 10 MG PO BID, (Reported) TAKES OF A 20MG TAB Nifedipine 30 Mg Tab.er.24, 7.5 MG PO BID, (Reported) TAKES 1/4 OF A 30MG TAB Simethicone 180 Mg Capsule, 180 MG PO PRN PRN for GAS, (Reported) Thyroid,Pork 60 Mg Tablet, 60 MG PO BID, (Reported) Ubidecarenone/Vit E Acetate 1 Each Capsule, 1 EACH PO DAILY, (Reported) Patient Home Medication List Home Medication List Reviewed: Yes Physical Exam-Cardiology Physical Exam Vital Signs/I&O 07/22/20 07/22/20 07/22/20 07/22/20 01:00 01:51 05:53 07:12 Temp 36.4 Pulse 65 67 64 Resp 18 B/P (MAP) 138/64 (88) Pulse Ox 96 90 O2 Delivery Nasal Cannula Room Air O2 Flow Rate 1.00 07/22/20 07/22/20 07/22/20 07:26 09:00 11:01 Pulse Ox 95 96 92 O2 Delivery Nasal Cannula Room Air Nasal Cannula O2 Flow Rate 3.00 2.00 07/22/20 00:00 Intake Total 680 ml Balance 680 ml Capillary Refill : Less Than 3 SecondsLess Than 3 Seconds Constitutional: AAO x 3, well-developed, well-nourished Respiratory: No accessory muscle use; other (good bilat air entry, diminished at the bases) Cardiovascular: regular rate-rhythm, S1 and S2, systolic murmur (soft ELIN at card base) Gastrointestinal: No tender; soft; No guarding, No rebound; audible bowel sounds Extremities: No clubbing, No cyanosis, No significant edema Neurologic/Psychiatric: other (move all limbs equally) Skin: No rash on exposed areas, No ulcerations on exposed areas; other (bruising at sites of port removal from L upper chest and pacemaker placement in the R upper chest) Data Review Labs Laboratory Tests 07/21/20 16:40: Glucometer 222H 07/21/20 21:24: Glucometer 220H 07/22/20 05:12: Glucometer 165H 07/22/20 10:47: Glucometer 256H ECG Impression ECG Initial ECG Impression: Atrial Fibrillation w/RVR A/P-Cardiology Assessment/Admission Diagnosis Atrial fibrillation with rapid ventricular rate, Wide-complex tachycardia, Right-sided dual-chamber permanent pacemaker, Nonischemic cardiomyopathy Plan Device interrogation showed atrial fibrillation with left bundle branch block. No ventricular tachycardia noted. Aggressive beta yvon, discontinue digoxin. Oral anticoagulation is recommended. LV systolic dysfunction noted on echocardiogram. Nonischemic artery myopathy. LifeVest is recommended. Likely due to severe systemic illness. It may improve with aggressive medical therapy. Right-sided dual-chamber permanent pacemaker, no acute issues. Thank you for your consultation. Please call me if you have any questions. M. Zeus Encarnacion MD, FACP, FACC, FSCAI, FHRS, CCDS Interventional Cardiology Cardiac Electrophysiology Vascular Medicine and Endovascular Interventions Clinical Quality Measures DVT/VTE Risk/Contraindication: Risk Factor Score Per Nursin RFS Level Per Nursing on Admit: 4+=Very High Kym ENCARNACION MD Jul 20, 2020 10:32
--- NOTE | 2020-07-20 12:11 | Physical Therapy Daily Note ---
PT Daily Note-Current Subjective Pt sitting in recliner upon arrival. Pt agrees to PT. Mental Status Patient Orientation: Person, Place, Situation Transfers SCALE: Activities may be completed with or without assistive devices. 6-Avhswzoucv-chagwmt completes the activity by him/herself with no assistance from a helper. 5-Set-up or Clean-up Assistance-helper sets up or cleans up; patient completes activity. [place] assists only prior to or following the activity. 4-Supervision or Touching Assistance-helper provides verbal cues and/or touching/steadying and/or contact guard assistance as patient completes activity. Assistance may be provided throughout the activity or intermittently. 3-Partial/Moderate Assistance-helper does LESS THAN HALF the effort. [place] lifts, holds or supports trunk or limbs, but provides less than half the effort. 2-Substantial/Maximal Assistance-helper does MORE THAN HALF the effort. [place] lifts or holds trunk or limbs and provides more than half the effort. 1-Ifyvlvrch-rkjrsz does ALL the effort. Patient does none of the effort to complete the activity. Or, the assistance of 2 or more helpers is required for the patient to complete the activity. If activity was not attempted, code reason: 7-Patient Refused. 9-Not Applicable-not attempted and the patient did not perform the activity before the current illness, exacerbation or injury. 10-Not Attempted due to Environmental Limitations-(lack of equipment, weather restraints, etc.). 88-Not Attempted due to Medical Conditions or Safety Concerns. Sit to Stand (QC): 5 Toilet Transfer (QC): 5 Weight Bearing Right Lower Extremity: Right Full Weight Bearing Left Lower Extremity: Left Full Weight Bearing Gait Training Does the Patient Walk?: Yes Distance: 75' x2 Walk 10 feet (QC): 4 Walk 50 ft with 2 Turns(QC): 4 Gait Assistive Device: FWW Pt fatigues and asks to return to room. Exercises Seated Therapy Exercises: Ankle pumps, Long arc quads, Hip flexion, Kicking activity Seated Reps: 15 Treatments Completes Seated Ex then amb. to BR. Pt amb. in hallway before reporting fatigue & returning to room. Pt resting in recliner with all needs met, call light in hand. Assessment Current Status: Fair Progress Pt reports fatigue and SOA during tx. PT Short Term Goals Short Term Goals Time Frame: Jul 21, 2020 Roll Left & Right: 6 Sit to lyin Lying to sitting on side of be: 4 Sit to stand: 4 Chair/dva-bk-ovwdb transfer: 4 Toilet transfer: 4 Walk 10 feet: 3 Walk 50 feet with two turns: 3 PT Process Assistant Goals Jail Goals PT Process Assistant Goals Time Frame: Aug 04, 2020 Roll Left & Right (QC): 6 Sit to Lying (QC): 6 Lying-Sitting on Side/Bed(QC): 6 Sit to Stand (QC): 4 (SBA) Chair/Zdi-xr-Ezxta Xfer(QC): 4 (SBA) Toilet Transfer (QC): 4 (SBA) Car Transfer (QC): 4 (SBA) Does the Patient Walk: Yes Walk 10 feet (QC): 4 (SBA) Walk 50ft with 2 Turns (QC): 4 (SBA) Walk 150 ft (QC): 4 (SBA) Walking 10ft on Uneven Surface: 4 (SBA) 1 Step (curb) (QC): 4 (SBA) 4 Steps (QC): 4 (SBA) 12 Steps (QC): 88 Picking up an Object (QC): 4 (SBA) Does the Pt use WC or Scooter?: Yes Wheel 50 feet with 2 turns (QC: 6 Type: Manual Wheel 150 feet: 6 Type: Manual PT Plan Problem List Problem List: Activity Tolerance, Gait Treatment/Plan Treatment Plan: Continue Plan of Care Treatment Plan: Bed Mobility, Education, Functional Activity Rogelio, Functional Strength, Group Therapy, Gait, Safety, Therapeutic Exercise, Transfers Treatment Duration: Jul 28, 2020 Frequency: At least 5 of 7 days/Wk (IRF) Estimated Hrs Per Day: 1.5 hours per day Patient and/or Family Agrees t: Yes Safety Risks/Education Patient Education: Transfer Techniques, Correct Positioning, Safety Issues Teaching Recipient: Patient Teaching Methods: Discussion Response to Teaching: Verbalize Understanding Time/GCodes Time In: 1000 Time Out: 1045 Total Billed Treatment Time: 45 Total Billed Treatment 1, FA (15m), EX (15m) & GT (15m) REFUGIO STARR CLIENT ACCOUNT MANAGER Jul 20, 2020 12:11
--- NOTE | 2020-07-20 13:30 | NUR ---
CM/SS CONCURRENT DOCUMENTATION Visited with patient to explore her progress relative to patient care conference tomorrow. She states physician has informed her she has pneumonia. Patient expressed appreciation of proposal lead writer advocating for her with her bank in [place]. She describes that the bank has assigned an officer to her to assist with banking needs while she is hospitalized. Patient said that everything has been resolved quickly as needed regarding paying bills and getting trotter for same. DME: Clarifying, patient does have home O2 for noc use, through [facility] in [place]. Will monitor O2 status for any changes in Rx for liter flow and noc vs continuous.
--- NOTE | 2020-07-20 14:10 | Progress Note - Cardiology ---
Cardiology SOAP Progress Note Objective: I&O/Vital Signs 07/20/20 07/20/20 07/21/20 07/21/20 20:20 21:24 01:00 01:26 Pulse 71 Pulse Ox 96 97 O2 Delivery Nasal Cannula Nasal Cannula Nasal Cannula O2 Flow Rate 2.00 1.00 1.00 07/21/20 07/21/20 06:10 06:30 Temp 36.2 Pulse 70 Resp 18 B/P (MAP) 129/61 (83) Pulse Ox 95 96 O2 Delivery Nasal Cannula Nasal Cannula O2 Flow Rate 2.00 1.00 07/20/20 23:59 Intake Total 1240 ml Balance 1240 ml Constitutional: AAO x 3, well-developed, well-nourished Respiratory: No accessory muscle use; other (good bilat air entry, diminished at the bases) Cardiovascular: regular rate-rhythm, S1 and S2, systolic murmur (soft ELIN at card base) Gastrointestional: No tender; soft; No guarding, No rebound; audible bowel sounds Extremities: No clubbing, No cyanosis, No significant edema Neurologic/Psychiatric: other (move all limbs equally) Skin: No rash on exposed areas, No ulcerations on exposed areas; other (bruising at sites of port removal from L upper chest and pacemaker placement in the R upper chest) Results/Procedures: Labs Laboratory Tests 07/20/20 11:01: Glucometer 235H 07/20/20 15:19: Glucometer 201H 07/20/20 20:15: Glucometer 186H 07/21/20 04:55: Sodium Level 139, Potassium Level 4.0, Chloride Level 102, Carbon Dioxide Level 25, Anion Gap 12, Blood Urea Nitrogen 16, Creatinine 1.75H, Estimat Glomerular Filtration Rate 28, BUN/Creatinine Ratio 9, Glucose Level 153H, Calcium Level 8.7, Magnesium Level 1.7 07/21/20 05:19: Glucometer 161H A/P: Assessment: Pneumonia - management per pulmonary/medical services Cardiomyopathy, probably nonischemic (based on cardiac cath by Dr Osorio on 07/02/20 that showed only mild to mod, nonobstructive CAD) Echo on 07/15/20: LVEF 25-30%, mild to mod MR, akinetic distal septum and apex 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
--- NOTE | 2020-07-20 14:57 | Physical Therapy Daily Note ---
PT Daily Note-Current Subjective Pt sitting in recliner upon arrival. Pt agrees to PT, declining needing BR during tx. Mental Status Patient Orientation: Person, Place, Situation Transfers SCALE: Activities may be completed with or without assistive devices. 4-Mbtpncdtvy-bgaahjk completes the activity by him/herself with no assistance from a helper. 5-Set-up or Clean-up Assistance-helper sets up or cleans up; patient completes activity. [place] assists only prior to or following the activity. 4-Supervision or Touching Assistance-helper provides verbal cues and/or touching/steadying and/or contact guard assistance as patient completes activity. Assistance may be provided throughout the activity or intermittently. 3-Partial/Moderate Assistance-helper does LESS THAN HALF the effort. [place] lifts, holds or supports trunk or limbs, but provides less than half the effort. 2-Substantial/Maximal Assistance-helper does MORE THAN HALF the effort. [place] lifts or holds trunk or limbs and provides more than half the effort. 5-Rqwkhoukd-xjqoix does ALL the effort. Patient does none of the effort to complete the activity. Or, the assistance of 2 or more helpers is required for the patient to complete the activity. If activity was not attempted, code reason: 7-Patient Refused. 9-Not Applicable-not attempted and the patient did not perform the activity before the current illness, exacerbation or injury. 10-Not Attempted due to Environmental Limitations-(lack of equipment, weather restraints, etc.). 88-Not Attempted due to Medical Conditions or Safety Concerns. Sit to Stand (QC): 5 Weight Bearing Right Lower Extremity: Right Full Weight Bearing Left Lower Extremity: Left Full Weight Bearing Gait Training Does the Patient Walk?: Yes Distance: 100', 100' Walk 10 feet (QC): 5 Walk 50 ft with 2 Turns(QC): 5 Gait Persons Needed: 1 Gait Assistive Device: FWW Treatments TF to standing, amb. in hallway. BIOMEDICAL EQUIPMENT SUPPORT SPECIALIST reviews written HEP for Supine & Seated EX before amb. back to room. All needs met, call light in hand. Assessment Current Status: Fair Progress Pt reports fatigue and SOA during tx. PT Short Term Goals Short Term Goals Time Frame: Jul 21, 2020 Roll Left & Right: 6 Sit to lyin Lying to sitting on side of be: 4 Sit to stand: 4 Chair/znv-ec-mqbgz transfer: 4 Toilet transfer: 4 Walk 10 feet: 3 Walk 50 feet with two turns: 3 PT Small Animal Caretaker Goals Skilled Nursing Goals PT Skilled Nursing Goals Time Frame: Aug 04, 2020 Roll Left & Right (QC): 6 Sit to Lying (QC): 6 Lying-Sitting on Side/Bed(QC): 6 Sit to Stand (QC): 4 (SBA) Chair/Xuj-xz-Svrvf Xfer(QC): 4 (SBA) Toilet Transfer (QC): 4 (SBA) Car Transfer (QC): 4 (SBA) Does the Patient Walk: Yes Walk 10 feet (QC): 4 (SBA) Walk 50ft with 2 Turns (QC): 4 (SBA) Walk 150 ft (QC): 4 (SBA) Walking 10ft on Uneven Surface: 4 (SBA) 1 Step (curb) (QC): 4 (SBA) 4 Steps (QC): 4 (SBA) 12 Steps (QC): 88 Picking up an Object (QC): 4 (SBA) Does the Pt use WC or Scooter?: Yes Wheel 50 feet with 2 turns (QC: 6 Type: Manual Wheel 150 feet: 6 Type: Manual PT Plan Problem List Problem List: Activity Tolerance, Functional Strength, Gait Treatment/Plan Treatment Plan: Continue Plan of Care Treatment Plan: Bed Mobility, Education, Functional Activity Rogelio, Functional Strength, Group Therapy, Gait, Safety, Therapeutic Exercise, Transfers Treatment Duration: Jul 28, 2020 Frequency: At least 5 of 7 days/Wk (IRF) Estimated Hrs Per Day: 1.5 hours per day Patient and/or Family Agrees t: Yes Safety Risks/Education Patient Education: Issued Written HEP Time/GCodes Time In: 1400 Time Out: 1430 Total Billed Treatment Time: 30 Total Billed Treatment 1, GT (15m) & EX (15m) REFUGIO STARR BIOMEDICAL EQUIPMENT SUPPORT SPECIALIST Jul 20, 2020 14:57
[2020-07-20 16:12] VITALS: BP 124/59
[2020-07-20] MEDS: VANCOMYCIN INJECTION 1,000 MG in NS (IVPB) 250 ML IV SCH (17:59)
[2020-07-20] MEDS: SIMETHICONE 80 MG (MYLICON) CHEW PO PRN (18:01)
[2020-07-20] MEDS: guaiFENesin/DM (ROBITUSSIN DM) 10 ML UDC PO PRN (18:31)
[2020-07-20] MEDS: MELATONIN 3 MG TABLET PO PRN (20:13)
[2020-07-21] MEDS: guaiFENesin/DM (ROBITUSSIN DM) 10 ML UDC PO PRN ×2 (01:06→05:00)
[2020-07-21] MEDS: ALPRAZolam 0.25 MG (XANAX) TAB PO PRN ×3 (01:06→21:26)
[2020-07-21] MEDS: RT-ALBUTEROL/IPRATROPIUM 3 ML (DUONEB) VIAL INH SCH ×6 (01:26→22:14)
--- NOTE | 2020-07-21 02:30 | NUR ---
CM/SS PATIENT CARE CONFERENCE Reviewed Summary with patient, answered questions to her satisfaction, signed, charted. Patient is in agreement with her target discharge of July 27. She will return home as before with her established personal caregivers. Patient expressed her appreciation for inspector automatic typewriter's contact with her bank as far as customer service relative to her hospitalization and financial transactions. Patient was also appreciative of the contact with her PCP office re knee/ankle injections. Patient appears improved and with positive progression toward discharge. She is in agreement with the team's recommendation for [facility] for therapy. Agency will be pursued in her service area of [place], [place]. Patient will be getting a Life Vest prior to discharge home with cardiologists to follow for next steps. Continue intermittent reviews as it pertains to post hospital care.
[2020-07-21] MEDS: KCL 20 MEQ TAB (K-DUR) PO SCH (05:22)
[2020-07-21 05:37] LABS: CALCIUM 8.7 MG/DL (8.5-10.1)
[2020-07-21] MEDS: inSUlin ASPART (NovoLOG) 1 UNIT/0.01 ML (CHARGE PER UNIT) SC SCH ×4 (05:39→21:25)
[2020-07-21 05:42] LABS: CREATININE SERUM 1.75 MG/DL (0.60-1.30)
[2020-07-21 05:44] LABS: MAGNESIUM 1.7 MG/DL (1.6-2.4)
[2020-07-21 06:10] VITALS: BP 129/61
[2020-07-21] MEDS: LACTOBACILLUS ACIDOPHILUS (PROBIOTIC) CAPSULE PO SCH ×3 (08:08→18:02)
[2020-07-21] MEDS: APIXABAN 5 MG (ELIQUIS) TABLET PO SCH ×2 (08:08→21:27)
[2020-07-21] MEDS: DIGOXIN 0.125 MG (LANOXIN) TAB PO SCH (08:09)
[2020-07-21] MEDS: AMIODARONE 200 MG (CORDARONE) TAB PO SCH ×2 (08:09→21:27)
[2020-07-21] MEDS: THYROID (ARMOUR) 60 MG TABLET PO SCH ×2 (08:09→21:27)
--- NOTE | 2020-07-21 08:42 | Speech Therapy Daily Note ---
Speech Daily Progress Note Subjective Date Seen by Provider: Jul 21, 2020 Time Seen by Provider: 00:30 Patient states she was given medications which helped her rest well. Objective Patient completed a series of intermediate general information at 80% with minimal cues. Assessment Assessment Current Status: Good Progress Treatment Plan Continue Plan of Care Speech Short Term Goals Short Term Goals Short Term Goals 1) Patient will complete memory tasks related to her daily needs with minimal assist at 90% or greater. 2) Patient will complete safety awareness tasks related to her daily needs with minimal assist at 90% or greater. 3) Patient will complete problem solving tasks related to her daily needs with minimal assist at 90% or greater. Speech Shank Pinner Goals Detention Goals Patient will improve cognitive communication to complete daily tasks with minimal assist. Speech-Plan Patient/Family Goals Patient/Family Goals: Patient plans on returning to her home with family and hired staff. Treatment Plan Speech Therapy Treatment Plan: Continue Plan of Care Treatment Duration: Jul 23, 2020 Frequency: 4 times per week (Patient will recieve ST 4-5x per day) Estimated Hrs Per Day: .5 hour per day Rehab Potential: Fair Barriers to Learning: Patient's recent illness, age Pt/Family Agrees to Plan: Yes Safety Risks/Education Teaching Recipient: Patient Teaching Methods: Demonstration, Discussion Response to Teaching: Verbalize Understanding, Return Demonstration Education Topics Provided: Continued safety with oral intake, safety within her room Time Speech Therapy Time In: 08:30 Speech Therapy Time Out: 09:00 Total Billed Time: 30 Billed Treatment Time 1ACE SLTS No [place], BETHANIA ST Jul 21, 2020 08:42
--- NOTE | 2020-07-21 09:12 | PM&R Progress Note ---
Subjective HPI/CC On Admission Date Seen by Provider: Jul 21, 2020 Time Seen by Provider: 10:00 Subjective/Events-last exam 07/21/20: Pt had a BM today Life-vest recommended from Dr. Encarnacion Decreasing oxygen use Sleeping pretty well but taking Xanax 07/20/20: Pt now on room air but asking for oxygen No need for oxygen at this time Lasix initiated for pulmonary edema which was helpful Anxiety is much improved Was able to see her dog in a dog visit yesterday and she was thrilled about that 07/19/20: Pt much improved Oriented x3 now Dr. Almendarez will be consulted for dyspnea Weaning off oxygen Hgb 8.8 Creatinine 1.43 She will see her dog today She thinks she has a UTI with frequency so will do an in and out cath and maintain the Vanc as order Cough is still present 07/18/20: No issues Weaning O2 Sees her pet dog tomorrow BM+ Ankle and knee good since injections DC commode and going to bathroom now 07/17/20: Dietary adding ADA to the low sodium diet BM moving well Ankle and knee improved Weaning O2 07/16/20: Patient transferred down from ICU Doing well overall Insists on using O2 but her O2 sats is 96% so weaning that Very psychotic thoughts noted Ankle and knee injected by James Camarillo and his help is appreciated to help participation in therapy Pt requiring O2 even though her oxygen level is good Pacemaker maintained Telemetry maintained by cardiology request Refuses oral potassium, she would rather have it through her IV so unsure how we are going to titrate that considering she really needs to be off IVs Vancomycin will be maintained until completed 14 days after most recent gram positive blood cultures Xanax really helped her anxiety We already discontinued the Still catheter, she hasnt voided yet WBC 13 A lot of psychosocial issues at home, will likely slow recovery After rounds in afternoon patient was noted to have abnormal Telemetry and was found to have AF w/RVR so moved to ICU. Review of Systems General: Fatigue, Malaise Neurological: Weakness Objective Exam Vital Signs Vital Signs Date Time Temp Pulse Resp B/P (MAP) Pulse Ox O2 Delivery O2 Flow Rate FiO2 07/21/20 19:00 70 07/21/20 17:37 36.6 16 140/60 (86) 94 Room Air 07/21/20 13:55 1.00 Capillary Refill : Less Than 3 SecondsLess Than 3 Seconds General Appearance: No Apparent Distress, WD/WN, Chronically ill HEENT: PERRL/EOMI, Normal ENT Inspection, Pharynx Normal Neck: Full Range of Motion, Normal Inspection, Non Tender, Supple, Carotid Bruit Respiratory: Chest Non Tender, Lungs Clear, Normal Breath Sounds, No Accessory Muscle Use, No Respiratory Distress Cardiovascular: Regular Rate, Rhythm, No Edema, No Gallop, No JVD, No Murmur, Normal Peripheral Pulses Gastrointestinal: Normal Bowel Sounds, No Organomegaly, No Pulsatile Mass, Non Tender, Soft Back: Normal Inspection, No CVA Tenderness, No Vertebral Tenderness Extremity: Normal Capillary Refill, Normal Inspection, Normal Range of Motion, Non Tender, No Calf Tenderness, No Pedal Edema Neurologic/Psychiatric: Alert, Oriented x3, No Motor/Sensory Deficits, Normal Mood/Affect, doughnut icer II-XII Norm as Tested, Abnormal Gait, Motor Weakness Skin: Normal Color, Warm/Dry Lymphatic: No Adenopathy Results/Procedures Lab Laboratory Tests 07/21/20 04:55 Patient resulted labs reviewed. FIM Transfers Therapy Code Descriptions/Definitions Functional [place] Measure: 0=Not Assessed/NA 4=Minimal Assistance 1=Total Assistance 5=Supervision or Setup 2=Maximal Assistance 6=Modified [place] 3=Moderate Assistance 7=Complete IndependenceSCALE: Activities may be completed with or without assistive devices. 5-Ictijuulal-ejdnbxt completes the activity by him/herself with no assistance from a helper. 5-Set-up or Clean-up Assistance-helper sets up or cleans up; patient completes activity. [place] assists only prior to or following the activity. 4-Supervision or Touching Assistance-helper provides verbal cues and/or touching/steadying and/or contact guard assistance as patient completes act ivity. Assistance may be provided throughout the activity or intermittently. 3-Partial/Moderate Assistance-helper does LESS THAN HALF the effort. [place] lifts, holds or supports trunk or limbs, but provides less than half the effort. 2-Substantial/Maximal Assistance-helper does MORE THAN HALF the effort. [place] lifts or holds trunk or limbs and provides more than half the effort. 5-Xzwnjejsg-uuztob does ALL the effort. Patient does none of the effort to complete the activity. Or, the assistance of 2 or more helpers is required for the patient to complete the activity. If activity was not attempted, code reason: 7-Patient Refused. 9-Not Applicable-not attempted and the patient did not perform the activity before the current illness, exacerbation or injury. 10-Not Attempted due to Environmental Limitations-(lack of equipment, weather restraints, etc.). 88-Not Attempted due to Medical Conditions or Safety Concerns. Sit to Lying (QC): 6 Sit to Stand (QC): 5 Chair/Lnc-ow-Lfoku Xfer(QC): 3 Car Transfer (QC): 3 Gait Training Does the Patient Walk?: Yes Distance: 100', 100' Walk 10 feet (QC): 5 Walk 50 ft with 2 Turns(QC): 5 Walk 150 ft (QC): 5 Walking 10ft/uneven surface-QC: 88 Gait Persons Needed: 1 Gait Assistive Device: FWW Wheelchair Training Does the Pt Use a Wheelchair?: Yes Distance: 150' Wheel 50 ft with 2 turns (QC): 4 Wheel 150 ft (QC): 4 Type of Wheelchair: Manual Stair Training 1 Step (curb) (QC): 88 4 Steps (QC): 88 12 Steps (QC): 88 Balance Picking up an Object (QC): 88 ADL-Treatment Eating (QC): 6 (Pt reports independent with breakfast.) Oral Hygiene (QC): 6 (IND seated in chair at sink.) Shower/Bathe Self (QC): 4 (SBA, pt completed sponge bath in seating. Washed periare and buttocks while seated, leaning side to side.) Upper Body Dressing (QC): 5 Lower Body Dressing (QC): 4 (SBA and cues to use dressing stick to don pants.) On/Off Footwear (QC): 3 (Min A, OT educated pt on sock aide to don socks. ) Toileting Hygiene (QC): 3 (Mod A sit to stand from toilet, pt able to perform hygiene and clothing mangement) Toilet Transfer (QC): 3 (CGA onto toilet, mod A off) Assessment/Plan Assessment and Plan Assess & Plan/Chief Complaint Assessment: Myopathy Critical illness source of weakness s/p pacemaker for heart block Venous access source of bacteremia maintained on Vanc BRENNON CAD non-obstructive HTN HLP Hyponatremia Anemia Still cath in place Plan: IRF protocol DC catheter Monitor labs Vanc 07/14/20: IV abx Moved to ICU temporarily for AF w/RVR Continue IRF protocol 07/16/20: Monitor heart rate Wean O2 Ankle and knee injections appreciated Monitor closely 07/18/20: Wean O2 Doing better Labs tomorrow 07/19/20: Appreciate Dr. Tanesha Lee Dog to visit today 07/20/20: Maintain on room air Wean off oxygen Doing very well 07/21/20: Life vest per cardiology Wean oxygen Monitor closely Needs another week of rehab (1) Myopathy (2) Bacteremia due to Staphylococcus epidermidis Status: Acute (3) Infection of venous access port Status: Acute (4) S/P placement of cardiac pacemaker Status: Acute (5) Euthyroid sick syndrome Status: Acute (6) S/p nephrectomy Status: Chronic (7) Hypothyroidism Status: Chronic (8) Renal cell carcinoma Status: Chronic (9) Low TSH level Status: Acute (10) T2DM (type 2 diabetes mellitus) Status: Chronic (11) HTN (hypertension) Status: Chronic (12) Second degree AV block Status: Acute (13) Kidney injury (14) Hyponatremia Status: Acute (15) Heart block KISHORE BENITEZ DO Jul 21, 2020 09:12
[2020-07-21] MEDS: SENNA W/DOCUSATE (SENOKOT S) TABLET PO SCH ×2 (09:29→21:25)
[2020-07-21] MEDS: DOCUSATE SODIUM 100 MG (COLACE) CAP PO SCH ×2 (09:29→21:25)
[2020-07-21] MEDS: polyethylene glycoL POWDER 17 GM (MIRALAX) PACK PO SCH ×2 (09:29→21:25)
--- NOTE | 2020-07-21 09:56 | Physical Therapy Daily Note ---
PT Daily Note-Current Subjective Pt sitting in recliner upon arrival. Pt agrees to PT. Pt reports feeling SOA even after little activity. Reports fearful of falling as well. Pain Numeric Pain Scale: 4 Location: Right Location Body Site: Knee Pain Description: Ache Comment: Reports discomfort in R knee and ankle, but it is improved. Mental Status Patient Orientation: Person, Place, Situation Transfers SCALE: Activities may be completed with or without assistive devices. 3-Cwnarbxrfc-pilkvhz completes the activity by him/herself with no assistance from a helper. 5-Set-up or Clean-up Assistance-helper sets up or cleans up; patient completes activity. [place] assists only prior to or following the activity. 4-Supervision or Touching Assistance-helper provides verbal cues and/or touching/steadying and/or contact guard assistance as patient completes activity. Assistance may be provided throughout the activity or intermittently. 3-Partial/Moderate Assistance-helper does LESS THAN HALF the effort. [place] lif ts, holds or supports trunk or limbs, but provides less than half the effort. 2-Substantial/Maximal Assistance-helper does MORE THAN HALF the effort. [place] lifts or holds trunk or limbs and provides more than half the effort. 9-Gdmhfmemp-eoqztg does ALL the effort. Patient does none of the effort to complete the activity. Or, the assistance of 2 or more helpers is required for the patient to complete the activity. If activity was not attempted, code reason: 7-Patient Refused. 9-Not Applicable-not attempted and the patient did not perform the activity before the current illness, exacerbation or injury. 10-Not Attempted due to Environmental Limitations-(lack of equipment, weather restraints, etc.). 88-Not Attempted due to Medical Conditions or Safety Concerns. Sit to Stand (QC): 5 Toilet Transfer (QC): 5 Weight Bearing Right Lower Extremity: Right Full Weight Bearing Left Lower Extremity: Left Full Weight Bearing Gait Training Does the Patient Walk?: Yes Distance: 15' x2 Walk 10 feet (QC): 5 Gait Persons Needed: 1 Gait Assistive Device: FWW Exercises Seated Therapy Exercises: Ankle pumps, Long arc quads, Hip flexion, Kicking activity, Hip abd/add, Glut set Seated Reps: 15 Treatments Pt discusses wanting another week and progress she feels she has made. Dr Encarnacion and Dr Hogan check on pt during tx. Pt completes Seated Ex from HEP. Pt also TF to standing and amb to BR before returning to recliner to rest. All needs met, call light in hand. Assessment Current Status: Fair Progress Pt reports still SOA with little activity. NATURAL FABRICATOR reminds pt of Pneumonia and how this can cause SOA for extended time. Pt reports using 2L O2 at home at night. PT Short Term Goals Short Term Goals Time Frame: Jul 21, 2020 Roll Left & Right: 6 Sit to lyin Lying to sitting on side of be: 4 Sit to stand: 4 Chair/vzh-oz-jwggo transfer: 4 Toilet transfer: 4 Walk 10 feet: 3 Walk 50 feet with two turns: 3 PT Care Coordinator Goals Correction Goals PT Care Coordinator Goals Time Frame: Aug 04, 2020 Roll Left & Right (QC): 6 Sit to Lying (QC): 6 Lying-Sitting on Side/Bed(QC): 6 Sit to Stand (QC): 4 (SBA) Chair/Esr-eh-Oviqk Xfer(QC): 4 (SBA) Toilet Transfer (QC): 4 (SBA) Car Transfer (QC): 4 (SBA) Does the Patient Walk: Yes Walk 10 feet (QC): 4 (SBA) Walk 50ft with 2 Turns (QC): 4 (SBA) Walk 150 ft (QC): 4 (SBA) Walking 10ft on Uneven Surface: 4 (SBA) 1 Step (curb) (QC): 4 (SBA) 4 Steps (QC): 4 (SBA) 12 Steps (QC): 88 Picking up an Object (QC): 4 (SBA) Does the Pt use WC or Scooter?: Yes Wheel 50 feet with 2 turns (QC: 6 Type: Manual Wheel 150 feet: 6 Type: Manual PT Plan Problem List Problem List: Activity Tolerance, Functional Strength, Gait Treatment/Plan Treatment Plan: Continue Plan of Care Treatment Plan: Bed Mobility, Education, Functional Activity Rogelio, Functional Strength, Group Therapy, Gait, Safety, Therapeutic Exercise, Transfers Treatment Duration: Jul 28, 2020 Frequency: At least 5 of 7 days/Wk (IRF) Estimated Hrs Per Day: 1.5 hours per day Patient and/or Family Agrees t: Yes Safety Risks/Education Patient Education: Gait Training, Correct Positioning, Disease Process, Safety Issues Teaching Recipient: Patient Teaching Methods: Discussion Response to Teaching: Verbalize Understanding Time/GCodes Time In: 900 Time Out: 945 Total Billed Treatment Time: 45 Total Billed Treatment 1, FA x2 (25m) & EX (20m) REFUGIO STARR PTA Jul 21, 2020 09:56
--- NOTE | 2020-07-21 11:25 | Occupational Ther Daily Note ---
OT Current Status-Daily Note Subjective No pain reported. Mental Status/Objective Patient Orientation: Person, Place ADL-Treatment Therapy Code Descriptions/Definitions Functional [place] Measure: 0=Not Assessed/NA 4=Minimal Assistance 1=Total Assistance 5=Supervision or Setup 2=Maximal Assistance 6=Modified [place] 3=Moderate Assistance 7=Complete IndependenceSCALE: Activities may be completed with or without assistive devices. 2-Ubpolghwof-zkmoavh completes the activity by him/herself with no assistance from a helper. 5-Set-up or Clean-up Assistance-helper sets up or cleans up; patient completes activity. [place] assists only prior to or following the activity. 4-Supervision or Touching Assistance-helper provides verbal cues and/or touching/steadying and/or contact guard assistance as patient completes activity. Assistance may be provided throughout the activity or intermittently. 3-Partial/Moderate Assistance-helper does LESS THAN HALF the effort. [place] lifts, holds or supports trunk or limbs, but provides less than half the effort. 2-Substantial/Maximal Assistance-helper does MORE THAN HALF the effort. [place] lifts or holds trunk or limbs and provides more than half the effort. 5-Cduhkhwxo-ghtoyl does ALL the effort. Patient does none of the effort to complete the activity. Or, the assistance of 2 or more helpers is required for the patient to complete the activity. If activity was not attempted, code reason: 7-Patient Refused. 9-Not Applicable-not attempted and the patient did not perform the activity before the current illness, exacerbation or injury. 10-Not Attempted due to Environmental Limitations-(lack of equipment, weather restraints, etc.). 88-Not Attempted due to Medical Conditions or Safety Concerns. Eating (QC): 6 Oral Hygiene (QC): 5 Shower/Bathe Self (QC): 4 (SBA in shower.) Upper Body Dressing (QC): 5 (Set up to don bra and shirt.) Lower Body Dressing (QC): 3 (Mod assist overall to don brief and pants.) On/Off Footwear: 2 Other Treatment Pt. fatigues easily with tasks. Requires multiple rest breaks. Education OT Patient Education: Correct positioning, Modified ADL techniques, Progress toward Goal/Update tx plan, Purpose of tx/functional activities, Reviewed precautions, Rehab process, Transfer techniques Teaching Recipient: Patient Teaching Methods: Demonstration, Discussion Response to Teaching: Verbalize Understanding, Return Demonstration OT Short Term Goals Short Term Goals Time Frame: Jul 21, 2020 Eatin Oral hygiene: 5 Toileting hygiene: 3 Shower/bathe self: 4 Upper body dressin Lower body dressin Putting on/taking off footwear: 4 OT Retort Setter Goals [facility] Goals Time Frame: Jul 28, 2020 Eating (QC): 6 Oral Hygiene (QC): 6 Toileting Hygiene (QC): 6 Shower/Bathe Self (QC): 4 Upper Body Dressing (QC): 5 Lower Body Dressing (QC): 4 On/Off Footwear (QC): 4 Additional Goals: 1-Demonstrate ADL Tasks, 2-Verbalize Understanding, 3- ImproveStrength/Rogelio 1=Demonstrate adherence to instructed precautions during ADL tasks. 2=Patient will verbalize/demonstrate understanding of assistive devices/modifications for ADL. 3=Patient will improve strength/tolerance for activity to enable patient to perform ADL's. OT Education/Plan Problem List/Assessment Assessment: Decreased Activ Tolerance, Impaired I ADL's, Impaired Self-Care Skills Discharge Recommendations Plan/Recommendations: Continue POC Therapy Discharge Recommendati: Post Acute OT Treatment Plan/Plan of Care Treatment,Training & Education: Yes Patient would benefit from OT for education, treatment and training to promote independence in ADL's, mobility, safety and/or upper extremity function for ADL's. Plan of Care: ADL Retraining, Functional Mobility, UE Funct Exercise/Act Treatment Duration: Jul 28, 2020 Frequency: At least 5 of 7 days/Wk (IRF) Estimated Hrs Per Day: 1.5 hours per day Agreement: Yes Rehab Potential: Fair Time/GCodes Start Time: 10:45 Stop Time: 12:00 Total Time Billed (hr/min): 75 Billed Treatment Time 1, ADL x 5 This note reflects activity performed on 07-20-20. GLORIA BANSAL OT Jul 21, 2020 11:25
--- NOTE | 2020-07-21 11:32 | Occupational Ther Daily Note ---
OT Current Status-Daily Note Subjective No pain reported. Pt. states that she still occasionally becomes SOA, but otherwise is doing well. Mental Status/Objective Patient Orientation: Person, Place, Time, Situation ADL-Treatment Therapy Code Descriptions/Definitions Functional [place] Measure: 0=Not Assessed/NA 4=Minimal Assistance 1=Total Assistance 5=Supervision or Setup 2=Maximal Assistance 6=Modified [place] 3=Moderate Assistance 7=Complete IndependenceSCALE: Activities may be completed with or without assistive devices. 0-Xkengnykms-crfvoxl completes the activity by him/herself with no assistance from a helper. 5-Set-up or Clean-up Assistance-helper sets up or cleans up; patient completes activity. [place] assists only prior to or following the activity. 4-Supervision or Touching Assistance-helper provides verbal cues and/or touching/steadying and/or contact guard assistance as patient completes activity. Assistance may be provided throughout the activity or intermittently. 3-Partial/Moderate Assistance-helper does LESS THAN HALF the effort. [place] lifts, holds or supports trunk or limbs, but provides less than half the effort. 2-Substantial/Maximal Assistance-helper does MORE THAN HALF the effort. [place] lifts or holds trunk or limbs and provides more than half the effort. 1-Vovydvytg-fbqttz does ALL the effort. Patient does none of the effort to complete the activity. Or, the assistance of 2 or more helpers is required for the patient to complete the activity. If activity was not attempted, code reason: 7-Patient Refused. 9-Not Applicable-not attempted and the patient did not perform the activity before the current illness, exacerbation or injury. 10-Not Attempted due to Environmental Limitations-(lack of equipment, weather restraints, etc.). 88-Not Attempted due to Medical Conditions or Safety Concerns. Eating (QC): 6 Upper Body Dressing (QC): 5 Lower Body Dressing (QC): 4 (SBA to don brief and pants.) On/Off Footwear: 4 (SBA to don slipper socks.) Toileting Hygiene (QC): 4 Toilet Transfer (QC): 4 Other Treatment Pt. reports that she is feeling much better today. States that she feels that she would benefit from another week to gain her strength, and then will be ready to go home. Pt. declined bathing as she showered yesterday. Talked in depth regarding home set up, and any equipment needs. Pt. reports that she has all needed equipment, and that she will have methods time analyst assist if needed in her roommate. Pt. able to dress and toilet self this date with SBA. No AE needed. Stood from chair with walker with SBA. Ambulated to therapy gym and completed 21 minutes on arm bike, at very minimal resistance, and very slow pace. Tolerated this well for increased endurance, while participating in trivia/cognitive game on topic that pt. enjoys. Pt. did well overall, and states that she feels she is getting stronger each day. Ambulated back to room. All needs met. Education OT Patient Education: Correct positioning, Exercise program, Modified ADL techniques, Progress toward Goal/Update tx plan, Purpose of tx/functional activities, Reviewed precautions, Rehab process, Transfer techniques Teaching Recipient: Patient Teaching Methods: Demonstration, Discussion Response to Teaching: Verbalize Understanding, Return Demonstration OT Short Term Goals Short Term Goals Time Frame: Jul 21, 2020 Eatin Oral hygiene: 5 Toileting hygiene: 3 Shower/bathe self: 4 Upper body dressin Lower body dressin Putting on/taking off footwear: 4 OT Well Drill Operator Cable Tool Goals Well Drill Operator Cable Tool Goals Time Frame: Jul 28, 2020 Eating (QC): 6 Oral Hygiene (QC): 6 Toileting Hygiene (QC): 6 Shower/Bathe Self (QC): 4 Upper Body Dressing (QC): 5 Lower Body Dressing (QC): 4 On/Off Footwear (QC): 4 Additional Goals: 1-Demonstrate ADL Tasks, 2-Verbalize Understanding, 3- ImproveStrength/[place] 1=Demonstrate adherence to instructed precautions during ADL tasks. 2=Patient will verbalize/demonstrate understanding of assistive devices/modifications for ADL. 3=Patient will improve strength/tolerance for activity to enable patient to perform ADL's. OT Education/Plan Problem List/Assessment Assessment: Decreased Activ Tolerance, Impaired I ADL's, Impaired Self-Care Skills Discharge Recommendations Plan/Recommendations: Continue POC Treatment Plan/Plan of Care Treatment,Training & Education: Yes Patient would benefit from OT for education, treatment and training to promote independence in ADL's, mobility, safety and/or upper extremity function for ADL's. Plan of Care: ADL Retraining, Functional Mobility, UE Funct Exercise/Act Treatment Duration: Jul 28, 2020 Frequency: At least 5 of 7 days/Wk (IRF) Estimated Hrs Per Day: 1.5 hours per day Agreement: Yes Rehab Potential: Good Time/GCodes Start Time: 10:00 Stop Time: 11:15 Total Time Billed (hr/min): 75 Billed Treatment Time 1, ADL x 30minutes, FA x 15minutes, Ex x 30minutes GLORIA BANSAL OT Jul 21, 2020 11:32
--- NOTE | 2020-07-21 12:00 | Cardiology Progress Note ---
Subjective Date Seen by Provider: Jul 21, 2020 Time Seen by Provider: 08:15 Subjective/Events-last exam Patient is sitting up in chair, denies any chest pain or dyspnea. Review of Systems General: No Chills, No Night Sweats, No Fatigue, No Malaise, No Appetite, No Other HEENT: No Head Aches, No Visual Changes, No Eye Pain, No Ear Pain, No Dysphasia, No Sinus Congestion, No Post Nasal Drip, No Sore Throat, No Other Pulmonary: No Dyspnea, No Cough, No Pleuritic Chest Pain, No Other Cardiovascular: No: Chest Pain, Palpitations, Orthopnea, Paroxysmal Noc. Dyspnea, Edema, Lt Headedness, Other Objective-Cardiology Exam Last Set of Vital Signs Vital Signs 07/21/20 07/21/20 07/21/20 06:10 12:48 13:55 Temp 36.2 Pulse 71 Resp 18 B/P (MAP) 129/61 (83) Pulse Ox 95 O2 Delivery Nasal Cannula O2 Flow Rate 1.00 Capillary Refill : Less Than 3 SecondsLess Than 3 Seconds I&O Intake and Output 07/21/20 00:00 Intake Total 1490 ml Balance 1490 ml Intake Oral 1490 ml # Voids 12 # Bowel Movements 2 General: Alert, Oriented X3, Cooperative HEENT: Atraumatic, PERRLA Neck: Supple, No JVD, No Thyromegaly Lungs: Clear to Auscultation, Normal Air Movement Heart: Regular Rate, Normal S1, Normal S2, No Murmurs Abdomen: Normal Bowel Sounds, Soft, No Tenderness, No Hepatosplenomegaly, No Masses Extremities: No Clubbing, No Cyanosis, No Edema, Normal Pulses, No Tenderness/Swelling Skin: No Rashes, No Breakdown, No Significant Lesion Neuro: Normal Gait, Normal Speech, Strength at 5/5 X4 Ext, Normal Tone, Sensation Intact Psych/Mental Status: Mental Status NL, Mood NL Results Lab Laboratory Tests 07/21/20 04:55 A/P-Cardiology Admission Diagnosis Chest pain 2nd degree AV block PAF CHF Assessment/Plan Chest pain, resembling angina, improved. Cardiac cath done on 07/02/20 having mild to moderate CAD, non obstructive disease Cardiomyopathy, nonischemic. Echo on 07/15/20: LVEF 25-30%, mild to mod MR, akinetic distal septum and apex. I will place patient on Life vest Second degree AV block, severe bradycardia status post dual-chamber pacemaker implanted by Dr. Encarnacion on 07/11/2020. Site is healing well Paroxysmal atrial fibrillation, on Amiodarone, continue to monitor. 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 Patient was seen and evaluated with Chrystal, examination performed, management plan was discussed, agree with the current scribed note, I made few changes to the note using Italic font Patient was sitting in a chair comfortably, denied any chest pain Planning for LifeVest, continue on current medication, continue on amiodarone and beta blockers. Will increase the dose as needed. Clinical Quality Measures DVT/VTE Risk/Contraindication: Risk Factor Score Per Nursin RFS Level Per Nursing on Admit: 4+=Very High CHRYSTAL BRINK Jul 21, 2020 12:00 pm ALLEN KUMAR MD Jul 21, 2020 3:27 pm
[2020-07-21] MEDS: SIMETHICONE 80 MG (MYLICON) CHEW PO PRN (12:54)
--- NOTE | 2020-07-21 14:37 | Cardiology Progress Note ---
Cardiology SOAP Progress Note Subjective: No cardiac complaints. Objective: I&O/Vital Signs 07/22/20 07/22/20 07/22/20 07/22/20 01:00 01:51 05:53 07:12 Temp 36.4 Pulse 65 67 64 Resp 18 B/P (MAP) 138/64 (88) Pulse Ox 96 90 O2 Delivery Nasal Cannula Room Air O2 Flow Rate 1.00 07/22/20 07/22/20 07/22/20 07:26 09:00 11:01 Pulse Ox 95 96 92 O2 Delivery Nasal Cannula Room Air Nasal Cannula O2 Flow Rate 3.00 2.00 07/22/20 00:00 Intake Total 680 ml Balance 680 ml Constitutional: AAO x 3, well-developed, well-nourished Respiratory: No accessory muscle use; other (good bilat air entry, diminished at the bases) Cardiovascular: regular rate-rhythm, S1 and S2, systolic murmur (soft ELIN at card base) Gastrointestional: No tender; soft; No guarding, No rebound; audible bowel sounds Extremities: No clubbing, No cyanosis, No significant edema Neurologic/Psychiatric: other (move all limbs equally) Skin: No rash on exposed areas, No ulcerations on exposed areas; other (bruising at sites of port removal from L upper chest and pacemaker placement in the R upper chest) Results/Procedures: Labs Laboratory Tests 07/21/20 16:40: Glucometer 222H 07/21/20 21:24: Glucometer 220H 07/22/20 05:12: Glucometer 165H 07/22/20 10:47: Glucometer 256H A/P: Assessment/Dx: Atrial fibrillation with rapid ventricular rate, Wide-complex tachycardia, Right-sided dual-chamber permanent pacemaker, Nonischemic cardiomyopathy Plan: Device interrogation showed atrial fibrillation with left bundle branch block. No ventricular tachycardia noted. Aggressive beta yvon, discontinue digoxin. Oral anticoagulation is recommended. LV systolic dysfunction noted on echocardiogram. Nonischemic artery myopathy. LifeVest is recommended. Likely due to severe systemic illness. It may improve with aggressive medical therapy. Right-sided dual-chamber permanent pacemaker, no acute issues. Discuss with Dr. Osorio and RN. Please call for any further electrophysiology issues. Thank you for your consultation. Please call me if you have any questions. Val Encarnacion MD, FACP, FACC, FSCAI, FHRS, CCDS Interventional Cardiology Cardiac Electrophysiology Vascular Medicine and Endovascular Interventions Kym ENCARNACION MD Jul 21, 2020 14:37
--- NOTE | 2020-07-21 14:58 | Physical Therapy Daily Note ---
PT Daily Note-Current Subjective Pt sitting in recliner upon arrival. Pt agrees to PT. 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 Pain Numeric Pain Scale: 5-Moderate Pain Location: Right Location Body Site: Knee Pain Description: Ache Mental Status Patient Orientation: Person, Confused, Place Transfers SCALE: Activities may be completed with or without assistive devices. 8-Zqrnjgyijv-nlvryko completes the activity by him/herself with no assistance from a helper. 5-Set-up or Clean-up Assistance-helper sets up or cleans up; patient completes activity. [place] assists only prior to or following the activity. 4-Supervision or Touching Assistance-helper provides verbal cues and/or touching/steadying and/or contact guard assistance as patient completes activity. Assistance may be provided throughout the activity or intermittently. 3-Partial/Moderate Assistance-helper does LESS THAN HALF the effort. [place] lifts, holds or supports trunk or limbs, but provides less than half the effort. 2-Substantial/Maximal Assistance-helper does MORE THAN HALF the effort. [place] lifts or holds trunk or limbs and provides more than half the effort. 8-Nvwkbfgfy-kegfda does ALL the effort. Patient does none of the effort to complete the activity. Or, the assistance of 2 or more helpers is required for the patient to complete the activity. If activity was not attempted, code reason: 7-Patient Refused. 9-Not Applicable-not attempted and the patient did not perform the activity before the current illness, exacerbation or injury. 10-Not Attempted due to Environmental Limitations-(lack of equipment, weather restraints, etc.). 88-Not Attempted due to Medical Conditions or Safety Concerns. Sit to Stand (QC): 5 Weight Bearing Right Lower Extremity: Right Full Weight Bearing Left Lower Extremity: Left Full Weight Bearing Gait Training Does the Patient Walk?: Yes Distance: 150' x2 Walk 10 feet (QC): 5 Walk 50 ft with 2 Turns(QC): 4 Walk 150 ft (QC): 4 Gait Persons Needed: 1 Gait Assistive Device: FWW Treatments TF to standing, amb in hallway before taking RB. Pt then amb. again for taking another RB. Pt takes short RB then amb. back to room. Pt resting in recliner with all needs met, repositioned to comfort. Call in hand. Assessment Current Status: Good Progress Pt walks farther before fatiguing today, still needing RB. PT Short Term Goals Short Term Goals Time Frame: Jul 21, 2020 Roll Left & Right: 6 Sit to lyin Lying to sitting on side of be: 4 Sit to stand: 4 Chair/piv-cr-lqeti transfer: 4 Toilet transfer: 4 Walk 10 feet: 3 Walk 50 feet with two turns: 3 PT Care Home Goals Care Home Goals PT [employer] Assembly Machine Tender Goals Time Frame: Aug 04, 2020 Roll Left & Right (QC): 6 Sit to Lying (QC): 6 Lying-Sitting on Side/Bed(QC): 6 Sit to Stand (QC): 4 (SBA) Chair/Hhz-oa-Ugbij Xfer(QC): 4 (SBA) Toilet Transfer (QC): 4 (SBA) Car Transfer (QC): 4 (SBA) Does the Patient Walk: Yes Walk 10 feet (QC): 4 (SBA) Walk 50ft with 2 Turns (QC): 4 (SBA) Walk 150 ft (QC): 4 (SBA) Walking 10ft on Uneven Surface: 4 (SBA) 1 Step (curb) (QC): 4 (SBA) 4 Steps (QC): 4 (SBA) 12 Steps (QC): 88 Picking up an Object (QC): 4 (SBA) Does the Pt use WC or Scooter?: Yes Wheel 50 feet with 2 turns (QC: 6 Type: Manual Wheel 150 feet: 6 Type: Manual PT Plan Problem List Problem List: Activity Tolerance, Functional Strength, Safety, Gait Treatment/Plan Treatment Plan: Continue Plan of Care Treatment Plan: Bed Mobility, Education, Functional Activity Rogelio, Functional Strength, Group Therapy, Gait, Safety, Therapeutic Exercise, Transfers Treatment Duration: Jul 28, 2020 Frequency: At least 5 of 7 days/Wk (IRF) Estimated Hrs Per Day: 1.5 hours per day Patient and/or Family Agrees t: Yes Safety Risks/Education Patient Education: Gait Training, Transfer Techniques, Correct Positioning, Safety Issues Teaching Recipient: Patient Teaching Methods: Discussion Response to Teaching: Reinforcement Needed Time/GCodes Time In: 1400 Time Out: 1430 Total Billed Treatment Time: 30 Total Billed Treatment 1, GT (20m) & FA (10m) REFUGIO STARR [employer] FACTORY WORKER Jul 21, 2020 14:58
[2020-07-21 17:37] VITALS: BP 140/60
[2020-07-21] MEDS: MELATONIN 3 MG TABLET PO PRN (21:26)
[2020-07-22] MEDS: RT-ALBUTEROL/IPRATROPIUM 3 ML (DUONEB) VIAL INH SCH ×6 (01:50→22:21)
[2020-07-22] MEDS: inSUlin ASPART (NovoLOG) 1 UNIT/0.01 ML (CHARGE PER UNIT) SC SCH ×4 (05:19→20:18)
[2020-07-22] MEDS: KCL 20 MEQ TAB (K-DUR) PO SCH (05:20)
[2020-07-22 05:53] VITALS: BP 138/64
[2020-07-22 08:00] VITALS: BP 123/58
[2020-07-22] MEDS: LACTOBACILLUS ACIDOPHILUS (PROBIOTIC) CAPSULE PO SCH ×3 (08:20→17:36)
[2020-07-22] MEDS: DIGOXIN 0.125 MG (LANOXIN) TAB PO SCH (08:22)
[2020-07-22] MEDS: THYROID (ARMOUR) 60 MG TABLET PO SCH ×2 (08:22→21:54)
[2020-07-22] MEDS: AMIODARONE 200 MG (CORDARONE) TAB PO SCH ×2 (08:22→21:54)
[2020-07-22] MEDS: APIXABAN 5 MG (ELIQUIS) TABLET PO SCH ×2 (08:23→21:53)
[2020-07-22] MEDS: DOCUSATE SODIUM 100 MG (COLACE) CAP PO SCH ×2 (08:27→20:18)
[2020-07-22] MEDS: polyethylene glycoL POWDER 17 GM (MIRALAX) PACK PO SCH ×2 (08:27→20:18)
[2020-07-22] MEDS: SENNA W/DOCUSATE (SENOKOT S) TABLET PO SCH ×2 (08:27→20:18)
--- NOTE | 2020-07-22 09:26 | Cardiology Progress Note ---
Subjective Date Seen by Provider: Jul 22, 2020 Time Seen by Provider: 09:24 Subjective/Events-last exam Patient was seen at bedside, complaining of fatigue and loss of energy Review of Systems General: Fatigue, Malaise HEENT: No Head Aches, No Visual Changes, No Eye Pain, No Ear Pain, No Dysphasia, No Sinus Congestion, No Post Nasal Drip, No Sore Throat, No Other Pulmonary: No Dyspnea, No Cough, No Pleuritic Chest Pain, No Other Cardiovascular: No: Chest Pain, Palpitations, Orthopnea, Paroxysmal Noc. Dyspnea, Edema, Lt Headedness, Other Objective-Cardiology Exam Last Set of Vital Signs Vital Signs 07/22/20 07/22/20 07/22/20 05:53 07:12 07:26 Temp 36.4 Pulse 64 Resp 18 B/P (MAP) 138/64 (88) Pulse Ox 95 O2 Delivery Nasal Cannula O2 Flow Rate 3.00 Capillary Refill : Less Than 3 SecondsLess Than 3 Seconds I&O Intake and Output 07/22/20 00:00 Intake Total 1530 ml Balance 1530 ml Intake Oral 1530 ml # Voids 9 # Bowel Movements 2 General: Alert, Oriented X3, Cooperative HEENT: Atraumatic, PERRLA Neck: Supple, No JVD, No Thyromegaly Lungs: Clear to Auscultation, Normal Air Movement Heart: Regular Rate, Normal S1, Normal S2, No Murmurs Abdomen: Normal Bowel Sounds, Soft, No Tenderness, No Hepatosplenomegaly, No Masses Extremities: No Clubbing, No Cyanosis, No Edema, Normal Pulses, No Tenderness/Swelling Skin: No Rashes, No Breakdown, No Significant Lesion Neuro: Normal Gait, Normal Speech, Strength at 5/5 X4 Ext, Normal Tone, Sensation Intact Psych/Mental Status: Mental Status NL, Mood NL A/P-Cardiology Admission Diagnosis Chest pain 2nd degree AV block PAF CHF Assessment/Plan Chest pain, resembling angina, improved. Cardiac cath done on 07/02/20 having m ild to moderate CAD, non obstructive disease Cardiomyopathy, nonischemic. Echo on 07/15/20: LVEF 25-30%, mild to mod MR, akinetic distal septum and apex. I will place patient on Life vest Second degree AV block, severe bradycardia status post dual-chamber pacemaker implanted by Dr. Encarnacion on 07/11/2020. Site is healing well Paroxysmal atrial fibrillation, on Amiodarone, continue to monitor. 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 Clinical Quality Measures DVT/VTE Risk/Contraindication: Risk Factor Score Per Nursin RFS Level Per Nursing on Admit: 4+=Very High ALLEN KUMAR MD Jul 22, 2020 9:26 am
--- NOTE | 2020-07-22 09:42 | Speech Therapy Daily Note ---
Speech Daily Progress Note Subjective Date Seen by Provider: Jul 22, 2020 Time Seen by Provider: 00:30 Patient was resting in her recliner, feet up, O2 on and alert. Objective Patient completed a series of memory/recall of verbally presented 4 and 5 items. Order recall at 80% with minimal cues, what's missing at 85% with minimal cues. Assessment Assessment Current Status: Good Progress Treatment Plan Continue Plan of Care Speech Short Term Goals Short Term Goals Short Term Goals 1) Patient will complete memory tasks related to her daily needs with minimal assist at 90% or greater. 2) Patient will complete safety awareness tasks related to her daily needs with minimal assist at 90% or greater. 3) Patient will complete problem solving tasks related to her daily needs with minimal assist at 90% or greater. Speech Rubber Good[employer] Cutter Finisher Goals Penitentiary Goals Patient will improve cognitive communication to complete daily tasks with m inimal assist. Speech-Plan Patient/Family Goals Patient/Family Goals: Patient is scheduled to return home with family and hired staff. Treatment Plan Speech Therapy Treatment Plan: Continue Plan of Care Treatment Duration: Jul 28, 2020 Frequency: 4 times per week (Patient will recieve ST 4-5x per day) Estimated Hrs Per Day: .5 hour per day Rehab Potential: Good Barriers to Learning: Patient's recent health issues, age Pt/Family Agrees to Plan: Yes Safety Risks/Education Teaching Recipient: Patient Teaching Methods: Demonstration, Discussion Response to Teaching: Verbalize Understanding, Return Demonstration Education Topics Provided: Continued safety within her room and on the ARU. Continued safety with oral intake and diet level upon her return home. Time Speech Therapy Time In: 08:30 Speech Therapy Time Out: 09:00 Total Billed Time: 30 Billed Treatment Time 1, SENDY, GABRIELA William Jul 22, 2020 09:42
--- NOTE | 2020-07-22 10:01 | Physical Therapy Daily Note ---
PT Daily Note-Current Subjective Pt sitting in recliner upon arrival. Pt agrees to PT. Pain Numeric Pain Scale: 5-Moderate Pain Location: Right Location Body Site: Knee Pain Description: Ache Mental Status Patient Orientation: Person, Place Attachments: Oxygen (2L) Transfers SCALE: Activities may be completed with or without assistive devices. 2-Dapahqolqc-tkhhuyi completes the activity by him/herself with no assistance from a helper. 5-Set-up or Clean-up Assistance-helper sets up or cleans up; patient completes activity. [place] assists only prior to or following the activity. 4-Supervision or Touching Assistance-helper provides verbal cues and/or touching/steadying and/or contact guard assistance as patient completes activity. Assistance may be provided throughout the activity or intermittently. 3-Partial/Moderate Assistance-helper does LESS THAN HALF the effort. [place] lifts, holds or supports trunk or limbs, but provides less than half the effort. 2-Substantial/Maximal Assistance-helper does MORE THAN HALF the effort. [place] lifts or holds trunk or limbs and provides more than half the effort. 4-Pnarimibq-ezvmqi does ALL the effort. Patient does none of the effort to complete the activity. Or, the assistance of 2 or more helpers is required for the patient to complete the activity. If activity was not attempted, code reason: 7-Patient Refused. 9-Not Applicable-not attempted and the patient did not perform the activity before the current illness, exacerbation or injury. 10-Not Attempted due to Environmental Limitations-(lack of equipment, weather restraints, etc.). 88-Not Attempted due to Medical Conditions or Safety Concerns. Sit to Stand (QC): 5 Toilet Transfer (QC): 5 Weight Bearing Right Lower Extremity: Right Full Weight Bearing Left Lower Extremity: Left Full Weight Bearing Gait Training Does the Patient Walk?: Yes Distance: 100' x2 Walk 10 feet (QC): 5 Walk 50 ft with 2 Turns(QC): 5 Gait Persons Needed: 1 Gait Assistive Device: FWW Exercises Seated Therapy Exercises: Ankle pumps, Long arc quads, Hip flexion, Kicking activity, Hip abd/add, Glut set Seated Reps: 15 Standing: Heel/toe raises, Marching, Mini squats Standing Reps: 15 NuStep Minutes: 9 NuStep Workload: 4 Assessment Current Status: Good Progress TF to standing then uses BR before amb. in hallway. Pt completes Seated Ex as well as a few Standing EX at //bars. Pt amb. in hallway, returning to room to rest in recliner. All needs met, call light in hand. PT Short Term Goals Short Term Goals Time Frame: Jul 21, 2020 Roll Left & Right: 6 Sit to lyin Lying to sitting on side of be: 4 Sit to stand: 4 Chair/fnr-ck-rqezu transfer: 4 Toilet transfer: 4 Walk 10 feet: 3 Walk 50 feet with two turns: 3 PT Care Home Goals Research Study Assistant Goals PT Care Home Goals Time Frame: Aug 04, 2020 Roll Left & Right (QC): 6 Sit to Lying (QC): 6 Lying-Sitting on Side/Bed(QC): 6 Sit to Stand (QC): 4 (SBA) Chair/Fhe-hi-Vejqb Xfer(QC): 4 (SBA) Toilet Transfer (QC): 4 (SBA) Car Transfer (QC): 4 (SBA) Does the Patient Walk: Yes Walk 10 feet (QC): 4 (SBA) Walk 50ft with 2 Turns (QC): 4 (SBA) Walk 150 ft (QC): 4 (SBA) Walking 10ft on Uneven Surface: 4 (SBA) 1 Step (curb) (QC): 4 (SBA) 4 Steps (QC): 4 (SBA) 12 Steps (QC): 88 Picking up an Object (QC): 4 (SBA) Does the Pt use WC or Scooter?: Yes Wheel 50 feet with 2 turns (QC: 6 Type: Manual Wheel 150 feet: 6 Type: Manual PT Plan Problem List Problem List: Activity Tolerance, Functional Strength Treatment/Plan Treatment Plan: Continue Plan of Care Treatment Plan: Bed Mobility, Education, Functional Activity Rogelio, Functional Strength, Group Therapy, Gait, Safety, Therapeutic Exercise, Transfers Treatment Duration: Jul 28, 2020 Frequency: At least 5 of 7 days/Wk (IRF) Estimated Hrs Per Day: 1.5 hours per day Patient and/or Family Agrees t: Yes Safety Risks/Education Patient Education: Gait Training, Transfer Techniques, Correct Positioning, Safety Issues Teaching Recipient: Patient Teaching Methods: Discussion Response to Teaching: Reinforcement Needed Time/GCodes Time In: 900 Time Out: 945 Total Billed Treatment Time: 45 Total Billed Treatment 1, GT (20m), FA (10m) & EX (15m) REFUGIO STARR LENS INSPECTOR Jul 22, 2020 10:01
--- NOTE | 2020-07-22 10:56 | PM&R Progress Note ---
Subjective HPI/CC On Admission Date Seen by Provider: Jul 22, 2020 Time Seen by Provider: 12:30 Subjective/Events-last exam 07/22/20: Patient doing better and better BM yesterday O2 sat 88% on room air so needs O2 prn No pain reported 07/21/20: Pt had a BM today Life-vest recommended from Dr. Encarnacion Decreasing oxygen use Sleeping pretty well but taking Xanax 07/20/20: Pt now on room air but asking for oxygen No need for oxygen at this time Lasix initiated for pulmonary edema which was helpful Anxiety is much improved Was able to see her dog in a dog visit yesterday and she was thrilled about that 07/19/20: Pt much improved Oriented x3 now Dr. Almendarez will be consulted for dyspnea Weaning off oxygen Hgb 8.8 Creatinine 1.43 She will see her dog today She thinks she has a UTI with frequency so will do an in and out cath and maintain the Vanc as order Cough is still present 07/18/20: No issues Weaning O2 Sees her pet dog tomorrow BM+ Ankle and knee good since injections DC commode and going to bathroom now 07/17/20: Dietary adding ADA to the low sodium diet BM moving well Ankle and knee improved Weaning O2 07/16/20: Patient transferred down from ICU Doing well overall Insists on using O2 but her O2 sats is 96% so weaning that Very psychotic thoughts noted Ankle and knee injected by James Camarillo and his help is appreciated to help participation in therapy Pt requiring O2 even though her oxygen level is good Pacemaker maintained Telemetry maintained by cardiology request Refuses oral potassium, she would rather have it through her IV so unsure how we are going to titrate that considering she really needs to be off IVs Vancomycin will be maintained until completed 14 days after most recent gram positive blood cultures Xanax really helped her anxiety We already discontinued the Still catheter, she hasnt voided yet WBC 13 A lot of psychosocial issues at home, will likely slow recovery After rounds in afternoon patient was noted to have abnormal Telemetry and was found to have AF w/RVR so moved to ICU. Review of Systems General: Fatigue, Malaise Pulmonary: Dyspnea Musculoskeletal: leg pain Objective Exam Vital Signs Vital Signs Date Time Temp Pulse Resp B/P (MAP) Pulse Ox O2 Delivery O2 Flow Rate FiO2 07/22/20 19:00 70 07/22/20 18:25 94 Nasal Cannula 2.00 07/22/20 17:21 36.3 16 134/65 (88) Capillary Refill : Less Than 3 SecondsLess Than 3 Seconds General Appearance: No Apparent Distress, WD/WN, Chronically ill HEENT: PERRL/EOMI, Normal ENT Inspection, Pharynx Normal Neck: Full Range of Motion, Normal Inspection, Non Tender, Supple, Carotid Bruit Respiratory: Chest Non Tender, Lungs Clear, Normal Breath Sounds, No Accessory Muscle Use, No Respiratory Distress Cardiovascular: Regular Rate, Rhythm, No Edema, No Gallop, No JVD, No Murmur, Normal Peripheral Pulses Gastrointestinal: Normal Bowel Sounds, No Organomegaly, No Pulsatile Mass, Non Tender, Soft Back: Normal Inspection, No CVA Tenderness, No Vertebral Tenderness Extremity: Normal Capillary Refill, Normal Inspection, Normal Range of Motion, Non Tender, No Calf Tenderness, No Pedal Edema Neurologic/Psychiatric: Alert, Oriented x3, No Motor/Sensory Deficits, Normal Mood/Affect, product safety test engineer II-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 FIM Transfers Therapy Code Descriptions/Definitions Functional [place] Measure: 0=Not Assessed/NA 4=Minimal Assistance 1=Total Assistance 5=Supervision or Setup 2=Maximal Assistance 6=Modified [place] 3=Moderate Assistance 7=Complete IndependenceSCALE: Activities may be completed with or without assistive devices. 1-Ysiweaejss-zndmqfl completes the activity by him/herself with no assistance from a helper. 5-Set-up or Clean-up Assistance-helper sets up or cleans up; patient completes activity. [place] assists only prior to or following the activity. 4-Supervision or Touching Assistance-helper provides verbal cues and/or touching/steadying and/or contact guard assistance as patient completes activity. Assistance may be provided throughout the activity or intermittently. 3-Partial/Moderate Assistance-helper does LESS THAN HALF the effort. [place] lifts, holds or supports trunk or limbs, but provides less than half the effort. 2-Substantial/Maximal Assistance-helper does MORE THAN HALF the effort. [place] lifts or holds trunk or limbs and provides more than half the effort. 9-Rhurckmqe-faoqyn does ALL the effort. Patient does none of the effort to complete the activity. Or, the assistance of 2 or more helpers is required for the patient to complete the activity. If activity was not attempted, code reason: 7-Patient Refused. 9-Not Applicable-not attempted and the patient did not perform the activity before the current illness, exacerbation or injury. 10-Not Attempted due to Environmental Limitations-(lack of equipment, weather restraints, etc.). 88-Not Attempted due to Medical Conditions or Safety Concerns. Sit to Lying (QC): 6 Sit to Stand (QC): 5 Chair/Mvl-jz-Hwoti Xfer(QC): 3 Car Transfer (QC): 3 Gait Training Does the Patient Walk?: Yes Distance: 100' x2 Walk 10 feet (QC): 5 Walk 50 ft with 2 Turns(QC): 5 Walk 150 ft (QC): 4 Walking 10ft/uneven surface-QC: 88 Gait Persons Needed: 1 Gait Assistive Device: FWW Wheelchair Training Does the Pt Use a Wheelchair?: Yes Distance: 150' Wheel 50 ft with 2 turns (QC): 4 Wheel 150 ft (QC): 4 Type of Wheelchair: Manual Stair Training 1 Step (curb) (QC): 88 4 Steps (QC): 88 12 Steps (QC): 88 Balance Picking up an Object (QC): 88 ADL-Treatment Eating (QC): 6 Oral Hygiene (QC): 5 Shower/Bathe Self (QC): 4 (SBA in shower.) Upper Body Dressing (QC): 5 Lower Body Dressing (QC): 4 (SBA to don brief and pants.) On/Off Footwear (QC): 4 (SBA to don slipper socks.) Toileting Hygiene (QC): 4 Toilet Transfer (QC): 4 Assessment/Plan Assessment and Plan Assess & Plan/Chief Complaint Assessment: Myopathy Critical illness source of weakness s/p pacemaker for heart block Venous access source of bacteremia maintained on Vanc BRENNON CAD non-obstructive HTN HLP Hyponatremia Anemia Still cath in place Plan: IRF protocol DC catheter Monitor labs Vanc 07/14/20: IV abx Moved to ICU temporarily for AF w/RVR Continue IRF protocol 07/16/20: Monitor heart rate Wean O2 Ankle and knee injections appreciated Monitor closely 07/18/20: Wean O2 Doing better Labs tomorrow 10/5/20: Appreciate Dr. Tanesha Pike to visit today 07/20/20: Maintain on room air Wean off oxygen Doing very well 07/21/20: Life vest per cardiology Wean oxygen Monitor closely Needs another week of rehab 07/22/20: O2 prn Monitor BP Life vest when she is DC (1) Myopathy (2) Bacteremia due to Staphylococcus epidermidis Status: Acute (3) Infection of venous access port Status: Acute (4) S/P placement of cardiac pacemaker Status: Acute (5) Euthyroid sick syndrome Status: Acute (6) S/p nephrectomy Status: Chronic (7) Hypothyroidism Status: Chronic (8) Renal cell carcinoma Status: Chronic (9) Low TSH level Status: Acute (10) T2DM (type 2 diabetes mellitus) Status: Chronic (11) HTN (hypertension) Status: Chronic (12) Second degree AV block Status: Acute (13) Kidney injury (14) Hyponatremia Status: Acute (15) Heart block KISHORE BENITEZ DO Jul 22, 2020 10:56
[2020-07-22] MEDS: SIMETHICONE 80 MG (MYLICON) CHEW PO PRN ×2 (13:24→17:27)
--- NOTE | 2020-07-22 14:11 | Physical Therapy Daily Note ---
PT Daily Note-Current Subjective Pt sitting in recliner upon arrival. Pt agrees to PT. Pain Numeric Pain Scale: 5-Moderate Pain Location: Right Location Body Site: Knee Pain Description: Ache Mental Status Patient Orientation: Person, Place Attachments: Oxygen (2L) Transfers SCALE: Activities may be completed with or without assistive devices. 9-Nisqtzhhue-eqauqkn completes the activity by him/herself with no assistance from a helper. 5-Set-up or Clean-up Assistance-helper sets up or cleans up; patient completes activity. [place] assists only prior to or following the activity. 4-Supervision or Touching Assistance-helper provides verbal cues and/or touching/steadying and/or contact guard assistance as patient completes activity. Assistance may be provided throughout the activity or intermittently. 3-Partial/Moderate Assistance-helper does LESS THAN HALF the effort. [place] lifts, holds or supports trunk or limbs, but provides less than half the effort. 2-Substantial/Maximal Assistance-helper does MORE THAN HALF the effort. [place] lifts or holds trunk or limbs and provides more than half the effort. 5-Nzfxcfkqp-mtptri does ALL the effort. Patient does none of the effort to complete the activity. Or, the assistance of 2 or more helpers is required for the patient to complete the activity. If activity was not attempted, code reason: 7-Patient Refused. 9-Not Applicable-not attempted and the patient did not perform the activity before the current illness, exacerbation or injury. 10-Not Attempted due to Environmental Limitations-(lack of equipment, weather restraints, etc.). 88-Not Attempted due to Medical Conditions or Safety Concerns. Sit to Stand (QC): 5 Toilet Transfer (QC): 5 Weight Bearing Right Lower Extremity: Right Full Weight Bearing Left Lower Extremity: Left Full Weight Bearing Exercises Seated Therapy Exercises: Ankle pumps, Long arc quads, Hip flexion, Kicking activity, Hip abd/add, Glut set Seated Reps: 15 Treatments TF to standing to use BR. Nurse examines bottom and applies cream. Pt returns to recliner to take med then completes Seated Ex. All needs met, call light in hand at end of tx. Assessment Current Status: Good Progress Pt fatigues, needing RB. PT Short Term Goals Short Term Goals Time Frame: Jul 21, 2020 Roll Left & Right: 6 Sit to lyin Lying to sitting on side of be: 4 Sit to stand: 4 Chair/asp-rf-bvixj transfer: 4 Toilet transfer: 4 Walk 10 feet: 3 Walk 50 feet with two turns: 3 PT Computer Applications Developer Goals Computer Applications Developer Goals PT Computer Applications Developer Goals Time Frame: Aug 04, 2020 Roll Left & Right (QC): 6 Sit to Lying (QC): 6 Lying-Sitting on Side/Bed(QC): 6 Sit to Stand (QC): 4 (SBA) Chair/Euz-pf-Eujpd Xfer(QC): 4 (SBA) Toilet Transfer (QC): 4 (SBA) Car Transfer (QC): 4 (SBA) Does the Patient Walk: Yes Walk 10 feet (QC): 4 (SBA) Walk 50ft with 2 Turns (QC): 4 (SBA) Walk 150 ft (QC): 4 (SBA) Walking 10ft on Uneven Surface: 4 (SBA) 1 Step (curb) (QC): 4 (SBA) 4 Steps (QC): 4 (SBA) 12 Steps (QC): 88 Picking up an Object (QC): 4 (SBA) Does the Pt use WC or Scooter?: Yes Wheel 50 feet with 2 turns (QC: 6 Type: Manual Wheel 150 feet: 6 Type: Manual PT Plan Problem List Problem List: Activity Tolerance, Functional Strength Treatment/Plan Treatment Plan: Continue Plan of Care Treatment Plan: Bed Mobility, Education, Functional Activity Rogelio, Functional Strength, Group Therapy, Gait, Safety, Therapeutic Exercise, Transfers Treatment Duration: Jul 28, 2020 Frequency: At least 5 of 7 days/Wk (IRF) Estimated Hrs Per Day: 1.5 hours per day Patient and/or Family Agrees t: Yes Safety Risks/Education Patient Education: Correct Positioning Teaching Recipient: Patient Teaching Methods: Discussion Response to Teaching: Verbalize Understanding Time/GCodes Time In: 1300 Time Out: 1330 Total Billed Treatment Time: 30 Total Billed Treatment 1, FA (15m) & EX (15m) REFUGIO STARR PTA Jul 22, 2020 14:11
--- NOTE | 2020-07-22 15:10 | Occupational Ther Daily Note ---
OT Current Status-Daily Note Subjective No pain reported. Appearance Pt. up in chair. Agrees to work with OT. Mental Status/Objective Patient Orientation: Person, Place, Time, Situation ADL-Treatment Therapy Code Descriptions/Definitions Functional [place] Measure: 0=Not Assessed/NA 4=Minimal Assistance 1=Total Assistance 5=Supervision or Setup 2=Maximal Assistance 6=Modified [place] 3=Moderate Assistance 7=Complete IndependenceSCALE: Activities may be completed with or without assistive devices. 1-Mipfdzocgf-hyjvnhy completes the activity by him/herself with no assistance from a helper. 5-Set-up or Clean-up Assistance-helper sets up or cleans up; patient completes activity. [place] assists only prior to or following the activity. 4-Supervision or Touching Assistance-helper provides verbal cues and/or touching/steadying and/or contact guard assistance as patient completes activity. Assistance may be provided throughout the activity or intermittently. 3-Partial/Moderate Assistance-helper does LESS THAN HALF the effort. [place] lifts, holds or supports trunk or limbs, but provides less than half the effort. 2-Substantial/Maximal Assistance-helper does MORE THAN HALF the effort. [place] lifts or holds trunk or limbs and provides more than half the effort. 9-Dhlpcgyhd-orcsnv does ALL the effort. Patient does none of the effort to complete the activity. Or, the assistance of 2 or more helpers is required for the patient to complete the activity. If activity was not attempted, code reason: 7-Patient Refused. 9-Not Applicable-not attempted and the patient did not perform the activity before the current illness, exacerbation or injury. 10-Not Attempted due to Environmental Limitations-(lack of equipment, weather restraints, etc.). 88-Not Attempted due to Medical Conditions or Safety Concerns. Upper Body Dressing (QC): 5 Lower Body Dressing (QC): 4 (SBA to don pants and brief.) On/Off Footwear: 4 Pt. declines showering or sponge bathing, stating that she didn't feel like it. Does agree to get dressed. Pt. requires rest breaks, but is able to dress self with no difficulty. Pt. able to stand at chairside without walker and pull up pants. After dressing tasks, pt. declines ambulation to therapy gym, stating that she is tired, but does agree to work in her room. OT brings in items to work with, and pt. participates in fine motor coordination tasks for strength ening and endurance. While doing this, pt. participates in cognitive task focusing on memory. She does well with this. All needs are met and pt. up in chair in room. Education OT Patient Education: Correct positioning, Exercise program, Modified ADL techniques, Progress toward Goal/Update tx plan, Purpose of tx/functional activities, Reviewed precautions, Rehab process, Transfer techniques Teaching Recipient: Patient Teaching Methods: Demonstration, Discussion Response to Teaching: Verbalize Understanding, Return Demonstration OT Short Term Goals Short Term Goals Time Frame: Jul 21, 2020 Eatin Oral hygiene: 5 Toileting hygiene: 3 Shower/bathe self: 4 Upper body dressin Lower body dressin Putting on/taking off footwear: 4 OT Shake Backboard Notcher Goals Shake Backboard Notcher Goals Time Frame: Jul 28, 2020 Eating (QC): 6 Oral Hygiene (QC): 6 Toileting Hygiene (QC): 6 Shower/Bathe Self (QC): 4 Upper Body Dressing (QC): 5 Lower Body Dressing (QC): 4 On/Off Footwear (QC): 4 Additional Goals: 1-Demonstrate ADL Tasks, 2-Verbalize Understanding, 3- ImproveStrength/Rogelio 1=Demonstrate adherence to instructed precautions during ADL tasks. 2=Patient will verbalize/demonstrate understanding of assistive devices/modifications for ADL. 3=Patient will improve strength/tolerance for activity to enable patient to perform ADL's. OT Education/Plan Problem List/Assessment Assessment: Decreased Activ Tolerance, Impaired I ADL's, Impaired Self-Care Skills Discharge Recommendations Plan/Recommendations: Continue POC Treatment Plan/Plan of Care Treatment,Training & Education: Yes Patient would benefit from OT for education, treatment and training to promote independence in ADL's, mobility, safety and/or upper extremity function for ADL's. Plan of Care: ADL Retraining, Functional Mobility, UE Funct Exercise/Act Treatment Duration: Jul 28, 2020 Frequency: At least 5 of 7 days/Wk (IRF) Estimated Hrs Per Day: 1.5 hours per day Agreement: Yes Rehab Potential: Good Time/GCodes Start Time: 10:45 Stop Time: 12:00 Total Time Billed (hr/min): 75 Billed Treatment Time 1, ADL x 45minutes, FA x 30minutes GLOIRA BANSAL OT Jul 22, 2020 15:10
--- NOTE | 2020-07-22 17:08 | NUR ---
Follow up visit: provided gentle guidance and empathic listening while facilitating continued reflection and life review. Pt states she believes she will not live many more years, and expressed desire to be a peace with God about her relationship with her brother, Glen. The pt expressed plans to contact her niece, Jess, to give her some family heirlooms and share her true feelings about Glen (Jess's dad). As the patient shared stories about helping deliver Glen when he was born, and helping raise him, this Flight Communications Operator offered that these stories could be healing and meaningful for both the patient and her niece. The pt reflected she felt she could "let go" of decisions she could not change, and that these choices did not have to rule her life. She expressed appreciation for our visits stating, "you lead me to find my own solution for my problems." This card tender validated the spiritual work and healing the patient thoughtfully engaged in during her hospital stay. She expressed feeling validated and understood.
[2020-07-22 17:21] VITALS: BP 134/65
[2020-07-22] MEDS: VANCOMYCIN INJECTION 1,000 MG in NS (IVPB) 250 ML IV SCH (17:36)
[2020-07-22] MEDS: ALPRAZolam 0.25 MG (XANAX) TAB PO PRN ×2 (17:36→21:54)
[2020-07-22] MEDS: MELATONIN 3 MG TABLET PO PRN (21:54)
[2020-07-23] MEDS: RT-ALBUTEROL/IPRATROPIUM 3 ML (DUONEB) VIAL INH SCH ×5 (01:27→21:50)
[2020-07-23] MEDS: inSUlin ASPART (NovoLOG) 1 UNIT/0.01 ML (CHARGE PER UNIT) SC SCH ×4 (05:46→21:11)
[2020-07-23] MEDS: KCL 20 MEQ TAB (K-DUR) PO SCH (05:46)
[2020-07-23 06:00] VITALS: BP 155/77
[2020-07-23 08:00] VITALS: BP 140/64
[2020-07-23] MEDS: AMIODARONE 200 MG (CORDARONE) TAB PO SCH ×2 (08:32→21:11)
[2020-07-23] MEDS: APIXABAN 5 MG (ELIQUIS) TABLET PO SCH ×2 (08:32→21:11)
[2020-07-23] MEDS: LACTOBACILLUS ACIDOPHILUS (PROBIOTIC) CAPSULE PO SCH ×3 (08:32→18:26)
[2020-07-23] MEDS: DIGOXIN 0.125 MG (LANOXIN) TAB PO SCH (08:33)
[2020-07-23] MEDS: DOCUSATE SODIUM 100 MG (COLACE) CAP PO SCH ×2 (08:33→21:10)
[2020-07-23] MEDS: SENNA W/DOCUSATE (SENOKOT S) TABLET PO SCH ×2 (08:33→21:10)
[2020-07-23] MEDS: THYROID (ARMOUR) 60 MG TABLET PO SCH ×2 (08:33→21:11)
[2020-07-23] MEDS: polyethylene glycoL POWDER 17 GM (MIRALAX) PACK PO SCH ×2 (08:33→21:10)
--- NOTE | 2020-07-23 09:26 | Occupational Ther Daily Note ---
OT Current Status-Daily Note Subjective Pt seen in room, up in recliner, agreeable to OT. No pain mentioned. Appearance Alert, cooperative ADL-Treatment Pt got up from recliner with SBA, walked SBA with FWW to bathroom, managing O2 tubing. Toilet transfer SBA, BSC over toilet, using arms on BSC. Managed cl othing and hygiene with SBA while standing. Walked SBA, FWW to sit EOB to clean up and dress. Stood SBA to wash don area, FWW. Pt also washed other areas while seated at EOB, using bath pack. Donned bra and shirt with setup. Pt educ modified technique to use with paper briefs. Skilled cue regarding O2 tubing management while dressing so that it's not under clothing. SBA to don pants and pull them up. Pt walked SBA, FWW to bathroom to brush teeth, needing only SBA for standing component but no help with cleaning her teeth. Pt returned SBA, FWW to recliner and was left up in chair, O2 in place, all needs met. Pt expressed interest in getting BSC to put over her toilet at home to raise the seat and provide arm supports. Therapy Code Descriptions/Definitions Functional [place] Measure: 0=Not Assessed/NA 4=Minimal Assistance 1=Total Assistance 5=Supervision or Setup 2=Maximal Assistance 6=Modified [place] 3=Moderate Assistance 7=Complete IndependenceSCALE: Activities may be completed with or without assistive devices. 1-Phlixddehu-rdvjuqz completes the activity by him/herself with no assistance from a helper. 5-Set-up or Clean-up Assistance-helper sets up or cleans up; patient completes activity. [place] assists only prior to or following the activity. 4-Supervision or Touching Assistance-helper provides verbal cues and/or touching/steadying and/or contact guard assistance as patient completes activity . Assistance may be provided throughout the activity or intermittently. 3-Partial/Moderate Assistance-helper does LESS THAN HALF the effort. [place] lifts, holds or supports trunk or limbs, but provides less than half the effort. 2-Substantial/Maximal Assistance-helper does MORE THAN HALF the effort. [place] lifts or holds trunk or limbs and provides more than half the effort. 6-Ioucagbgj-wjbbox does ALL the effort. Patient does none of the effort to complete the activity. Or, the assistance of 2 or more helpers is required for the patient to complete the activity. If activity was not attempted, code reason: 7-Patient Refused. 9-Not Applicable-not attempted and the patient did not perform the activity before the current illness, exacerbation or injury. 10-Not Attempted due to Environmental Limitations-(lack of equipment, weather restraints, etc.). 88-Not Attempted due to Medical Conditions or Safety Concerns. Oral Hygiene (QC): 6 (SBA for standing only but not for brushing teeth) Shower/Bathe Self (QC): 4 (SBA) Upper Body Dressing (QC): 5 (setup) Lower Body Dressing (QC): 4 (SBA) Toileting Hygiene (QC): 4 (SBA for clothing management) Toilet Transfer (QC): 4 (SBA) Education OT Patient Education: Modified ADL techniques, Progress toward Goal/Update tx plan, Purpose of tx/functional activities, Use of adapted equipment Teaching Recipient: Patient Teaching Methods: Demonstration, Discussion Response to Teaching: Verbalize Understanding, Return Demonstration OT Short Term Goals Short Term Goals Time Frame: Jul 21, 2020 Eatin Oral hygiene: 5 Toileting hygiene: 3 Shower/bathe self: 4 Upper body dressin Lower body dressin Putting on/taking off footwear: 4 OT Mcfp Goals Supervisor [place] Department Goals Time Frame: Jul 28, 2020 Eating (QC): 6 Oral Hygiene (QC): 6 Toileting Hygiene (QC): 6 Shower/Bathe Self (QC): 4 Upper Body Dressing (QC): 5 Lower Body Dressing (QC): 4 On/Off Footwear (QC): 4 Additional Goals: 1-Demonstrate ADL Tasks, 2-Verbalize Understanding, 3- ImproveStrength/Rogelio 1=Demonstrate adherence to instructed precautions during ADL tasks. 2=Patient will verbalize/demonstrate understanding of assistive devices/m odifications for ADL. 3=Patient will improve strength/tolerance for activity to enable patient to perform ADL's. OT Education/Plan Discharge Recommendations Plan/Recommendations: Continue POC Treatment Plan/Plan of Care Patient would benefit from OT for education, treatment and training to promote independence in ADL's, mobility, safety and/or upper extremity function for ADL's. Plan of Care: ADL Retraining, Functional Mobility, UE Funct Exercise/Act Treatment Duration: Jul 28, 2020 Frequency: At least 5 of 7 days/Wk (IRF) Estimated Hrs Per Day: 1.5 hours per day Agreement: Yes Rehab Potential: Good Time/GCodes Start Time: 08:30 Stop Time: 09:18 Total Time Billed (hr/min): 48 Billed Treatment Time visit, 48 minutes ADL JOY GRIFFIN OT Jul 23, 2020 09:26
--- NOTE | 2020-07-23 10:21 | Speech Therapy Daily Note ---
Speech Daily Progress Note Subjective Date Seen by Provider: Jul 23, 2020 Time Seen by Provider: 00:30 Patient was sitting up in her chair watching politics on television. Patient was alert and participated well. Objective Patient completed q/a related to current events and her routine upon her return home with >90% given minimal cues. Assessment Assessment Current Status: Good Progress Treatment Plan Continue Plan of Care Speech Short Term Goals Short Term Goals Short Term Goals 1) Patient will complete memory tasks related to her daily needs with minimal assist at 90% or greater. 2) Patient will complete safety awareness tasks related to her daily needs with minimal assist at 90% or greater. 3) Patient will complete problem solving tasks related to her daily needs with minimal assist at 90% or greater. Speech Intermediate Goals Prototype Engineer Goals Patient will improve cognitive communication to complete daily tasks with minimal assist. Speech-Plan Patient/Family Goals Patient/Family Goals: Patient is scheduled to return home early next week. She will have support of family, hired staff and home health. Treatment Plan Speech Therapy Treatment Plan: Continue Plan of Care Treatment Duration: Jul 28, 2020 Frequency: 4 times per week (Patient will recieve ST 4-5x per day) Estimated Hrs Per Day: .5 hour per day Rehab Potential: Guarded Barriers to Learning: Patient's recent health issues and age Pt/Family Agrees to Plan: Yes Safety Risks/Education Teaching Recipient: Patient Teaching Methods: Demonstration, Discussion Response to Teaching: Verbalize Understanding, Return Demonstration Education Topics Provided: Safety within her room and upon her return home. Safety with oral intake and continued modified diet level upon her return home. Time Speech Therapy Time In: 09:30 Speech Therapy Time Out: 10:00 Total Billed Time: 30 Billed Treatment Time 1ACE SLTS No [place], [address] ST Jul 23, 2020 10:21
--- NOTE | 2020-07-23 10:43 | PM&R Progress Note ---
Subjective HPI/CC On Admission Date Seen by Provider: Jul 23, 2020 Time Seen by Provider: 12:30 Subjective/Events-last exam 07/23/20: Sugar a bit more elevated before lunch today Wears O2 at night at home Using O2 most of the time while in IRF Doing well 07/22/20: Patient doing better and better BM yesterday O2 sat 88% on room air so needs O2 prn No pain reported 07/21/20: Pt had a BM today Life-vest recommended from Dr. Encarnacion Decreasing oxygen use Sleeping pretty well but taking Xanax 07/20/20: Pt now on room air but asking for oxygen No need for oxygen at this time Lasix initiated for pulmonary edema which was helpful Anxiety is much improved Was able to see her dog in a dog visit yesterday and she was thrilled about that 07/19/20: Pt much improved Oriented x3 now Dr. Almendarez will be consulted for dyspnea Weaning off oxygen Hgb 8.8 Creatinine 1.43 She will see her dog today She thinks she has a UTI with frequency so will do an in and out cath and maintain the Vanc as order Cough is still present 07/18/20: No issues Weaning O2 Sees her pet dog tomorrow BM+ Ankle and knee good since injections DC commode and going to bathroom now 07/17/20: Dietary adding ADA to the low sodium diet BM moving well Ankle and knee improved Weaning O2 07/16/20: Patient transferred down from ICU Doing well overall Insists on using O2 but her O2 sats is 96% so weaning that Very psychotic thoughts noted Ankle and knee injected by James Camarillo and his help is appreciated to help participation in therapy Pt requiring O2 even though her oxygen level is good Pacemaker maintained Telemetry maintained by cardiology request Refuses oral potassium, she would rather have it through her IV so unsure how we are going to titrate that considering she really needs to be off IVs Vancomycin will be maintained until completed 14 days after most recent gram positive blood cultures Xanax really helped her anxiety We already discontinued the Still catheter, she hasnt voided yet WBC 13 A lot of psychosocial issues at home, will likely slow recovery After rounds in afternoon patient was noted to have abnormal Telemetry and was found to have AF w/RVR so moved to ICU. Review of Systems General: Fatigue Pulmonary: Dyspnea Objective Exam Vital Signs Vital Signs Date Time Temp Pulse Resp B/P (MAP) Pulse Ox O2 Delivery O2 Flow Rate FiO2 07/24/20 05:03 36.6 65 18 131/60 (83) 96 Nasal Cannula 2.00 Capillary Refill : Less Than 3 SecondsLess Than 3 Seconds General Appearance: No Apparent Distress, WD/WN, Chronically ill HEENT: PERRL/EOMI, Normal ENT Inspection, Pharynx Normal Neck: Full Range of Motion, Normal Inspection, Non Tender, Supple, Carotid Bruit Respiratory: Chest Non Tender, Lungs Clear, Normal Breath Sounds, No Accessory Muscle Use, No Respiratory Distress Cardiovascular: Regular Rate, Rhythm, No Edema, No Gallop, No JVD, No Murmur, Normal Peripheral Pulses Gastrointestinal: Normal Bowel Sounds, No Organomegaly, No Pulsatile Mass, Non Tender, Soft Back: Normal Inspection, No CVA Tenderness, No Vertebral Tenderness Extremity: Normal Capillary Refill, Normal Inspection, Normal Range of Motion, Non Tender, No Calf Tenderness, No Pedal Edema Neurologic/Psychiatric: Alert, Oriented x3, No Motor/Sensory Deficits, Normal Mood/Affect, associate professor of criminal justice II-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 FIM Transfers Therapy Code Descriptions/Definitions Functional Yell Measure: 0=Not Assessed/NA 4=Minimal Assistance 1=Total Assistance 5=Supervision or Setup 2=Maximal Assistance 6=Modified Yell 3=Moderate Assistance 7=Complete IndependenceSCALE: Activities may be completed with or without assistive devices. 4-Twsxlyhcro-fmfmfna completes the activity by him/herself with no assistance from a helper. 5-Set-up or Clean-up Assistance-helper sets up or cleans up; patient completes activity. [place] assists only prior to or following the activity. 4-Supervision or Touching Assistance-helper provides verbal cues and/or touching/steadying and/or contact guard assistance as patient completes activity. Assistance may be provided throughout the activity or intermittently. 3-Partial/Moderate Assistance-helper does LESS THAN HALF the effort. [place] lifts, holds or supports trunk or limbs, but provides less than half the effort. 2-Substantial/Maximal Assistance-helper does MORE THAN HALF the effort. [place] lifts or holds trunk or limbs and provides more than half the effort. 8-Twbmggnvc-vqmrjh does ALL the effort. Patient does none of the effort to complete the activity. Or, the assistance of 2 or more helpers is required for the patient to complete the activity. If activity was not attempted, code reason: 7-Patient Refused. 9-Not Applicable-not attempted and the patient did not perform the activity before the current illness, exacerbation or injury. 10-Not Attempted due to Environmental Limitations-(lack of equipment, weather restraints, etc.). 88-Not Attempted due to Medical Conditions or Safety Concerns. Sit to Lying (QC): 6 Sit to Stand (QC): 5 Chair/Ohx-ib-Iflzr Xfer(QC): 3 Car Transfer (QC): 3 Gait Training Does the Patient Walk?: Yes Distance: 100' x2 Walk 10 feet (QC): 5 Walk 50 ft with 2 Turns(QC): 5 Walk 150 ft (QC): 4 Walking 10ft/uneven surface-QC: 88 Gait Persons Needed: 1 Gait Assistive Device: FWW Wheelchair Training Does the Pt Use a Wheelchair?: Yes Distance: 150' Wheel 50 ft with 2 turns (QC): 4 Wheel 150 ft (QC): 4 Type of Wheelchair: Manual Stair Training 1 Step (curb) (QC): 88 4 Steps (QC): 88 12 Steps (QC): 88 Balance Picking up an Object (QC): 88 ADL-Treatment Eating (QC): 6 Oral Hygiene (QC): 6 (SBA for standing only but not for brushing teeth) Shower/Bathe Self (QC): 4 (SBA) Upper Body Dressing (QC): 5 (setup) Lower Body Dressing (QC): 4 (SBA) On/Off Footwear (QC): 4 Toileting Hygiene (QC): 4 (SBA for clothing management) Toilet Transfer (QC): 4 (SBA) Assessment/Plan Assessment and Plan Assess & Plan/Chief Complaint Assessment: Myopathy Critical illness source of weakness s/p pacemaker for heart block Venous access source of bacteremia maintained on Vanc BRENNON CAD non-obstructive HTN HLP Hyponatremia Anemia Still cath in place Plan: IRF protocol DC catheter Monitor labs Vanc 07/14/20: IV abx Moved to ICU temporarily for AF w/RVR Continue IRF protocol 07/16/20: Monitor heart rate Wean O2 Ankle and knee injections appreciated Monitor closely 07/18/20: Wean O2 Doing better Labs tomorrow 07/19/20: Appreciate Dr. Tanesha Lee Dog to visit today 07/20/20: Maintain on room air Wean off oxygen Doing very well 07/21/20: Life vest per cardiology Wean oxygen Monitor closely Needs another week of rehab 07/22/20: O2 prn Monitor BP Life vest when she is DC 07/23/20: Monitor sugar elevation O2 IRF dramatically improving status (1) Myopathy (2) Bacteremia due to Staphylococcus epidermidis Status: Acute (3) Infection of venous access port Status: Acute (4) S/P placement of cardiac pacemaker Status: Acute (5) Euthyroid sick syndrome Status: Acute (6) S/p nephrectomy Status: Chronic (7) Hypothyroidism Status: Chronic (8) Renal cell carcinoma Status: Chronic (9) Low TSH level Status: Acute (10) T2DM (type 2 diabetes mellitus) Status: Chronic (11) HTN (hypertension) Status: Chronic (12) Second degree AV block Status: Acute (13) Kidney injury (14) Hyponatremia Status: Acute (15) Heart block KISHORE BENITEZ DO Jul 23, 2020 10:43
--- NOTE | 2020-07-23 11:02 | Physical Therapy Daily Note ---
PT Daily Note-Current Subjective Pt. agrees to Rx, states she is so pleased with her progress Pain Numeric Pain Scale: 4 Location: Right Location Body Site: Toe (great toe) Pain Description: Pricking Comment: toe inspected, no redness, no swellng Mental Status Patient Orientation: Normal For Age Attachments: Oxygen (1L) Transfers SCALE: Activities may be completed with or without assistive devices. 1-Jdnryhbfzc-effxcfv completes the activity by him/herself with no assistance from a helper. 5-Set-up or Clean-up Assistance-helper sets up or cleans up; patient completes activity. [place] assists only prior to or following the activity. 4-Supervision or Touching Assistance-helper provides verbal cues and/or touching/steadying and/or contact guard assistance as patient completes activity. Assistance may be provided throughout the activity or intermittently. 3-Partial/Moderate Assistance-helper does LESS THAN HALF the effort. [place] lifts, holds or supports trunk or limbs, but provides less than half the effort. 2-Substantial/Maximal Assistance-helper does MORE THAN HALF the effort. [place] lifts or holds trunk or limbs and provides more than half the effort. 3-Uchnozcro-gbtihb does ALL the effort. Patient does none of the effort to complete the activity. Or, the assistance of 2 or more helpers is required for the patient to complete the activity. If activity was not attempted, code reason: 7-Patient Refused. 9-Not Applicable-not attempted and the patient did not perform the activity b efore the current illness, exacerbation or injury. 10-Not Attempted due to Environmental Limitations-(lack of equipment, weather restraints, etc.). 88-Not Attempted due to Medical Conditions or Safety Concerns. Roll Left & Right (QC): 6 Sit to Lying (QC): 6 Lying to Sitting/Side of Bed(Q: 6 Sit to Stand (QC): 6 Chair/Ady-lr-Qiyoz Xfer(QC): 6 Toilet Transfer (QC): 6 Car Transfer (QC): 6 Weight Bearing Right Lower Extremity: Right Full Weight Bearing Left Lower Extremity: Left Full Weight Bearing Gait Training Does the Patient Walk?: Yes Walk 10 feet (QC): 6 Walk 50 ft with 2 Turns(QC): 6 Walk 150 ft (QC): 6 Gait Persons Needed: 1 Gait Assistive Device: FWW gait at rail in avilez as pt. wanted to trial gait without device, no LOB, assist only for port O2 Exercises Seated Therapy Exercises: Ankle pumps, Sit to stand, Long arc quads, Hip flexion, Hip abd/add Seated Reps: 15 NuStep Minutes: 10 NuStep Workload: 4 Assessment Current Status: Good Progress PT Short Term Goals Short Term Goals Time Frame: Jul 21, 2020 Roll Left & Right: 6 Sit to lyin Lying to sitting on side of be: 4 Sit to stand: 4 Chair/stp-by-tzupa transfer: 4 Toilet transfer: 4 Walk 10 feet: 3 Walk 50 feet with two turns: 3 PT Senior Living Goals Senior Consulting Manager Goals PT Senior Consulting Manager Goals Time Frame: Aug 04, 2020 Roll Left & Right (QC): 6 Sit to Lying (QC): 6 Lying-Sitting on Side/Bed(QC): 6 Sit to Stand (QC): 4 (SBA) Chair/Miq-qj-Xqlag Xfer(QC): 4 (SBA) Toilet Transfer (QC): 4 (SBA) Car Transfer (QC): 4 (SBA) Does the Patient Walk: Yes Walk 10 feet (QC): 4 (SBA) Walk 50ft with 2 Turns (QC): 4 (SBA) Walk 150 ft (QC): 4 (SBA) Walking 10ft on Uneven Surface: 4 (SBA) 1 Step (curb) (QC): 4 (SBA) 4 Steps (QC): 4 (SBA) 12 Steps (QC): 88 Picking up an Object (QC): 4 (SBA) Does the Pt use WC or Scooter?: Yes Wheel 50 feet with 2 turns (QC: 6 Type: Manual Wheel 150 feet: 6 Type: Manual PT Plan Treatment/Plan Treatment Plan: Continue Plan of Care Treatment Plan: Bed Mobility, Education, Functional Activity Rogelio, Functional Strength, Group Therapy, Gait, Safety, Therapeutic Exercise, Transfers Treatment Duration: Jul 28, 2020 Frequency: At least 5 of 7 days/Wk (IRF) Estimated Hrs Per Day: 1.5 hours per day Patient and/or Family Agrees t: Yes Safety Risks/Education Patient Education: Gait Training, Transfer Techniques, Correct Positioning, Disease Process, Safety Issues Teaching Recipient: Patient Teaching Methods: Demonstration, Discussion Response to Teaching: Verbalize Understanding, Return Demonstration, R einforcement Needed Time/GCodes Time In: 1000 Time Out: 1100 Total Billed Treatment Time: 60 Total Billed Treatment 1,GT15,EX25m,FA20m KRYSTINA BURGOS DIRECTOR FIXED INCOME Jul 23, 2020 11:02
--- NOTE | 2020-07-23 11:33 | Cardiology Progress Note ---
Subjective Date Seen by Provider: Jul 23, 2020 Time Seen by Provider: 11:32 Subjective/Events-last exam Patient is sitting in a chair, feeling better. Still having mild dyspnea Review of Systems General: No Chills, No Night Sweats, No Fatigue, No Malaise, No Appetite, No Ot her HEENT: No Head Aches, No Visual Changes, No Eye Pain, No Ear Pain, No Dysphasia, No Sinus Congestion, No Post Nasal Drip, No Sore Throat, No Other Pulmonary: Dyspnea; No Cough, No Pleuritic Chest Pain, No Other Cardiovascular: No: Chest Pain, Palpitations, Orthopnea, Paroxysmal Noc. Dyspnea, Edema, Lt Headedness, Other Objective-Cardiology Exam Last Set of Vital Signs Vital Signs 07/23/20 07/23/20 07/23/20 07/23/20 06:00 07:00 07:19 09:41 Temp 36.7 Pulse 67 Resp 22 B/P (MAP) 155/77 (103) Pulse Ox 97 O2 Delivery Room Air O2 Flow Rate 2.00 Capillary Refill : Less Than 3 SecondsLess Than 3 Seconds I&O Intake and Output 07/23/20 00:00 Intake Total 1040 ml Output Total 4 ml Balance 1036 ml Intake Oral 1040 ml Output Urine Total 4 ml # Voids 4 # Bowel Movements 1 General: Alert, Oriented X3, Cooperative HEENT: Atraumatic, PERRLA Neck: Supple, No JVD, No Thyromegaly Lungs: Clear to Auscultation, Normal Air Movement Heart: Regular Rate, Normal S1, Normal S2, No Murmurs Abdomen: Normal Bowel Sounds, Soft, No Tenderness, No Hepatosplenomegaly, No Masses Extremities: No Clubbing, No Cyanosis, No Edema, Normal Pulses, No Tenderness/Swelling Skin: No Rashes, No Breakdown, No Significant Lesion Neuro: Normal Gait, Normal Speech, Strength at 5/5 X4 Ext, Normal Tone, Sensation Intact Psych/Mental Status: Mental Status NL, Mood NL A/P-Cardiology Admission Diagnosis Chest pain 2nd degree AV block PAF CHF Assessment/Plan Mild coronary artery disease, Cardiac cath done on 07/02/20 having mild to moderate CAD, non obstructive disease Cardiomyopathy, nonischemic. Echo on 07/15/20: LVEF 25-30%, mild to mod MR, akine tic distal septum and apex. Having a LifeVest Second degree AV block, severe bradycardia status post dual-chamber pacemaker implanted by Dr. Encarnacion on 07/11/2020. Site is healing well Paroxysmal atrial fibrillation, on Amiodarone, continue to monitor. 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 Clinical Quality Measures DVT/VTE Risk/Contraindication: Risk Factor Score Per Nursin RFS Level Per Nursing on Admit: 4+=Very High ALLEN KUMAR MD Jul 23, 2020 11:33 am
--- NOTE | 2020-07-23 12:39 | NUR ---
CM/SS DISCHARGE PLANNING Patient requested a stool riser and/or bedside commode. Industrial Organization Manager explained that both are private pay items, patient determined that she will explore this with her caregivers once she is back home. [facility] PT is the post hospital plan for patient, target discharge July 27.
[2020-07-23] MEDS: SIMETHICONE 80 MG (MYLICON) CHEW PO PRN (14:20)
--- NOTE | 2020-07-23 14:24 | Therapy Group Daily Note ---
Therapy Daily Group Note Patient Education Topic Other List Below (ARU expectations, planning DC) Exercises LE Seated Exercise, UE Exercise Session Ratio (pt:therapist): 4:1 Goal of Session: Education on ARU Expectations, Memory Strategies, UE/LE Strengthing Goal Met for this Session: Yes Pt Benefit of Group: Contributions to Others, Increased Functional Strength, Recognition of Peers, Socialization Other/Notes Pt. participated in group PT OT session this date. Pt. ambulated to and from with CGA. Pt. was social, introduced herself and shared "how she made her first dollar" Pts were educated on ARU practices and expectations. Seated U&L extremity exercises were done with some being lead by patients who were willing to share exercises the y either used at home or have learned here and have incorporated in to their routine. Pts. participated in memory challenge by establishing 3 categories and 3 words in the beginning of the group session then recalling them later. Pt. returned to room and to bed with assist and hernandez at hand Start Time: 13:00 Stop Time: 14:10 Total Billed Treatment Time: 70 Total Billed Treatment 1,GRP 70m KRYSTINA BURGOS DIGITAL CONTROLS TECHNICAL OFFICER Jul 23, 2020 14:24
[2020-07-23 17:41] VITALS: BP 136/64
[2020-07-23 21:04] VITALS: BP 139/65
[2020-07-23] MEDS: ALPRAZolam 0.25 MG (XANAX) TAB PO PRN (21:10)
[2020-07-23] MEDS: CATHETER FLUSH 10 ML SYR IV SCH (21:15)
[2020-07-23] MEDS: MELATONIN 3 MG TABLET PO PRN (23:22)
[2020-07-24] MEDS: ALPRAZolam 0.25 MG (XANAX) TAB PO PRN ×3 (01:47→21:04)
[2020-07-24] MEDS: RT-ALBUTEROL/IPRATROPIUM 3 ML (DUONEB) VIAL INH SCH ×6 (02:59→22:15)
[2020-07-24 05:03] VITALS: BP 131/60
[2020-07-24] MEDS: inSUlin ASPART (NovoLOG) 1 UNIT/0.01 ML (CHARGE PER UNIT) SC SCH ×4 (06:01→21:02)
[2020-07-24] MEDS: KCL 20 MEQ TAB (K-DUR) PO SCH (06:02)
[2020-07-24] MEDS: CATHETER FLUSH 10 ML SYR IV SCH ×3 (06:07→21:02)
[2020-07-24] MEDS: polyethylene glycoL POWDER 17 GM (MIRALAX) PACK PO SCH ×2 (09:00→21:03)
[2020-07-24] MEDS: DIGOXIN 0.125 MG (LANOXIN) TAB PO SCH (09:03)
[2020-07-24] MEDS: THYROID (ARMOUR) 60 MG TABLET PO SCH ×2 (09:03→21:04)
[2020-07-24] MEDS: LACTOBACILLUS ACIDOPHILUS (PROBIOTIC) CAPSULE PO SCH ×3 (09:03→18:21)
[2020-07-24] MEDS: AMIODARONE 200 MG (CORDARONE) TAB PO SCH ×2 (09:03→21:04)
[2020-07-24] MEDS: DOCUSATE SODIUM 100 MG (COLACE) CAP PO SCH ×2 (09:03→21:03)
[2020-07-24] MEDS: SENNA W/DOCUSATE (SENOKOT S) TABLET PO SCH ×2 (09:03→21:03)
[2020-07-24] MEDS: APIXABAN 5 MG (ELIQUIS) TABLET PO SCH ×2 (09:03→21:03)
[2020-07-24 09:04] VITALS: BP 123/58
[2020-07-24] MEDS: SIMETHICONE 80 MG (MYLICON) CHEW PO PRN (09:39)
--- NOTE | 2020-07-24 12:17 | Physical Therapy Daily Note ---
PT Daily Note-Current Subjective Patient in recliner pre tx, agrees to PT but patient has been vomiting a lot this morning, she says she still feels nauseated but agrees to seated exercises. Appearance Patient in recliner post tx with nurse call, phone, tray, all needs met. Mental Status Patient Orientation: Person, Place, Situation Transfers SCALE: Activities may be completed with or without assistive devices. 5-Geofeqgdmn-cxyaudi completes the activity by him/herself with no assistance from a helper. 5-Set-up or Clean-up Assistance-helper sets up or cleans up; patient completes activity. [place] assists only prior to or following the activity. 4-Supervision or Touching Assistance-helper provides verbal cues and/or touching/steadying and/or contact guard assistance as patient completes activity. Assistance may be provided throughout the activity or intermittently. 3-Partial/Moderate Assistance-helper does LESS THAN HALF the effort. [place] lifts, holds or supports trunk or limbs, but provides less than half the effort. 2-Substantial/Maximal Assistance-helper does MORE THAN HALF the effort. [place] lifts or holds trunk or limbs and provides more than half the effort. 7-Vomsxghfg-thcout does ALL the effort. Patient does none of the effort to complete the activity. Or, the assistance of 2 or more helpers is required for the patient to complete the activity. If activity was not attempted, code reason: 7-Patient Refused. 9-Not Applicable-not attempted and the patient did not perform the activity before the current illness, exacerbation or injury. 10-Not Attempted due to Environmental Limitations-(lack of equipment, weather restraints, etc.). 88-Not Attempted due to Medical Conditions or Safety Concerns. Weight Bearing Right Lower Extremity: Right Full Weight Bearing Left Lower Extremity: Left Full Weight Bearing Exercises Supine Ex: Quad Set, Glut sets, Heel Slides Supine Reps: 20 (done in recliner with legs elevated.) Seated Therapy Exercises: Ankle pumps, Long arc quads, Hip abd/add Seated Reps: 20 Treatments LE exercise Assessment Current Status: Fair Progress overall patient is proud of her progress and states she is ambulating better. PT Short Term Goals Short Term Goals Time Frame: Jul 21, 2020 Roll Left & Right: 6 Sit to lyin Lying to sitting on side of be: 4 Sit to stand: 4 Chair/nzm-qy-oxmgl transfer: 4 Toilet transfer: 4 Walk 10 feet: 3 Walk 50 feet with two turns: 3 PT [facility] Goals [facility] Goals PT Supervisor [employer] [place] Goals Time Frame: Aug 04, 2020 Roll Left & Right (QC): 6 Sit to Lying (QC): 6 Lying-Sitting on Side/Bed(QC): 6 Sit to Stand (QC): 4 (SBA) Chair/Zyf-tj-Mslrh Xfer(QC): 4 (SBA) Toilet Transfer (QC): 4 (SBA) Car Transfer (QC): 4 (SBA) Does the Patient Walk: Yes Walk 10 feet (QC): 4 (SBA) Walk 50ft with 2 Turns (QC): 4 (SBA) Walk 150 ft (QC): 4 (SBA) Walking 10ft on Uneven Surface: 4 (SBA) 1 Step (curb) (QC): 4 (SBA) 4 Steps (QC): 4 (SBA) 12 Steps (QC): 88 Picking up an Object (QC): 4 (SBA) Does the Pt use WC or Scooter?: Yes Wheel 50 feet with 2 turns (QC: 6 Type: Manual Wheel 150 feet: 6 Type: Manual PT Plan Problem List Problem List: Activity Tolerance, Functional Strength, Safety, Balance, Gait, Transfer, Bed Mobility, ROM Treatment/Plan Treatment Plan: Continue Plan of Care Treatment Plan: Bed Mobility, Education, Functional Activity Rogelio, Functional Strength, Group Therapy, Gait, Safety, Therapeutic Exercise, Transfers Treatment Duration: Jul 28, 2020 Frequency: At least 5 of 7 days/Wk (IRF) Estimated Hrs Per Day: 1.5 hours per day Patient and/or Family Agrees t: Yes Safety Risks/Education Patient Education: Correct Positioning, Safety Issues Teaching Recipient: Patient Teaching Methods: Demonstration, Discussion Response to Teaching: Reinforcement Needed Time/GCodes Time In: 1206 Time Out: 1216 Total Billed Treatment Time: 10 Total Billed Treatment 1 visit EX SHANICE CARRASCO PT Jul 24, 2020 12:17
--- NOTE | 2020-07-24 12:19 | PM&R Progress Note ---
Subjective HPI/CC On Admission Date Seen by Provider: Jul 24, 2020 Time Seen by Provider: 12:30 Subjective/Events-last exam 07/24/20: Ate some grapes and had choking spell and took Xanax and mylanta and took awhile before she was able to get past it Needs carbonated beverage to help also Had emesis during episode too Overlal very weak today she reports BM++ 07/23/20: Sugar a bit more elevated before lunch today Wears O2 at night at home Using O2 most of the time while in IRF Doing well 07/22/20: Patient doing better and better BM yesterday O2 sat 88% on room air so needs O2 prn No pain reported 07/21/20: Pt had a BM today Life-vest recommended from Dr. Encarnacion Decreasing oxygen use Sleeping pretty well but taking Xanax 07/20/20: Pt now on room air but asking for oxygen No need for oxygen at this time Lasix initiated for pulmonary edema which was helpful Anxiety is much improved Was able to see her dog in a dog visit yesterday and she was thrilled about that 07/19/20: Pt much improved Oriented x3 now Dr. Almendarez will be consulted for dyspnea Weaning off oxygen Hgb 8.8 Creatinine 1.43 She will see her dog today She thinks she has a UTI with frequency so will do an in and out cath and maintain the Vanc as order Cough is still present 07/18/20: No issues Weaning O2 Sees her pet dog tomorrow BM+ Ankle and knee good since injections DC commode and going to bathroom now 07/17/20: Dietary adding ADA to the low sodium diet BM moving well Ankle and knee improved Weaning O2 07/16/20: Patient transferred down from ICU Doing well overall Insists on using O2 but her O2 sats is 96% so weaning that Very psychotic thoughts noted Ankle and knee injected by James Camarillo and his help is appreciated to help participation in therapy Pt requiring O2 even though her oxygen level is good Pacemaker maintained Telemetry maintained by cardiology request Refuses oral potassium, she would rather have it through her IV so unsure how we are going to titrate that considering she really needs to be off IVs Vancomycin will be maintained until completed 14 days after most recent gram positive blood cultures Xanax really helped her anxiety We already discontinued the Still catheter, she hasnt voided yet WBC 13 A lot of psychosocial issues at home, will likely slow recovery After rounds in afternoon patient was noted to have abnormal Telemetry and was found to have AF w/RVR so moved to ICU. Review of Systems General: Fatigue, Malaise Pulmonary: Dyspnea, Cough Objective Exam Vital Signs Vital Signs Date Time Temp Pulse Resp B/P (MAP) Pulse Ox O2 Delivery O2 Flow Rate FiO2 07/25/20 05:06 36.8 63 16 138/63 (88) 93 Nasal Cannula 2.00 Capillary Refill : Less Than 3 SecondsLess Than 3 Seconds General Appearance: No Apparent Distress, WD/WN, Chronically ill HEENT: PERRL/EOMI, Normal ENT Inspection, Pharynx Normal Neck: Full Range of Motion, Normal Inspection, Non Tender, Supple, Carotid Bruit Respiratory: Chest Non Tender, Lungs Clear, Normal Breath Sounds, No Accessory Muscle Use, No Respiratory Distress Cardiovascular: Regular Rate, Rhythm, No Edema, No Gallop, No JVD, No Murmur, Normal Peripheral Pulses Gastrointestinal: Normal Bowel Sounds, No Organomegaly, No Pulsatile Mass, Non Tender, Soft Back: Normal Inspection, No CVA Tenderness, No Vertebral Tenderness Extremity: Normal Capillary Refill, Normal Inspection, Normal Range of Motion, Non Tender, No Calf Tenderness, No Pedal Edema Neurologic/Psychiatric: Alert, Oriented x3, No Motor/Sensory Deficits, Normal 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 FIM Transfers Therapy Code Descriptions/Definitions Functional [place] Measure: 0=Not Assessed/NA 4=Minimal Assistance 1=Total Assistance 5=Supervision or Setup 2=Maximal Assistance 6=Modified [place] 3=Moderate Assistance 7=Complete IndependenceSCALE: Activities may be completed with or without assistive devices. 6-Zrxbdfuxxd-qhvfdba completes the activity by him/herself with no assistance from a helper. 5-Set-up or Clean-up Assistance-helper sets up or cleans up; patient completes activity. [place] assists only prior to or following the activity. 4-Supervision or Touching Assistance-helper provides verbal cues and/or touching/steadying and/or contact guard assistance as patient completes activity. Assistance may be provided throughout the activity or intermittently. 3-Partial/Moderate Assistance-helper does LESS THAN HALF the effort. [place] lifts, holds or supports trunk or limbs, but provides less than half the effort. 2-Substantial/Maximal Assistance-helper does MORE THAN HALF the effort. [place] lifts or holds trunk or limbs and provides more than half the effort. 5-Zfpnxbfli-vznmeh does ALL the effort. Patient does none of the effort to complete the activity. Or, the assistance of 2 or more helpers is required for the patient to complete the activity. If activity was not attempted, code reason: 7-Patient Refused. 9-Not Applicable-not attempted and the patient did not perform the activity before the current illness, exacerbation or injury. 10-Not Attempted due to Environmental Limitations-(lack of equipment, weather restraints, etc.). 88-Not Attempted due to Medical Conditions or Safety Concerns. Roll Left to Right (QC): 6 Sit to Lying (QC): 6 Sit to Stand (QC): 6 Chair/Nfp-qe-Tizky Xfer(QC): 6 Car Transfer (QC): 6 Gait Training Does the Patient Walk?: Yes Distance: 100' x2 Walk 10 feet (QC): 6 Walk 50 ft with 2 Turns(QC): 6 Walk 150 ft (QC): 6 Walking 10ft/uneven surface-QC: 88 Gait Persons Needed: 1 Gait Assistive Device: FWW Wheelchair Training Does the Pt Use a Wheelchair?: Yes Distance: 150' Wheel 50 ft with 2 turns (QC): 4 Wheel 150 ft (QC): 4 Type of Wheelchair: Manual Stair Training 1 Step (curb) (QC): 88 4 Steps (QC): 88 12 Steps (QC): 88 Balance Picking up an Object (QC): 88 ADL-Treatment Eating (QC): 6 Oral Hygiene (QC): 6 (SBA for standing only but not for brushing teeth) Shower/Bathe Self (QC): 4 (SBA) Upper Body Dressing (QC): 5 (setup) Lower Body Dressing (QC): 4 (SBA) On/Off Footwear (QC): 4 Toileting Hygiene (QC): 4 (SBA for clothing management) Toilet Transfer (QC): 4 (SBA) Assessment/Plan Assessment and Plan Assess & Plan/Chief Complaint Assessment: Myopathy Critical illness source of weakness s/p pacemaker for heart block Venous access source of bacteremia maintained on Vanc BRENNON CAD non-obstructive HTN HLP Hyponatremia Anemia Still cath in place Plan: IRF protocol DC catheter Monitor labs Vanc 07/14/20: IV abx Moved to ICU temporarily for AF w/RVR Continue IRF protocol 07/16/20: Monitor heart rate Wean O2 Ankle and knee injections appreciated Monitor closely 07/18/20: Wean O2 Doing better Labs tomorrow 07/19/20: Appreciate Dr. Tanesha Lee Dog to visit today 07/20/20: Maintain on room air Wean off oxygen Doing very well 07/21/20: Life vest per cardiology Wean oxygen Monitor closely Needs another week of rehab 07/22/20: O2 prn Monitor BP Life vest when she is DC 07/23/20: Monitor sugar elevation O2 IRF dramatically improving status 07/24/20: Monitor choking episodes Anxiety plays a large role in her issues Maintain O2 (1) Myopathy (2) Bacteremia due to Staphylococcus epidermidis Status: Acute (3) Infection of venous access port Status: Acute (4) S/P placement of cardiac pacemaker Status: Acute (5) Euthyroid sick syndrome Status: Acute (6) S/p nephrectomy Status: Chronic (7) Hypothyroidism Status: Chronic (8) Renal cell carcinoma Status: Chronic (9) Low TSH level Status: Acute (10) T2DM (type 2 diabetes mellitus) Status: Chronic (11) HTN (hypertension) Status: Chronic (12) Second degree AV block Status: Acute (13) Kidney injury (14) Hyponatremia Status: Acute (15) Heart block KISHORE BENITEZ DO Jul 24, 2020 12:19
[2020-07-24] MEDS: guaiFENesin/DM (ROBITUSSIN DM) 10 ML UDC PO PRN (12:48)
--- NOTE | 2020-07-24 13:54 | Cardiology Progress Note ---
Subjective Date Seen by Provider: Jul 24, 2020 Time Seen by Provider: 13:53 Subjective/Events-last exam Patient is sitting in a chair, still having shortness of breath. No chest pain Review of Systems General: No Chills, No Night Sweats, No Fatigue, No Malaise, No Appetite, No Other HEENT: No Head Aches, No Visual Changes, No Eye Pain, No Ear Pain, No Dysphasia, No Sinus Congestion, No Post Nasal Drip, No Sore Throat, No Other Pulmonary: Dyspnea; No Cough, No Pleuritic Chest Pain, No Other Cardiovascular: No: Chest Pain, Palpitations, Orthopnea, Paroxysmal Noc. Dyspnea, Edema, Lt Headedness, Other Objective-Cardiology Exam Last Set of Vital Signs Vital Signs 07/24/20 07/24/20 07/24/20 07/24/20 07/24/20 05:03 07:06 09:00 09:04 12:22 Temp 36.6 Pulse 60 Resp 18 B/P (MAP) 123/58 (79) Pulse Ox 94 O2 Delivery Room Air O2 Flow Rate 1.00 Capillary Refill : Less Than 3 SecondsLess Than 3 Seconds I&O Intake and Output 07/24/20 00:00 Intake Total 1130 ml Balance 1130 ml Intake Oral 1130 ml # Voids 9 # Bowel Movements 3 General: Alert, Oriented X3, Cooperative HEENT: Atraumatic, PERRLA Neck: Supple, No JVD, No Thyromegaly Lungs: Clear to Auscultation, Normal Air Movement Heart: Regular Rate, Normal S1, Normal S2, No Murmurs Abdomen: Normal Bowel Sounds, Soft, No Tenderness, No Hepatosplenomegaly, No Masses Extremities: No Clubbing, No Cyanosis, No Edema, Normal Pulses, No Tenderne ss/Swelling Skin: No Rashes, No Breakdown, No Significant Lesion Neuro: Normal Gait, Normal Speech, Strength at 5/5 X4 Ext, Normal Tone, Sensation Intact Psych/Mental Status: Mental Status NL, Mood NL A/P-Cardiology Admission Diagnosis Chest pain 2nd degree AV block PAF CHF Assessment/Plan Mild coronary artery disease, Cardiac cath done on 07/02/20 having mild to moderate CAD, non obstructive disease next Dyspnea, reporting persistent shortness of breath today, her exam is normal. I will evaluate chest x-ray Cardiomyopathy, nonischemic. Echo on 07/15/20: LVEF 25-30%, mild to mod MR, akinetic distal septum and apex. Having a LifeVest Second degree AV block, severe bradycardia status post dual-chamber pacemaker implanted by Dr. Encarnacion on 07/11/2020. Site is healing well Paroxysmal atrial fibrillation, on Amiodarone, continue to monitor. 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 Clinical Quality Measures DVT/VTE Risk/Contraindication: Risk Factor Score Per Nursin RFS Level Per Nursing on Admit: 4+=Very High ALLEN KUMAR MD Jul 24, 2020 13:54
[2020-07-24 16:00] VITALS: BP 121/58
[2020-07-24] MEDS: MELATONIN 3 MG TABLET PO PRN (21:03)
[2020-07-25] MEDS: guaiFENesin/DM (ROBITUSSIN DM) 10 ML UDC PO PRN ×2 (04:08→20:30)
[2020-07-25] MEDS: CATHETER FLUSH 10 ML SYR IV SCH ×3 (04:13→20:22)
[2020-07-25] MEDS: RT-ALBUTEROL/IPRATROPIUM 3 ML (DUONEB) VIAL INH SCH ×6 (04:31→22:34)
[2020-07-25 05:06] VITALS: BP 138/63
[2020-07-25] MEDS: inSUlin ASPART (NovoLOG) 1 UNIT/0.01 ML (CHARGE PER UNIT) SC SCH ×4 (05:12→20:31)
[2020-07-25] MEDS: KCL 20 MEQ TAB (K-DUR) PO SCH (05:18)
--- NOTE | 2020-07-25 06:58 | PM&R Progress Note ---
Subjective HPI/CC On Admission Date Seen by Provider: Jul 25, 2020 Time Seen by Provider: 13:00 Subjective/Events-last exam 07/25/20: Dr Osorio gave her one dose of Lasix Reports she is breathing hard Home O2 evaluation will be done tomorrow Has O2 at night Sunday DC 07/24/20: Ate some grapes and had choking spell and took Xanax and mylanta and took awhile before she was able to get past it Needs carbonated beverage to help also Had emesis during episode too Overlal very weak today she reports BM++ 07/23/20: Sugar a bit more elevated before lunch today Wears O2 at night at home Using O2 most of the time while in IRF Doing well 07/22/20: Patient doing better and better BM yesterday O2 sat 88% on room air so needs O2 prn No pain reported 07/21/20: Pt had a BM today Life-vest recommended from Dr. Encarnacion Decreasing oxygen use Sleeping pretty well but taking Xanax 07/20/20: Pt now on room air but asking for oxygen No need for oxygen at this time Lasix initiated for pulmonary edema which was helpful Anxiety is much improved Was able to see her dog in a dog visit yesterday and she was thrilled about that 07/19/20: Pt much improved Oriented x3 now Dr. Almendarez will be consulted for dyspnea Weaning off oxygen Hgb 8.8 Creatinine 1.43 She will see her dog today She thinks she has a UTI with frequency so will do an in and out cath and maintain the Vanc as order Cough is still present 07/18/20: No issues Weaning O2 Sees her pet dog tomorrow BM+ Ankle and knee good since injections DC commode and going to bathroom now 07/17/20: Dietary adding ADA to the low sodium diet BM moving well Ankle and knee improved Weaning O2 07/16/20: Patient transferred down from ICU Doing well overall Insists on using O2 but her O2 sats is 96% so weaning that Very psychotic thoughts noted Ankle and knee injected by James Camarillo and his help is appreciated to help participation in therapy Pt requiring O2 even though her oxygen level is good Pacemaker maintained Telemetry maintained by cardiology request Refuses oral potassium, she would rather have it through her IV so unsure how we are going to titrate that considering she really needs to be off IVs Vancomycin will be maintained until completed 14 days after most recent gram positive blood cultures Xanax really helped her anxiety We already discontinued the Still catheter, she hasnt voided yet WBC 13 A lot of psychosocial issues at home, will likely slow recovery After rounds in afternoon patient was noted to have abnormal Telemetry and was found to have AF w/RVR so moved to ICU. Review of Systems General: Fatigue, Malaise Objective Exam Vital Signs Vital Signs Date Time Temp Pulse Resp B/P (MAP) Pulse Ox O2 Delivery O2 Flow Rate FiO2 07/25/20 19:00 61 07/25/20 17:08 36.4 18 126/61 (82) 97 Nasal Cannula 2.00 Capillary Refill : Less Than 3 SecondsLess Than 3 Seconds General Appearance: No Apparent Distress, WD/WN, Chronically ill HEENT: PERRL/EOMI, Normal ENT Inspection, Pharynx Normal Neck: Full Range of Motion, Normal Inspection, Non Tender, Supple, Carotid Bruit Respiratory: Chest Non Tender, Lungs Clear, Normal Breath Sounds, No Accessory Muscle Use, No Respiratory Distress Cardiovascular: Regular Rate, Rhythm, No Edema, No Gallop, No JVD, No Murmur, Normal Peripheral Pulses Gastrointestinal: Normal Bowel Sounds, No Organomegaly, No Pulsatile Mass, Non Tender, Soft Back: Normal Inspection, No CVA Tenderness, No Vertebral Tenderness Extremity: Normal Capillary Refill, Normal Inspection, Normal Range of Motion, Non Tender, No Calf Tenderness, No Pedal Edema Neurologic/Psychiatric: Alert, Oriented x3, No Motor/Sensory Deficits, Normal Mood/Affect, 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 FIM Transfers Therapy Code Descriptions/Definitions Functional [place] Measure: 0=Not Assessed/NA 4=Minimal Assistance 1=Total Assistance 5=Supervision or Setup 2=Maximal Assistance 6=Modified [place] 3=Moderate Assistance 7=Complete IndependenceSCALE: Activities may be completed with or without assistive devices. 7-Qurujrsone-qtkvihg completes the activity by him/herself with no assistance from a helper. 5-Set-up or Clean-up Assistance-helper sets up or cleans up; patient completes activity. [place] assists only prior to or following the activity. 4-Supervision or Touching Assistance-helper provides verbal cues and/or touching/steadying and/or contact guard assistance as patient completes activity. Assistance may be provided throughout the activity or intermittently. 3-Partial/Moderate Assistance-helper does LESS THAN HALF the effort. [place] lifts, holds or supports trunk or limbs, but provides less than half the effort. 2-Substantial/Maximal Assistance-helper does MORE THAN HALF the effort. [place] lifts or holds trunk or limbs and provides more than half the effort. 8-Lfkvuzczi-jlzrtq does ALL the effort. Patient does none of the effort to complete the activity. Or, the assistance of 2 or more helpers is required for the patient to complete the activity. If activity was not attempted, code reason: 7-Patient Refused. 9-Not Applicable-not attempted and the patient did not perform the activity before the current illness, exacerbation or injury. 10-Not Attempted due to Environmental Limitations-(lack of equipment, weather restraints, etc.). 88-Not Attempted due to Medical Conditions or Safety Concerns. Roll Left to Right (QC): 6 Sit to Lying (QC): 6 Sit to Stand (QC): 6 Chair/Qsk-gm-Pwhgd Xfer(QC): 6 Car Transfer (QC): 6 Gait Training Does the Patient Walk?: Yes Distance: 100' x2 Walk 10 feet (QC): 6 Walk 50 ft with 2 Turns(QC): 6 Walk 150 ft (QC): 6 Walking 10ft/uneven surface-QC: 88 Gait Persons Needed: 1 Gait Assistive Device: FWW Wheelchair Training Does the Pt Use a Wheelchair?: Yes Distance: 150' Wheel 50 ft with 2 turns (QC): 4 Wheel 150 ft (QC): 4 Type of Wheelchair: Manual Stair Training 1 Step (curb) (QC): 88 4 Steps (QC): 88 12 Steps (QC): 88 Balance Picking up an Object (QC): 88 ADL-Treatment Eating (QC): 6 Oral Hygiene (QC): 6 (SBA for standing only but not for brushing teeth) Shower/Bathe Self (QC): 4 (SBA) Upper Body Dressing (QC): 5 (setup) Lower Body Dressing (QC): 4 (SBA) On/Off Footwear (QC): 4 Toileting Hygiene (QC): 4 (SBA for clothing management) Toilet Transfer (QC): 4 (SBA) Assessment/Plan Assessment and Plan Assess & Plan/Chief Complaint Assessment: Myopathy Critical illness source of weakness s/p pacemaker for heart block Venous access source of bacteremia maintained on Vanc BRENNON CAD non-obstructive HTN HLP Hyponatremia Anemia Still cath in place Plan: IRF protocol DC catheter Monitor labs Vanc 07/14/20: IV abx Moved to ICU temporarily for AF w/RVR Continue IRF protocol 07/16/20: Monitor heart rate Wean O2 Ankle and knee injections appreciated Monitor closely 07/18/20: Wean O2 Doing better Labs tomorrow 07/19/20: Appreciate Dr. Tanesha Lee Dog to visit today 07/20/20: Maintain on room air Wean off oxygen Doing very well 07/21/20: Life vest per cardiology Wean oxygen Monitor closely Needs another week of rehab 07/22/20: O2 prn Monitor BP Life vest when she is DC 07/23/20: Monitor sugar elevation O2 IRF dramatically improving status 07/24/20: Monitor choking episodes Anxiety plays a large role in her issues Maintain O2 07/25/20: Appreciate Dr Jo Lee Home O2 eval tomorrow (1) Myopathy (2) Bacteremia due to Staphylococcus epidermidis Status: Acute (3) Infection of venous access port Status: Acute (4) S/P placement of cardiac pacemaker Status: Acute (5) Euthyroid sick syndrome Status: Acute (6) S/p nephrectomy Status: Chronic (7) Hypothyroidism Status: Chronic (8) Renal cell carcinoma Status: Chronic (9) Low TSH level Status: Acute (10) T2DM (type 2 diabetes mellitus) Status: Chronic (11) HTN (hypertension) Status: Chronic (12) Second degree AV block Status: Acute (13) Kidney injury (14) Hyponatremia Status: Acute (15) Heart block KISHORE BENITEZ DO Jul 25, 2020 06:58
[2020-07-25 08:01] VITALS: BP 132/62
[2020-07-25] MEDS: THYROID (ARMOUR) 60 MG TABLET PO SCH ×2 (08:03→20:23)
[2020-07-25] MEDS: AMIODARONE 200 MG (CORDARONE) TAB PO SCH ×2 (08:03→20:23)
[2020-07-25] MEDS: LACTOBACILLUS ACIDOPHILUS (PROBIOTIC) CAPSULE PO SCH ×3 (08:03→17:11)
[2020-07-25] MEDS: APIXABAN 5 MG (ELIQUIS) TABLET PO SCH ×2 (08:03→20:23)
[2020-07-25] MEDS: DIGOXIN 0.125 MG (LANOXIN) TAB PO SCH (08:03)
[2020-07-25] MEDS: polyethylene glycoL POWDER 17 GM (MIRALAX) PACK PO SCH ×2 (08:04→20:23)
[2020-07-25] MEDS: DOCUSATE SODIUM 100 MG (COLACE) CAP PO SCH ×2 (08:04→20:23)
[2020-07-25] MEDS: SENNA W/DOCUSATE (SENOKOT S) TABLET PO SCH ×3 (08:04→20:23)
--- NOTE | 2020-07-25 12:03 | Cardiology Progress Note ---
Subjective Date Seen by Provider: Jul 25, 2020 Time Seen by Provider: 12:02 Subjective/Events-last exam Patient is sitting in a chair, feeling better, breathing better. Review of Systems General: No Chills, No Night Sweats, No Fatigue, No Malaise, No Appetite, No Other HEENT: No Head Aches, No Visual Changes, No Eye Pain, No Ear Pain, No Dysphasia, No Sinus Congestion, No Post Nasal Drip, No Sore Throat, No Other Pulmonary: No Dyspnea, No Cough, No Pleuritic Chest Pain, No Other Cardiovascular: No: Chest Pain, Palpitations, Orthopnea, Paroxysmal Noc. Dyspnea, Edema, Lt Headedness, Other Objective-Cardiology Exam Last Set of Vital Signs Vital Signs 07/25/20 07/25/20 07/25/20 07/25/20 07/25/20 05:06 06:32 08:01 09:28 11:59 Temp 36.8 Pulse 62 Resp 16 B/P (MAP) 132/62 (85) Pulse Ox 92 O2 Delivery Nasal Cannula O2 Flow Rate 2.00 Capillary Refill : Less Than 3 SecondsLess Than 3 Seconds I&O Intake and Output 07/25/20 00:00 Intake Total 1360 ml Balance 1360 ml Intake Oral 1360 ml # Voids 9 # Bowel Movements 1 General: Alert, Oriented X3, Cooperative HEENT: Atraumatic, PERRLA Neck: Supple, No JVD, No Thyromegaly Lungs: Clear to Auscultation, Normal Air Movement Heart: Regular Rate, Normal S1, Normal S2, No Murmurs Abdomen: Normal Bowel Sounds, Soft, No Tenderness, No Hepatosplenomegaly, No Masses Extremities: No Clubbing, No Cyanosis, No Edema, Normal Pulses, No Tenderness/Swelling Skin: No Rashes, No Breakdown, No Significant Lesion Neuro: Normal Gait, Normal Speech, Strength at 5/5 X4 Ext, Normal Tone, Sensation Intact Psych/Mental Status: Mental Status NL, Mood NL A/P-Cardiology Admission Diagnosis Chest pain 2nd degree AV block PAF CHF Assessment/Plan Mild coronary artery disease, Cardiac cath done on 07/02/20 having mild to moderate CAD, non obstructive disease next Dyspnea, reporting improvement today. Continue to monitor Cardiomyopathy, nonischemic. Echo on 07/15/20: LVEF 25-30%, mild to mod MR, akinetic distal septum and apex. Having a LifeVest Second degree AV block, severe bradycardia status post dual-chamber pacemaker implanted by Dr. Encarnacion on 07/11/2020. Site is healing well Paroxysmal atrial fibrillation, on Amiodarone, continue to monitor. 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 Clinical Quality Measures DVT/VTE Risk/Contraindication: Risk Factor Score Per Nursin RFS Level Per Nursing on Admit: 4+=Very High ALLEN KUMAR MD Jul 25, 2020 12:03
[2020-07-25] MEDS: FUROSEMIDE 20 MG (LASIX) TAB PO SCH (12:10)
[2020-07-25 17:08] VITALS: BP 126/61
[2020-07-25] MEDS: MELATONIN 3 MG TABLET PO PRN (20:23)
[2020-07-25] MEDS: ALPRAZolam 0.25 MG (XANAX) TAB PO PRN (20:31)
[2020-07-26] MEDS: ALPRAZolam 0.25 MG (XANAX) TAB PO PRN (02:47)
[2020-07-26] MEDS: RT-ALBUTEROL/IPRATROPIUM 3 ML (DUONEB) VIAL INH SCH ×5 (04:17→21:44)
[2020-07-26 05:04] VITALS: BP 150/67
[2020-07-26] MEDS: inSUlin ASPART (NovoLOG) 1 UNIT/0.01 ML (CHARGE PER UNIT) SC SCH ×4 (05:41→20:59)
[2020-07-26] MEDS: CATHETER FLUSH 10 ML SYR IV SCH ×3 (05:41→21:02)
[2020-07-26] MEDS: KCL 20 MEQ TAB (K-DUR) PO SCH (05:42)
[2020-07-26 06:27] LABS: POTASSIUM 3.9 MMOL/L (3.6-5.0)
[2020-07-26 06:28] LABS: CALCIUM 8.4 MG/DL (8.5-10.1)
[2020-07-26 06:29] LABS: TOTAL PROTEIN 6.1 GM/DL (6.4-8.2)
[2020-07-26 06:31] LABS: BILIRUBIN,TOTAL 0.4 MG/DL (0.1-1.0)
[2020-07-26 06:33] LABS: CREATININE SERUM 1.43 MG/DL (0.60-1.30)
[2020-07-26 06:40] LABS: BASOPHILS % (AUTO) 1 % (0-10); EOSINOPHILS # (AUTO) 0.3 10^3/uL (0.0-0.3); EOSINOPHILS % (AUTO) 3 % (0-10); HEMATOCRIT 31 % (35-52); HEMOGLOBIN 9.4 g/dL (11.5-16.0); LYMPHOCYTES # (AUTO) 1.6 10^3/uL (1.0-4.0); LYMPHOCYTES % (AUTO) 18 % (12-44); MEAN CORPUSCULAR HEMOGLOBIN 29 pg (25-34); MEAN CORPUSCULAR HGB CONC 31 g/dL (32-36); MEAN CORPUSCULAR VOLUME 93 fL (80-99); MEAN PLATELET VOLUME 11.5 fL (9.0-12.2); MONOCYTES # (AUTO) 0.8 10^3/uL (0.0-1.0); MONOCYTES % (AUTO) 9 % (0-12); NEUTROPHILS % (AUTO) 69 % (42-75); PLATELET COUNT 293 10^3/uL (130-400); WHITE BLOOD COUNT 8.7 10^3/uL (4.3-11.0)
--- NOTE | 2020-07-26 08:28 | PM&R Progress Note ---
Subjective HPI/CC On Admission Date Seen by Provider: Jul 26, 2020 Time Seen by Provider: 10:00 Subjective/Events-last exam 07/26/20: Creatinine 1.43 Talked about a urinalysis and polyuria, she has received Lasix but I will go ahead and do another in-and-out cath Home O2 evaluation for day-time use Discharge is planned for tomorrow Bowels moved yesterday 07/25/20: Dr Osorio gave her one dose of Lasix Reports she is breathing hard Home O2 evaluation will be done tomorrow Has O2 at night Sunday DC 07/24/20: Ate some grapes and had choking spell and took Xanax and mylanta and took awhile before she was able to get past it Needs carbonated beverage to help also Had emesis during episode too Overlal very weak today she reports BM++ 07/23/20: Sugar a bit more elevated before lunch today Wears O2 at night at home Using O2 most of the time while in IRF Doing well 07/22/20: Patient doing better and better BM yesterday O2 sat 88% on room air so needs O2 prn No pain reported 07/21/20: Pt had a BM today Life-vest recommended from Dr. Encarnacion Decreasing oxygen use Sleeping pretty well but taking Xanax 07/20/20: Pt now on room air but asking for oxygen No need for oxygen at this time Lasix initiated for pulmonary edema which was helpful Anxiety is much improved Was able to see her dog in a dog visit yesterday and she was thrilled about that 07/19/20: Pt much improved Oriented x3 now Dr. Almendarez will be consulted for dyspnea Weaning off oxygen Hgb 8.8 Creatinine 1.43 She will see her dog today She thinks she has a UTI with frequency so will do an in and out cath and maintain the Vanc as order Cough is still present 07/18/20: No issues Weaning O2 Sees her pet dog tomorrow BM+ Ankle and knee good since injections DC commode and going to bathroom now 07/17/20: Dietary adding ADA to the low sodium diet BM moving well Ankle and knee improved Weaning O2 07/16/20: Patient transferred down from ICU Doing well overall Insists on using O2 but her O2 sats is 96% so weaning that Very psychotic thoughts noted Ankle and knee injected by James Camarillo and his help is appreciated to help pa rticipation in therapy Pt requiring O2 even though her oxygen level is good Pacemaker maintained Telemetry maintained by cardiology request Refuses oral potassium, she would rather have it through her IV so unsure how we are going to titrate that considering she really needs to be off IVs Vancomycin will be maintained until completed 14 days after most recent gram positive blood cultures Xanax really helped her anxiety We already discontinued the Still catheter, she hasnt voided yet WBC 13 A lot of psychosocial issues at home, will likely slow recovery After rounds in afternoon patient was noted to have abnormal Telemetry and was found to have AF w/RVR so moved to ICU. Review of Systems General: Fatigue, Malaise Neurological: Weakness Objective Exam Vital Signs Vital Signs Date Time Temp Pulse Resp B/P (MAP) Pulse Ox O2 Delivery O2 Flow Rate FiO2 07/26/20 19:00 61 07/26/20 18:32 98 Nasal Cannula 2.00 07/26/20 15:15 36.5 16 130/61 (84) Capillary Refill : Less Than 3 SecondsLess Than 3 Seconds General Appearance: No Apparent Distress, WD/WN, Chronically ill HEENT: PERRL/EOMI, Normal ENT Inspection, Pharynx Normal Neck: Full Range of Motion, Normal Inspection, Non Tender, Supple, Carotid Bruit Respiratory: Chest Non Tender, Lungs Clear, Normal Breath Sounds, No Accessory Muscle Use, No Respiratory Distress Cardiovascular: Regular Rate, Rhythm, No Edema, No Gallop, No JVD, No Murmur, Normal Peripheral Pulses Gastrointestinal: Normal Bowel Sounds, No Organomegaly, No Pulsatile Mass, Non Tender, Soft Back: Normal Inspection, No CVA Tenderness, No Vertebral Tenderness Extremity: Normal Capillary Refill, Normal Inspection, Normal Range of Motion, Non Tender, No Calf Tenderness, No Pedal Edema Neurologic/Psychiatric: Alert, Oriented x3, No Motor/Sensory Deficits, Normal Mood/Affect, hot mix operator II-XII Norm as Tested, Abnormal Gait, Motor Weakness Skin: Normal Color, Warm/Dry Lymphatic: No Adenopathy Results/Procedures Lab Laboratory Tests 07/26/20 05:40 Patient resulted labs reviewed. FIM Transfers Therapy Code Descriptions/Definitions Functional [place] Measure: 0=Not Assessed/NA 4=Minimal Assistance 1=Total Assistance 5=Supervision or Setup 2=Maximal Assistance 6=Modified [place] 3=Moderate Assistance 7=Complete IndependenceSCALE: Activities may be completed with or without assistive devices. 5-Aknqhfqdbo-xmebjze completes the activity by him/herself with no assistance from a helper. 5-Set-up or Clean-up Assistance-helper sets up or cleans up; patient completes activity. [place] assists only prior to or following the activity. 4-Supervision or Touching Assistance-helper provides verbal cues and/or touching/steadying and/or contact guard assistance as patient completes activity. Assistance may be provided throughout the activity or intermittently. 3-Partial/Moderate Assistance-helper does LESS THAN HALF the effort. [place] lifts, holds or supports trunk or limbs, but provides less than half the effort. 2-Substantial/Maximal Assistance-helper does MORE THAN HALF the effort. [place] lifts or holds trunk or limbs and provides more than half the effort. 4-Fvypjuhol-yyfkkc does ALL the effort. Patient does none of the effort to complete the activity. Or, the assistance of 2 or more helpers is required for the patient to complete the activity. If activity was not attempted, code reason: 7-Patient Refused. 9-Not Applicable-not attempted and the patient did not perform the activity before the current illness, exacerbation or injury. 10-Not Attempted due to Environmental Limitations-(lack of equipment, weather restraints, etc.). 88-Not Attempted due to Medical Conditions or Safety Concerns. Roll Left to Right (QC): 6 Sit to Lying (QC): 6 Sit to Stand (QC): 6 Chair/Vxy-so-Ihrzs Xfer(QC): 6 Car Transfer (QC): 6 Gait Training Does the Patient Walk?: Yes Distance: 100' x2 Walk 10 feet (QC): 6 Walk 50 ft with 2 Turns(QC): 6 Walk 150 ft (QC): 6 Walking 10ft/uneven surface-QC: 88 Gait Persons Needed: 1 Gait Assistive Device: FWW Wheelchair Training Does the Pt Use a Wheelchair?: Yes Distance: 150' Wheel 50 ft with 2 turns (QC): 4 Wheel 150 ft (QC): 4 Type of Wheelchair: Manual Stair Training 1 Step (curb) (QC): 88 4 Steps (QC): 88 12 Steps (QC): 88 Balance Picking up an Object (QC): 88 ADL-Treatment Eating (QC): 6 Oral Hygiene (QC): 6 (SBA for standing only but not for brushing teeth) Shower/Bathe Self (QC): 4 (SBA) Upper Body Dressing (QC): 5 (setup) Lower Body Dressing (QC): 4 (SBA) On/Off Footwear (QC): 4 Toileting Hygiene (QC): 4 (SBA for clothing management) Toilet Transfer (QC): 4 (SBA) Assessment/Plan Assessment and Plan Assess & Plan/Chief Complaint Assessment: Myopathy Critical illness source of weakness s/p pacemaker for heart block Venous access source of bacteremia maintained on Vanc BRENNON CAD non-obstructive HTN HLP Hyponatremia Anemia Still cath in place Plan: IRF protocol DC catheter Monitor labs Vanc 07/14/20: IV abx Moved to ICU temporarily for AF w/RVR Continue IRF protocol 07/16/20: Monitor heart rate Wean O2 Ankle and knee injections appreciated Monitor closely 07/18/20: Wean O2 Doing better Labs tomorrow 07/19/20: Appreciate Dr. Tanesha Lee Dog to visit today 07/20/20: Maintain on room air Wean off oxygen Doing very well 07/21/20: Life vest per cardiology Wean oxygen Monitor closely Needs another week of rehab 07/22/20: O2 prn Monitor BP Life vest when she is DC 07/23/20: Monitor sugar elevation O2 IRF dramatically improving status 07/24/20: Monitor choking episodes Anxiety plays a large role in her issues Maintain O2 07/25/20: Appreciate Dr Jo Lee Home O2 eval tomorrow 07/26/20: Discharge tomorrow Home 02 eval In & out cath for UA (1) Myopathy (2) Bacteremia due to Staphylococcus epidermidis Status: Acute (3) Infection of venous access port Status: Acute (4) S/P placement of cardiac pacemaker Status: Acute (5) Euthyroid sick syndrome Status: Acute (6) S/p nephrectomy Status: Chronic (7) Hypothyroidism Status: Chronic (8) Renal cell carcinoma Status: Chronic (9) Low TSH level Status: Acute (10) T2DM (type 2 diabetes mellitus) Status: Chronic (11) HTN (hypertension) Status: Chronic (12) Second degree AV block Status: Acute (13) Kidney injury (14) Hyponatremia Status: Acute (15) Heart block KISHORE BENITEZ DO Jul 26, 2020 08:28
[2020-07-26 09:15] VITALS: BP 139/69
[2020-07-26] MEDS: FUROSEMIDE 20 MG (LASIX) TAB PO SCH (09:20)
[2020-07-26] MEDS: DIGOXIN 0.125 MG (LANOXIN) TAB PO SCH (09:21)
[2020-07-26] MEDS: AMIODARONE 200 MG (CORDARONE) TAB PO SCH ×2 (09:21→20:57)
[2020-07-26] MEDS: APIXABAN 5 MG (ELIQUIS) TABLET PO SCH ×2 (09:21→20:59)
[2020-07-26] MEDS: THYROID (ARMOUR) 60 MG TABLET PO SCH ×2 (09:21→20:57)
[2020-07-26] MEDS: LACTOBACILLUS ACIDOPHILUS (PROBIOTIC) CAPSULE PO SCH ×3 (09:24→17:09)
[2020-07-26] MEDS: polyethylene glycoL POWDER 17 GM (MIRALAX) PACK PO SCH ×2 (09:25→21:04)
[2020-07-26] MEDS: DOCUSATE SODIUM 100 MG (COLACE) CAP PO SCH ×2 (09:26→21:03)
--- NOTE | 2020-07-26 10:23 | Occupational Ther Daily Note ---
OT Current Status-Daily Note Subjective Pt. does not report pain, but states that she feels "weak." Appearance Pt. up in chair. Agreeable to shower. Mental Status/Objective Patient Orientation: Person, Place, Time, Situation ADL-Treatment Therapy Code Descriptions/Definitions Functional [place] Measure: 0=Not Assessed/NA 4=Minimal Assistance 1=Total Assistance 5=Supervision or Setup 2=Maximal Assistance 6=Modified [place] 3=Moderate Assistance 7=Complete IndependenceSCALE: Activities may be completed with or without assistive devices. 4-Bwrfaukuqp-uhlkofk completes the activity by him/herself with no assistance from a helper. 5-Set-up or Clean-up Assistance-helper sets up or cleans up; patient completes activity. [place] assists only prior to or following the activity. 4-Supervision or Touching Assistance-helper provides verbal cues and/or touching/steadying and/or contact guard assistance as patient completes activity. Assistance may be provided throughout the activity or intermittently. 3-Partial/Moderate Assistance-helper does LESS THAN HALF the effort. [place] lifts, holds or supports trunk or limbs, but provides less than half the effort. 2-Substantial/Maximal Assistance-helper does MORE THAN HALF the effort. [place] lifts or holds trunk or limbs and provides more than half the effort. 3-Gbgjznbwe-pqlpza does ALL the effort. Patient does none of the effort to complete the activity. Or, the assistance of 2 or more helpers is required for the patient to complete the activity. If activity was not attempted, code reason: 7-Patient Refused. 9-Not Applicable-not attempted and the patient did not perform the activity before the current illness, exacerbation or injury. 10-Not Attempted due to Environmental Limitations-(lack of equipment, weather restraints, etc.). 88-Not Attempted due to Medical Conditions or Safety Concerns. Eating (QC): 5 Oral Hygiene (QC): 5 Shower/Bathe Self (QC): 4 (CGA in stance and when bending to wash/dry LE.) Upper Body Dressing (QC): 5 Lower Body Dressing (QC): 3 (Pt. requires cues and then assist to don brief/pants with dressing stick. Pt. attempts to bend over but becomes SOA. Mod assist for task.) On/Off Footwear: 2 (Max assist due to pt. stating she has no energy left to do so.) Other Treatment Pt. states that she did not sleep well last night. Is agreeable to shower but has limited energy for it. Pt. is encouraged. Ambulates to and from shower with CGA. All needs met back in reclining chair in room. Education OT Patient Education: Correct positioning, Modified ADL techniques, Progress toward Goal/Update tx plan, Purpose of tx/functional activities, Reviewed precautions, Rehab process, Transfer techniques, Use of adapted equipment Teaching Recipient: Patient Teaching Methods: Demonstration, Discussion Response to Teaching: Verbalize Understanding, Return Demonstration, Reinforcement Needed OT Short Term Goals Short Term Goals Time Frame: Jul 21, 2020 Eatin Oral hygiene: 5 Toileting hygiene: 3 Shower/bathe self: 4 Upper body dressin Lower body dressin Putting on/taking off footwear: 4 OT Resident Advisor Goals Resident Advisor Goals Time Frame: Jul 28, 2020 Eating (QC): 6 Oral Hygiene (QC): 6 Toileting Hygiene (QC): 6 Shower/Bathe Self (QC): 4 Upper Body Dressing (QC): 5 Lower Body Dressing (QC): 4 On/Off Footwear (QC): 4 Additional Goals: 1-Demonstrate ADL Tasks, 2-Verbalize Understanding, 3- ImproveStrength/Rogelio 1=Demonstrate adherence to instructed precautions during ADL tasks. 2=Patient will verbalize/demonstrate understanding of assistive devices/modifications for ADL. 3=Patient will improve strength/tolerance for activity to enable patient to perform ADL's. OT Education/Plan Problem List/Assessment Assessment: Decreased Activ Tolerance, Decreased UE Strength, Dependent Transfers, Impaired Funct Balance, Impaired I ADL's, Impaired Self-Care Skills Discharge Recommendations Plan/Recommendations: Continue POC Therapy Discharge Recommendati: Scheduled Assistance, Home & Family, Post Acute OT Equpiment Recommendations-D/C: Hip Kit Treatment Plan/Plan of Care Treatment,Training & Education: Yes Patient would benefit from OT for education, treatment and training to promote independence in ADL's, mobility, safety and/or upper extremity function for ADL's. Plan of Care: ADL Retraining, Functional Mobility, UE Funct Exercise/Act Treatment Duration: Jul 28, 2020 Frequency: At least 5 of 7 days/Wk (IRF) Estimated Hrs Per Day: 1.5 hours per day Agreement: Yes Rehab Potential: Fair Time/GCodes Start Time: 08:30 Stop Time: 09:15 Total Time Billed (hr/min): 45 Billed Treatment Time 1, ADL x 3 GLORIA BANSAL OT Jul 26, 2020 10:23
--- NOTE | 2020-07-26 10:49 | Physical Therapy Daily Note ---
PT Daily Note-Current Subjective Pt.is anxious to DC tomorrow and see her dog. No pain today. Comments that she is so much loki than she was when she was admitted Pain Location: No Pain Reported Mental Status Patient Orientation: Normal For Age Attachments: Other-See Comments (mask out of room) Transfers SCALE: Activities may be completed with or without assistive devices. 4-Csixzrlunc-juivckm completes the activity by him/herself with no assistance from a helper. 5-Set-up or Clean-up Assistance-helper sets up or cleans up; patient completes activity. [place] assists only prior to or following the activity. 4-Supervision or Touching Assistance-helper provides verbal cues and/or touching/steadying and/or contact guard assistance as patient completes activity. Assistance may be provided throughout the activity or intermittently. 3-Partial/Moderate Assistance-helper does LESS THAN HALF the effort. [place] lifts, holds or supports trunk or limbs, but provides less than half the effort. 2-Substantial/Maximal Assistance-helper does MORE THAN HALF the effort. [place] lifts or holds trunk or limbs and provides more than half the effort. 1-Difmidulo-rbdjlp does ALL the effort. Patient does none of the effort to c omplete the activity. Or, the assistance of 2 or more helpers is required for the patient to complete the activity. If activity was not attempted, code reason: 7-Patient Refused. 9-Not Applicable-not attempted and the patient did not perform the activity before the current illness, exacerbation or injury. 10-Not Attempted due to Environmental Limitations-(lack of equipment, weather restraints, etc.). 88-Not Attempted due to Medical Conditions or Safety Concerns. Roll Left & Right (QC): 6 Sit to Lying (QC): 6 Lying to Sitting/Side of Bed(Q: 6 Sit to Stand (QC): 6 Chair/Avz-gv-Bnvka Xfer(QC): 6 Toilet Transfer (QC): 6 Car Transfer (QC): 6 Weight Bearing Right Lower Extremity: Right Full Weight Bearing Left Lower Extremity: Left Full Weight Bearing Gait Training Does the Patient Walk?: Yes Walk 10 feet (QC): 6 Walk 50 ft with 2 Turns(QC): 6 Walk 150 ft (QC): 6 Walking 10ft/uneven surface-QC: 6 Gait Persons Needed: 0 Gait Assistive Device: FWW Stair Training Stair Training: Handrails/: 2 handrails #of Steps: 4 1 Step (curb) (QC): 4 4 Steps (QC): 5 12 Steps (QC): 7 Stairs: Pattern: Reciprocal pt. declines 12 steps Balance Picking up an Object (QC): 4 Exercises Supine Ex: Bridging, Ankle pumps, Quad Set, Rolling, Glut sets, Heel Slides, Knee to chest, Scooting, Straight leg raise, Hip abd/add Supine Reps: 10 Seated Therapy Exercises: Ankle pumps, Sit to stand, Long arc quads, Hip flexion, Hip abd/add Seated Reps: 12 Treatments toileted indep Assessment Current Status: Good Progress meets goals PT Short Term Goals Short Term Goals Time Frame: Jul 21, 2020 Roll Left & Right: 6 Sit to lyin Lying to sitting on side of be: 4 Sit to stand: 4 Chair/qyh-qe-ggsxt transfer: 4 Toilet transfer: 4 Walk 10 feet: 3 Walk 50 feet with two turns: 3 PT Fci Goals Fci Goals PT Striping Machine Operator Goals Time Frame: Aug 04, 2020 Roll Left & Right (QC): 6 Sit to Lying (QC): 6 Lying-Sitting on Side/Bed(QC): 6 Sit to Stand (QC): 4 (SBA) Chair/Pzq-yw-Ckatk Xfer(QC): 4 (SBA) Toilet Transfer (QC): 4 (SBA) Car Transfer (QC): 4 (SBA) Does the Patient Walk: Yes Walk 10 feet (QC): 4 (SBA) Walk 50ft with 2 Turns (QC): 4 (SBA) Walk 150 ft (QC): 4 (SBA) Walking 10ft on Uneven Surface: 4 (SBA) 1 Step (curb) (QC): 4 (SBA) 4 Steps (QC): 4 (SBA) 12 Steps (QC): 88 Picking up an Object (QC): 4 (SBA) Does the Pt use WC or Scooter?: Yes Wheel 50 feet with 2 turns (QC: 6 Type: Manual Wheel 150 feet: 6 Type: Manual PT Plan Treatment/Plan Treatment Plan: Continue Plan of Care Treatment Plan: Bed Mobility, Education, Functional Activity Rogelio, Functional Strength, Group Therapy, Gait, Safety, Therapeutic Exercise, Transfers Treatment Duration: Jul 28, 2020 Frequency: At least 5 of 7 days/Wk (IRF) Estimated Hrs Per Day: 1.5 hours per day Patient and/or Family Agrees t: Yes Safety Risks/Education Patient Education: Gait Training, Transfer Techniques, Steps, Correct Positioning, Disease Process, Safety Issues Teaching Recipient: Patient Teaching Methods: Demonstration, Discussion Response to Teaching: Verbalize Understanding, Return Demonstration, Reinforcement Needed Time/GCodes Time In: 1000 Time Out: 1045 Total Billed Treatment Time: 45 Total Billed Treatment 1,EX15m,FA20m,GT10m KRYSTINA BURGOS CLAIM ANALYST Jul 26, 2020 10:48
--- NOTE | 2020-07-26 11:00 | Progress Note ---
AGUSTIN GALDAMEZ MED STUDENT 07/26/20 1100: Progress Note Doing well with PT/OT, denies pain Notes increased urinary frequency and is concerned about UTI, states she has chronic cystitis Requesting home O2 Rx 96% on 2 liters NC Wanting to go home Plan: Will be evaluated today for home O2 Will do UA for urinary sx, but counseled her that could be d/t Lasix DC tomorrow VIVIAN BENITEZ DO 07/27/20 0518: Supervisory-Addendum Brief Verification & Attestation Participated in pt care: history, MDM, physical Personally performed: exam, history, MDM, supervision of care Care discussed with: Medical Student Procedures: n/a Results interpretation: Verified all documentation Verification and Attestation of Medical Student E/M Service A medical student performed and documented this service in my presence. I reviewed and verified all information documented by the medical student and made modifications to such information, when appropriate. I personally performed the physical exam and medical decision making. Vivian Benitez, Jul 27, 2020,05:18 AGUSTIN GALDAMEZ MED STUDENT Jul 26, 2020 11:00 VIVIAN BENITEZ DO Jul 27, 2020 05:18
--- NOTE | 2020-07-26 12:05 | NUR ---
Patient consented to allowing student nurse, Chata, from [facility] to obtained urine sample via straight cath. This was obtained under direct supervision of this RN. Pt voiced no complaints with procedure. Sterile urine sample sent to lab for UA.
--- NOTE | 2020-07-26 12:09 | Progress Note - Cardiology ---
Cardiology SOAP Progress Note Subjective: Sitting up in the recliner at the bedside. States she continues to feel SOB. No c/o CP or palpitations. Objective: I&O/Vital Signs 07/26/20 07/26/20 07/26/20 07/26/20 01:00 05:04 06:16 06:35 Temp 36.5 Pulse 60 60 60 Resp 16 B/P (MAP) 150/67 (94) Pulse Ox 97 96 O2 Delivery Nasal Cannula Nasal Cannula O2 Flow Rate 2.00 2.00 07/26/20 09:00 O2 Delivery Nasal Cannula O2 Flow Rate 2.00 07/26/20 00:00 Intake Total 1400 ml Balance 1400 ml Constitutional: AAO x 3, well-developed, well-nourished Respiratory: No accessory muscle use; other (good bilat air entry, diminished at the bases) Cardiovascular: regular rate-rhythm, S1 and S2, systolic murmur (soft ELIN at card base) Gastrointestional: No tender; soft; No guarding, No rebound; audible bowel soun ds Extremities: No clubbing, No cyanosis, No significant edema Neurologic/Psychiatric: other (move all limbs equally) Skin: No rash on exposed areas, No ulcerations on exposed areas; other ( bruising at sites of port removal from L upper chest and pacemaker placement in the R upper chest) Results/Procedures: Labs Laboratory Tests 07/25/20 15:48: Glucometer 176H 07/25/20 20:15: Glucometer 245H 07/26/20 05:20: Glucometer 127H 07/26/20 05:40: White Blood Count 8.7, Red Blood Count 3.28L, Hemoglobin 9.4L, Hematocrit 31L, Mean Corpuscular Volume 93, Mean Corpuscular Hemoglobin 29, Mean Corpuscular Hemoglobin Concent 31L, Red Cell Distribution Width 13.2, Platelet Count 293, Mean Platelet Volume 11.5, Immature Granulocyte % (Auto) 1, Neutrophils (%) (Auto) 69, Lymphocytes (%) (Auto) 18, Monocytes (%) (Auto) 9, Eosinophils (%) (Auto) 3, Basophils (%) (Auto) 1, Neutrophils # (Auto) 6.0, Lymphocytes # (Auto) 1.6, Monocytes # (Auto) 0.8, Eosinophils # (Auto) 0.3, Basophils # (Auto) 0.0, Immature Granulocyte # (Auto) 0.1, Sodium Level 141, Potassium Level 3.9, Chloride Level 105, Carbon Dioxide Level 25, Anion Gap 11, Blood Urea Nitrogen 18, Creatinine 1.43H, Estimat Glomerular Filtration Rate 35, BUN/Creatinine Ratio 13, Glucose Level 135H, Calcium Level 8.4L, Corrected Calcium 9.2, Total Bilirubin 0.4, Aspartate Amino Transf (AST/SGOT) 24, Alanine Aminotransferase (ALT/SGPT) 17, Alkaline Phosphatase 71, Total Protein 6.1L, Albumin 3.0L 07/26/20 10:44: Glucometer 249H 07/26/20 12:05: Urine Color YELLOW, Urine Clarity CLEAR, Urine pH 6.5, Urine Specific [place] 1.010L, Urine Protein NEGATIVE, Urine Glucose (UA) NEGATIVE, Urine Ketones NEGATIVE, Urine Nitrite NEGATIVE, Urine Bilirubin NEGATIVE, Urine Urobilinogen 0.2, Urine Leukocyte Esterase NEGATIVE, Urine RBC (Auto) NEGATIVE, Urine RBC NONE, Urine WBC RARE, Urine Squamous Epithelial Cells NONE, Urine Crystals NONE, Urine Bacteria NEGATIVE, Urine Casts NONE, Urine Mucus NEGATIVE, Urine Culture Indicated NO A/P: Assessment: Pneumonia - management per medical services Cardiomyopathy, probably nonischemic (based on cardiac cath by Dr Osorio on 07/02/20 that showed only mild to mod, nonobstructive CAD) Echo on 07/15/20: LVEF 25-30%, mild to mod MR, akinetic distal septum and apex - Life Vest 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
[2020-07-26 12:34] LABS: BILIRUBIN,URINE NEGATIVE (NEGATIVE); CLARITY,URINE CLEAR; COLOR,URINE YELLOW; GLUCOSE, URINE (UA) NEGATIVE (NEGATIVE); KETONES,URINE NEGATIVE (NEGATIVE); LEUKOCYTE ESTERASE ,URINE NEGATIVE (NEGATIVE); NITRITE,URINE NEGATIVE (NEGATIVE); PH,URINE 6.5 (5-9); PROTEIN,URINE NEGATIVE (NEGATIVE)
[2020-07-26 12:41] LABS: BACTERIA,URINE NEGATIVE /HPF; WBC,URINE RARE /HPF
--- NOTE | 2020-07-26 14:17 | Speech Therapy Daily Note ---
Speech Daily Progress Note Subjective Date Seen by Provider: Jul 26, 2020 Time Seen by Provider: 00:30 Patient was sitting in her recliner when I entered her room. She states she is ready to return to her home which is scheduled for tomorrow. Objective Patient completed a series of memory activities related to her safe return home with 90% given minimal cues. Assessment Assessment Current Status: Good Progress Treatment Plan Continue Plan of Care Speech Short Term Goals Short Term Goals Short Term Goals 1) Patient will complete memory tasks related to her daily needs with minimal assist at 90% or greater. 2) Patient will complete safety awareness tasks related to her daily needs with minimal assist at 90% or greater. 3) Patient will complete problem solving tasks related to her daily needs with minimal assist at 90% or greater. Speech Care Home Goals Care Home Goals Patient will improve cognitive communication to complete daily tasks with minimal assist. Speech-Plan Patient/Family Goals Patient/Family Goals: Patient is scheduled to return home tomorrow. She will have family and hired staff for assistance with her daily needs. Treatment Plan Speech Therapy Treatment Plan: Continue Plan of Care Treatment Duration: Jul 28, 2020 Frequency: 4 times per week (Patient will recieve ST 4-5x per day) Estimated Hrs Per Day: .5 hour per day Rehab Potential: Fair Barriers to Learning: Patient's recent decline in health, age, cognitive deficits Pt/Family Agrees to Plan: Yes Safety Risks/Education Teaching Recipient: Patient Teaching Methods: Demonstration, Discussion Response to Teaching: Verbalize Understanding, Return Demonstration Education Topics Provided: Continued safety upon her return home, continued safety with oral intake Time Speech Therapy Time In: 09:30 Speech Therapy Time Out: 10:00 Total Billed Time: 30 Billed Treatment Time 1, SLTS, DYST No QUALITY CODES: EXPRESSION OF IDEAS/WANTS: 4 UNDERSTANDING VERBAL CONTENT: 4 BRIEF INTERVIEW: YES TEMPORAL ORIENTATION: YEAR: CORRECT, MONTH: CORRECT, DAY: CORRECT REPETITION OF 3 WORDS: 3 RECALL: SOCK: YES, COLOR: YES, BED: YES MEMORY/RECALL ABILITIES: SEASON, LOCATION OF HER ROOM, STAFF NAMES, THAT SHE IS IN THE HOSPITAL GABRIELA MCCOLLUM Jul 26, 2020 14:17
--- NOTE | 2020-07-26 14:53 | NUR ---
CM/SS DISCHARGE PLANNING Patient discharge is tomorrow, finalizing plans for post hospital care. HHC: Reviewed Medicare Compare for agencies in patient's service area. Attempted with [facility] Dept. [facility], only voice mail options. Referral was completed with [facility] [employer] [facility] of Stephanie Hardin there stated they should be able to staff for RN and PT. DME: RT to complete an O2 study for possible continuous Rx, incomplete at this time. Patient is current with [facility] in [place] for noc O2, will upgrade if results require. Will need to coordinate portable to hospital with transport person. [facility] is not yet in place, reached out to cardiology services and await update.
--- NOTE | 2020-07-26 14:56 | Therapy Group Daily Note ---
Therapy Daily Group Note Patient Education Topic Other List Below (memory and strategies) Exercises UE Exercise, Other (cervical and breathing exercises) Session Ratio (pt:therapist): 4:1 Goal of Session: Home Safety Strategies, Memory Strategies Goal Met for this Session: Yes Pt Benefit of Group: Contributions to Others, Improved Cognition, Socialization Other/Notes Pt. participated in group PT OT session this date. Pt. ambulated to and from group using FWW . Pt. was social, introduced herself and shared her favorite childhood Ruben memory. [facility] and short term memory was discussed as well as memory association etc. Pts shared their own experiences with ways to remember important things as well as some important things they have forgotten and the consequences. Pts all participated in memory activity using matching images first shown then hidden challenging pts to recall their location . 5 words were established for recall at later group session. Pts participated in neck exercises as well as breathing exercises. Pt. to room after group with hernandez at hand and needs met Start Time: 13:00 Stop Time: 14:25 Total Billed Treatment Time: 85 Total Billed Treatment 1,GRP 85m KRYSTINA BURGOS ROD BUSTER Jul 26, 2020 14:56
[2020-07-26 15:15] VITALS: BP 130/61
--- NOTE | 2020-07-26 16:56 | NUR ---
PATIENT SAT WAS CHECKED ON OXYGEN AT 2 L/M SAT WAS 97% PATIENT THEN PLACED ON ROOM AIR FOE AN HOUR AND CHECKED AGAIN SAT WAS THEN 92% PATIENT THEN WALKED AND SAT ONLY DROPPED TO 90% AFTER RESTING FOR 3 MIN. PATIENT SAT WAS 93% Addendum: 07/26/20 at 1657 by EDWIN SCOTT RT Amended: Links added.
--- NOTE | 2020-07-26 17:58 | Progress Note - Cardiology ---
Cardiology SOAP Progress Note Subjective: Feels tired and weak, but better than before Notes shortness of breath with activity, but somewhat better than before Denies cp or palp or syncope Denies n/v/d Objective: I&O/Vital Signs 07/26/20 07/26/20 07/26/20 07/26/20 06:16 06:35 09:00 09:15 Pulse 60 62 B/P (MAP) 139/69 (92) Pulse Ox 96 O2 Delivery Nasal Cannula Nasal Cannula O2 Flow Rate 2.00 2.00 07/26/20 07/26/20 07/26/20 12:30 15:15 16:52 Temp 36.5 Pulse 63 60 63 Resp 16 B/P (MAP) 130/61 (84) Pulse Ox 98 97 90 O2 Delivery Nasal Cannula O2 Flow Rate 2.00 2.00 07/26/20 00:00 Intake Total 1400 ml Balance 1400 ml Constitutional: AAO x 3, well-developed, well-nourished Respiratory: No accessory muscle use; other (good bilat air entry, diminished at the bases) Cardiovascular: regular rate-rhythm, S1 and S2, systolic murmur (soft ELIN at card base) Gastrointestional: No tender; soft; No guarding, No rebound; audible bowel sounds Extremities: No clubbing, No cyanosis, No significant edema Neurologic/Psychiatric: other (move all limbs equally) Skin: No rash on exposed areas, No ulcerations on exposed areas; other (bruising at sites of port removal from L upper chest and pacemaker placement in the R upper chest) Results/Procedures: Labs Laboratory Tests 07/25/20 20:15: Glucometer 245H 07/26/20 05:20: Glucometer 127H 07/26/20 05:40: White Blood Count 8.7, Red Blood Count 3.28L, Hemoglobin 9.4L, Hematocrit 31L, Mean Corpuscular Volume 93, Mean Corpuscular Hemoglobin 29, Mean Corpuscular Hemoglobin Concent 31L, Red Cell Distribution Width 13.2, Platelet Count 293, Me an Platelet Volume 11.5, Immature Granulocyte % (Auto) 1, Neutrophils (%) (Auto) 69, Lymphocytes (%) (Auto) 18, Monocytes (%) (Auto) 9, Eosinophils (%) (Auto) 3, Basophils (%) (Auto) 1, Neutrophils # (Auto) 6.0, Lymphocytes # (Auto) 1.6, Monocytes # (Auto) 0.8, Eosinophils # (Auto) 0.3, Basophils # (Auto) 0.0, Immature Granulocyte # (Auto) 0.1, Sodium Level 141, Potassium Level 3.9, Chloride Level 105, Carbon Dioxide Level 25, Anion Gap 11, Blood Urea Nitrogen 18, Creatinine 1.43H, Estimat Glomerular Filtration Rate 35, BUN/Creatinine Ratio 13, Glucose Level 135H, Calcium Level 8.4L, Corrected Calcium 9.2, Total Bilirubin 0.4, Aspartate Amino Transf (AST/SGOT) 24, Alanine Aminotransferase (ALT/SGPT) 17, Alkaline Phosphatase 71, Total Protein 6.1L, Albumin 3.0L 07/26/20 10:44: Glucometer 249H 07/26/20 12:05: Urine Color YELLOW, Urine Clarity CLEAR, Urine pH 6.5, Urine Specific Husser 1.010L, Urine Protein NEGATIVE, Urine Glucose (UA) NEGATIVE, Urine Ketones N EGATIVE, Urine Nitrite NEGATIVE, Urine Bilirubin NEGATIVE, Urine Urobilinogen 0.2, Urine Leukocyte Esterase NEGATIVE, Urine RBC (Auto) NEGATIVE, Urine RBC NONE, Urine WBC RARE, Urine Squamous Epithelial Cells NONE, Urine Crystals NONE, Urine Bacteria NEGATIVE, Urine Casts NONE, Urine Mucus NEGATIVE, Urine Culture Indicated NO 07/26/20 15:45: Glucometer 182H Laboratory Tests 07/26/20 05:40 A/P: Assessment: Cardiomyopathy, probably nonischemic (based on cardiac cath by Dr Osorio on 07/02/20 that showed only mild to mod, nonobstructive CAD). Echo on 07/15/20: LVEF 25-30%, mild to mod MR, akinetic distal septum and apex. 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
[2020-07-26] MEDS: MELATONIN 3 MG TABLET PO PRN (20:59)
[2020-07-26] MEDS: SENNA W/DOCUSATE (SENOKOT S) TABLET PO SCH (21:04)
--- NOTE | 2020-07-26 22:06 | NUR ---
ICU needing portal telemetry units. ICU requested to consult Cardiology to see if possible to DC patient's telemetry unit. Dr. Cook notified, new order to DC telemetry at this time.
[2020-07-27] MEDS: RT-ALBUTEROL/IPRATROPIUM 3 ML (DUONEB) VIAL INH SCH ×3 (03:22→10:33)
[2020-07-27] MEDS: inSUlin ASPART (NovoLOG) 1 UNIT/0.01 ML (CHARGE PER UNIT) SC SCH (05:20)
[2020-07-27 06:00] VITALS: BP 130/60
[2020-07-27] MEDS: KCL 20 MEQ TAB (K-DUR) PO SCH (06:26)
[2020-07-27] MEDS: CATHETER FLUSH 10 ML SYR IV SCH (06:37)
[2020-07-27] MEDS: FUROSEMIDE 20 MG (LASIX) TAB PO SCH (07:33)
[2020-07-27] MEDS: THYROID (ARMOUR) 60 MG TABLET PO SCH (07:33)
[2020-07-27] MEDS: AMIODARONE 200 MG (CORDARONE) TAB PO SCH (07:33)
[2020-07-27] MEDS: DIGOXIN 0.125 MG (LANOXIN) TAB PO SCH (07:33)
[2020-07-27] MEDS: APIXABAN 5 MG (ELIQUIS) TABLET PO SCH (07:34)
[2020-07-27] MEDS: guaiFENesin/DM (ROBITUSSIN DM) 10 ML UDC PO PRN (07:42)
[2020-07-27] MEDS: LACTOBACILLUS ACIDOPHILUS (PROBIOTIC) CAPSULE PO SCH (07:42)
[2020-07-27] MEDS: SENNA W/DOCUSATE (SENOKOT S) TABLET PO SCH (08:04)
[2020-07-27] MEDS: DOCUSATE SODIUM 100 MG (COLACE) CAP PO SCH (08:04)
[2020-07-27] MEDS: polyethylene glycoL POWDER 17 GM (MIRALAX) PACK PO SCH (08:04)
--- NOTE | 2020-07-27 08:29 | Therapy Team Discharge Summary ---
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 Upon evaluation patient performs rolling with independence, supine <-> sit with min assist, sit <-> stand min assist, transfers min assist, car transfer min assist, ambulated 6' in the parallel bars with min assist, and propelled a manual WC 150' with SBA. Patient has been performing bed mobility and transfer training, balance and endurance training, functional strengthening, stair training, gait training, and education. Patient has made good progress and has met all of her halfway goals. Now, patient performs bed mobility and transfers with independence, car transfer independent, ambulates 150' with a rolling walker with independence (including 50' with at least 2 turns of 90 degrees and 10' over an uneven surface), can go up and down 4 steps using 2 handrails with SBA, and can fruit picker machine operator an object from the floor with SBA. Patient is discharging from this facility today and will be discharged from PT at this time. Occupational Therapy Decreased Activ Tolerance, Decreased UE Strength, Dependent Transfers, Impaired Funct Balance, Impaired I ADL's, Impaired Self-Care Skills PT Blast Setter Goals Blast Setter Goals PT Skilled Nursing Goals Time Frame: Aug 04, 2020 Roll Left to Right (QC): 6 Sit to Lying (QC): 6 Lying-Sitting on Side/Bed(QC): 6 Sit to Stand (QC): 4 (SBA) Chair/[id number] Xfer(QC): 4 (SBA) Car Transfer (QC): 4 (SBA) Does the Patient Walk: Yes Walk 10 feet (QC): 4 (SBA) Walk 10ft-Uneven Surface(QC): 4 (SBA) Walk 50ft with 2 Turns (QC): 4 (SBA) Walk 150 ft (QC): 4 (SBA) Does the Pt use WC or Scooter?: Yes Wheel 50 feet with 2 turns (QC: 6 1 Step (curb) (QC): 4 (SBA) 4 Steps (QC): 4 (SBA) 12 Steps (QC): 88 Picking up an Object (QC): 4 (SBA) OT Blast Setter Goals Blast Setter Goals Time Frame: Jul 28, 2020 Eating (QC): 6 Oral Hygiene (QC): 6 Shower/Bathe Self (QC): 4 Upper Body Dressing (QC): 5 Lower Body Dressing (QC): 4 On/Off Footwear (QC): 4 Toileting Hygiene (QC): 6 Toilet/Commode Transfer (QC): 4 (SBA) Additional Goals: 1-Demonstrate ADL Tasks, 2-Verbalize Understanding, 3- ImproveStrength/Rogelio 1=Demonstrate adherence to instructed precautions during ADL tasks. 2=Patient will verbalize/demonstrate understanding of assistive devices/modifications for ADL. 3=Patient will improve strength/tolerance for activity to enable patient to perform ADL's. Speech Skilled Nursing Goals Blast Setter Goals Patient will improve cognitive communication to complete daily tasks with minimal assist. SHANICE SERRA PT Jul 27, 2020 08:29
[2020-07-27] MEDS ORDERED: NITR0.4T42 SL (08:43)
[2020-07-27] MEDS ORDERED: ALPR.25T PO (08:43)
[2020-07-27] MEDS ORDERED: AMIO200T4 PO (08:43)
[2020-07-27] MEDS ORDERED: ONDA4TAB11 PO (08:43)
[2020-07-27] MEDS ORDERED: DILT240C91 PO (08:43)
[2020-07-27] MEDS ORDERED: DIGO125T18 PO (08:43)
[2020-07-27] MEDS ORDERED: GUAI5SYR PO (08:43)
[2020-07-27] MEDS ORDERED: FURO20TA4 PO (08:43)
[2020-07-27] MEDS ORDERED: OXC5T PO (08:43)
[2020-07-27] MEDS ORDERED: MTP25TSR PO (08:43)
[2020-07-27] MEDS ORDERED: APIX5TAB PO (08:43)
[2020-07-27] MEDS ORDERED: POTA20TA8 PO (08:43)
[2020-07-27] MEDS ORDERED: GLIP10TA13 PO (08:43)
--- NOTE | 2020-07-27 08:45 | D/C HH Face to Face Order ---
D/C Face to Face Orders Reconcile Patient Problems Problems Reviewed?: Yes Instructions for Patient [facility] Patient Instructions/FollowUp: PCP 1 week Physician to follow Patient: Heidy Discharge Diet for Home: ADA Diet, Low Sodium Diet Patient Problems: CHF AF CAD [facility] Goals for Patient: Speed Patient Data-Allergies,Ht & Wt Patient Allergies: Coded Allergies: atorvastatin (Verified Allergy, Intermediate, 07/02/20) ciprofloxacin (Verified Allergy, Intermediate, 07/02/20) pregabalin (Verified Allergy, Intermediate, 07/02/20) Uncoded Allergies: IV Contrast (Adverse Reaction, Unknown, 07/02/20) Home Health Need/Face to Face Date of Face to Face: Jul 27, 2020 Clinical Findings: Generalized weakness and fatigue, Instability, Muscle weakness, Shortness of breath, Unsteady gait I have seen Pt [id number]: Yes Discharged To: Home Diagnosis/Conditions: CHF AF CAD [facility] Patient is Homebound due to: Nemo fall risk due to instabilty, Muscle weakness, Shortness of breath/distress Homebound Status Due to the above stated illness, injury or surgical procedure (medical condition or diagnosis) and associated clinical findings, the patient is homebound because of his/her inability to leave home except with aid of a supportive device and/or person AND leaving the home requires a considerable and taxing effort or is medically contraindicated. Pt req the following assistanc: Walker Home Health Nursing Orders Home Health Services Order: Nursing Services, Counseling Director-Evaluate & Treat, Physical Therapy-Evaluate & Treat Certify Stmt I certify that this patient is under my care and that I, a nurse practitioner or a physician; a assistant tennis professional working with me, had a face to face encounter that - meets the physician face to face encounter requirements with this patient as dated. KISHORE BENITEZ DO Jul 27, 2020 08:45
--- NOTE | 2020-07-27 08:46 | Discharge Summary ---
Diagnosis/Chief Complaint Date of Admission Jul 13, 2020 at 16:45 Date of Discharge Discharge Date: Jul 27, 2020 Discharge Diagnosis Assessment: Myopathy Critical illness source of weakness s/p pacemaker for heart block Venous access source of bacteremia maintained on Vanc BRENNON CAD non-obstructive HTN HLP Hyponatremia Anemia Still cath in place Plan: IRF protocol DC catheter Monitor labs Vanc 07/14/20: IV abx Moved to ICU temporarily for AF w/RVR Continue IRF protocol 07/16/20: Monitor heart rate Wean O2 Ankle and knee injections appreciated Monitor closely 07/18/20: Wean O2 Doing better Labs tomorrow 07/19/20: Appreciate Dr. Tanesha Lee Dog to visit today 07/20/20: Maintain on room air Wean off oxygen Doing very well 07/21/20: Life vest per cardiology Wean oxygen Monitor closely Needs another week of rehab 07/22/20: O2 prn Monitor BP Life vest when she is DC 07/23/20: Monitor sugar elevation O2 IRF dramatically improving status 07/24/20: Monitor choking episodes Anxiety plays a large role in her issues Maintain O2 07/25/20: Appreciate Dr Jo Lee Home O2 eval tomorrow 07/26/20: Discharge tomorrow Home 02 eval In & out cath for UA Discharge Summary Discharge Physical Examination Allergies: Coded Allergies: atorvastatin (Verified Allergy, Intermediate, 07/02/20) ciprofloxacin (Verified Allergy, Intermediate, 07/02/20) pregabalin (Verified Allergy, Intermediate, 07/02/20) Uncoded Allergies: IV Contrast (Adverse Reaction, Unknown, 07/02/20) Vitals & I&Os Vital Signs Date Time Temp Pulse Resp B/P (MAP) Pulse Ox O2 Delivery O2 Flow Rate FiO2 07/27/20 06:24 99 Nasal Cannula 1.00 07/27/20 06:00 36.6 65 18 130/60 (83) General Appearance: Alert, Oriented X3 Respiratory: Normal Air Movement Cardiovascular: Regular Rate Neuro: Normal Speech Hospital Course Was the Problem List Reviewed?: Yes Hospital Course: Pt had a 14 day hospital course after she was admitted for cardiac deconditioning after an eight day stay in the ICU for cardiac reasons that required a pacemaker placement. She did have an episode of AF with RVR requiring ICU transfer for two days then restarted back in inpatient rehab. Oxygen was weaned, Lasix was given for pulmonary edema and volume overload which helped oxygenation. She wears oxygen 2 liters at night at home anyways. She did complete antibiotics for UTI with bacteremia and overall she did very well. She was set for discharge with home health and all cardiac meds were sent into the pharmacy, triple checked for accuracy, and she was sent home in stable condition. Labs (last 24 hrs) Laboratory Tests 07/13/20 17:14: Glucometer 203H 07/13/20 20:29: Glucometer 254H 07/14/20 05:11: Glucometer 180H 07/14/20 05:30: White Blood Count 13.3H, Red Blood Count 3.57L, Hemoglobin 10.3L, Hematocrit 33L , Mean Corpuscular Volume 91, Mean Corpuscular Hemoglobin 29, Mean Corpuscular Hemoglobin Concent 32, Red Cell Distribution Width 12.7, Platelet Count 299, Mean Platelet Volume 10.4, Immature Granulocyte % (Auto) 1, Neutrophils (%) (Auto) 73, Lymphocytes (%) (Auto) 15, Monocytes (%) (Auto) 8, Eosinophils (%) (Auto) 3, Basophils (%) (Auto) 0, Neutrophils # (Auto) 9.7H, Lymphocytes # (Auto) 1.9, Monocytes # (Auto) 1.1H, Eosinophils # (Auto) 0.4H, Basophils # (Auto) 0.1, Immature Granulocyte # (Auto) 0.1, Sodium Level 138, Potassium Level 3.6, Chloride Level 101, Carbon Dioxide Level 25, Anion Gap 12, Blood Urea Nitrogen 11, Creatinine 1.32H, Estimat Glomerular Filtration Rate 39, BUN/Creatinine Ratio 8, Glucose Level 170H, Calcium Level 8.6, Corrected Calcium 9.5, Total Bilirubin 0.3, Aspartate Amino Transf (AST/SGOT) 17, Alanine Aminotransferase (ALT/SGPT) 13, Alkaline Phosphatase 74, Total Protein 6.1L, Albumin 2.9L 07/14/20 10:54: Glucometer 300H 07/14/20 15:14: Glucometer 208H 07/14/20 20:50: Glucometer 220H 07/16/20 17:15: Vancomycin Level Trough 10.6 07/16/20 20:01: Glucometer 275H 07/17/20 05:27: Glucometer 184H 07/17/20 12:02: Glucometer 230H 07/17/20 16:22: Glucometer 208H 07/17/20 21:29: Glucometer 214H 07/18/20 06:09: Glucometer 160H 07/18/20 06:10: White Blood Count 10.1, Red Blood Count 3.04L, Hemoglobin 8.8L, Hematocrit 28L, Mean Corpuscular Volume 93, Mean Corpuscular Hemoglobin 29, Mean Corpuscular Hemoglobin Concent 31L, Red Cell Distribution Width 13.2, Platelet Count 267, Mean Platelet Volume 10.4, Immature Granulocyte % (Auto) 1, Neutrophils (%) (Auto) 74, Lymphocytes (%) (Auto) 14, Monocytes (%) (Auto) 9, Eosinophils (%) (Auto) 2, Basophils (%) (Auto) 0, Neutrophils # (Auto) 7.5, Lymphocytes # (Auto) 1.4, Monocytes # (Auto) 0.9, Eosinophils # (Auto) 0.2, Basophils # (Auto) 0.0, Immature Granulocyte # (Auto) 0.1, Sodium Level 138, Potassium Level 4.2, Chloride Level 103, Carbon Dioxide Level 24, Anion Gap 11, Blood Urea Nitrogen 13, Creatinine 1.43H, Estimat Glomerular Filtration Rate 35, BUN/Creatinine Ratio 9, Glucose Level 150H, Calcium Level 8.4L, Magnesium Level 1.5L, Iron Level 25L 07/18/20 11:54: Glucometer 293H 07/18/20 15:11: Glucometer 151H 07/18/20 21:07: Glucometer 289H 07/19/20 09:39: White Blood Count 11.1H, Red Blood Count 3.37L, Hemoglobin 9.7L, Hematocrit 31L, Mean Corpuscular Volume 93, Mean Corpuscular Hemoglobin 29, Mean Corpuscular Hemoglobin Concent 31L, Red Cell Distribution Width 13.3, Platelet Count 334, Mean Platelet Volume 10.9, Immature Granulocyte % (Auto) 1, Neutrophils (%) (Auto) 74, Lymphocytes (%) (Auto) 13, Monocytes (%) (Auto) 10, Eosinophils (%) (Auto) 2, Basophils (%) (Auto) 1, Neutrophils # (Auto) 8.3H, Lymphocytes # (Auto) 1.4, Monocytes # (Auto) 1.1H, Eosinophils # (Auto) 0.2, Basophils # (Auto) 0.1, Immature Granulocyte # (Auto) 0.1, Sodium Level 138, Potassium Level 4.4, Chloride Level 102, Carbon Dioxide Level 22, Anion Gap 14, Blood Urea Nitrogen 14, Creatinine 1.65H, Estimat Glomerular Filtration Rate 30, BUN/Creatinine Ratio 8, Glucose Level 174H, Calcium Level 8.9, B-Type Natriuretic Peptide 651.5H 07/19/20 10:15: Blood Gas Puncture Site RT RAD, Blood Gas Patient Temperature 36.4, Arterial Blood pH 7.49H, Arterial Blood Partial Pressure CO2 34L, Arterial Blood Partial Pressure O2 87, Arterial Blood HCO3 26, Arterial Blood Total CO2 27.0, Arterial Blood Oxygen Saturation 98, Arterial Blood Base Excess 2.7H, Krishna Test YES-POS, Blood Gas Ventilator Setting NO, Blood Gas Inspired Oxygen 2 L 07/19/20 11:56: Glucometer 219H 07/19/20 13:37: Urine Color YELLOW, Urine Clarity CLEAR, Urine pH 7.5, Urine Specific [place] <=1.005, Urine Protein NEGATIVE, Urine Glucose (UA) NEGATIVE, Urine Ketones NEGATIVE, Urine Nitrite NEGATIVE, Urine Bilirubin NEGATIVE, Urine Urobilinogen 0.2, Urine Leukocyte Esterase NEGATIVE, Urine RBC (Auto) NEGATIVE, Urine RBC NONE, Urine WBC NONE, Urine Squamous Epithelial Cells NONE, Urine Crystals NONE, Urine Bacteria NEGATIVE, Urine Casts NONE, Urine Mucus NEGATIVE, Urine Culture Indicated NO 07/19/20 16:02: Glucometer 163H 07/19/20 20:02: Glucometer 259H 07/20/20 05:30: Glucometer 154H 07/20/20 11:01: Glucometer 235H 07/20/20 15:19: Glucometer 201H 07/20/20 20:15: Glucometer 186H 07/21/20 04:55: Sodium Level 139, Potassium Level 4.0, Chloride Level 102, Carbon Dioxide Level 25, Anion Gap 12, Blood Urea Nitrogen 16, Creatinine 1.75H, Estimat Glomerular Filtration Rate 28, BUN/Creatinine Ratio 9, Glucose Level 153H, Calcium Level 8.7, Magnesium Level 1.7 07/21/20 05:19: Glucometer 161H 07/21/20 10:57: Glucometer 297H 07/21/20 16:40: Glucometer 222H 07/21/20 21:24: Glucometer 220H 07/22/20 05:12: Glucometer 165H 07/22/20 10:47: Glucometer 256H 07/22/20 16:01: Glucometer 223H 07/22/20 20:04: Glucometer 169H 07/23/20 05:15: Glucometer 145H 07/23/20 11:00: Glucometer 324H 07/23/20 15:19: Glucometer 161H 07/23/20 20:06: Glucometer 286H 07/24/20 05:58: Glucometer 153H 07/24/20 10:46: Glucometer 220H 07/24/20 15:28: Glucometer 124H 07/24/20 20:42: Glucometer 209H 07/25/20 04:11: Glucometer 109 07/25/20 10:33: Glucometer 229H 07/25/20 15:48: Glucometer 176H 07/25/20 20:15: Glucometer 245H 07/26/20 05:20: Glucometer 127H 07/26/20 05:40: White Blood Count 8.7, Red Blood Count 3.28L, Hemoglobin 9.4L, Hematocrit 31L, Mean Corpuscular Volume 93, Mean Corpuscular Hemoglobin 29, Mean Corpuscular Hemoglobin Concent 31L, Red Cell Distribution Width 13.2, Platelet Count 293, Mean Platelet Volume 11.5, Immature Granulocyte % (Auto) 1, Neutrophils (%) (Auto) 69, Lymphocytes (%) (Auto) 18, Monocytes (%) (Auto) 9, Eosinophils (%) (Auto) 3, Basophils (%) (Auto) 1, Neutrophils # (Auto) 6.0, Lymphocytes # (Auto) 1.6, Monocytes # (Auto) 0.8, Eosinophils # (Auto) 0.3, Basophils # (Auto) 0.0, Immature Granulocyte # (Auto) 0.1, Sodium Level 141, Potassium Level 3.9, Chloride Level 105, Carbon Dioxide Level 25, Anion Gap 11, Blood Urea Nitrogen 18, Creatinine 1.43H, Estimat Glomerular Filtration Rate 35, BUN/Creatinine Ratio 13, Glucose Level 135H, Calcium Level 8.4L, Corrected Calcium 9.2, Total Bilirubin 0.4, Aspartate Amino Transf (AST/SGOT) 24, Alanine Aminotransferase (ALT/SGPT) 17, Alkaline Phosphatase 71, Total Protein 6.1L, Albumin 3.0L 07/26/20 10:44: Glucometer 249H 07/26/20 12:05: Urine Color YELLOW, Urine Clarity CLEAR, Urine pH 6.5, Urine Specific [place] 1.010L, Urine Protein NEGATIVE, Urine Glucose (UA) NEGATIVE, Urine Ketones NEGATIVE, Urine Nitrite NEGATIVE, Urine Bilirubin NEGATIVE, Urine Urobilinogen 0.2, Urine Leukocyte Esterase NEGATIVE, Urine RBC (Auto) NEGATIVE, Urine RBC NONE, Urine WBC RARE, Urine Squamous Epithelial Cells NONE, Urine Crystals NONE, Urine Bacteria NEGATIVE, Urine Casts NONE, Urine Mucus NEGATIVE, Urine Culture Indicated NO 07/26/20 15:45: Glucometer 182H 07/26/20 20:19: Glucometer 243H 07/27/20 04:43: Glucometer 142H 07/27/20 11:00: Glucometer 223H Pending Labs Laboratory Tests 07/13/20 17:14: Glucometer 203 07/13/20 20:29: Glucometer 254 07/14/20 05:11: Glucometer 180 07/14/20 05:30: White Blood Count 13.3, Red Blood Count 3.57, Hemoglobin 10.3, Hematocrit 33, Mean Corpuscular Volume 91, Mean Corpuscular Hemoglobin 29, Mean Corpuscular Hemoglobin Concent 32, Red Cell Distribution Width 12.7, Platelet Count 299, Mean Platelet Volume 10.4, Immature Granulocyte % (Auto) 1, Neutrophils (%) (Auto) 73, Lymphocytes (%) (Auto) 15, Monocytes (%) (Auto) 8, Eosinophils (%) (Auto) 3, Basophils (%) (Auto) 0, Neutrophils # (Auto) 9.7, Lymphocytes # (Auto) 1.9, Monocytes # (Auto) 1.1, Eosinophils # (Auto) 0.4, Basophils # (Auto) 0.1, Immature Granulocyte # (Auto) 0.1, Sodium Level 138, Potassium Level 3.6, Chloride Level 101, Carbon Dioxide Level 25, Anion Gap 12, Blood Urea Nitrogen 11, Creatinine 1.32, Estimat Glomerular Filtration Rate 39, BUN/Creatinine Ratio 8, Glucose Level 170, Calcium Level 8.6, Corrected Calcium 9.5, Total Bilirubin 0.3, Aspartate Amino Transf (AST/SGOT) 17, Alanine Aminotransferase (ALT/SGPT) 13, Alkaline Phosphatase 74, Total Protein 6.1, Albumin 2.9 07/14/20 10:54: Glucometer 300 07/14/20 15:14: Glucometer 208 07/14/20 20:50: Glucometer 220 07/16/20 17:15: Vancomycin Level Trough 10.6 07/16/20 20:01: Glucometer 275 07/17/20 05:27: Glucometer 184 07/17/20 12:02: Glucometer 230 07/17/20 16:22: Glucometer 208 07/17/20 21:29: Glucometer 214 07/18/20 06:09: Glucometer 160 07/18/20 06:10: White Blood Count 10.1, Red Blood Count 3.04, Hemoglobin 8.8, Hematocrit 28, Mean Corpuscular Volume 93, Mean Corpuscular Hemoglobin 29, Mean Corpuscular Hemoglobin Concent 31, Red Cell Distribution Width 13.2, Platelet Count 267, Mean Platelet Volume 10.4, Immature Granulocyte % (Auto) 1, Neutrophils (%) (Auto) 74, Lymphocytes (%) (Auto) 14, Monocytes (%) (Auto) 9, Eosinophils (%) (Auto) 2, Basophils (%) (Auto) 0, Neutrophils # (Auto) 7.5, Lymphocytes # (Auto) 1.4, Monocytes # (Auto) 0.9, Eosinophils # (Auto) 0.2, Basophils # (Auto) 0.0, Immature Granulocyte # (Auto) 0.1, Sodium Level 138, Potassium Level 4.2, Chloride Level 103, Carbon Dioxide Level 24, Anion Gap 11, Blood Urea Nitrogen 13, Creatinine 1.43, Estimat Glomerular Filtration Rate 35, BUN/Creatinine Ratio 9, Glucose Level 150, Calcium Level 8.4, Magnesium Level 1.5, Iron Level 25 07/18/20 11:54: Glucometer 293 07/18/20 15:11: Glucometer 151 07/18/20 21:07: Glucometer 289 07/19/20 09:39: White Blood Count 11.1, Red Blood Count 3.37, Hemoglobin 9.7, Hematocrit 31, Mean Corpuscular Volume 93, Mean Corpuscular Hemoglobin 29, Mean Corpuscular Hemoglobin Concent 31, Red Cell Distribution Width 13.3, Platelet Count 334, Mean Platelet Volume 10.9, Immature Granulocyte % (Auto) 1, Neutrophils (%) (Auto) 74, Lymphocytes (%) (Auto) 13, Monocytes (%) (Auto) 10, Eosinophils (%) (Auto) 2, Basophils (%) (Auto) 1, Neutrophils # (Auto) 8.3, Lymphocytes # (Auto) 1.4, Monocytes # (Auto) 1.1, Eosinophils # (Auto) 0.2, Basophils # (Auto) 0.1, Immature Granulocyte # (Auto) 0.1, Sodium Level 138, Potassium Level 4.4, Chloride Level 102, Carbon Dioxide Level 22, Anion Gap 14, Blood Urea Nitrogen 14, Creatinine 1.65, Estimat Glomerular Filtration Rate 30, BUN/Creatinine Ratio 8, Glucose Level 174, Calcium Level 8.9, B-Type Natriuretic Peptide 651.5 07/19/20 10:15: Blood Gas Puncture Site RT RAD, Blood Gas Patient Temperature 36.4, Arterial Blood pH 7.49, Arterial Blood Partial Pressure CO2 34, Arterial Blood Partial Pressure O2 87, Arterial Blood HCO3 26, Arterial Blood Total CO2 27.0, Arterial Blood Oxygen Saturation 98, Arterial Blood Base Excess 2.7, Krishna Test YES-POS, Blood Gas Ventilator Setting NO, Blood Gas Inspired Oxygen 2 L 07/19/20 11:56: Glucometer 219 07/19/20 13:37: Urine Color YELLOW, Urine Clarity CLEAR, Urine pH 7.5, Urine Specific [place] <=1.005, Urine Protein NEGATIVE, Urine Glucose (UA) NEGATIVE, Urine Ketones NEGATIVE, Urine Nitrite NEGATIVE, Urine Bilirubin NEGATIVE, Urine Urobilinogen 0.2, Urine Leukocyte Esterase NEGATIVE, Urine RBC (Auto) NEGATIVE, Urine RBC NONE, Urine WBC NONE, Urine Squamous Epithelial Cells NONE, Urine Crystals NONE, Urine Bacteria NEGATIVE, Urine Casts NONE, Urine Mucus NEGATIVE, Urine Culture Indicated NO 07/19/20 16:02: Glucometer 163 07/19/20 20:02: Glucometer 259 07/20/20 05:30: Glucometer 154 07/20/20 11:01: Glucometer 235 07/20/20 15:19: Glucometer 201 07/20/20 20:15: Glucometer 186 07/21/20 04:55: Sodium Level 139, Potassium Level 4.0, Chloride Level 102, Carbon Dioxide Level 25, Anion Gap 12, Blood Urea Nitrogen 16, Creatinine 1.75, Estimat Glomerular Filtration Rate 28, BUN/Creatinine Ratio 9, Glucose Level 153, Calcium Level 8.7, Magnesium Level 1.7 07/21/20 05:19: Glucometer 161 07/21/20 10:57: Glucometer 297 07/21/20 16:40: Glucometer 222 07/21/20 21:24: Glucometer 220 07/22/20 05:12: Glucometer 165 07/22/20 10:47: Glucometer 256 07/22/20 16:01: Glucometer 223 07/22/20 20:04: Glucometer 169 07/23/20 05:15: Glucometer 145 07/23/20 11:00: Glucometer 324 07/23/20 15:19: Glucometer 161 07/23/20 20:06: Glucometer 286 07/24/20 05:58: Glucometer 153 07/24/20 10:46: Glucometer 220 07/24/20 15:28: Glucometer 124 07/24/20 20:42: Glucometer 209 07/25/20 04:11: Glucometer 109 07/25/20 10:33: Glucometer 229 07/25/20 15:48: Glucometer 176 07/25/20 20:15: Glucometer 245 07/26/20 05:20: Glucometer 127 07/26/20 05:40: White Blood Count 8.7, Red Blood Count 3.28, Hemoglobin 9.4, Hematocrit 31, Mean Corpuscular Volume 93, Mean Corpuscular Hemoglobin 29, Mean Corpuscular Hemoglobin Concent 31, Red Cell Distribution Width 13.2, Platelet Count 293, Mean Platelet Volume 11.5, Immature Granulocyte % (Auto) 1, Neutrophils (%) (Auto) 69, Lymphocytes (%) (Auto) 18, Monocytes (%) (Auto) 9, Eosinophils (%) (Auto) 3, Basophils (%) (Auto) 1, Neutrophils # (Auto) 6.0, Lymphocytes # (Auto) 1.6, Monocytes # (Auto) 0.8, Eosinophils # (Auto) 0.3, Basophils # (Auto) 0.0, Immature Granulocyte # (Auto) 0.1, Sodium Level 141, Potassium Level 3.9, Chloride Level 105, Carbon Dioxide Level 25, Anion Gap 11, Blood Urea Nitrogen 18, Creatinine 1.43, Estimat Glomerular Filtration Rate 35, BUN/Creatinine Ratio 13, Glucose Level 135, Calcium Level 8.4, Corrected Calcium 9.2, Total Bilirubin 0.4, Aspartate Amino Transf (AST/SGOT) 24, Alanine Aminotransferase (ALT/SGPT) 17, Alkaline Phosphatase 71, Total Protein 6.1, Albumin 3.0 07/26/20 10:44: Glucometer 249 07/26/20 12:05: Urine Color YELLOW, Urine Clarity CLEAR, Urine pH 6.5, Urine Specific [place] 1.010, Urine Protein NEGATIVE, Urine Glucose (UA) NEGATIVE, Urine Ketones NEGATIVE, Urine Nitrite NEGATIVE, Urine Bilirubin NEGATIVE, Urine Urobilinogen 0.2, Urine Leukocyte Esterase NEGATIVE, Urine RBC (Auto) NEGATIVE, Urine RBC NONE, Urine WBC RARE, Urine Squamous Epithelial Cells NONE, Urine Crystals NONE, Urine Bacteria NEGATIVE, Urine Casts NONE, Urine Mucus NEGATIVE, Urine Culture Indicated NO 07/26/20 15:45: Glucometer 182 07/26/20 20:19: Glucometer 243 07/27/20 04:43: Glucometer 142 07/27/20 11:00: Glucometer 223 Discharge Home Medications: Active Scripts Active Ondansetron Odt (Ondansetron) 4 Mg Tab.rapdis 4 Mg PO Q6H PRN Guaifenesin Dm Syrup (Guaifenesin/Dextromethorphan) 5 Ml Syrup 5 Ml PO Q4H PRN Furosemide 20 Mg Tablet 20 Mg PO DAILY Klor-Con M20 (Potassium Chloride) 20 Meq Tab.er.prt 40 Meq PO DAILY@0700 Xanax Tablet (Alprazolam) 0.25 Mg Tab 0.25 Mg PO Q4HR PRN Oxyir Tablet (Oxycodone HCl) 5 Mg Tab 2.5-5 Mg PO Q4H PRN Diltiazem 24Hr ER (Diltiazem HCl) 240 Mg Cap.er.24h 240 Mg PO DAILY Metoprolol Succinate 25 Mg Tab.er.24h 25 Mg PO DAILY Nitroglycerin 0.4 Mg Tab.subl 0 Mg SL NEEDED PRN Digox (Digoxin) 125 Mcg Tablet 0.125 Mg PO DAILY Amiodarone HCl 200 Mg Tablet 400 Mg PO BID Eliquis (Apixaban) 5 Mg Tablet 5 Mg PO BID Glipizide 10 Mg Tablet 5 Mg PO BID 14 Days Reported Gas-X Ultra Strength (Simethicone) 180 Mg Capsule 180 Mg PO PRN PRN Co Q-10 100 mg Softgel (Ubidecarenone/Vit E Acetate) 1 Each Capsule 1 Each PO DAILY Vitamin B12 (Cyanocobalamin (Vitamin B-12)) 2,500 Mcg Tablet 2,500 Mcg PO DAILY Vitamin C (Ascorbate Calcium) 500 Mg Tablet 500 Mg PO DAILY Vitamin D3 (Cholecalciferol (Vitamin D3)) 50 Mcg Capsule 50 Mcg PO DAILY Ferrex 150 (Iron Polysaccharide Complex) 150 Mg Capsule 150 Mg PO DAILY Amitriptyline HCl 10 Mg Tablet 20 Mg PO HS TAKES 2 (10MG) TABS [place] Thyroid (Thyroid,Pork) 60 Mg Tablet 60 Mg PO BID Instructions to patient/family Please see electronic discharge instructions given to patient. Diagnosis/Problems Diagnosis/Problems (1) Myopathy (2) Bacteremia due to Staphylococcus epidermidis Status: Acute (3) Infection of venous access port Status: Acute (4) S/P placement of cardiac pacemaker Status: Acute (5) Euthyroid sick syndrome Status: Acute (6) S/p nephrectomy Status: Chronic (7) Hypothyroidism Status: Chronic (8) Renal cell carcinoma Status: Chronic (9) Low TSH level Status: Acute (10) T2DM (type 2 diabetes mellitus) Status: Chronic (11) HTN (hypertension) Status: Chronic (12) Second degree AV block Status: Acute (13) Kidney injury (14) Hyponatremia Status: Acute (15) Heart block Clinical Quality Measures DVT/VTE Risk/Contraindication: Risk Factor Score Per Nursin RFS Level Per Nursing on Admit: 4+=Very High KISHORE BENITEZ DO Jul 27, 2020 08:46
--- NOTE | 2020-07-27 08:49 | PM&R Progress Note ---
Subjective HPI/CC On Admission Date Seen by Provider: Jul 27, 2020 Time Seen by Provider: 09:00 Subjective/Events-last exam 07/26/20: Creatinine 1.43 Talked about a urinalysis and polyuria, she has received Lasix but I will go ahead and do another in-and-out cath Home O2 evaluation for day-time use Discharge is planned for tomorrow Bowels moved yesterday 07/25/20: Dr Osoiro gave her one dose of Lasix Reports she is breathing hard Home O2 evaluation will be done tomorrow Has O2 at night Sunday DC 07/24/20: Ate some grapes and had choking spell and took Xanax and mylanta and took awhile before she was able to get past it Needs carbonated beverage to help also Had emesis during episode too Overlal very weak today she reports BM++ 07/23/20: Sugar a bit more elevated before lunch today Wears O2 at night at home Using O2 most of the time while in IRF Doing well 07/22/20: Patient doing better and better BM yesterday O2 sat 88% on room air so needs O2 prn No pain reported 07/21/20: Pt had a BM today Life-vest recommended from Dr. Encarnacion Decreasing oxygen use Sleeping pretty well but taking Xanax 07/20/20: Pt now on room air but asking for oxygen No need for oxygen at this time Lasix initiated for pulmonary edema which was helpful Anxiety is much improved Was able to see her dog in a dog visit yesterday and she was thrilled about that 07/19/20: Pt much improved Oriented x3 now Dr. Almendarez will be consulted for dyspnea Weaning off oxygen Hgb 8.8 Creatinine 1.43 She will see her dog today She thinks she has a UTI with frequency so will do an in and out cath and maintain the Vanc as order Cough is still present 07/18/20: No issues Weaning O2 Sees her pet dog tomorrow BM+ Ankle and knee good since injections DC commode and going to bathroom now 07/17/20: Dietary adding ADA to the low sodium diet BM moving well Ankle and knee improved Weaning O2 07/16/20: Patient transferred down from ICU Doing well overall Insists on using O2 but her O2 sats is 96% so weaning that Very psychotic thoughts noted Ankle and knee injected by James Camarillo and his help is appreciated to help participation in therapy Pt requiring O2 even though her oxygen level is good Pacemaker maintained Telemetry maintained by cardiology request Refuses oral potassium, she would rather have it through her IV so unsure how we are going to titrate that considering she really needs to be off IVs Vancomycin will be maintained until completed 14 days after most recent gram positive blood cultures Xanax really helped her anxiety We already discontinued the Still catheter, she hasnt voided yet WBC 13 A lot of psychosocial issues at home, will likely slow recovery After rounds in afternoon patient was noted to have abnormal Telemetry and was found to have AF w/RVR so moved to ICU. Objective Exam Vital Signs Vital Signs Date Time Temp Pulse Resp B/P (MAP) Pulse Ox O2 Delivery O2 Flow Rate FiO2 07/27/20 06:24 99 Nasal Cannula 1.00 07/27/20 06:00 36.6 65 18 130/60 (83) Capillary Refill : Less Than 3 SecondsLess Than 3 Seconds General Appearance: No Apparent Distress, WD/WN, Chronically ill HEENT: PERRL/EOMI, Normal ENT Inspection, Pharynx Normal Neck: Full Range of Motion, Normal Inspection, Non Tender, Supple, Carotid Bruit Respiratory: Chest Non Tender, Lungs Clear, Normal Breath Sounds, No Accessory Muscle Use, No Respiratory Distress Cardiovascular: Regular Rate, Rhythm, No Edema, No Gallop, No JVD, No Murmur, Normal Peripheral Pulses Gastrointestinal: Normal Bowel Sounds, No Organomegaly, No Pulsatile Mass, Non Tender, Soft Back: Normal Inspection, No CVA Tenderness, No Vertebral Tenderness Extremity: Normal Capillary Refill, Normal Inspection, Normal Range of Motion, Non Tender, No Calf Tenderness, No Pedal Edema Neurologic/Psychiatric: Alert, Oriented x3, No Motor/Sensory Deficits, Normal Mood/Affect, map colorer II-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 FIM Transfers Therapy Code Descriptions/Definitions Functional [place] Measure: 0=Not Assessed/NA 4=Minimal Assistance 1=Total Assistance 5=Supervision or Setup 2=Maximal Assistance 6=Modified [place] 3=Moderate Assistance 7=Complete IndependenceSCALE: Activities may be completed with or without assistive devices. 1-Cmpaxydomn-symdynp completes the activity by him/herself with no assistance from a helper. 5-Set-up or Clean-up Assistance-helper sets up or cleans up; patient completes activity. [place] assists only prior to or following the activity. 4-Supervision or Touching Assistance-helper provides verbal cues and/or touching/steadying and/or contact guard assistance as patient completes activity. Assistance may be provided throughout the activity or intermittently. 3-Partial/Moderate Assistance-helper does LESS THAN HALF the effort. [place] lifts, holds or supports trunk or limbs, but provides less than half the effort. 2-Substantial/Maximal Assistance-helper does MORE THAN HALF the effort. [place] lifts or holds trunk or limbs and provides more than half the effort. 2-Yabdknlbt-pklauk does ALL the effort. Patient does none of the effort to complete the activity. Or, the assistance of 2 or more helpers is required for the patient to complete the activity. If activity was not attempted, code reason: 7-Patient Refused. 9-Not Applicable-not attempted and the patient did not perform the activity before the current illness, exacerbation or injury. 10-Not Attempted due to Environmental Limitations-(lack of equipment, weather restraints, etc.). 88-Not Attempted due to Medical Conditions or Safety Concerns. Roll Left to Right (QC): 6 Sit to Lying (QC): 6 Sit to Stand (QC): 6 Chair/Kdr-fd-Demoo Xfer(QC): 6 Car Transfer (QC): 6 Gait Training Does the Patient Walk?: Yes Distance: 100' x2 Walk 10 feet (QC): 6 Walk 50 ft with 2 Turns(QC): 6 Walk 150 ft (QC): 6 Walking 10ft/uneven surface-QC: 6 Gait Persons Needed: 0 Gait Assistive Device: FWW Wheelchair Training Does the Pt Use a Wheelchair?: Yes Distance: 150' Wheel 50 ft with 2 turns (QC): 4 Wheel 150 ft (QC): 4 Type of Wheelchair: Manual Stair Training Stair Training: Handrails/: 2 handrails #of Steps: 4 1 Step (curb) (QC): 4 4 Steps (QC): 5 12 Steps (QC): 7 Stairs: Pattern: Reciprocal Balance Picking up an Object (QC): 4 ADL-Treatment Eating (QC): 5 Oral Hygiene (QC): 5 Shower/Bathe Self (QC): 4 (CGA in stance and when bending to wash/dry LE.) Upper Body Dressing (QC): 5 Lower Body Dressing (QC): 3 (Pt. requires cues and then assist to don brief/pants with dressing stick. Pt. attempts to bend over but becomes SOA. Mo d assist for task.) On/Off Footwear (QC): 2 (Max assist due to pt. stating she has no energy left to do so.) Toileting Hygiene (QC): 4 (SBA for clothing management) Toilet Transfer (QC): 4 (SBA) Assessment/Plan Assessment and Plan Assess & Plan/Chief Complaint Assessment: Myopathy Critical illness source of weakness s/p pacemaker for heart block Venous access source of bacteremia maintained on Vanc BRENNON CAD non-obstructive HTN HLP Hyponatremia Anemia Still cath in place Plan: IRF protocol DC catheter Monitor labs Vanc 07/14/20: IV abx Moved to ICU temporarily for AF w/RVR Continue IRF protocol 07/16/20: Monitor heart rate Wean O2 Ankle and knee injections appreciated Monitor closely 07/18/20: Wean O2 Doing better Labs tomorrow 07/19/20: Appreciate Dr. Tanesha Lee Dog to visit today 07/20/20: Maintain on room air Wean off oxygen Doing very well 07/21/20: Life vest per cardiology Wean oxygen Monitor closely Needs another week of rehab 07/22/20: O2 prn Monitor BP Life vest when she is DC 07/23/20: Monitor sugar elevation O2 IRF dramatically improving status 07/24/20: Monitor choking episodes Anxiety plays a large role in her issues Maintain O2 07/25/20: Appreciate Dr Jo Lee Home O2 eval tomorrow 07/26/20: Discharge tomorrow Home 02 eval In & out cath for UA (1) Myopathy (2) Bacteremia due to Staphylococcus epidermidis Status: Acute (3) Infection of venous access port Status: Acute (4) S/P placement of cardiac pacemaker Status: Acute (5) Euthyroid sick syndrome Status: Acute (6) S/p nephrectomy Status: Chronic (7) Hypothyroidism Status: Chronic (8) Renal cell carcinoma Status: Chronic (9) Low TSH level Status: Acute (10) T2DM (type 2 diabetes mellitus) Status: Chronic (11) HTN (hypertension) Status: Chronic (12) Second degree AV block Status: Acute (13) Kidney injury (14) Hyponatremia Status: Acute (15) Heart block KISHORE BENITEZ DO Jul 27, 2020 08:49
--- NOTE | 2020-07-27 09:58 | Therapy Team Discharge Summary ---
Therapy Discharge Summary Discharge Recommendations Date of Discharge 07-27-20 Therapy D/C Recommendations: Home w/ Family Support, Occupational Therapy Home Care, Scheduled Assistance Occupational Therapy Pt. has been seen by occupational therapy to increase overall strength and independence. Pt. has made progress in all areas. However, due to continued fatigue and energy conservation issues, pt. requires assistance at times for ADL skills. Pt. will have 24 hour assist as needed by her roommate and friend. She will also have home health care. OT at home is recommended, as is a hip kit. Pt. has been educated in energy conservation techniques, safety, and ADL skills techniques with AE. Pt. is discharging home this date with friend. Decreased Activ Tolerance, Impaired I ADL's, Impaired Self-Care Skills PT Custodial Goals Custodial Goals PT Custodial Goals Time Frame: Aug 04, 2020 Roll Left to Right (QC): 6 Sit to Lying (QC): 6 Lying-Sitting on Side/Bed(QC): 6 Sit to Stand (QC): 4 (SBA) Chair/Lmv-ga-[place]bita Xfer(QC): 4 (SBA) Car Transfer (QC): 4 (SBA) Does the Patient Walk: Yes Walk 10 feet (QC): 4 (SBA) Walk 10ft-Uneven Surface(QC): 4 (SBA) Walk 50ft with 2 Turns (QC): 4 (SBA) Walk 150 ft (QC): 4 (SBA) Does the Pt use WC or Scooter?: Yes Wheel 50 feet with 2 turns (QC: 6 1 Step (curb) (QC): 4 (SBA) 4 Steps (QC): 4 (SBA) 12 Steps (QC): 88 Picking up an Object (QC): 4 (SBA) OT Custodial Goals Continuous Dryout Operator Goals Time Frame: Jul 28, 2020 Eating (QC): 6 (met) Oral Hygiene (QC): 6 (not met) Shower/Bathe Self (QC): 4 (met) Upper Body Dressing (QC): 5 (met) Lower Body Dressing (QC): 4 (not met) On/Off Footwear (QC): 4 (not met) Toileting Hygiene (QC): 6 (not met) Toilet/Commode Transfer (QC): 4 (not met) Additional Goals: 1-Demonstrate ADL Tasks, 2-Verbalize Understanding, 3-ImproveStrength/Rogelio 1=Demonstrate adherence to instructed precautions during ADL tasks. 2=Patient will verbalize/demonstrate understanding of assistive devices/modifications for ADL. 3=Patient will improve strength/tolerance for activity to enable patient to perform ADL's. Speech Continuous Dryout Operator Goals Custodial Goals Patient will improve cognitive communication to complete daily tasks with minimal assist. GLORIA BANSAL OT Jul 27, 2020 09:58
--- NOTE | 2020-07-27 10:11 | Therapy Team Discharge Summary ---
Therapy Discharge Summary Discharge Recommendations Date of Discharge Therapy D/C Recommendations: Home w/ Family Support, Occupational Therapy Home Care, Scheduled Assistance Occupational Therapy Decreased Activ Tolerance, Impaired I ADL's, Impaired Self-Care Skills Speech-Language Pathology Patient was admitted to the ARU due to declining health and need for strengthening in order to return home safely. Patient received skilled dysphagia and cognitive therapy due to decreased cognitive status. Patient's cognitive therapy was indicated by the SLUMS score and she also has a esphageal diverticulitis which requires a modified diet for safe intake. Patient met her ST goals and is discharging to her home today. Patient has family and hired staff for support of her daily needs. PT Correction Goals Profiling Machine Setup Operator Goals PT Profiling Machine Setup Operator Goals Time Frame: Aug 04, 2020 Roll Left to Right (QC): 6 Sit to Lying (QC): 6 Lying-Sitting on Side/Bed(QC): 6 Sit to Stand (QC): 4 (SBA) Chair/Vvz-kp-Psgxi Xfer(QC): 4 (SBA) Car Transfer (QC): 4 (SBA) Does the Patient Walk: Yes Walk 10 feet (QC): 4 (SBA) Walk 10ft-Uneven Surface(QC): 4 (SBA) Walk 50ft with 2 Turns (QC): 4 (SBA) Walk 150 ft (QC): 4 (SBA) Does the Pt use WC or Scooter?: Yes Wheel 50 feet with 2 turns (QC: 6 1 Step (curb) (QC): 4 (SBA) 4 Steps (QC): 4 (SBA) 12 Steps (QC): 88 Picking up an Object (QC): 4 (SBA) OT Profiling Machine Setup Operator Goals Profiling Machine Setup Operator Goals Time Frame: Jul 28, 2020 Eating (QC): 6 (met) Oral Hygiene (QC): 6 (not met) Shower/Bathe Self (QC): 4 (met) Upper Body Dressing (QC): 5 (met) Lower Body Dressing (QC): 4 (not met) On/Off Footwear (QC): 4 (not met) Toileting Hygiene (QC): 6 (not met) Toilet/Commode Transfer (QC): 4 (not met) Additional Goals: 1-Demonstrate ADL Tasks, 2-Verbalize Understanding, 3- ImproveStrength/Rogelio 1=Demonstrate adherence to instructed precautions during ADL tasks. 2=Patient will verbalize/demonstrate understanding of assistive devices/modifications for ADL. 3=Patient will improve strength/tolerance for activity to enable patient to perform ADL's. Speech Profiling Machine Setup Operator Goals Profiling Machine Setup Operator Goals Patient will improve cognitive communication to complete daily tasks with minimal assist. GABRIELA MCCOLLUM Jul 27, 2020 10:11
--- NOTE | 2020-07-27 11:30 | NUR ---
KIAH DE demonstrates understanding of discharge instructions and accurately returns instructions upon questioning. Copy of Post-Discharge Instructions given to PT. KIAH DE is able to manage continuing needs after discharge. Patients belongings returned to PT. Patient discharged from 223-1 on 07/27/20 at 1130. KIAH DE left floor via W/C, accompanied by STAFF AND FRIENDS PER AUTO.
--- NOTE | 2020-07-27 13:15 | NUR ---
CM/SS DISCHARGE HHC: Finalized with [employer] [facility] [place] and confirmed agency receipt of discharge orders and instructions. Agency to contact patient to set up visit schedule. DME: Patient did not qualify for Life Vest or upgrade to continuous O2. IMM2 presented, discussed, signed, charted. Patient anticipates her ride around 1100, unit RN updated.
== END 2020-07-27 11:30 | disposition home health service (06) | DRG 91 ==
PROVIDERS: ADMIT Internal Medicine; ATTEND Internal Medicine
PROC: 3E0U33Z Introduction of Anti-inflammatory into Joints, Percutaneous Approach (ICD-10-PCS; principal; 2020-07-19)
PROC: 3E0U3BZ Introduction of Anesthetic Agent into Joints, Percutaneous Approach (ICD-10-PCS; 2020-07-19)
DX: G72.81 Critical illness myopathy (principal); A41.1 Sepsis due to other specified staphylococcus; I50.23 Acute on chronic systolic (congestive) heart failure; I48.92 Unspecified atrial flutter; E87.1 Hypo-osmolality and hyponatremia; I42.9 Cardiomyopathy, unspecified; N39.0 Urinary tract infection, site not specified; I44.1 Atrioventricular block, second degree; I25.119 Atherosclerotic heart disease of native coronary artery with unspecified angina pectoris; I11.0 Hypertensive heart disease with heart failure; I48.0 Paroxysmal atrial fibrillation; E78.00 Pure hypercholesterolemia, unspecified; M19.071 Primary osteoarthritis, right ankle and foot; M17.11 Unilateral primary osteoarthritis, right knee; E11.9 Type 2 diabetes mellitus without complications; D64.9 Anemia, unspecified; F32.9 Major depressive disorder, single episode, unspecified; F41.9 Anxiety disorder, unspecified; E03.9 Hypothyroidism, unspecified; Z95.0 Presence of cardiac pacemaker; Z79.84 Long term (current) use of oral hypoglycemic drugs; Z85.3 Personal history of malignant neoplasm of breast; Z85.528 Personal history of other malignant neoplasm of kidney; Z90.5 Acquired absence of kidney; I44.7 Left bundle-branch block, unspecified; I34.0 Nonrheumatic mitral (valve) insufficiency; R35.0 Frequency of micturition; Z87.01 Personal history of pneumonia (recurrent); Z23 Encounter for immunization
CPT/HCPCS: 36415; 71046; 80048; 80053; 80202; 81000; 82805; 82962; 83540; 83735; 83880; 85025; 90662; 93306; 94640; 94760; 94761

== ENCOUNTER 2020-07-14 15:57 | Inpatient (IN) | payer MEDICARE, OTHER ==
[~2020-07-14] VITALS: Ht 170 cm; Wt 85.0 kg
[2020-07-14] VITALS (8 sets, daily range): BP systolic 104–146; BP diastolic 63–95
[2020-07-14] MEDS ORDERED: diphenhydrAMINE 25 MG TAB (BENADRYL) PO PRN (16:30)
[2020-07-14] MEDS ORDERED: SIMETHICONE 80 MG (MYLICON) CHEW PO PRN (16:30)
[2020-07-14] MEDS ORDERED: ACETAMINOPHEN 325 MG TABLET PO PRN (16:30)
[2020-07-14] MEDS ORDERED: MELATONIN 3 MG TABLET PO PRN (16:30)
[2020-07-14] MEDS ORDERED: NITROGLYCERIN 0.4 MG SL TABS BTL 25'S SL PRN (16:30)
[2020-07-14] MEDS ORDERED: polyethylene glycoL POWDER 17 GM (MIRALAX) PACK PO PRN (16:30)
[2020-07-14] MEDS ORDERED: PATIENT MAY USE OWN MEDS, ALL PO SCH (16:30)
[2020-07-14] MEDS ORDERED: fentaNYL INJECTION 100 MCG/2 ML AMP IVP PRN (16:30)
[2020-07-14] MEDS: guaiFENesin/DM (ROBITUSSIN DM) 10 ML UDC PO PRN (17:21)
[2020-07-14] MEDS: ALPRAZolam 0.25 MG (XANAX) TAB PO PRN ×2 (17:21→21:04)
[2020-07-14] MEDS: LACTATED RINGERS 1,000 ML IV SCH (17:23)
--- NOTE | 2020-07-14 17:24 | Diagnostic Imaging Report ---
HISTORY: Shortness of air. COMPARISON: 07/13/2020. TECHNIQUE: Frontal view of the chest. FINDINGS: There is a small left pleural effusion with associated airspace opacities. This is mildly improved since the prior study. There appears to be a trace right effusion with atelectasis. There is trace fluid in the right minor fissure. The right-sided pacemaker leads appear normal. The cardiac silhouette is normal in size. The left-sided central line tip projects over the mid SVC. IMPRESSION: 1. Mildly improved small left pleural effusion with associated airspace opacity. Trace right pleural effusion. Dictated by: Dictated on workstation # [id number]
[2020-07-14] MEDS ORDERED: CATHETER FLUSH 10 ML SYR IV PRN (17:30)
[2020-07-14 17:38] LABS: BASOPHILS % (AUTO) 0 % (0-10); EOSINOPHILS # (AUTO) 0.2 10^3/uL (0.0-0.3); EOSINOPHILS % (AUTO) 1 % (0-10); HEMATOCRIT 32 % (35-52); LYMPHOCYTES # (AUTO) 1.3 10^3/uL (1.0-4.0); LYMPHOCYTES % (AUTO) 10 % (12-44); MEAN CORPUSCULAR HEMOGLOBIN 29 pg (25-34); MEAN CORPUSCULAR HGB CONC 32 g/dL (32-36); MEAN CORPUSCULAR VOLUME 91 fL (80-99); MEAN PLATELET VOLUME 10.4 fL (9.0-12.2); MONOCYTES # (AUTO) 1.1 10^3/uL (0.0-1.0); MONOCYTES % (AUTO) 8 % (0-12); NEUTROPHILS # (AUTO) 10.4 10^3/uL (1.8-7.8); NEUTROPHILS % (AUTO) 79 % (42-75); PLATELET COUNT 294 10^3/uL (130-400); WHITE BLOOD COUNT 13.1 10^3/uL (4.3-11.0)
[2020-07-14 17:48] LABS: CHLORIDE 98 MMOL/L (98-107); POTASSIUM 3.6 MMOL/L (3.6-5.0); SODIUM 135 MMOL/L (135-145)
[2020-07-14 17:49] LABS: CALCIUM 8.6 MG/DL (8.5-10.1)
[2020-07-14 17:50] LABS: GLUCOSE 256 MG/DL (70-105); TOTAL PROTEIN 6.1 GM/DL (6.4-8.2)
[2020-07-14 17:51] LABS: CARBON DIOXIDE 25 MMOL/L (21-32)
[2020-07-14 17:52] LABS: BILIRUBIN,TOTAL 0.3 MG/DL (0.1-1.0)
[2020-07-14 17:54] LABS: ALKALINE PHOSPHATASE 76 U/L (40-136); CREATININE SERUM 1.43 MG/DL (0.60-1.30); GFR ESTIMATED 35
[2020-07-14 17:55] LABS: BUN/CREATININE RATIO 8
[2020-07-14 17:57] LABS: ALANINE AMINOTRANSFERASE 14 U/L (0-55)
[2020-07-14] MEDS ORDERED: VANCOMYCIN INJECTION 1,000 MG in NS (IVPB) 250 ML IV SCH (18:00)
[2020-07-14] MEDS ORDERED: FLU QUAD HIGH DOSE 240 MCG/0.7 ML 2020-21 (FLUZONE) IM ONE (18:00)
[2020-07-14 18:03] LABS: VANCOMYCIN,TROUGH 10.7 UG/ML (10.0-20.0)
[2020-07-14 18:06] LABS: ATYPICAL LYMPHOCYTES 1 %; BAND NEUTROPHILS 1 %; LYMPHOCYTES % (MANUAL) 10 %; MONOCYTES % (MANUAL) 8 %; NEUTROPHILS % (MANUAL) 79 %; RBC MORPH NORMAL; REACTIVE LYMPHOCYTES 1 %
[2020-07-14] MEDS: LACTOBACILLUS ACIDOPHILUS (PROBIOTIC) CAPSULE PO SCH (18:48)
[2020-07-14] MEDS: RT-ALBUTEROL/IPRATROPIUM 3 ML (DUONEB) VIAL INH SCH ×2 (18:52→22:15)
--- NOTE | 2020-07-14 20:57 | History & Physical-Hospitalist ---
History of Present Illness HPI/Chief Complaint Aby Vega is a 80-year-old female who was recently admitted and discharged to the inpatient rehabilitation unit who returns with atrial fibrillation with rapid ventricular response. She reports that she is feeling weak. She says that the nurses came in and told her that she needed to go back up to the ICU. She has been working with physical therapy but says that her leg is been hurting. She denies any fevers or chills. She denies any shortness of breath or cough. She denies any chest pain. She has no other complaints or concerns. Source: patient Exam Limitations: no limitations Date Seen 07/14/20 Time Seen by a Provider: 19:30 Attending Physician Vivian Hogan DO PCP Garry Moody DO Referring Physician Date of Admission Jul 14, 2020 at 15:57 Home Medications & Allergies Home Medications Reviewed patient Home Medication Reconciliation performed by pharmacy medication reconciliations satellite installation technician and/or nursing. Patients Allergies have been reviewed. Allergies Allergies Coded Allergies atorvastatin (Verified Allergy, Intermediate, 07/02/20) ciprofloxacin (Verified Allergy, Intermediate, 07/02/20) pregabalin (Verified Allergy, Intermediate, 07/02/20) Uncoded Allergies IV Contrast ( Adverse Reaction, Unknown, 07/02/20) Past Ijpuwve-Mizeej-Alasvd Hx Past Med/Social Hx: Reviewed Nursing Past Med/Soc Hx Patient Social History Alcohol Use: Denies Use Recreational Drug Use: No Smoking Status: Never a Smoker Physical Abuse Screen: No Sexual Abuse: No Recent Hopitalizations: No Immunizations Up To Date Pediatric: Yes Date of Pneumonia Vaccine: Oct 15, 2017 Seasonal Allergies Seasonal Allergies: Yes Past Medical History Currently Using CPAP: No Currently Using BIPAP: No Cardiac: Atrial Fibrillation, Coronary Artery Disease, High Cholesterol, Hypertension : No Sexually Transmitted Disease: No HIV/AIDS: No Female Reproductive Disorders: Denies Genitourinary: UTI-Chronic Gastrointestinal: Chronic Constipation Musculoskeletal: Arthritis Endocrine: Diabetes, Non-Insulin dep HEENT: Cataract Loss of Vision: Bilateral Cancer: Breast, Kidney What Type of Treatment Did You: Surgical Intervention Psychosocial: Anxiety, Depression Skin/Integumentary: Recent Skin Changes History of Blood Disorders: No Adverse Reaction to Blood Wise: No Family History Cardiovascular disease 19 FATHER Completed stroke 19 FATHER 19 MOTHER Diabetes mellitus 19 MOTHER Review of Systems Constitutional: weakness EENTM: no symptoms reported Respiratory: no symptoms reported Cardiovascular: no symptoms reported Gastrointestinal: no symptoms reported Genitourinary: no symptoms reported Musculoskeletal: no symptoms reported Skin: no symptoms reported Psychiatric/Neurological: No Symptoms Reported Physical Exam Physical Exam Vital Signs Vital Signs - First Documented 07/14/20 15:50 Temp 36.8 Pulse 110 Resp 14 B/P (MAP) 104/84 (91) Pulse Ox 94 O2 Delivery Nasal Cannula O2 Flow Rate 1.50 Capillary Refill : Height, Weight, BMI Height: '" Weight: lbs. oz. kg; 29.55 BMI Method: General Appearance: No Apparent Distress, WD/WN Neck: Normal Inspection, Supple Respiratory: Lungs Clear, Normal Breath Sounds, No Respiratory Distress Cardiovascular: No Edema, No Murmur, Tachycardia (regular rhythm) Gastrointestinal: Normal Bowel Sounds, Non Tender, Soft Extremity: Normal Inspection, Non Tender, No Pedal Edema Neurologic/Psychiatric: Alert, Oriented x3, No Motor/Sensory Deficits, Normal Mood/Affect Skin: Normal Color, Warm/Dry Results Results/Procedures Labs Laboratory Tests 07/14/20 17:30 07/15/20 03:13 Patient resulted labs reviewed. Imaging: Reviewed Imaging Report Assessment/Plan Admission Diagnosis paroxysmal atrial fibrillation with rapid ventricular response Admission Status: Inpatient Order (span 2 midnights) Reason for Inpatient Admission: Requiring cardiology intervention and IV medications Assessment and Plan paroxysmal atrial fibrillation with rapid ventricular response Rates improved by the time of my exam Cardiology consulted, appreciate assistance Continue amiodarone, metoprolol, diltiazem, digoxin, and Eliquis Staph epidermidis bacteremia port infection Status post port removal Continue vancomycin second degree AV block Status post pacemaker placement debility PT/OT Return to IRU once improved DVT Prophylaxis: already receiving therapeutic anticoagulation Diagnosis/Problems Diagnosis/Problems (1) Paroxysmal atrial fibrillation with RVR Status: Acute (2) Bacteremia due to Staphylococcus epidermidis Status: Acute (3) Infection of venous access port Status: Acute (4) Second degree AV block Status: Acute (5) S/P placement of cardiac pacemaker Status: Acute Clinical Quality Measures DVT/VTE Risk/Contraindication: Risk Factor Score Per Nursin RFS Level Per Nursing on Admit: 3=High RONA AVILES MD Jul 14, 2020 20:57
[2020-07-14] MEDS: inSUlin ASPART (NovoLOG) 1 UNIT/0.01 ML (CHARGE PER UNIT) SC SCH (21:02)
[2020-07-14] MEDS: DOCUSATE SODIUM 100 MG (COLACE) CAP PO SCH (21:02)
[2020-07-14] MEDS: THYROID (ARMOUR) 60 MG TABLET PO SCH (21:02)
[2020-07-14] MEDS: APIXABAN 5 MG (ELIQUIS) TABLET PO SCH (21:04)
[2020-07-14] MEDS: AMIODARONE 200 MG (CORDARONE) TAB PO SCH (21:04)
[2020-07-15] VITALS (17 sets, daily range): BP systolic 111–136; BP diastolic 58–91
[2020-07-15] MEDS: RT-ALBUTEROL/IPRATROPIUM 3 ML (DUONEB) VIAL INH SCH ×6 (02:42→22:01)
[2020-07-15] MEDS: LACTATED RINGERS 1,000 ML IV SCH ×3 (03:00→21:20)
[2020-07-15 03:37] LABS: CALCIUM 8.3 MG/DL (8.5-10.1); CREATININE SERUM 1.39 MG/DL (0.60-1.30); MAGNESIUM 1.5 MG/DL (1.6-2.4); POTASSIUM 3.5 MMOL/L (3.6-5.0)
[2020-07-15] MEDS: MAGNESIUM 1 GM/100 ML IVPB 100 ML IV SCH ×2 (04:28→04:50)
[2020-07-15] MEDS: KCL 20 MEQ TAB (K-DUR) PO SCH (04:28)
[2020-07-15] MEDS: POTASSIUM CL 10MEQ/50ML IVPB 50 ML IV SCH ×2 (04:28→04:50)
--- NOTE | 2020-07-15 04:32 | Diagnostic Imaging Report ---
Indication: Shortness of breath Portable chest 3:41 AM There is a dual-chamber pacemaker. Left upper extremity PICC line tip projects over the innominate confluence. There is cardiomegaly with pulmonary vascular congestion. There is left pleural effusion and possibly some left basal infiltrate or atelectasis. IMPRESSION: Pulmonary venous hypertension with left pleural effusion with questionable left basilar infiltrate. Findings appear similar to the previous day's exam. Dictated by: Dictated on workstation # [id number]
--- NOTE | 2020-07-15 05:01 | Pulmonary Consultation ---
History of Present Illness History of Present Illness Date Seen by Provider: Jul 15, 2020 Time Seen by Provider: 04:56 Date of Admission History of Present Illness 80yo who was treated in ICU for heart block and sepsis. She then transferred to IRF however last night she went into Afib RVR so she was transferred back to ICU. She is on PO ammiodarone and PO Cardizem. PT is only requiring 2 liters of oxygen currently. I am consulted for pulmonary/ICU management. Allergies and Home Medications Allergies Coded Allergies: atorvastatin (Verified Allergy, Intermediate, 07/02/20) ciprofloxacin (Verified Allergy, Intermediate, 07/02/20) pregabalin (Verified Allergy, Intermediate, 07/02/20) Uncoded Allergies: IV Contrast (Adverse Reaction, Unknown, 07/02/20) Home Medications Amitriptyline HCl 10 Mg Tablet, 20 MG PO HS, (Reported) TAKES 2 (10MG) TABS Amlodipine Besylate 10 Mg Tablet, 10 MG PO DAILY, (Reported) Ascorbate Calcium 500 Mg Tablet, 500 MG PO DAILY, (Reported) Carvedilol 12.5 Mg Tablet, 6.25 MG PO BID, (Reported) TAKES OF 6.25MG TAB Cholecalciferol (Vitamin D3) 50 Mcg Capsule, 50 MCG PO DAILY, (Reported) Cyanocobalamin (Vitamin B-12) 2,500 Mcg Tablet, 2,500 MCG PO DAILY, (Reported) Glipizide 10 Mg Tablet, 10 MG PO BID, (Reported) Hydrochlorothiazide 12.5 Mg Tablet, 12.5 MG PO BID, (Reported) Iron Polysaccharide Complex 150 Mg Capsule, 150 MG PO DAILY, (Reported) Lisinopril 20 Mg Tablet, 10 MG PO BID, (Reported) TAKES OF A 20MG TAB Nifedipine 30 Mg Tab.er.24, 7.5 MG PO BID, (Reported) TAKES 1/4 OF A 30MG TAB Simethicone 180 Mg Capsule, 180 MG PO PRN PRN for GAS, (Reported) Thyroid,Pork 60 Mg Tablet, 60 MG PO BID, (Reported) Ubidecarenone/Vit E Acetate 1 Each Capsule, 1 EACH PO DAILY, (Reported) Past Egulnbf-Edqbbc-Qwfhuf Hx Patient Social History Alcohol Use: Denies Use Recreational Drug Use: No Smoking Status: Never a Smoker Recent Hopitalizations: No Immunizations Up To Date PED Vaccines UTD: Yes Date of Pneumonia Vaccine: Oct 15, 2017 Seasonal Allergies Seasonal Allergies: Yes Past Medical History Surgeries: Yes (RIGHT KIDNEY REMOVAL) Respiratory: Yes Pneumonia, Sleep Apnea Currently Using CPAP: No Currently Using BIPAP: No Cardiac: Yes (HEART VIRUS) Atrial Fibrillation, Coronary Artery Disease, High Cholesterol, Hypertension Neurological: No : No Female Reproductive Disorders: Denies Sexually Transmitted Disease: No HIV/AIDS: No Genitourinary: Yes (RIGHT KIDNEY CANCER AND REMOVAL) UTI-Chronic Gastrointestinal: Yes Chronic Constipation Musculoskeletal: Yes Arthritis Endocrine: Yes Diabetes, Non-Insulin dep HEENT: Yes Cataract Loss of Vision: Bilateral Cancer: Yes Breast, Kidney What Type of Treatment Did You: Surgical Intervention Psychosocial: No Anxiety, Depression Integumentary: Yes (STATES SHE HAS YEAST INFECTION ON FACE) Recent Skin Changes Blood Disorders: No Adverse Reaction/Blood Tranf: No Family Medical History Cardiovascular disease 19 FATHER Completed stroke 19 FATHER 19 MOTHER Diabetes mellitus 19 MOTHER Review of Systems Time Seen by Provider: 04:59 Sepsis Event Evaluation Height, Weight, BMI Height: '" Weight: lbs. oz. kg; 29.55 BMI Method: Exam Exam Vital Signs Date Time Temp Pulse Resp B/P (MAP) Pulse Ox O2 Delivery O2 Flow Rate FiO2 07/15/20 03:10 37.1 07/15/20 03:00 70 23 124/61 (82) 95 Nasal Cannula 2.00 07/15/20 02:42 95 Nasal Cannula 1.00 07/15/20 02:00 73 21 124/60 (81) 95 Nasal Cannula 2.00 07/15/20 01:00 73 23 118/61 (80) 96 Nasal Cannula 2.00 07/15/20 01:00 72 07/15/20 00:00 73 22 115/61 (79) 92 Nasal Cannula 2.00 07/15/20 00:00 Nasal Cannula 2.00 07/14/20 23:00 76 24 112/63 (79) 94 Nasal Cannula 2.00 07/14/20 22:15 96 Nasal Cannula 1.00 07/14/20 22:00 79 23 112/65 (81) 92 Nasal Cannula 2.00 07/14/20 21:00 93 19 125/74 (91) 95 Nasal Cannula 2.00 07/14/20 20:00 36.9 07/14/20 20:00 93 13 146/95 (112) 96 Nasal Cannula 2.00 07/14/20 20:00 36.9 07/14/20 20:00 Nasal Cannula 2.00 07/14/20 19:00 91 07/14/20 19:00 92 16 145/88 (107) 96 Nasal Cannula 2.00 07/14/20 18:52 100 Nasal Cannula 1.00 07/14/20 18:00 91 12 140/82 (101) 96 Nasal Cannula 07/14/20 17:50 94 Nasal Cannula 1.50 07/14/20 17:00 91 21 133/73 (93) 94 Nasal Cannula 07/14/20 15:50 36.8 110 14 104/84 (91) 94 Nasal Cannula 1.50 I & O 07/15/20 07:00 Intake Total 500 ml Balance 500 ml Height & Weight Height: '" Weight: lbs. oz. kg; 29.55 BMI Method: Results Lab Laboratory Tests 07/14/20 17:30 07/15/20 03:13 Assessment/Plan Assessment/Plan Acute Afib RVR - Now controlled with PO meds -Ammio, and Cardizem PO -check bnp Hypokalemia, and hypophos -replace Second degree AV Block cardiology consulted s/p pacemaker CHF Echo 07/08 shows EF 40-45%. Severe sepsis 3/3 BC positive for Coag Neg Staph r/o endocarditis vancomycin Acute bronchitis Continue duoneb QID Dysphagia Continue soft diet with thin liquids ARF -improving -Monitor Hx of Hypothyroid [place] thyroid ERINN DICKERSON DO Jul 15, 2020 05:01
[2020-07-15] MEDS ORDERED: POTASSIUM CL 10MEQ/50ML IVPB 50 ML IV SCH ×2 (05:15→06:00)
[2020-07-15] MEDS: inSUlin ASPART (NovoLOG) 1 UNIT/0.01 ML (CHARGE PER UNIT) SC SCH ×4 (05:51→19:53)
[2020-07-15] MEDS: ALPRAZolam 0.25 MG (XANAX) TAB PO PRN ×2 (05:55→22:19)
[2020-07-15] MEDS: guaiFENesin/DM (ROBITUSSIN DM) 10 ML UDC PO PRN ×2 (05:55→19:52)
[2020-07-15] MEDS ORDERED: MAGNESIUM 1 GM/100 ML IVPB 100 ML IV SCH (06:00)
[2020-07-15] MEDS ORDERED: KCL 20 MEQ TAB (K-DUR) PO SCH (07:00)
[2020-07-15] MEDS: LACTOBACILLUS ACIDOPHILUS (PROBIOTIC) CAPSULE PO SCH ×3 (08:01→19:24)
[2020-07-15] MEDS: DOCUSATE SODIUM 100 MG (COLACE) CAP PO SCH ×2 (08:02→19:53)
[2020-07-15] MEDS: THYROID (ARMOUR) 60 MG TABLET PO SCH ×2 (08:02→19:52)
[2020-07-15] MEDS: AMIODARONE 200 MG (CORDARONE) TAB PO SCH ×2 (08:02→19:52)
[2020-07-15] MEDS: APIXABAN 5 MG (ELIQUIS) TABLET PO SCH ×2 (08:05→19:52)
--- NOTE | 2020-07-15 08:45 | ST Dysphagia Evaluation ---
Speech Evaluation-General Medical Diagnosis A-FIB Onset Date: Aug 13, 2020 Therapy Diagnosis Therapy Diagnosis: Oropharyngeal Dysphagia Referral Referring Physician: Dr. Draper Medical History Pertinent Medical History: DM, HTN, Hypothroidism Reviewed History: Yes Social History Current Living Status: Speech PLF/Current-Dysphagia Prior Level of Function Patient lives in her home with a boarder as well as hired staff to assist her with her daily needs. Subjective Patient was alert and pleasant with the Bedside Dysphagia Evaluation. Oral Motor Skills Dentition: Natural, Tumbled Current Food Consistancy: Regular Ability to Follow Directions: Good Heart healthy but regular texture Oral Expression Ability: No Impairment Voice Voice Phonatory-Based Quality: Normal Voice Pitch: Normal Voice Loudness: Normal Face Facial Symmetry: Symmetrical Oral-Facial Assessment Oral-Facial Dentition: Normal Labial Seal Description: Normal Smile: Normal Puff Cheeks: Normal Lingual Protrusion: Normal Lingual ROM: Normal Lingual Strength: Normal Pharynx Velopharyngeal Move.: Normal Volitional Dry Swallow: Yes Voluntary Cough: Yes Can Clear Throat Volitionally: Yes Dysphagia Evaluation Consistencies Presented: Regular, Thin Liquid, Mechanical Soft, Pureed Oral phase is within normal range of function for all consistencies presented. Pharyngeal phase is within normal range of function for all consistencies presented except regular which the patient is required to chew very well due to esophageal diverticuli. Dietary Recommendations: Mechanical Soft Liquid Recommendations: Thin Swallowing Precautions: Alternate Liquids/Solids, Double Swallow, Decreased Bolus 1/2 Tsp, Liquids from Straw, Small Bites and Sips, Sitting Upright 90 Degrees, Sitting 90 Degrees 30 Post Intake Dysphagia Evaluation Summary Patient was sitting upright in bed eating her breakfast when I entered her room. Patient completed the BDE with presentations of thin via small sips from the straw without difficulty. Patient also was given 1/2 tsp of puree, mechanical soft and regular. Patient consumed puree and mechanical soft without difficulty. Patient's intake of small bite of regular (sausage) requires increased mastication in order to clear esophageal. Patient is recommended for a Dysphagia II diet level with thin liquids. Patient's recommendations were reported to her nurse, Leta. Barriers to Learning Patient has mild cognitive deficits as indicated by the [facility] on 07/14/2020. Speech Short Term Goals Short Term Goals Short Term Goals 1) Patient will tolerate least restrictive diet level without s/s of aspiration at 90% or greater. 2) Patient will utilize compensatory strategies as trained at 100% with minimal cues. Speech Penitentiary Goals Contact Lens Blocker And Cutter Goals Patient will maintain adequate nutrition/hydration via safe effective swallow function. Speech-Plan Patient/Family Goals Patient/Family Goals: Patient plans on returning to her home with hired staff and family assist as needed. Treatment Plan Speech Therapy Treatment Plan: Continue Plan of Care Frequency: 4 times per week (Patient will receive skilled ST 4-5x per week) Estimated Hrs Per Day: .5 hour per day Rehab Potential: Good Barriers to Learning: Patient has mild cognitive deficits, age Pt/Family Agrees to Plan: Yes Safety Risks/Education Teaching Recipient: Patient Teaching Methods: Demonstration, Discussion Response to Teaching: Verbalize Understanding, Return Demonstration Education Topics Provided: Safety of oral intake, diet level Time Speech Therapy Time In: 07:50 Speech Therapy Time Out: 08:13 Total Billed Time: 23 Billed Treatment Time 1, ACE FAROOQ [address] Jul 15, 2020 08:45
--- NOTE | 2020-07-15 09:42 | Consultation-Cardiology ---
HPI-Cardiology Cardiology Consultation: Date of Consultation 07/15/20 Time Seen by a Provider: 08:45 Date of Admission Attending Physician Vivian Hogan DO Admitting Physician Garry Moody DO Consulting Physician MONICA VIVEROS MD, MA, FACP, FACC, FSCAI, CCDS HPI: Chief Complaint: Reason for consultation: Transfer to ICU on 07/14/20 for treatment of AF with RVR seen at the Inpt Rehab Unit HPI 80 yo woman initially admitted to this hospital about two weeks ago after transfer from [place]. She was found to be septic. Had UTI, treated. Also had infection of an indwelling port, removed, infection treated. Had severe br adycardia. Initially had a temp pm. This changed to perm pacemaker on 07/11/[address] Encarnacion. Pt transferred to IRU. Was found to have a rapid pulse yesterday. ECG showed tachycardia that was irreg. Transferred to ICU. Apparently, self- converted to NSR. Notes gen malaise. Denies cp or palp or syncope. Has shortness of breath with activity. Denies focal weakness Review of Systems-Cardiology Review of Systems Constitutional: As described under HPI Eyes: No vision change Ears/Nose/Throat: No ear discharge, No nasal drainage, No recent hearing loss Respiratory: As described under HPI Cardiovascular: As described under HPI Gastrointestinal: No diarrhea, No nausea, No vomiting Genitourinary: No dysuria, No hematuria, No urine frequency changes Musculoskeletal: back pain (chronic), joint pain (chronic) Skin: No rash on exposed areas, No ulcerations on exposed areas Psychiatric/Neurological: As described under HPI Hematologic: No bleeding abnormalities QBX-Qoxcjw-Xqegna Hx Patient Social History Alcohol Use: Denies Use Recreational Drug Use: No Smoking Status: Never a Smoker Physical Abuse Screen: No Sexual Abuse: No Immunizations Up To Date Date of Pneumonia Vaccine: Oct 15, 2017 Past Medical History PMH As described under Assessment. Family Medical History Family History: Cardiovascular disease 19 FATHER Completed stroke 19 FATHER 19 MOTHER Diabetes mellitus 19 MOTHER Allergies and Home Medications Allergies Coded Allergies: atorvastatin (Verified Allergy, Intermediate, 07/02/20) ciprofloxacin (Verified Allergy, Intermediate, 07/02/20) pregabalin (Verified Allergy, Intermediate, 07/02/20) Uncoded Allergies: IV Contrast (Adverse Reaction, Unknown, 07/02/20) Home Medications Amitriptyline HCl 10 Mg Tablet, 20 MG PO HS, (Reported) TAKES 2 (10MG) TABS Amlodipine Besylate 10 Mg Tablet, 10 MG PO DAILY, (Reported) Ascorbate Calcium 500 Mg Tablet, 500 MG PO DAILY, (Reported) Carvedilol 12.5 Mg Tablet, 6.25 MG PO BID, (Reported) TAKES OF 6.25MG TAB Cholecalciferol (Vitamin D3) 50 Mcg Capsule, 50 MCG PO DAILY, (Reported) Cyanocobalamin (Vitamin B-12) 2,500 Mcg Tablet, 2,500 MCG PO DAILY, (Reported) Glipizide 10 Mg Tablet, 10 MG PO BID, (Reported) Hydrochlorothiazide 12.5 Mg Tablet, 12.5 MG PO BID, (Reported) Iron Polysaccharide Complex 150 Mg Capsule, 150 MG PO DAILY, (Reported) Lisinopril 20 Mg Tablet, 10 MG PO BID, (Reported) TAKES OF A 20MG TAB Nifedipine 30 Mg Tab.er.24, 7.5 MG PO BID, (Reported) TAKES 1/4 OF A 30MG TAB Simethicone 180 Mg Capsule, 180 MG PO PRN PRN for GAS, (Reported) Thyroid,Pork 60 Mg Tablet, 60 MG PO BID, (Reported) Ubidecarenone/Vit E Acetate 1 Each Capsule, 1 EACH PO DAILY, (Reported) Patient Home Medication List Home Medication List Reviewed: Yes Physical Exam-Cardiology Physical Exam Vital Signs/I&O 07/14/20 07/14/20 07/14/20 07/15/20 22:00 22:15 23:00 00:00 Pulse 79 76 Resp 23 24 B/P (MAP) 112/65 (81) 112/63 (79) Pulse Ox 92 96 94 O2 Delivery Nasal Cannula Nasal Cannula Nasal Cannula Nasal Cannula O2 Flow Rate 2.00 1.00 2.00 2.00 07/15/20 07/15/20 07/15/20 07/15/20 00:00 01:00 01:00 02:00 Pulse 73 72 73 73 Resp 22 23 21 B/P (MAP) 115/61 (79) 118/61 (80) 124/60 (81) Pulse Ox 92 96 95 O2 Delivery Nasal Cannula Nasal Cannula Nasal Cannula O2 Flow Rate 2.00 2.00 2.00 07/15/20 07/15/20 07/15/20 07/15/20 02:42 03:00 03:10 04:00 Temp 37.1 Pulse 70 Resp 23 B/P (MAP) 124/61 (82) Pulse Ox 95 95 O2 Delivery Nasal Cannula Nasal Cannula Nasal Cannula O2 Flow Rate 1.00 2.00 2.00 07/15/20 07/15/20 07/15/20 07/15/20 04:00 05:00 06:00 07:00 Pulse 69 80 80 79 Resp 23 20 12 49 B/P (MAP) 122/58 (79) 136/87 (103) 136/85 (102) 136/77 (96) Pulse Ox 97 98 92 93 O2 Delivery Nasal Cannula Nasal Cannula Nasal Cannula Nasal Cannula O2 Flow Rate 2.00 2.00 2.00 2.00 07/15/20 07/15/20 07/15/20 07:07 08:00 08:14 Temp 36.6 Pulse 78 79 Resp 21 B/P (MAP) 129/72 (91) Pulse Ox 95 O2 Delivery Nasal Cannula O2 Flow Rate 2.00 07/15/20 00:00 Intake Total 500 ml Balance 500 ml Capillary Refill : Constitutional: AAO x 3, well-developed, well-nourished HEENT: hearing is well preserved; No xanthelasmas are seen Neck: carotid pulses are 2 + bilaterally Respiratory: No accessory muscle use; other (good bilat air entry) Cardiovascular: regular rate-rhythm, S1 and S2, systolic murmur (soft ELIN at card base) Gastrointestinal: No tender; soft; No guarding, No rebound; audible bowel sounds Extremities: No clubbing, No cyanosis, No significant edema Neurologic/Psychiatric: oriented x 3, other (moves all limbs equally) Skin: No rash on exposed areas, No ulcerations on exposed areas Data Review Labs Laboratory Tests 07/14/20 17:30: White Blood Count 13.1H, Red Blood Count 3.47L, Hemoglobin 10.0L, Hematocrit 32L , Mean Corpuscular Volume 91, Mean Corpuscular Hemoglobin 29, Mean Corpuscular Hemoglobin Concent 32, Red Cell Distribution Width 12.8, Platelet Count 294, Mean Platelet Volume 10.4, Immature Granulocyte % (Auto) 1, Neutrophils (%) (Auto) 79H, Lymphocytes (%) (Auto) 10L, Monocytes (%) (Auto) 8, Eosinophils (%) (Auto) 1, Basophils (%) (Auto) 0, Neutrophils # (Auto) 10.4H, Lymphocytes # (Auto) 1.3, Monocytes # (Auto) 1.1H, Eosinophils # (Auto) 0.2, Basophils # (Auto) 0.0, Immature Granulocyte # (Auto) 0.1, Neutrophils % (Manual) 79, Lymphocytes % (Manual) 10, Monocytes % (Manual) 8, Band Neutrophils 1, Atypical Lymphocytes 1, Reactive Lymphocytes 1, Blood Morphology Comment NORMAL, Sodium Level 135, Potassium Level 3.6, Chloride Level 98, Carbon Dioxide Level 25, Anion Gap 12, Blood Urea Nitrogen 12, Creatinine 1.43H, Estimat Glomerular Filtration Rate 35, BUN/Creatinine Ratio 8, Glucose Level 256H, Calcium Level 8.6, Corrected Calcium 9.4, Total Bilirubin 0.3, Aspartate Amino Transf (AST/SGOT) 21, Alanine Aminotransferase (ALT/SGPT) 14, Alkaline Phosphatase 76, Troponin I < 0.028, Total Protein 6.1L, Albumin 3.0L, Thyroid Stimulating Hormone (TSH) 5.61H, Gentamicin Level Peak < 0.3L, Gentamicin Level Trough < 0.3, Random Gentamicin Level 0.0, Vancomycin Level Peak 10.7L, Vancomycin Level Trough 10.7 07/15/20 03:13: Sodium Level 141, Potassium Level 3.5L, Chloride Level 103, Carbon Dioxide Level 25, Anion Gap 13, Blood Urea Nitrogen 11, Creatinine 1.39H, Estimat Glomerular Filtration Rate 37, BUN/Creatinine Ratio 8, Glucose Level 113H, Calcium Level 8.3L, Phosphorus Level 4.0, Magnesium Level 1.5L 07/15/20 05:51: Glucometer 158H 07/15/20 06:10: B-Type Natriuretic Peptide 705.6H Laboratory Tests 07/14/20 17:30 07/15/20 03:13 A/P-Cardiology Assessment/Admission Diagnosis PAF with RVR CAD. Cardiac cath done on 07/02/20 showed mild to moderate CAD, non obstructive disease Status-post dual-chamber pacemaker implanted by Dr. 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, has been in remission H/o hypertension, but intermittently hypotensive at initial hospitalization in Jun 2020 UTI and indwelling port infection (s/p removal), being managed by the [facility] Discussion and Recomendations * Continue current regimen of amio and apixaban * Change short-acting dilt to long-acting dilt and raise dose * Add dig * Monitor labs and correct any electrolyte abnormalities * Discussed case with Dr Draper Clinical Quality Measures DVT/VTE Risk/Contraindication: Risk Factor Score Per Nursin RFS Level Per Nursing on Admit: 3=High MONICA VIVEROS MD FACP FAC CCDS Jul 15, 2020 09:42
[2020-07-15] MEDS ORDERED: DIGOXIN 0.125 MG (LANOXIN) TAB PO NR (10:00)
--- NOTE | 2020-07-15 10:22 | Physical Therapy Evaluation ---
PT Evaluation-General Medical Diagnosis Admission Date Jul 14, 2020 at 15:57 Medical Diagnosis: A-FIB Onset Date: Aug 13, 2020 Therapy Diagnosis Therapy Diagnosis: debility Precautions Precautions/Isolations: Fall Prevention, Standard Precautions Referral Physician: Jo Reason for Referral: Evaluation/Treatment Medical History Pertinent Medical History: Atrial Fib, CAD, DM, HTN, Hypothroidism Current History transfer from [facility] secondary to A-fib with RVR Reviewed History: Yes Social History Home: Single Level Current Living Status: Prior Prior Level of Function SCALE: Activities may be completed with or without assistive devices. 2-Jyhdfezief-pahauni completes the activity by him/herself with no assistance from a helper. 5-Set-up or Clean-up Assistance-helper sets up or cleans up; patient completes activity. [place] assists only prior to or following the activity. 4-Supervision or Touching Assistance-helper provides verbal cues and/or touching/steadying and/or contact guard assistance as patient completes activity. Assistance may be provided throughout the activity or intermittently. 3-Partial/Moderate Assistance-helper does LESS THAN HALF the effort. [place] lifts, holds or supports trunk or limbs, but provides less than half the effort. 2-Substantial/Maximal Assistance-helper does MORE THAN HALF the effort. [place] lifts or holds trunk or limbs and provides more than half the effort. 1-Fopcbqbzk-ipxiud does ALL the effort. Patient does none of the effort to complete the activity. Or, the assistance of 2 or more helpers is required for the patient to complete the activity. If activity was not attempted, code reason: 7-Patient Refused. 9-Not Applicable-not attempted and the patient did not perform the activity before the current illness, exacerbation or injury. 10-Not Attempted due to Environmental Limitations-(lack of equipment, weather restraints, etc.). 88-Not Attempted due to Medical Conditions or Safety Concerns. Bed Mobility: 5 Transfers (B,C,W/C): 5 Gait: 5 Indoor Mobility (Ambulation): Needed Some Help Prior Devices Use: Manual wheelchair, Walker per patient she has a caregiver in home to assist with all mobility and ADL's PT Evaluation-Current Subjective Patient agrees to PT. Objective Patient Orientation: Normal For Age Attachments: Oxygen, IV ROM/Strength ROM Lower Extremities bilateral LE WFL Strength Lower Extremities 4-/5 grossly bilateral LE Integumentary/Posture Integumentary refer to nursing notes Bowel Incontinence: Yes (independent cleansing after BM) Bladder Incontinence: Yes Posture WFL Neuromuscular (Tone, Coordination, Reflexes) grossly intact Sensory Vision: Wears Glasses Hearing: Impaired Transfers Roll Left to Right (QC): 5 Sit to Lying (QC): 5 Lying to Sitting/Side of Bed(Q: 5 Sit to Stand (QC): 4 Chair/Fmu-fu-Ehked Xfer(QC): 4 Toilet Transfer (QC): 4 CGA for safety only Gait Does the Patient Walk?: Yes Mode of Locomotion: Walk Anticipated Mode of Locomotion: Walk Walk 10 feet (QC): 4 Walk 50 ft with 2 Turns(QC): 4 Walk 150 ft (QC): 88 Gait Assistive Device: FWW Comments/Gait Description safe and functional with no deviation Balance Sitting Static: Normal Sitting Dynamic: Normal Standing Static: Normal Standing Dynamic: Normal Assessment/Needs 80 y.o. female, will benefit from short term skilled PT to address functional strength and mobility to improve current LOF to safely return to home with caregiver at maximum LOF. Rehab Potential: Fair Post Rehab Potential-Barriers: compliance PT Care Home Goals Care Home Goals PT Care Home Goals Time Frame: Jul 24, 2020 Roll Left & Right (QC): 5 Sit to Lying (QC): 5 Lying-Sitting on Side/Bed(QC): 5 Sit to Stand (QC): 5 Chair/Eae-dk-Saqaw Xfer(QC): 5 Toilet Transfer (QC): 5 Car Transfer (QC): 5 Does the Patient Walk: Yes Walk 10 feet (QC): 5 Walk 50ft with 2 Turns (QC): 5 Walk 150 ft (QC): 5 PT Plan Problem List Problem List: Activity Tolerance, Functional Strength, Safety, Balance, Gait, Transfer, Bed Mobility Treatment/Plan Treatment Plan: Continue Plan of Care Treatment Plan: Bed Mobility, Education, Functional Activity Rogelio, Functional Strength, Gait, Safety, Therapeutic Exercise, Transfers Treatment Duration: Jul 24, 2020 Frequency: 6 times per week Estimated Hrs Per Day: .25 hour per day Patient and/or Family Agrees t: Yes Time/GCodes Time In: 825 Time Out: 853 Total Billed Treatment Time: 28 Total Billed Treatment 1 visit EVModC 14 min FA 14 min DANIEL GALVAN PT Jul 15, 2020 10:22
--- NOTE | 2020-07-15 10:52 | Diagnostic Imaging Report ---
Indication: Left ankle pain 3 views of the left ankle show no fracture, dislocation or other acute abnormalities. IMPRESSION: Negative left ankle Dictated by: Dictated on workstation # [id number]
--- NOTE | 2020-07-15 11:32 | Diagnostic Imaging Report ---
INDICATION: Right knee pain. TIME OF EXAM: 11:24 AM 2 views of the right knee were obtained. Alignment is normal. The joint spaces are fairly well maintained. Articular surfaces are smooth. No fracture, dislocation or effusion is seen. IMPRESSION: No acute bony abnormality is detected. Dictated by: Dictated on workstation # [id number]
--- NOTE | 2020-07-15 13:19 | Occupational Therapy Eval ---
OT Evaluation-General/PLF Medical Diagnosis Admission Date Jul 14, 2020 at 15:57 Medical Diagnosis: A-FIB Onset Date: Jul 14, 2020 Therapy Diagnosis Therapy Diagnosis: decreased ADL status, decreased functional mobility Precautions Precautions/Isolations: Fall Prevention, Standard Precautions Referral Physician: Jo Referral Reason: Evaluation/Treatment Medical History Pertinent Medical History: Atrial Fib, CAD, DM, HTN, Hypothroidism Additional Medical History recent pacemaker, AV block, STEMI Current History transfer from [facility] secondary to A-fib with RVR Social History Home: Single Level Current Living Status: Caregiver Entry Into Home: Stairs Without Railing Steps Into Home: 2 ADL-Prior Level of Function SCALE: Activities may be completed with or without assistive devices. 5-Ywtlxktogu-qdkrmxh completes the activity by him/herself with no assistance from a helper. 5-Set-up or Clean-up Assistance-helper sets up or cleans up; patient completes activity. [place] assists only prior to or following the activity. 4-Supervision or Touching Assistance-helper provides verbal cues and/or touching/steadying and/or contact guard assistance as patient completes activity. Assistance may be provided throughout the activity or intermittently. 3-Partial/Moderate Assistance-helper does LESS THAN HALF the effort. [place] lifts, holds or supports trunk or limbs, but provides less than half the effort. 2-Substantial/Maximal Assistance-helper does MORE THAN HALF the effort. [place] lifts or holds trunk or limbs and provides more than half the effort. 9-Gxwwfeili-zguwhr does ALL the effort. Patient does none of the effort to complete the activity. Or, the assistance of 2 or more helpers is required for the patient to complete the activity. If activity was not attempted, code reason: 7-Patient Refused. 9-Not Applicable-not attempted and the patient did not perform the activity before the current illness, exacerbation or injury. 10-Not Attempted due to Environmental Limitations-(lack of equipment, weather restraints, etc.). 88-Not Attempted due to Medical Conditions or Safety Concerns. ADL PLOF Comments Pt indicates she lives with a caregiver who assists with bathing/dressing, cooking, cleaning, and lifting objects. Pt indicates she does well with tasks as long as she is sitting down, but when she stands up she has pain in her feet. Pt uses a w/c for functional mobility and has a walker she can use for shorter distances. 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 Pt does not report any pain at this time. Mental Status/Objective Patient Orientation: Person, Place, Time, Situation Attachments: IV, Oxygen Current Glasses/Contacts: Yes Dentures/Partials: Yes Hand Dominance: Right Upper Extremity ROM WFL Upper Extremity Coordination WFL Upper Extremity Sensation Pt denies tingling/numbness BUEs at this time. ADL-Treatment Eating (QC): 6 Other Treatments Pt laying in bed, with HOB elevated. Pt agreeable to OT at this time. OT introduced self, educating pt on purpose and benefits of OT. Pt provided information about PLOF and home set up, participating in UE screen. Pt talks in depth about how she does not have difficulty completing tasks in sitting, but her problems occur when she is standing. She indicates pain in her feet when she is standing, but reports no problems with her arms. OT educated pt about OT POC, including increasing safety and independence with functional mobility and ADLs as well as working on UE strengthening and endurance, pt verbalized understanding. Pt indicates she was able to eat lunch without difficulties, OT observes pt eating several bites of food from plate. Pt declines OOB activity at this time. Post OT tx, pt laying in bed, call light in reach and all needs met. Education OT Patient Education: Correct positioning, Energy conservation, Modified ADL techniques, Progress toward Goal/Update tx plan, Purpose of tx/functional activities, Rehab process, Safety issues Teaching Recipient: Patient Teaching Methods: Discussion Response to Teaching: Verbalize Understanding OT Longterm Goals Longterm Goals Time Frame: Jul 23, 2020 Eating (QC): 6 Oral Hygiene (QC): 6 Toileting Hygiene (QC): 3 Shower/Bathe Self (QC): 3 Upper Body Dressing (QC): 3 Lower Body Dressing (QC): 3 On/Off Footwear (QC): 3 Additional Goals: 1-Demonstrate ADL Tasks, 2-Verbalize Understanding, 3- ImproveStrength/Rogelio 1=Demonstrate adherence to instructed precautions during ADL tasks. 2=Patient will verbalize/demonstrate understanding of assistive devices/modifications for ADL. 3=Patient will improve strength/tolerance for activity to enable patient to perform ADL's. OT Education/Plan Problem List/Assessment Assessment: Decreased Activ Tolerance, Decreased UE Strength, Impaired Funct Balance, Impaired I ADL's, Impaired Self-Care Skills Discharge Recommendations Plan/Recommendations: Continue POC Treatment Plan/Plan of Care Treatment,Training & Education: Yes Patient would benefit from OT for education, treatment and training to promote independence in ADL's, mobility, safety and/or upper extremity function for ADL's. Plan of Care: ADL Retraining, Functional Mobility, UE Funct Exercise/Act Treatment Duration: Jul 23, 2020 Frequency: 5 times per week Estimated Hrs Per Day: .25 hour per day Rehab Potential: Fair Time/GCodes Start Time: 12:50 Stop Time: 13:05 Total Time Billed (hr/min): 15 Billed Treatment Time 1CHRISTOS ADDISON OT Jul 15, 2020 13:19
--- NOTE | 2020-07-15 14:16 | Progress Note - Hospitalist ---
Subjective HPI/CC On Admission Date Seen by Provider: Jul 15, 2020 Time Seen by Provider: 09:00 Subjective/Events-last exam she says she was up and walked to her commode this morning. She has no complaints or concerns. She denies any chest pain or palpitations. She denies any shortness of breath or cough. She denies any fevers or chills. Objective Exam Vital Signs Vital Signs Date Time Temp Pulse Resp B/P (MAP) Pulse Ox O2 Delivery O2 Flow Rate FiO2 07/15/20 13:00 91 12 94 Nasal Cannula 2.00 07/15/20 12:00 36.8 Capillary Refill : General Appearance: No Apparent Distress, WD/WN Respiratory: Lungs Clear, Normal Breath Sounds, No Respiratory Distress Cardiovascular: Regular Rate, Rhythm, No Edema, No Murmur Gastrointestinal: Normal Bowel Sounds, Non Tender, Soft Extremity: Normal Inspection, Non Tender, No Pedal Edema Neurologic/Psychiatric: Alert, Oriented x3, No Motor/Sensory Deficits, Normal Mood/Affect Skin: Normal Color, Warm/Dry Results/Procedures Lab Laboratory Tests 07/14/20 17:30 07/15/20 03:13 Patient resulted labs reviewed. Assessment/Plan Assessment and Plan Assess & Plan/Chief Complaint atrial fibrillation with rapid ventricular response Cardiology consulted, appreciate assistance Continue amiodarone, metoprolol, diltiazem, digoxin, and Eliquis Staph epidermidis bacteremia port infection Status post port removal Continue vancomycin second degree AV block Status post pacemaker placement debility PT/OT Plan for return to IRU likely tomorrow DVT Prophylaxis: already receiving therapeutic anticoagulation Diagnosis/Problems Diagnosis/Problems (1) Paroxysmal atrial fibrillation with RVR Status: Acute (2) Bacteremia due to Staphylococcus epidermidis Status: Acute (3) Infection of venous access port Status: Acute (4) Second degree AV block Status: Acute Clinical Quality Measures DVT/VTE Risk/Contraindication: Risk Factor Score Per Nursin RFS Level Per Nursing on Admit: 3=RONA Rodriguez MD Jul 15, 2020 14:16
[2020-07-16] VITALS (12 sets, daily range): BP systolic 116–135; BP diastolic 65–75
[2020-07-16 02:22] LABS: BASOPHILS # (AUTO) 0.1 10^3/uL (0.0-0.1); BASOPHILS % (AUTO) 1 % (0-10); EOSINOPHILS # (AUTO) 0.6 10^3/uL (0.0-0.3); EOSINOPHILS % (AUTO) 5 % (0-10); HEMATOCRIT 30 % (35-52); HEMOGLOBIN 9.2 g/dL (11.5-16.0); LYMPHOCYTES # (AUTO) 1.9 10^3/uL (1.0-4.0); LYMPHOCYTES % (AUTO) 18 % (12-44); MEAN CORPUSCULAR HEMOGLOBIN 29 pg (25-34); MEAN CORPUSCULAR HGB CONC 31 g/dL (32-36); MEAN CORPUSCULAR VOLUME 93 fL (80-99); MEAN PLATELET VOLUME 10.5 fL (9.0-12.2); MONOCYTES % (AUTO) 10 % (0-12); NEUTROPHILS # (AUTO) 6.8 10^3/uL (1.8-7.8); NEUTROPHILS % (AUTO) 65 % (42-75); PLATELET COUNT 286 10^3/uL (130-400); WHITE BLOOD COUNT 10.4 10^3/uL (4.3-11.0)
[2020-07-16] MEDS: RT-ALBUTEROL/IPRATROPIUM 3 ML (DUONEB) VIAL INH SCH ×3 (02:22→10:25)
[2020-07-16 02:33] LABS: CALCIUM 8.5 MG/DL (8.5-10.1)
[2020-07-16] MEDS: POTASSIUM CL 10MEQ/50ML IVPB 50 ML IV SCH (02:33)
[2020-07-16] MEDS: KCL 20 MEQ TAB (K-DUR) PO SCH (02:33)
[2020-07-16 02:37] LABS: CREATININE SERUM 1.48 MG/DL (0.60-1.30); PHOSPHORUS 3.7 MG/DL (2.3-4.7)
[2020-07-16 02:40] LABS: MAGNESIUM 1.6 MG/DL (1.6-2.4)
[2020-07-16] MEDS: MAGNESIUM 1 GM/100 ML IVPB 100 ML IV SCH ×3 (02:42→03:33)
--- NOTE | 2020-07-16 04:15 | Pulmonary Progress Note ---
Subjective Time Seen by a Provider: 04:11 Sepsis Event Evaluation Height, Weight, BMI Height: '" Weight: lbs. oz. kg; 29.55 BMI Method: Exam Exam Vital Signs Date Time Temp Pulse Resp B/P (MAP) Pulse Ox O2 Delivery O2 Flow Rate FiO2 07/16/20 03:02 36.3 07/16/20 03:01 Nasal Cannula 2.00 07/16/20 02:22 98 Room Air 07/16/20 02:00 77 22 126/74 (91) 99 Nasal Cannula 2.00 07/16/20 01:00 74 20 121/75 (90) 99 Nasal Cannula 2.00 07/16/20 00:00 73 24 116/68 (84) 97 Nasal Cannula 2.00 07/15/20 23:04 36.6 07/15/20 23:03 Nasal Cannula 2.00 07/15/20 23:00 78 19 131/73 (92) 98 Nasal Cannula 2.00 07/15/20 22:01 100 Room Air 07/15/20 22:00 78 12 117/91 (100) 95 Nasal Cannula 2.00 07/15/20 21:00 79 16 124/74 (91) 96 Nasal Cannula 2.00 07/15/20 20:00 Nasal Cannula 2.00 07/15/20 20:00 36.4 07/15/20 20:00 82 27 131/78 (95) 95 Nasal Cannula 2.00 07/15/20 19:00 85 26 117/83 (94) 94 Nasal Cannula 2.00 07/15/20 19:00 82 07/15/20 18:00 85 7 97 Nasal Cannula 2.00 07/15/20 17:51 99 Room Air 2.00 07/15/20 17:00 85 29 96 Nasal Cannula 2.00 07/15/20 16:00 84 12 98 Nasal Cannula 2.00 07/15/20 16:00 Nasal Cannula 2.00 07/15/20 16:00 37.1 07/15/20 15:00 86 24 94 Nasal Cannula 2.00 07/15/20 14:00 85 21 99 Nasal Cannula 2.00 07/15/20 13:00 91 07/15/20 13:00 91 12 94 Nasal Cannula 2.00 07/15/20 12:00 90 15 97 Nasal Cannula 2.00 07/15/20 12:00 Nasal Cannula 2.00 07/15/20 12:00 36.8 07/15/20 11:00 90 15 121/80 (94) 97 Nasal Cannula 2.00 07/15/20 10:00 80 21 111/91 (98) 100 Nasal Cannula 2.00 07/15/20 09:56 99 Nasal Cannula 2.00 07/15/20 09:00 83 9 123/88 (100) 99 Nasal Cannula 2.00 07/15/20 08:14 36.6 07/15/20 08:00 Nasal Cannula 2.00 07/15/20 08:00 79 21 129/72 (91) 95 Nasal Cannula 2.00 07/15/20 07:07 78 07/15/20 07:00 79 49 136/77 (96) 93 Nasal Cannula 2.00 07/15/20 06:00 80 12 136/85 (102) 92 Nasal Cannula 2.00 07/15/20 05:00 80 20 136/87 (103) 98 Nasal Cannula 2.00 I & O 07/16/20 07:00 Intake Total 3375 ml Output Total 1400 ml Balance 1975 ml Height & Weight Height: '" Weight: lbs. oz. kg; 29.55 BMI Method: General Appearance: No Apparent Distress, WD/WN Neck: Normal Inspection, Supple Respiratory: Lungs Clear, Normal Breath Sounds, No Respiratory Distress Cardiovascular: No Edema, No Murmur, Tachycardia (regular rhythm) Extremity: Normal Inspection, Non Tender, No Pedal Edema Neurologic/Psychiatric: Alert, Oriented x3, No Motor/Sensory Deficits, Normal Mood/Affect Skin: Normal Color, Warm/Dry Results Lab Laboratory Tests 07/14/20 17:30 07/15/20 03:13 07/16/20 02:12 Assessment/Plan Assessment/Plan Acute Afib RVR - Now controlled with PO meds -Ammio, and Cardizem PO -check bnp Hypokalemia, and hypophos -replace Second degree AV Block cardiology consulted s/p pacemaker CHF Echo 07/08 shows EF 40-45%. -D/C IVF -Start Severe sepsis 12/15 BC positive for Coag Neg Staph r/o endocarditis vancomycin Acute bronchitis Continue duoneb QID Dysphagia Continue soft diet with thin liquids ARF -improving -Monitor Hx of Hypothyroid Thornton thyroid ERINN DICKERSON DO Jul 16, 2020 04:15
[2020-07-16] MEDS: inSUlin ASPART (NovoLOG) 1 UNIT/0.01 ML (CHARGE PER UNIT) SC SCH ×2 (05:25→10:58)
--- NOTE | 2020-07-16 08:16 | Diagnostic Imaging Report ---
EXAMINATION: Chest 1 view HISTORY: Shortness of breath COMPARISON: Chest radiograph 07/15/2020 FINDINGS: Stable enlargement cardiac silhouette with prominent pulmonary vasculature. Stable patchy airspace opacities throughout both lungs, greatest within the lung bases. Stable small left and trace right pleural effusions. No pneumothorax. The osseous structures are intact. Right-sided cardiac device is unchanged. A left-sided PICC line is unchanged. IMPRESSION: 1. Stable patchy airspace opacities greatest within the left lung base which may represent atelectasis, pneumonia, or pulmonary edema. 2. Stable small left and trace right pleural effusions. 3. Stable findings of cardiomegaly with pulmonary vascular congestion. Dictated by: Dictated on workstation # [id number]
[2020-07-16] MEDS: LACTOBACILLUS ACIDOPHILUS (PROBIOTIC) CAPSULE PO SCH (08:17)
[2020-07-16] MEDS: AMIODARONE 200 MG (CORDARONE) TAB PO SCH (08:17)
[2020-07-16] MEDS: APIXABAN 5 MG (ELIQUIS) TABLET PO SCH (08:17)
[2020-07-16] MEDS: DOCUSATE SODIUM 100 MG (COLACE) CAP PO SCH (08:17)
[2020-07-16] MEDS: THYROID (ARMOUR) 60 MG TABLET PO SCH (08:18)
--- NOTE | 2020-07-16 08:52 | Diagnostic Imaging Report ---
Indication: Right ankle pain AP and lateral views of the right ankle show no fracture or dislocation. Ankle mortise appears to be intact. IMPRESSION: No acute abnormality seen in the right ankle. Dictated by: Dictated on workstation # [id number]
--- NOTE | 2020-07-16 08:54 | Progress Note - Cardiology ---
Cardiology SOAP Progress Note Subjective: Does not report cp or palp or syncope Reports gen body pain and discomfort Reports gen malaise No n/v/d Objective: I&O/Vital Signs 07/15/20 07/15/20 07/15/20 07/15/20 21:00 22:00 22:01 23:00 Pulse 79 78 78 Resp 16 12 19 B/P (MAP) 124/74 (91) 117/91 (100) 131/73 (92) Pulse Ox 96 95 100 98 O2 Delivery Nasal Cannula Nasal Cannula Room Air Nasal Cannula O2 Flow Rate 2.00 2.00 2.00 07/15/20 07/15/20 07/16/20 07/16/20 23:03 23:04 00:00 01:00 Temp 36.6 Pulse 73 74 Resp 24 20 B/P (MAP) 116/68 (84) 121/75 (90) Pulse Ox 97 99 O2 Delivery Nasal Cannula Nasal Cannula Nasal Cannula O2 Flow Rate 2.00 2.00 2.00 07/16/20 07/16/20 07/16/20 07/16/20 02:00 02:22 03:00 03:01 Pulse 77 79 Resp 22 21 B/P (MAP) 126/74 (91) 124/69 (87) Pulse Ox 99 98 98 O2 Delivery Nasal Cannula Room Air Nasal Cannula Nasal Cannula O2 Flow Rate 2.00 2.00 2.00 07/16/20 07/16/20 07/16/20 07/16/20 03:02 04:00 05:00 06:00 Temp 36.3 Pulse 68 69 63 Resp 21 23 23 B/P (MAP) 116/71 (86) 120/71 (87) 116/65 (82) Pulse Ox 96 95 95 O2 Delivery Nasal Cannula Nasal Cannula Nasal Cannula O2 Flow Rate 2.00 2.00 2.00 07/16/20 07/16/20 07/16/20 07/16/20 07:00 07:00 07:07 08:00 Temp 36.4 Pulse 72 74 Resp 22 B/P (MAP) 122/73 (89) Pulse Ox 97 96 O2 Delivery Nasal Cannula Room Air O2 Flow Rate 2.00 0.00 07/16/20 08:00 Pulse 74 Resp 8 B/P (MAP) 123/70 (87) Pulse Ox 100 O2 Delivery Nasal Cannula O2 Flow Rate 2.00 07/16/20 00:00 Intake Total 2925 ml Output Total 900 ml Balance 2025 ml Constitutional: AAO x 3, well-developed, well-nourished Respiratory: No accessory muscle use; other (good bilat air entry) Cardiovascular: regular rate-rhythm, S1 and S2, systolic murmur (soft ELIN at card base) Gastrointestional: No tender; soft; No guarding, No rebound; audible bowel sounds Extremities: No clubbing, No cyanosis, No significant edema Neurologic/Psychiatric: other (mildly confused on 07/16/20, moves all limbs e qually) Skin: No rash on exposed areas, No ulcerations on exposed areas Results/Procedures: Labs Laboratory Tests 07/15/20 10:48: Glucometer 261H 07/15/20 16:54: Glucometer 206H 07/15/20 19:51: Glucometer 123H 07/16/20 02:12: White Blood Count 10.4, Red Blood Count 3.19L, Hemoglobin 9.2L, Hematocrit 30L, Mean Corpuscular Volume 93, Mean Corpuscular Hemoglobin 29, Mean Corpuscular Hem oglobin Concent 31L, Red Cell Distribution Width 13.1, Platelet Count 286, Mean Platelet Volume 10.5, Immature Granulocyte % (Auto) 1, Neutrophils (%) (Auto) 65, Lymphocytes (%) (Auto) 18, Monocytes (%) (Auto) 10, Eosinophils (%) (Auto) 5, Basophils (%) (Auto) 1, Neutrophils # (Auto) 6.8, Lymphocytes # (Auto) 1.9, Monocytes # (Auto) 1.0, Eosinophils # (Auto) 0.6H, Basophils # (Auto) 0.1, Immature Granulocyte # (Auto) 0.1, Sodium Level 137, Potassium Level 4.0, Chloride Level 102, Carbon Dioxide Level 25, Anion Gap 10, Blood Urea Nitrogen 12, Creatinine 1.48H, Estimat Glomerular Filtration Rate 34, BUN/Creatinine Ratio 8, Glucose Level 248H, Calcium Level 8.5, Phosphorus Level 3.7, Magnesium Level 1.6 A/P: Assessment: Cardiomyopathy, probably nonischemic (based on cardiac cath by Dr Osorio on 07/02/20 that showed only mild to mod, nonobstructive CAD) Echo on 10/1/20: LVEF 25-30%, mild to mod MR, akinetic distal septum and apex 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
[2020-07-16] MEDS ORDERED: DIGOXIN 0.25 MG (LANOXIN) TAB PO SCH (09:00)
[2020-07-16] MEDS ORDERED: SACUBITRIL/VALSARTAN 24/26 MG (ENTRESTO) TABLET PO SCH (09:00)
[2020-07-16] MEDS ORDERED: FUROSEMIDE 40 MG (LASIX) TAB PO SCH (09:00)
[2020-07-16] MEDS ORDERED: KCL 20 MEQ TAB (K-DUR) PO SCH (09:00)
--- NOTE | 2020-07-16 11:00 | NUR ---
report given to Chen LOOMIS
--- NOTE | 2020-07-16 11:40 | NUR ---
CM/SS: As per Dr. Hogan - pt will be able to return to Inpatient Rehabilitation Floor on today.
[2020-07-16] MEDS ORDERED: TROUGH ORDER-PHARMACY XX NR (17:00)
== END 2020-07-16 11:00 | DRG 308 ==
LOC: ICU 15:57
PROVIDERS: ADMIT Internal Medicine; ATTEND Internal Medicine
DX: I48.0 Paroxysmal atrial fibrillation (principal); I50.23 Acute on chronic systolic (congestive) heart failure; A41.1 Sepsis due to other specified staphylococcus; R65.20 Severe sepsis without septic shock; N17.9 Acute kidney failure, unspecified; I44.1 Atrioventricular block, second degree; I25.10 Atherosclerotic heart disease of native coronary artery without angina pectoris; I11.0 Hypertensive heart disease with heart failure; J20.9 Acute bronchitis, unspecified; E78.00 Pure hypercholesterolemia, unspecified; E11.9 Type 2 diabetes mellitus without complications; G47.30 Sleep apnea, unspecified; E03.9 Hypothyroidism, unspecified; M54.9 Dorsalgia, unspecified; M19.91 Primary osteoarthritis, unspecified site; K59.09 Other constipation; F41.9 Anxiety disorder, unspecified; F32.9 Major depressive disorder, single episode, unspecified; R13.10 Dysphagia, unspecified; E87.6 Hypokalemia; Z95.0 Presence of cardiac pacemaker; Z79.84 Long term (current) use of oral hypoglycemic drugs; Z85.528 Personal history of other malignant neoplasm of kidney; Z85.3 Personal history of malignant neoplasm of breast; Z90.5 Acquired absence of kidney
CPT/HCPCS: 36415; 71045; 73560; 73600; 73610; 80048; 80053; 80170; 80202; 82962; 83735; 83880; 84100; 84443; 84484; 85007; 85025; 85027; 93005; 94640; 94760

== ENCOUNTER 2020-12-17 11:18 | Emergency (ER) | payer MEDICARE, OTHER ==
[~2020-12-17] VITALS: Ht 167 cm; Wt 72.0 kg
[~2020-12-17 11:18] MED LIST changes: +ALPR.25T PO; +AMIO200T6 PO; -AMIT10TA6 PO; +AMLO-251 PO; -AMLO10TA7 PO; +AMT10T PO; +APIX5TAB PO; +DIGO125T18 PO; +DILT240C91 PO; +FURO20TA4 PO; +GUAI5SYR PO; -LISI-552 PO; +LISI20TA26 PO; +MTP25TSR PO; +NITR0.4T42 SL; +ONDA4TAB11 PO; +OXC5T PO; +POTA20TA8 PO
[2020-12-17 11:36] VITALS: BP 118/75
[2020-12-17 12:20] LABS: BASOPHILS # (AUTO) 0.1 10^3/uL (0.0-0.1); BASOPHILS % (AUTO) 1 % (0-10); EOSINOPHILS # (AUTO) 0.1 10^3/uL (0.0-0.3); EOSINOPHILS % (AUTO) 1 % (0-10); HEMATOCRIT 31 % (35-52); HEMOGLOBIN 9.9 g/dL (11.5-16.0); LYMPHOCYTES # (AUTO) 0.7 10^3/uL (1.0-4.0); LYMPHOCYTES % (AUTO) 7 % (12-44); MEAN CORPUSCULAR HEMOGLOBIN 27 pg (25-34); MEAN CORPUSCULAR HGB CONC 32 g/dL (32-36); MEAN CORPUSCULAR VOLUME 87 fL (80-99); MEAN PLATELET VOLUME 12.7 fL (9.0-12.2); MONOCYTES # (AUTO) 0.8 10^3/uL (0.0-1.0); MONOCYTES % (AUTO) 7 % (0-12); NEUTROPHILS % (AUTO) 84 % (42-75); PLATELET COUNT 254 10^3/uL (130-400); WHITE BLOOD COUNT 10.7 10^3/uL (4.3-11.0)
[2020-12-17 12:29] LABS: ALBUMIN 2.8 GM/DL (3.2-4.5); POTASSIUM 4.4 MMOL/L (3.6-5.0)
[2020-12-17 12:30] LABS: CALCIUM 8.2 MG/DL (8.5-10.1)
[2020-12-17 12:32] LABS: TOTAL PROTEIN 6.4 GM/DL (6.4-8.2)
[2020-12-17 12:35] LABS: CREATININE SERUM 1.86 MG/DL (0.60-1.30)
[2020-12-17 12:38] LABS: BILIRUBIN,TOTAL 13.9 MG/DL (0.1-1.0)
[2020-12-17 12:43] LABS: ANISOCYTOSIS MODERATE; BAND NEUTROPHILS 0 %; BASOPHILS % (MANUAL) 2 %; EOSINOPHILS % (MANUAL) 1 %; HYPOCHROMASIA MODERATE; LYMPHOCYTES % (MANUAL) 7 %; MONOCYTES % (MANUAL) 5 %; NEUTROPHILS % (MANUAL) 85 %; TARGET CELLS MARKED
[2020-12-17 12:57] LABS: CLARITY,URINE SL CLOUDY; COLOR,URINE AMBER; GLUCOSE, URINE (UA) NEGATIVE (NEGATIVE); KETONES,URINE NEGATIVE (NEGATIVE); LEUKOCYTE ESTERASE ,URINE 1+ (NEGATIVE); NITRITE,URINE NEGATIVE (NEGATIVE); PH,URINE 6.5 (5-9); PROTEIN,URINE 1+ (NEGATIVE)
[2020-12-17 13:09] LABS: BILIRUBIN,URINE 3+ (NEGATIVE)
[2020-12-17 13:10] LABS: BACTERIA,URINE LARGE /HPF; RENAL EPITHELIAL CELLS,URINE 0-2 /HPF
--- NOTE | 2020-12-17 13:40 | ED General ---
General Chief Complaint: General Problems/Pain Stated Complaint: SKIN TONE YELLOW Nursing Triage Note: PT TO [facility] PT CO OF HAVING YELLOW SKIN AND EYES FOR ABOUT 1 WEEK. PT STATES HAD COVID IN OCTOBER AND WAS HOSP FOR 1 WEEK, PT IS CURRENTLY ON MACROBID FOR UTI. PT DENIES PAIN BUT STATES HAS PROFOUND WEAKNESS SINCE COVID. PT STATES IS ON 02 AT HS. HAS POOR APPETITE AND SOMETIMES SOME CONFUSION. PT WAS SENT TO ED FROM CARDIOLOGY FOR YELLOW SKIN Nursing Sepsis Screen: No Definite Risk Source of Information: Patient Exam Limitations: No Limitations History of Present Illness Date Seen by Provider: Dec 17, 2020 Time Seen by Provider: 13:38 Initial Comments To ER by her caregiver referred to ER from my cardiology office with reports of poor appetite, intermittent confusion, jaundice. The symptoms have been ongoing for about 1 week. She does have a history of right breast cancer status postmastectomy, left renal cell carcinoma status post nephrectomy. 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 Timing/Duration: 1-2 Days Severity: Moderate Associated Systoms: Denies Symptoms, Weakness Allergies and Home Medications Allergies Coded Allergies: atorvastatin (Verified Allergy, Intermediate, 07/02/20) ciprofloxacin (Verified Allergy, Intermediate, 07/02/20) pregabalin (Verified Allergy, Intermediate, 07/02/20) Uncoded Allergies: IV Contrast (Adverse Reaction, Unknown, 07/02/20) Home Medications ALPRAZolam 0.25 Mg Tab, 0.25 MG PO Q4HR PRN for ANXIETY Prescribed by: KISHORE BENITEZ on 07/27/20 0844 Amiodarone HCl 200 Mg Tablet, 400 MG PO BID Prescribed by: KISHORE BENITEZ on 07/27/20 08 Amitriptyline HCl 10 Mg Tablet, 20 MG PO HS, (Reported) TAKES 2 (10MG) TABS Apixaban 5 Mg Tablet, 5 MG PO BID Prescribed by: KISHORE BENITEZ on 07/27/20 08 Ascorbate Calcium 500 Mg Tablet, 500 MG PO DAILY, (Reported) Cholecalciferol (Vitamin D3) 50 Mcg Capsule, 50 MCG PO DAILY, (Reported) Cyanocobalamin (Vitamin B-12) 2,500 Mcg Tablet, 2,500 MCG PO DAILY, (Reported) Digoxin 125 Mcg Tablet, 0.125 MG PO DAILY Prescribed by: KISHORE BENITEZ on 07/27/20 08 Diltiazem HCl 240 Mg Cap.er.24h, 240 MG PO DAILY Prescribed by: KISHORE BENITEZ on 07/27/20842 Furosemide 20 Mg Tablet, 20 MG PO DAILY Prescribed by: KISHORE BENITEZ on 07/27/20842 Glipizide 10 Mg Tablet, 5 MG PO BID Prescribed by: KISHORE BENITEZ on 07/27/20842 Guaifenesin/Dextromethorphan 5 Ml Syrup, 5 ML PO Q4H PRN for COUGH Prescribed by: KISHORE BENITEZ on 07/27/20842 Iron Polysaccharide Complex 150 Mg Capsule, 150 MG PO DAILY, (Reported) Metoprolol Succinate 25 Mg Tab.er.24h, 25 MG PO DAILY Prescribed by: KISHORE BENITEZ on 07/27/20842 Nitroglycerin 0.4 Mg Tab.subl, 0 MG SL NEEDED PRN for CHEST PAIN (ANGINA) Prescribed by: KISHORE BENITEZ on 07/27/20842 Ondansetron 4 Mg Tab.rapdis, 4 MG PO Q6H PRN for NAUSEA/VOMITING-1ST LINE Prescribed by: KISHORE BENITEZ on 07/27/20842 Oxycodone Hcl 5 Mg Tab, 2.5-5 MG PO Q4H PRN for PAIN MODERATE-SEVERE Prescribed by: KISHORE BENITEZ on 07/27/20843 Potassium Chloride 20 Meq Tab.er.prt, 40 MEQ PO DAILY@0700 Prescribed by: KISHORE BENITEZ on 07/27/20842 Simethicone 180 Mg Capsule, 180 MG PO PRN PRN for GAS, (Reported) Thyroid,Pork 60 Mg Tablet, 60 MG PO BID, (Reported) Ubidecarenone/Vit E Acetate 1 Each Capsule, 1 EACH PO DAILY, (Reported) Patient Home Medication List Home Medication List Reviewed: Yes Review of Systems Review of Systems Constitutional: see HPI, chills EENTM: see HPI Respiratory: no symptoms reported Cardiovascular: no symptoms reported Genitourinary: no symptoms reported Musculoskeletal: no symptoms reported Skin: see HPI; No pruritus; rash Psychiatric/Neurological: No Symptoms Reported Hematologic/Lymphatic: No Symptoms Reported Immunological/Allergic: no symptoms reported Past Lcgogoj-Mmblpk-Likhcw Hx Patient Social History Alcohol Use: Denies Use Smoking Status: Never a Smoker Recent Infectious Disease Expo: No Recent Hopitalizations: Yes (COVID19) Immunizations Up To Date PED Vaccines UTD: Yes Date of Pneumonia Vaccine: Oct 15, 2017 Seasonal Allergies Seasonal Allergies: Yes Past Medical History Surgeries: Yes (RIGHT KIDNEY REMOVAL) Breast, Hysterectomy, Joint Replacement, Pacemaker Respiratory: Yes Pneumonia, Sleep Apnea Currently Using CPAP: No Currently Using BIPAP: No Cardiac: Yes (HEART VIRUS) Atrial Fibrillation, Coronary Artery Disease, High Cholesterol, Hypertension Neurological: No Female Reproductive Disorders: Denies Sexually Transmitted Disease: No HIV/AIDS: No Genitourinary: Yes (RIGHT KIDNEY CANCER AND REMOVAL) UTI-Chronic Gastrointestinal: Yes Chronic Constipation Musculoskeletal: Yes Arthritis Endocrine: Yes Diabetes, Non-Insulin dep HEENT: Yes Cataract Loss of Vision: Bilateral Cancer: Yes Breast, Kidney What Type of Treatment Did You: Surgical Intervention Psychosocial: No Anxiety, Depression Integumentary: Yes Recent Skin Changes Blood Disorders: No Adverse Reaction/Blood Tranf: No Family Medical History Cardiovascular disease 19 FATHER Completed stroke 19 FATHER 19 MOTHER Diabetes mellitus 19 MOTHER Physical Exam Vital Signs Vital Signs - First Documented 12/17/20 11:36 Temp 36.8 Pulse 71 Resp 18 B/P (MAP) 118/75 (89) Pulse Ox 99 Capillary Refill : Less Than 3 Seconds Height, Weight, BMI Height: '" Weight: lbs. oz. kg; 25.00 BMI Method: General Appearance: No Apparent Distress, WD/WN, Other (frail, jaundiced) Eyes: Bilateral Eye Normal Inspection, Bilateral Eye PERRL, Bilateral Eye EOMI HEENT: PERRL/EOMI, TMs Normal, Scleral Icterus (L), Scleral Icterus (R) Respiratory: No Accessory Muscle Use, No Respiratory Distress Cardiovascular: Regular Rate, Rhythm, Normal Peripheral Pulses Gastrointestinal: Normal Bowel Sounds, Non Tender, Soft; No Tenderness (intermittent epigastric pain) Extremity: Normal Capillary Refill, Normal Inspection Neurologic/Psychiatric: Alert, Oriented x3 Skin: Normal Color, Warm/Dry Progress/Results/Core Measures Suspected Sepsis Recent Fever Within 48 Hours: No Infection Criteria Present: None New/Unexplained Altered Menta: No Sepsis Screen: No Definite Risk SIRS Temperature: Pulse: 71 Respiratory Rate: 18 Laboratory Tests 12/17/20 12:11: White Blood Count 10.7 Blood Pressure 118 /75 Mean: 89 Laboratory Tests 12/17/20 12:11: Creatinine 1.86H, Platelet Count 254, Total Bilirubin 13.9*H Results/Orders Lab Results Laboratory Tests Test 12/17/20 12:11 12/17/20 12:50 Range/Units White Blood Count 10.7 4.3-11.0 10^3/uL Red Blood Count 3.61 L 3.80-5.11 10^6/uL Hemoglobin 9.9 L 11.5-16.0 g/dL Hematocrit 31 L 35-52 % Mean Corpuscular Volume 87 80-99 fL Mean Corpuscular Hemoglobin 27 25-34 pg Mean Corpuscular Hemoglobin Concent 32 32-36 g/dL Red Cell Distribution Width 22.2 H 10.0-14.5 % Platelet Count 254 130-400 10^3/uL Mean Platelet Volume 12.7 H 9.0-12.2 fL Immature Granulocyte % (Auto) 1 % Neutrophils (%) (Auto) 84 H 42-75 % Lymphocytes (%) (Auto) 7 L 12-44 % Monocytes (%) (Auto) 7 0-12 % Eosinophils (%) (Auto) 1 0-10 % Basophils (%) (Auto) 1 0-10 % Neutrophils # (Auto) 9.0 H 1.8-7.8 10^3/uL Lymphocytes # (Auto) 0.7 L 1.0-4.0 10^3/uL Monocytes # (Auto) 0.8 0.0-1.0 10^3/uL Eosinophils # (Auto) 0.1 0.0-0.3 10^3/uL Basophils # (Auto) 0.1 0.0-0.1 10^3/uL Immature Granulocyte # (Auto) 0.1 0.0-0.1 10^3/uL Neutrophils % (Manual) 85 % Lymphocytes % (Manual) 7 % Monocytes % (Manual) 5 % Eosinophils % (Manual) 1 % Basophils % (Manual) 2 % Band Neutrophils 0 % Hypochromasia MODERATE Anisocytosis MODERATE Target Cells MARKED Sodium Level 135 135-145 MMOL/L Potassium Level 4.4 3.6-5.0 MMOL/L Chloride Level 101 98-107 MMOL/L Carbon Dioxide Level 23 21-32 MMOL/L Anion Gap 11 5-14 MMOL/L Blood Urea Nitrogen 38 H 7-18 MG/DL Creatinine 1.86 H 0.60-1.30 MG/DL Estimat Glomerular Filtration Rate 26 BUN/Creatinine Ratio 20 Glucose Level 110 H 70-105 MG/DL Calcium Level 8.2 L 8.5-10.1 MG/DL Corrected Calcium 9.2 8.5-10.1 MG/DL Total Bilirubin 13.9 *H 0.1-1.0 MG/DL Aspartate Amino Transf (AST/SGOT) 246 H 5-34 U/L Alanine Aminotransferase (ALT/SGPT) 175 H 0-55 U/L Alkaline Phosphatase 588 H 40-136 U/L Total Protein 6.4 6.4-8.2 GM/DL Albumin 2.8 L 3.2-4.5 GM/DL Lipase 16 8-78 U/L Urine Color CHAVEZ H Urine Clarity SL CLOUDY Urine pH 6.5 5-9 Urine Specific [place] 1.015 L 1.016-1.022 Urine Protein 1+ H NEGATIVE Urine Glucose (UA) NEGATIVE NEGATIVE Urine Ketones NEGATIVE NEGATIVE Urine Nitrite NEGATIVE NEGATIVE Urine Bilirubin 3+ H NEGATIVE Urine Urobilinogen 1.0 < = 1.0 MG/DL Urine Leukocyte Esterase 1+ H NEGATIVE Urine RBC (Auto) 3+ H NEGATIVE Urine RBC 10-25 H /HPF Urine WBC 10-25 H /HPF Urine Squamous Epithelial Cells 2-5 /HPF Urine Renal Epithelial Cells 0-2 /HPF Urine Crystals NONE /LPF Urine Bacteria LARGE H /HPF Urine Casts NONE /LPF Urine Mucus NEGATIVE /LPF Urine Culture Indicated YES My Orders Orders - DANA LOUIS APRN Us Gallbladder 11130 (12/17/20 13:32) Ct Abdomen/Pelvis Wo (12/17/20 13:37) Ceftriaxone For Iv Use (Rocephin For I (12/17/20 13:45) Medications Given in ED Current Medications Medications Dose Ordered Sig/López Route Start Time Stop Time Status Last Admin Dose Admin Ceftriaxone Sodium 1000 mg/ Sterile Water 10 ml @ 200 mls/hr ONCE ONCE IV 12/17/20 13:45 12/17/20 13:47 DC 12/17/20 13:58 200 MLS/HR Vital Signs/I&O 12/17/20 11:36 Temp 36.8 Pulse 71 Resp 18 B/P (MAP) 118/75 (89) Pulse Ox 99 Capillary Refill : Less Than 3 Seconds Blood Pressure Mean: 89 Diagnostic Imaging Diagonstic Imaging: CT Comments NAME: KIAH DE REC#: [id number] PT STATUS: REG ER : 1940 PHYSICIAN: DANA LOUIS APRN ADMIT DATE: 12/17/20/ER Draft Date of Exam:12/17/20 CT ABDOMEN/PELVIS WO PROCEDURE: CT abdomen and pelvis without contrast. TECHNIQUE: Multiple contiguous axial images were obtained through the abdomen and pelvis without the use of intravenous contrast. Auto Exposure Controls were utilized during the CT exam to meet ALARA standards for radiation dose reduction. INDICATION: Jaundice. COMPARISON: No prior studies are available for comparison. Imaging through the lung bases demonstrates small right and trace left pleural effusion. The heart is enlarged. There does appear to be significant intrahepatic biliary ductal dilatation. There is a low-density lesion in the left lobe of the liver. This measures 2 cm. There is some questionable low density involving the pancreatic head. A pancreatic head mass cannot be entirely excluded. The body and tail appear to be atrophic. No definite pancreatic ductal dilatation is seen. The spleen is unremarkable. No adrenal mass identified. Left kidney appears to be surgically absent. Right kidney contains a 5.5 cm high density mass arising from the medial aspect. This may represent a hemorrhagic cyst versus a solid lesion. A tiny hyperdense lesion lower pole right kidney is also noted. There is high density within the gallbladder. This could be from vicarious excretion of recently administered contrast. There is some perihepatic free fluid present. Aorta is nonaneurysmal. Bowel loops are nonobstructed. There is moderate stool throughout the colon and sigmoid colon. There is gas within the urinary bladder. Correlation with recent instrumentation is recommended. No abdominal or pelvic lymphadenopathy is identified. There are postoperative changes of the right hip. Bony structures are nonacute. IMPRESSION: 1. Bilateral pleural effusions, right greater. 2. Intrahepatic biliary ductal dilatation. Possibility of a pancreatic head mass cannot be entirely excluded. Postcontrast study would be useful for further evaluation. There is a low-density lesion left lobe of the liver measuring 2 cm. A metastatic lesion cannot be excluded. 3. Hyperdense lesion right kidney 5.5 cm. This could represent hemorrhagic cyst versus solid renal mass. Renal ultrasound would be useful for further evaluation. 4. Moderate stool consistent with constipation. 5. Gas within the urinary bladder. Correlation with recent instrumentation is recommended. Dictated on workstation # [id number] Dict: 12/17/20 1414 Trans: 12/17/20 1437 [facility] [id number] Interpreted by: REYNALDO MANLEY MD Electronically signed by: Departure Communication (Admissions) Spoke with Dr. Cleveland, recommends transfer to facility with ERCP abilities. I spoke with [facility] and Dr. Younger has accepted at fifteen thirty. Given the pancreatic head mass she will need facility where pancreatic resection could potentially be done Impression Primary Impression: Hyperbilirubinemia Additional Impression: Pancreatic head lesion Disposition: XF SHT-TRM HOSP Condition: Stable Departure-Patient Inst. Referrals: Garry SARAVIA DO (PCP/Family) Primary Care Physician DANA LOUIS APRN Dec 17, 2020 13:40
[2020-12-17] MEDS ORDERED: cefTRIAXone FOR IV USE 1,000 MG in WATER (STERILE) FOR INJECTION 10 ML IV ONE (13:45)
--- NOTE | 2020-12-17 14:37 | Diagnostic Imaging Report ---
PROCEDURE: CT abdomen and pelvis without contrast. TECHNIQUE: Multiple contiguous axial images were obtained through the abdomen and pelvis without the use of intravenous contrast. Auto Exposure Controls were utilized during the CT exam to meet ALARA standards for radiation dose reduction. INDICATION: Jaundice. COMPARISON: No prior studies are available for comparison. Imaging through the lung bases demonstrates small right and trace left pleural effusion. The heart is enlarged. There does appear to be significant intrahepatic biliary ductal dilatation. There is a low-density lesion in the left lobe of the liver. This measures 2 cm. There is some questionable low density involving the pancreatic head. A pancreatic head mass cannot be entirely excluded. The body and tail appear to be atrophic. No definite pancreatic ductal dilatation is seen. The spleen is unremarkable. No adrenal mass identified. Left kidney appears to be surgically absent. Right kidney contains a 5.5 cm high density mass arising from the medial aspect. This may represent a hemorrhagic cyst versus a solid lesion. A tiny hyperdense lesion lower pole right kidney is also noted. There is high density within the gallbladder. This could be from vicarious excretion of recently administered contrast. There is some perihepatic free fluid present. Aorta is nonaneurysmal. Bowel loops are nonobstructed. There is moderate stool throughout the colon and sigmoid colon. There is gas within the urinary bladder. Correlation with recent instrumentation is recommended. No abdominal or pelvic lymphadenopathy is identified. There are postoperative changes of the right hip. Bony structures are nonacute. IMPRESSION: 1. Bilateral pleural effusions, right greater. 2. Intrahepatic biliary ductal dilatation. Possibility of a pancreatic head mass cannot be entirely excluded. Postcontrast study would be useful for further evaluation. There is a low-density lesion left lobe of the liver measuring 2 cm. A metastatic lesion cannot be excluded. 3. Hyperdense lesion right kidney 5.5 cm. This could represent hemorrhagic cyst versus solid renal mass. Renal ultrasound would be useful for further evaluation. 4. Moderate stool consistent with constipation. 5. Gas within the urinary bladder. Correlation with recent instrumentation is recommended. Dictated by: Dictated on workstation # [id number]
--- NOTE | 2020-12-17 15:09 | Diagnostic Imaging Report ---
PROCEDURE: US Gallbladder. TECHNIQUE: Multiple real-time grayscale images were obtained over the right upper quadrant in various projections. INDICATION: Jaundiced with CT scan showing dilated bile duct. FINDINGS: There is mild hepatomegaly. No focal liver lesions are noted. The intrahepatic biliary radicals are mildly dilated. Common bile duct is dilated measuring 1.2 cm. Gallbladder is distended without evidence of wall thickening or pericholecystic fluid. There are several acoustical shadowing gallstones. The pancreas is not well-visualized. The common duct is dilated to the pancreas. The aorta, vena cava and portal vein appear normal at Doppler sampling. Right kidney measures 12.6 x 5 x 5.8 cm. There is no ascites. The patient did experience positive Bernstein sign. IMPRESSION: 1. Dilated intrahepatic radicles and common bile duct to the pancreatic head. There are multiple gallstones. The pancreas was not well visualized though no obvious pancreatic masses were demonstrated. The patient did have a positive Bernstein sign. Dictated by: Dictated on workstation # [id number]
== END 2020-12-17 18:10 | disposition short-term general hospital (02) ==
LOC: EDUNIT# 11:18 → ER 11:20
DX: E80.6 Other disorders of bilirubin metabolism (principal); K86.89 Other specified diseases of pancreas; I48.91 Unspecified atrial fibrillation; I10 Essential (primary) hypertension; E11.9 Type 2 diabetes mellitus without complications; F41.9 Anxiety disorder, unspecified; F32.9 Major depressive disorder, single episode, unspecified; Z91.041 Radiographic dye allergy status; Z88.1 Allergy status to other antibiotic agents; Z88.8 Allergy status to other drugs, medicaments and biological substances; Z85.3 Personal history of malignant neoplasm of breast; Z85.528 Personal history of other malignant neoplasm of kidney; Z95.0 Presence of cardiac pacemaker; Z79.01 Long term (current) use of anticoagulants
CPT/HCPCS: 36415; 74176; 76705; 80053; 81000; 83690; 85007; 85027; 87077; 87088; 87186